=== PATIENT | female | born 1945 | race Caucasian/White ===

== ENCOUNTER 2024-03-17 12:26 | Emergency (ER) | payer MEDICARE, SELFPAY ==
[2024-03-17 12:47] VITALS: BP 129/78; PULSE 107; RESP 24; TEMP 36.7; O2SAT 95
--- OUTSIDE RECORDS SUMMARY | 2024-03-17 13:12 | XMS_ITS | CONTINUITY OF CARE DOCUMENT ---
Author Name ilan talavera Address Unknown Organization [facility] Address [address] [facility] [address] [place] [address] Phone [phone] Care Team Providers Care Cotton Grower Name Role Phone Jessica SOLIMAN, Shay Unavailable [phone] ROCIO SOLIMAN, ORAL Unavailable ORAL CHAN MD Unavailable PROBLEMS Condition Status Date Provider Notes Other symptoms involving cardiovascular system completed - Shay Lopez MD CVA active Shay Lopez MD Hyperlipidemia active ? Shay Lopez MD Hypertension active ? Shay Lopez MD Pulmonary hypertension active Fili Call LVH active Shay Lopez MD Tricuspid regurgitation, moderate active Shay Lopez MD Aortic valve stenosis with insufficiency active Shay Lopez MD Other peripheral vascular disease completed - Shay Lopez MD Abnormal stress test completed - Shay Lopez MD Pleural effusion active Shay Washington D CAD S/P CABGx4 09/30 (HENRIQUEZ-LAD, SVG-RCA, SVG-Ramus Int, LR-OM2) active Shay Lopez MD Aortic stenosis completed - Shay Lopez MD Shortness of breath active Shay echavarria MD Obesity active Shay Lopez MD Palpitations active Fili Call Carotid artery disease S/P FREDY endarterectomy 07/31 active Shay Lopez MD ENCOUNTERS Date Type Provider Location Encounter Diag nosis - In-person encounter Office Visit Shay Lopez MD [facility] - In-person encounter Office Visit Shay Lopez MD [facility] - In-person encounter Office Visit Shay oLpez MD [facility] - In-person encounter Office Visit Shay Lopez MD [facility] - In-person encounter Office Visit Shay Lopez MD [facility] - In-person encounter Office Visit Shay Lopez MD [facility] Pulmonary hypertensionPalpitations - In-person encounter Office Visit Shay Lopez MD [facility] - In-person encounter Office Visit Shay Lopez MD [facility] CVAAortic valve stenosis with insufficiencyCarotid artery disease S/P FREDY endarterectomy 07/31CAD S/P CABGx4 09/30 (HENRIQUEZ-LAD, SVG-RCA, SVG-Ramus Int, LR-OM2)Aortic stenosisShortness of breathObesity - In-person encounter Office Visit Shay Lopez MD [facility] Other peripheral vascular disease - In-person encounter Office Visit Shay Lopez MD [facility] Other symptoms involving cardiovascular systemPulmonary hypertensionTricuspid regurgitation, moderateAortic valve stenosis with insufficiencyAbnormal stress testCAD S/P CABGx4 0815 (HENRIQUEZ-LAD, SVG-RCA, SVG-Ramus Int, LR-OM2) - In-person encounter Office Visit Shay Lopez MD [facility] Pleural effusionCAD S/P CABGx4 09/30 (HENRIQUEZ-LAD, SVG-RCA, SVG-Ramus Int, LR-OM2) - In-person encounter Office Visit Shay Lopez MD [facility] - In-person encounter Office Visit Shay Lopez MD [facility] - In-person encounter Office Visit Shay Lopez MD [facility] - In-person encounter Office Visit Shay Lopez MD [facility] Carotid artery disease S/P FREDY endarterectomy 07/31 - In-person encounter Office Visit Shay Lopez MD [facility] CVAHyperlipidemiaHypertensionPulmonary hypertensionLVHTricuspid regurgitation, moderateAortic valve stenosis with insufficiencyCarotid artery disease S/P FREDY endarterectomy 07/31 VITAL SIGNS Date Observation Value Provider blood pressure, diastolic 84 mm[Hg] nkLog blood pressure, systolic 151 mm[Hg] [facility] Body Mass Index (Ratio) 34.03 kg/m2 [facility] blood pressure, cuff size regular [facility] blood pressure, diastolic 84 mm[Hg] [facility] blood pressure, systolic 151 mm[Hg] [facility] pulse rate 83 /min [facility] oxygen saturation, oximetry 99 % [facility] respiratory rate E&M 14 /min [facility] weight E&M 121 [lb_av] [facility] height E&M 50 [in_i] [facility] y Body Mass Index (Ratio) 34.87 kg/m2 Aravind Joseph blood pressure, diastolic 78 mm[Hg] Bonnie Mckinnon blood pressure, systolic 181 mm[Hg] Rei cathy Mckinnon blood pressure, cuff size large Bonnie Mckinnon oxygen saturation, oximetry 94 % Angela Mckinnon respiratory rate E&M 16 /min Mariola Mckinnon pulse rate 83 /min Angela galeano weight E&M 124 [lb_av] Angela Lugo son height E&M 50 [in_i] Angela galeano Body Mass Index (Ratio) 35.15 kg/m2 [place] [facility] blood pressure, cuff size regular Ke rri Gruenenfelder blood pressure, diastolic 80 mm[Hg] Ke rri Gruenenfelder blood pressure, systolic 142 mm[Hg] Ker ri Gruenenfelder oxygen saturation, oximetry 96 % Lucy Gruenenfelder respiratory rate E&M 14 /min Lucy G ruenenfelder pulse rate 85 /min Lucy Gruenenfe er weight E&M 125 [lb_av] Lucy Gruenenfe [facility] height E&M 50 [in_i] Lucy Gruenenfe [facility] Body Mass Index (Ratio) 35.99 kg/m2 [place] blood pressure, cuff size regular Ke rri Gruenenfelder blood pressure, diastolic 72 mm[Hg] Ke rri Gruenenfelder blood pressure, systolic 112 mm[Hg] Ker ri Gruenenfelder oxygen saturation, oximetry 90 % Lucy Gruenenfelder respiratory rate E&M 16 /min Lucy G ruenenfelder pulse rate 79 /min Lucy Gruenenfe lder weight E&M 128 [lb_av] Lucy Gruenenfe [facility] height E&M 50 [in_i] Lucy Buckley brenden Body Mass Index (Ratio) 35.60 kg/m2 Vinny Govea blood pressure, diastolic 87 mm[Hg] Baldomero Harper blood pressure, systolic 148 mm[Hg] Liz Perezshelby Harper oxygen saturation, oximetry 93 % Jasmyne Leroy respiratory rate E&M 18 /min Nito Harper pulse rate 88 /min Jasmyne edwards weight E&M 126.6 [lb_av] Jasmyne rollinson height E&M 50 [in_i] Jasmyne edwards Body Mass Index (Ratio) 35.09 kg/m2 Tahir Farooqon blood pressure, diastolic 94 mm[Hg] Baldomero saundraBrissathanh Harper blood pressure, systolic 158 mm[Hg] Liz Auguste Harper oxygen saturation, oximetry 95 % Jasmyne Harper respiratory rate E&M 18 /min Nito Harper pulse rate 92 /min Jasmyne edwards weight E&M 124.8 [lb_av] Jasmyne salazar height E&M 50 [in_i] Jasmyne edwards Body Mass Index (Ratio) 33.52 kg/m2 Arik Mckinnon blood pressure, diastolic 86 mm[Hg] Baldomero Harper blood pressure, systolic 173 mm[Hg] Liz Perezshelby Harper oxygen saturation, oximetry 96 % Jasmyne Leroy respiratory rate E&M 18 /min Nito Harper pulse rate 84 /min Jasmyne edwards weight E&M 119.2 [lb_av] Jasmyne rollinson height E&M 50 [in_i] Jasmyne Jacksno angelicanelson blood pressure, resting Yes Wojciech ius Kalvaitis MD Body Mass Index (Ratio) 33.91 kg/m2 Wojciech Lopez MD blood pressure, diastolic 87 mm[Hg] Baldomero Bullock Leroy blood pressure, systolic 151 mm[Hg] Liz Auugste Leroy oxygen saturation, oximetry 97 % Jasmyne Patelenson respiratory rate E&M 18 /min Nito ryan Harper pulse rate 70 /min Jasmyne Jackson angelicanelson weight E&M 120.6 [lb_av] Jasmyne salazar height E&M 50 [in_i] Jasmyne Jackson nelson blood pressure, diastolic 84 mm[Hg] Me hernandez Mosher blood pressure, systolic 151 mm[Hg] Mira barreraa Mosher pulse rate 94 /min Dasia Mosher oxygen saturation, oximetry 97 % Dasia Mosher respiratory rate E&M 14 /min Dasia Mosher Body Mass Index (Ratio) 30.09 kg/m2 [facility] weight E&M 107 [lb_av] Dasia Mosher oxygen saturation, oximetry 98 % Dasia Mosher blood pressure, diastolic 72 mm[Hg] Me hernandez Mosher blood pressure, systolic 116 mm[Hg] [facility] pulse [facility] 76 /min Dasia Mosher respiratory rate E&M 14 /min Dasia Mosher Body Mass Index (Ratio) 29.53 kg/m2 [facility] weight E&M 105 [lb_av] Dasia Mosher blood pressure, diastolic 66 mm[Hg] Me hernandez Mosher blood pressure, systolic 119 mm[Hg] Mira carlos Mosher Body Mass Index (Ratio) 30.65 kg/m2 [facility] pulse rate 88 /min Dasia Mosher oxygen saturation, oximetry 96 % Dasia Mosher respiratory rate E&M 15 /min Dasia Mosher weight E&M 109 [lb_av] Dasia Mosher blood pressure, diastolic 70 mm[Hg] Baldomero Harper blood pressure, systolic 157 mm[Hg] Liz Harper Body Mass Index (Ratio) 31.55 kg/m2 Abigail Harper pulse rate 74 /min Jasmyne edwards oxygen saturation, oximetry 97 % Jasmyne Harper respiratory rate E&M 16 /min Nito Harper weight E&M 112.2 [lb_av] Jasmyne salazar blood pressure, diastolic 83 mm[Hg] Baldomero Harper blood pressure, systolic 188 mm[Hg] Liz Harper Body Mass Index (Ratio) 31.33 kg/m2 Abigail Harper pulse rate 86 /min Jasmyne edwards oxygen saturation, oximetry 92 % Jasmyne Harper respiratory rate E&M 18 /min Nito Harper weight E&M 111.4 [lb_av] Jasmyne salazar Body Mass Index (Ratio) 31.49 kg/m2 Anea kamilah Brown blood pressure, diastolic 80 mm[Hg] An eatris Brown blood pressure, systolic 132 mm[Hg] Ane atris Brown pulse rate 76 /min Aneatris Brown oxygen saturation, oximetry 98 % Aneatris Brown respiratory rate E&M 17 /min Aneatri s Brown weight E&M 112 [lb_av] Aneatris Brown Body Mass Index (Ratio) 32.90 kg/m2 Anea kamilah Brown blood pressure, diastolic 88 mm[Hg] An eatris Brown blood pressure, systolic 159 mm[Hg] Ane atris [facility] pulse rate 80 /min Aneatris [facility] oxygen saturation, oximetry 97 % Aneatris Drew respiratory rate E&M 18 /min Aneatri s [facility] weight E&M 117 [lb_av] Aneatris Drew height E&M 50 [in_i] Aneatris Drew ALLERGIES No Known Drug Allergies RESULTS Date Observation Value Provider Reference Range Interpretation Location basophils as percent of blood leukocytes 0.6 % [facility] Normal eosinophils as percent of blood leukocytes 2.8 % [facility] Normal monocyte count, blood 6.8 % [facility] Normal lymphocyte count, blood 20.9 % [facility] Normal neutrophils as percent of blood leukocytes 68.9 % [facility] Normal basophils, absolute, manual 59 cells/mcL [facility] 0-200 Normal eosinophils, absolute, manual 274 cells/mcL [facility] 15-500 Normal monocytes, absolute, manual 666 cells/mcL [facility] 200-950 Normal lymphocytes, absolute 2048 CELLS/UL [facility] 850-3900 Normal Absolute Neutrophil count 6752 cells/mcL [facility] 9731-3871 Normal mean platelet volume 12.7 fL [facility] 7.5-12.5 High platelet count 160 THOUSAND/UL [facility] 140-400 Normal red blood cell distribution width 13.5 % [facility] 11.0-15.0 Normal mean corpuscular hemoglobin concentration, RBC 33.7 G/DL [facility] 32.0-36.0 Normal mean corpuscular hemoglobin, RBC 30.3 pg [facility] 27.0-33.0 Normal mean corpuscular volume, RBC 89.8 fL [facility] 80.0-100.0 Normal hematocrit, blood 45.7 % [facility] 35.0-45.0 High hemoglobin electrophoresis, blood 15.4 [facility] 11.7-15.5 Normal erythrocyte (RBC) count 5.09 MILLION/UL [facility] 3.80-5.10 Normal leukocyte (white blood cells) count, blood 9.8 THOUSAND/UL [facility] 3.8-10.8 Normal alanine aminotransferase (SGPT), serum 18 1/L [facility] 6-29 Normal aspartate aminotransferase (SGOT), serum 18 1/L [facility] 10-35 Normal alkaline phosphatase, serum 72 1/L [facility] 37-153 Normal bilirubin, serum, total 0.5 mg/dL [facility] 0.2-1.2 Normal albumin, serum 4.0 g/dL [facility] 3.6-5.1 Normal calcium, serum 9.5 mg/dL [facility] 8.6-10.4 Normal carbon dioxide, venous blood 25 mmol/L [facility] 20-32 Normal chloride, serum 105 mmol/L [facility] 98-110 Normal sodium, serum 142 mmol/L [facility] 135-146 Normal urea nitrogen/creatinine ratio, serum NOT APPLICABLE (calc) [facility] 6-22 Estimated Glomerular Filtration Rate (calc) 75 mL/min/{1.73_ m2} [facility] > OR = 60 Normal creatinine, serum 0.89 mg/dL [facility] 0.60-0.93 Normal urea nitrogen, blood 23 mg/dL [facility] 7-25 Normal blood glucose, random 98 mg/dL [facility] 65-99 Normal thyroxine, serum, free 1.1 ng/dL [facility] 0.8-1.8 Normal thyroid stimulating hormone, serum 1.09 u[IU]/mL [facility] 0.40-4.50 Normal cholesterol, non-HDL, total 127 MG/DL (CALC) [facility] <130 Normal cholesterol/HDL ratio, serum, percent 4.0 (calc) [facility] <5.0 Normal LDL cholesterol, serum 100 MG/DL (CALC) [facility] High triglyceride, serum, fasting 172 mg/dL [facility] <150 High HDL cholesterol, serum 43 mg/dL [facility] > OR = 50 Low cholesterol, serum 170 mg/dL [facility] <200 Normal lipoprotein, beta, serum, point, quantitative, calculated 87 mg/dL [facility] 0-99 very low density lipoproteins 41 mg/dL [facility] 5-40 High HDL cholesterol, serum 40 mg/dL [facility] >39 triglyceride, serum, random 205 mg/dL [facility] 0-149 High cholesterol, serum 168 mg/dL [facility] 781-300 5117/06 /04 alanine aminotransferase (SGPT), serum 17 1/L [facility] 0-32 aspartate aminotransferase (SGOT), serum 18 1/L [facility] 0-40 alkaline phosphatase, serum 76 1/L [facility] 39-117 bilirubin, serum, total 0.4 mg/dL [facility] 0.0-1.2 albumin/globulin ratio, serum 1.6 [facility] 1.2-2.2 globulin, serum 2.8 [facility] 1.5-4.5 albumin, serum 4.4 g/dL [facility] 3.5-4.8 protein, total, serum 7.2 g/dL [facility] 6.0-8.5 calcium, serum 9.5 mg/dL [facility] 8.7-10.3 carbon dioxide, venous blood 22 mmol/L [facility] 20-29 chloride, serum 103 mmol/L [facility] 96-106 potassium, serum 5.2 mmol/L [facility] 3.5-5.2 sodium, serum 143 mmol/L [facility] 133-924 1490/06 /04 urea nitrogen/creatinine ratio, serum 20 [facility] 12-28 eGFR if 62 mL/min/{1.73_ m2} [facility] >59 eGFR if not 54 mL/min/{1.73_ m2} [facility] >59 Low creatinine, serum 1.04 mg/dL [facility] 0.57-1.00 High urea nitrogen, blood 21 mg/dL [facility] 8-27 blood glucose, random 99 mg/dL [facility] 65-99 red blood cell distribution width, size density 48.1 fL [facility] - mean platelet volume 13.1 (?) [facility] - platelet count 200.0 THOUSAND/UL [facility] 100.0 - 400.0 mean corpuscular hemoglobin concentration, RBC 30.1 G/DL [facility] 31.0 - 38.0 Low mean corpuscular hemoglobin, RBC 27.9 pg [facility] 25.0 - 35.0 mean corpuscular volume, RBC 92.9 fL [facility] 75.0 - 100.0 hematocrit, blood 48.2 % [facility] 35.0 - 55.0 hemoglobin, blood 14.5 g/dL [facility] 11.5 - 16.5 erythrocyte count, whole blood 5.2 MILLION/UL [facility] 3.5 - 5.5 very low density lipoproteins 30.2 mg/dL [facility] 5.0 - 40.0 LDL/HDL (low-density lipoprotein/high-de nsity lipoprotein) ratio 2.6 RATIO [facility] - HDL cholesterol, serum 48.0 mg/dL [facility] 45.0 - 65.0 cholesterol, serum 202.0 mg/dL [facility] 0.0 - 200.0 High Triglycerides-direc t 151.0 mg/dL [facility] 0.0 - 150.0 High anion gap, serum 18.3 [facility] - albumin/globulin ratio, serum 2.9 g/dL [facility] 1.1 - 2.5 High globulin, serum 3.4 [facility] 2.3 - 3.8 urea nitrogen/creatinine ratio, serum 27.0 [facility] - Estimated Glomerular Filtration Rate (calc) 58.6 (?) [facility] 59.0 - Low chloride, serum 98.7 mmol/L [facility] 98.0 - 107.0 potassium, serum 4.2 mmol/L [facility] 3.5 - 5.1 sodium, serum 143.0 mmol/L [facility] 136.0 - 145.0 creatinine, serum 1.0 mg/dL [facility] 0.5 - 0.9 High carbon dioxide, venous blood 26.0 mmol/L [facility] 23.0 - 31.0 albumin, serum 4.9 g/dL [facility] 3.5 - 5.2 calcium, serum 10.3 mg/dL [facility] 8.6 - 10.2 High aspartate aminotransferase (SGOT), serum 18.0 1/L [facility] 0.0 - 32.0 alkaline phosphatase, serum 87.0 1/L [facility] 40.0 - 130.0 alanine aminotransferase (SGPT), serum 12.0 1/L [facility] 0.0 - 33.0 protein, total, serum 8.3 g/dL [facility] 6.6 - 8.7 urea nitrogen, [facility].0 [facility] High Glucose Urine 103.0 mg/dL [facility] 74.0 - 99.0 High bilirubin, serum, total 0.3 mg/dL [facility] 0.0 - 1.2 red blood cell distribution width, size density 44.0 fL [facility] - immature granulocytes, percentage of total cells, blood 0.3 % [facility] - nucleated red blood cells as percent of blood leukocytes 0.0 % [facility] - red blood cell (erythrocyte) count, per high power field 0.0 10*3/UL [facility] - eosinophils as percent of blood leukocytes 3.4 % [facility] - neutrophils as percent of blood leukocytes 73.9 % [facility] - Absolute Neutrophils 8.9 CELLS/UL [facility] 1.5 - 7.8 High basophils as percent of blood leukocytes 0.8 % [facility] - Absolute Basophils 0.1 CELLS/UL [facility] 0.0 - 0.2 monocytes as percent of blood leukocytes 6.3 % [facility] - Absolute Monocytes 0.8 CELLS/UL [facility] 0.2 - 1.0 lymphocytes as percent of blood leukocytes 15.3 % [facility] - Absolute Lymphocytes 1.8 CELLS/UL [facility] 0.9 - 3.9 mean platelet volume 13.6 (?) [facility] - platelet count 176.0 THOUSAND/UL [facility] 100.0 - 400.0 mean corpuscular hemoglobin concentration, RBC 31.3 G/DL [facility] 31.0 - 38.0 mean corpuscular hemoglobin, RBC 29.8 pg [facility] 25.0 - 35.0 mean corpuscular volume, RBC 95.2 fL [facility] 75.0 - 100.0 hematocrit, blood 47.3 % [facility] 35.0 - 55.0 hemoglobin, blood 14.8 g/dL [facility] 11.5 - 16.5 erythrocyte count, whole blood 5.0 MILLION/UL [facility] 3.5 - 5.5 prothrombin time (patient) 10.6 s [facility] 9.0 - 11.5 international normalized ratio (INR) 1.0 [facility] 0.9 - 1.1 very low density lipoproteins 24.6 mg/dL [facility] 5.0 - 40.0 LDL/HDL (low-density lipoprotein/high-de nsity lipoprotein) ratio 2.0 RATIO [facility] - HDL cholesterol, serum 50.0 mg/dL [facility] 45.0 - 65.0 sum total cholesterol 176.0 mg/dL [facility] 0.0 - 200.0 Triglycerides-direc t 123.0 mg/dL [facility] 0.0 - 150.0 urea nitrogen/creatinine ratio, serum 25.0 [facility] - Estimated Glomerular Filtration Rate (calc) 75.8 (?) [facility] 59.0 - chloride, serum 102.2 mmol/L [facility] 98.0 - 107.0 potassium, serum 4.3 mmol/L [facility] 3.5 - 5.1 sodium, serum 142.0 mmol/L [facility] 136.0 - 145.0 creatine, serum 0.8 mg/dL [facility] 0.5 - 0.9 carbon dioxide, venous blood 26.0 mmol/L [facility] 23.0 - 31.0 calcium, serum 9.6 mg/dL [facility] 8.6 - 10.2 urea nitrogen, blood 20.0 mg/dL [facility] 8.0 - 23.0 Glucose Urine 107.0 mg/dL [facility] 74.0 - 99.0 High alanine aminotransferase (SGPT), serum 13 1/L [facility] 6-29 Normal aspartate aminotransferase (SGOT), serum 14 1/L [facility] 10-35 Normal alkaline phosphatase, serum 59 1/L [facility] 33-130 Normal bilirubin, serum, total 0.5 mg/dL [facility] 0.2-1.2 Normal albumin/globulin ratio, serum 1.5 (calc) [facility] 1.0-2.5 Normal globulins, serum, total 2.8 G/DL (CALC) [facility] 1.9-3.7 Normal albumin, serum 4.3 g/dL [facility] 3.6-5.1 Normal protein, total, serum 7.1 g/dL [facility] 6.1-8.1 Normal calcium, serum 9.6 mg/dL [facility] 8.6-10.4 Normal carbon dioxide, venous blood 25 mmol/L [facility] 19-30 Normal chloride, serum 106 mmol/L [facility] 98-110 Normal potassium, serum 4.4 mmol/L [facility] 3.5-5.3 Normal sodium, serum 142 mmol/L [facility] 135-146 Normal urea nitrogen/creatinine ratio, serum NOT APPLICABLE (calc) [facility] 6- Estimated Glomerular Filtration Rate (calc) 86 mL/min/{1.73_ m2} [facility] > OR = 60 Normal creatinine, serum 0.82 mg/dL [facility] 0.50-0.99 Normal urea nitrogen, blood 22 mg/dL [facility] 7-25 Normal blood glucose, random 101 mg/dL [facility] 65-99 High cholesterol, non-HDL, total 111 MG/DL (CALC) [facility] Normal cholesterol/HDL ratio, serum, percent 3.6 (calc) [facility] < OR = 5.0 Normal LDL cholesterol, serum 86 MG/DL (CALC) [facility] <130 Normal triglyceride, serum, fasting 125 mg/dL [facility] <150 Normal HDL cholesterol, serum 43 mg/dL [facility] > OR = 46 Low cholesterol, serum 154 mg/dL [facility] 125-200 Normal HISTORY OF MEDICATION USE Medication Status Instructions Dates Provider Indications Com ments ezetimibe 10 mg tablet active Take 1 tablet by mouth once a day TAKE ONE TABLET BY MOUTH EVERY DAY Ellen Choi NP was originally sent to [facility] atorvastatin 40 mg tablet active Take 1 tablet once a day Ellen Choi NP ezetimibe 10 mg tablet completed TAKE ONE TABLET BY MOUTH EVERY DAY - Marla Lizama metoprolol tartrate 25 mg tablet active TAKE 1/2 TABLET BY MOUTH TWICE DAILY Ellen Choi NP aspirin 81 mg tablet,delayed release (/EC) active TAKE ONE TABLET BY MOUTH EVERY DAY Gumaro Howard RN lisinopril 5 mg tablet active TAKE ONE TABLET BY MOUTH EVERY DAY Ellen Choi NP atorvastatin 40 mg tablet completed Take 1 tablet once a day - Benita Fan metoprolol tartrate 25 mg tablet completed Take 1/2 tablet by mouth twice a day - Apryl Carrington ezetimibe 10 mg tablet completed Take 1 tablet by mouth once a day - Apryl Carrington lisinopril 5 mg tablet completed Take 1 tablet by mouth once a day - Apryl Carrington ezetimibe 10 mg tablet completed 1 tablet - Shay Lopez MD aspirin 81 mg tablet,delayed release (/EC) completed Take 1 tablet by mouth once a day - Apryl IBRAHIM ASA/ RIVAROXABAN completed LTOLE ASA 100mg once daily Rivaroxaban 2.5mg BID - Dasai Mosher ASPIRIN ADULT LOW DOSE 81 MG ORAL TABLET DELAYED RELEASE completed One Tab By Mouth Daily - Dasia Mosher MULTIVITAMINS CAPS active 1 tablet once a day Dasia Mosher FERROUS SULFATE 325 (65 Fe) MG ORAL TABLET completed twice daily - Dasia Mosher BISACODYL EC 5 MG ORAL TABLET DELAYED RELEASE completed twice daily as needed - Dasia Mosher Klor-Con M20 20 mEq tablet,ER particles/cryst als completed Take 1 tablet by mouth once a day - Apryl Carrington Lasix 40 mg tablet completed Take 1 tablet by mouth once a day - Apryl IBRAHIM PROTONIX VS PLACEBO completed - Dasia Mosher PATRICE ASA/ RIVAROXABAN completed - Liz Jarrell RN ASPIRIN 81 MG ORAL TABLET completed ONE TAB. DAILY - Liz Jarrell RN lisinopril 5 mg tablet completed TAKE ONE TABLET DAILY - Lucy Morgan AGGRENOX 25-200 MG ORAL CAPSULE EXTENDED RELEASE 12 HOUR completed One tab twice daily - Jasmyne Harper ASPIRIN 81 MG ORAL TABLET completed ONE TAB. DAILY - Gerber Russell metoprolol tartrate 25 mg tablet completed Take 0.5 tablet by mouth twice a day - Elena Lim AMLODIPINE BESYLATE 2.5 MG ORAL TABLET completed 1 TAB DAILY - Gerber Russell SOCIAL HISTORY Date Observation Value Provider personal history of marijuana use no Ellen Steph CERAMIST drug use no Ellen Choi CERAMIST alcohol use no Ellen Choi CERAMIST smoking status Never smoker Ellen Isi ornelas CERAMIST social history E&M S moking History: Zayra salcido has never smoked. Aravind Joseph social history reviewed E&M revi ewed - no changes required Aravind Joseph smoking status Never smoker Angela Leigh Ann banks social history E&M S moking History: Zayra salcido has never smoked. Apryl Carrington social history reviewed E&M revi ewed - no changes required Apryl Carrington smoking status Never smoker Lucy caceres social history E&M S moking History: Zayra salcido has never smoked. Apryl Carrington social history reviewed E&M revi ewed - no changes required Apryl Carrington smoking status Never smoker Lucy caceres social history reviewed E&M revi ewed - no changes required Omega Govea smoking status Never smoker Jasmyne Recio social history reviewed E&M revi ewed - no changes required Filius Call social history E&M S moking History: Zayra salcido has never smoked. Fili Call smoking status Never smoker Jasmyne Recio number of grandchildren Shay Lopez MD [facility] social history reviewed E&M revi ewed - no changes required [facility] social history E&M S moking History: Zayra salcido has never smoked. Ana M Lansing smoking status Never smoker Jasmyne Recio social history E&M Smoking Histo ry: Zayra salcido has never smoked. Shay Lopez MD social history reviewed E&M revi ewed - no changes required Shay Lopez MD smoking status Never smoker Jasmyne Recio social history reviewed E&M revi ewed - no changes required Shay Lopez MD smoking status Never smoker Dasia law social history reviewed E&M revi ewed - no changes required Shay Lopez MD smoking status Never smoker Dasia Yaakov law social history E&M Smoking Histo ry: Zayra salcido has never smoked. Shay Lopez MD social history reviewed E&M revi ewed - no changes required Shay Lopez MD smoking status Never smoker Dasia law social history reviewed E&M revi ewed - no changes required Shay Lopez MD social history E&M Patient has n ever smoked. Smoking History: Zayra salcido has never smoked. Shay Lopez MD social history reviewed E&M revi ewed - no changes required Shay Lopez MD smoking status Never smoker Shay redding MD social history reviewed E&M revi ewed - no changes required Shay Lopez MD smoking status Never smoker Jasmyne Recio social history E&M Patient has n ever smoked. Smoking History: Zayra salcido has never smoked. Shay Lopez MD social history reviewed E&M revi ewed - no changes required Shay Lopez MD smoking status Never smoker Shay redding MD social history reviewed E&M revi ewed - no changes required Shay Lopez MD smoking status Never smoker Aneatris Brow n FUNCTIONAL STATUS Date Observation Value Provider HRA, CV Assess/Plan, Angina (inactive) Management Plan continue current therapy Ellen Choi NP HRA, CV Assess/Plan, Angina (inactive) Management Plan continue current therapy Aravind Joseph HRA, CV Assess/Plan, Angina (inactive) Management Plan continue current therapy Taewon Zeb HRA, CV Assess/Plan, Angina (inactive) Management Plan continue current therapy Taewon Zeb HRA, CV Assess/Plan, Angina (inactive) Management Plan continue current therapy Omega Govea HRA, CV Assess/Plan, Angina (inactive) Management Plan continue current therapy Fili Call HRA, CV Assess/Plan, Angina (inactive) Management Plan continue current therapy Ana M Mckinnon HRA, CV Assess/Plan, Angina (inactive) Management Plan continue current therapy Shay Lopez MD FAMILY HISTORY Family Member Condition Mother Family History of CV A or Stroke: Father Family History of Co ngestive Heart Failure: Father Family History of Hy pertension: Father Family History of CV A or Stroke: INSURANCE PROVIDERS Payer name Policy type / Coverage type Eidson red democrat ID [employer] MEDICARE ADVANTAGE HMO-POS HMO [id number] ADVANCE DIRECTIVES Name Date DISCUSSED - NO DECISION MADE TREATMENT PLAN Date Name Performer [id number],C,will repeat h er carotid doppler Aravind Joseph [id number],B, Aravind Reid i [id number],C,no sxs Aravind Dietz edzai [id number],C,Stable Aravind Dietz edzai [id number],C, n o angina Aravind Reidi [id number],C,A dvised her to monitor her BP at home and stay complaint on her medications. BP today: 181/78 P rior BP: 142/80 (01/04/2021) Labs Reviewed: C reat: 0.89 (12/16/2019) C hol: 170 (12/16/2019) HDL: 43 (12/16/2019) LDL: 100 MG/DL (CALC) (12/16/2019) T (12/16/2019) Aravind Reidi [id number],C, E cho 01/2019 CONCLUSIONS: 4 . Moderate aortic stenosis. Mild aortic valve regurgitation. Peak AV velocity: 3.05 m/s. The Aortic Valve Peak Gradient is 3 7.00 mmHg. The Aortic Valve Mean Gradient is 19.00 mmHg. Orders: C omplete Echo (CPT-70692) Apryl Carrington [id number],C, B P today: 142/80 P rior BP: 112/72 (12/09/2019) Her updated medication list for this problem includes: Lasix 40 Mg Tablet (Furosemide) ..... Once a day Aspirin 81 Mg Tablet,delayed Release (dr/ec) (Aspirin) ..... 1 tablet by mouth once a day Metoprolol Tartrate 25 Mg Tablet (Metoprolol tartrate) ..... Take one-half tablet by mouth twice daily Lisinopril 5 Mg Tablet (Lisinopril) ..... Take one tablet by mouth every day Orders: C omplete Echo (CPT-95901) C arotid Duplex Bilateral (CPT-45831) A janis Duplex Ultrasound (CPT-85784) Apryl Carrington [id number],B, l ast LDL 65 05/2020 t olerating statin/zetia well. occasional leg cramps but not associated w/ taking meds Her updated medication list for this problem includes: Lipitor 40 Mg Tablet (Atorvastatin) ..... 1 tablet once a day Ezetimibe 10 Mg Tablet (Ezetimibe) ..... Take one tablet by mouth every day Apryl Zeb [id number],C, O rders: C omplete Echo (CPT-62882) [facility] [id number],C, O rders: C omplete Echo (CPT-22411) [facility] [id number],C, O rders: C arotid Duplex Bilateral (CPT-11618) [facility] [id number],B, n o angina Her updated medication list for this problem includes: Aspirin 81 Mg Tablet,delayed Release (dr/ec) (Aspirin) ..... 1 tablet by mouth once a day Metoprolol Tartrate 25 Mg Tablet (Metoprolol tartrate) ..... Take one-half tablet by mouth twice daily Lisinopril 5 Mg Tablet (Lisinopril) ..... Take one tablet by mouth every day Apryl Carrington Electrophysiology: Vanita heaton 10/2021 CONCLUSIONS: M oderate to severe aortic stenosis. Moderate aortic valve regurgitation. Peak AV velocity: 3.93 m/s The Aortic Valve Peak G radient is 61.79 mmHg The Aortic Valve Mean Gradient is 38.17 mmHg The ZORAIDA is 0.7 cm2. Will repeat echo. Ellen Choi NP Electrophysiology: H er updated medication list for this problem includes: Ezetimibe 10 Mg Tablet (Ezetimibe) ..... Take 1 tablet by mouth once a day take one tablet by mouth every day Atorvastatin 40 Mg Tablet (Atorvastatin) ..... Take 1 tablet once a day Ellen Choi NP Electrophysiology: B P at home ranges in the 130s/80s. D iscussed need to continue monitoring BP at home. D iscussed need to monitor sodium intake B P today: 151/84 P rior BP: 181/78 (01/03/2022) Her updated medication list for this problem includes: Metoprolol Tartrate 25 Mg Tablet (Metoprolol tartrate) ..... Take 1/2 tablet by mouth twice daily Lisinopril 5 Mg Tablet (Lisinopril) ..... Take one tablet by mouth every day Aspirin 81 Mg Tablet,delayed Release (dr/ec) (Aspirin) ..... Take one tablet by mouth every day Ellen Loyolasuyapa JALLOH Electrophysiology: C arotid doppler 01/2019 CONCLUSIONS: 1 . 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 2 . 50 - 69% stenosis of the left ICA. 3 . <50% stenosis of the right ICA. 4 . Vertebral flow is antegrade bilaterally. Will repeat carotid doppler. Ellen Loyolasuyapa JALLOH Electrophysiology: N o angina. Continue current medications. Fatmatanehal Steph JALLOH Electrophysiology: N o recent symptoms. W ill get 48 hour holter in 1 year. Ellen Loyolasuyapa JALLOH Electrophysiology:will repeat he r carotid doppler Aravind millie [facility]:no sxs Aravind medzai Electrophysiology:Stable [facility] medzai Electrophysiology: n o angina [facility]:Ad vised her to monitor her BP at home and stay complaint on her medications. BP today: 181/78 P rior BP: 142/80 (01/04/2021) Labs Reviewed: C reat: 0.89 (12/16/2019) C hol: 170 (12/16/2019) HDL: 43 (12/16/2019) LDL: 100 MG/DL (CALC) (12/16/2019) T (12/16/2019) [facility] E cho 01/2019 CONCLUSIONS: 4 . Moderate aortic stenosis. Mild aortic valve regurgitation. Peak AV velocity: 3.05 m/s. The Aortic Valve Peak Gradient is 3 7.00 mmHg. The Aortic Valve Mean Gradient is 19.00 mmHg. Orders: C omplete Echo (CPT-44191) Apryl Zeb Electrophysiology: B P today: 142/80 P rior BP: 112/72 (12/09/2019) Her updated medication list for this problem includes: Lasix 40 Mg Tablet (Furosemide) ..... Once a day Aspirin 81 Mg Tablet,delayed Release (dr/ec) (Aspirin) ..... 1 tablet by mouth once a day Metoprolol Tartrate 25 Mg Tablet (Metoprolol tartrate) ..... Take one-half tablet by mouth twice daily Lisinopril 5 Mg Tablet (Lisinopril) ..... Take one tablet by mouth every day Orders: C omplete Echo (CPT-12477) C arotid Duplex Bilateral (CPT-77797) A janis Duplex Ultrasound (CPT-04129) [facility]: l ast LDL 65 05/2020 t olerating statin/zetia well. occasional leg cramps but not associated w/ taking meds Her updated medication list for this problem includes: Lipitor 40 Mg Tablet (Atorvastatin) ..... 1 tablet once a day Ezetimibe 10 Mg Tablet (Ezetimibe) ..... Take one tablet by mouth every day [facility]: O rders: C omplete Echo (CPT-39219) [facility] Electrophysiology: O rders: C omplete Echo (CPT-72186) [facility] Electrophysiology: O rders: C arotid Duplex Bilateral (CPT-63071) [facility] Electrophysiology: n o angina Her updated medication list for this problem includes: Aspirin 81 Mg Tablet,delayed Release (dr/ec) (Aspirin) ..... 1 tablet by mouth once a day Metoprolol Tartrate 25 Mg Tablet (Metoprolol tartrate) ..... Take one-half tablet by mouth twice daily Lisinopril 5 Mg Tablet (Lisinopril) ..... Take one tablet by mouth every day Apryl Zeb Electrophysiology Fo llow up completed : B P today: 112/72 P rior BP: 148/87 (01/07/2019) Labs Reviewed: C reat: 1.04 (07/20/2018) C hol: 168 (07/20/2018) HDL: 40 (07/20/2018) H er updated medication list for this problem includes: Aspirin Adult Low Dose 81 Mg Oral Tablet Delayed Release (Aspirin) ..... One tab by mouth daily Lasix 40 Mg Oral Tablet (Furosemide) ..... Once daily Lisinopril 5mg (Lisinopril) ..... Take one tablet daily Metoprolol Tartrate 25 Mg Oral Tablet (Metoprolol tartrate) ..... 1/2 tab. twice daily Eleazarhussein Carrington Electrophysiology Fo llow up completed :Echo 2018 CONCLUSIONS: 1 . Hyperdynamic left ventricular function. Normal left ventricular size. Normal left ventricular wall thickness. There is E to A wave reversal consistent with impaired LV relaxation. Left ventricular ejection fraction is measured at 65 %. 2 . There is moderate enlargement of the left atrium. 3 . Severe mitral annular calcification. The mitral valve leaflets appear myxomatous. Mild mitral stenosis. The mitral valve is S /P Ring Repair. There is trace physiologic mitral valve regurgitation. 4 . Moderate aortic stenosis. Mild aortic valve regurgitation. Peak AV velocity: 3.05 m/s. The Aortic Valve Peak Gradient is 3 7.00 mmHg. The Aortic Valve Mean Gradient is 19.00 mmHg. E lectronically Signed By: Shay Lopez 15:54:35 THERAPEUTIC MASSAGE TECHNICIAN Orders: C omplete Echo (CPT-77955) 9 9215 HIGH Complex (CPT-55574) EleazarDexetranelson Zeb Electrophysiology Fo llow up completed :01/2019: C ONCLUSIONS: 1 . 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 2 . 50 - 69% stenosis of the left ICA. 3 . <50% stenosis of the right ICA. 4. Vertebral flow is antegrade bilaterally. E lectronically Signed By: Shay Ching 15:36:30 THERAPEUTIC MASSAGE TECHNICIAN O rders: C arotid Duplex Bilateral (CPT-07112) 9 9215 HIGH Complex (CPT-51480) EleazarDexetranelson Zeb Electrophysiology: H er updated medication list for this problem includes: Aspirin Adult Low Dose 81 Mg Oral Tablet Delayed Release (Aspirin) ..... One tab by mouth daily Lasix 40 Mg Oral Tablet (Furosemide) ..... Once daily Lisinopril 5mg (Lisinopril) ..... Take one tablet daily Metoprolol Tartrate 25 Mg Oral Tablet (Metoprolol tartrate) ..... 1/2 tab. twice daily Omega Jeferson Electrophysiology: O rders: C omplete Echo (CPT-31786) M obile Cardiac Tele (CPT-87622) 9 9215 HIGH Complex (CPT-21530) [facility] Electrophysiology:Wi ll get 1 week telesentry, n o recent episodes O rders: C omplete Echo (CPT-10773) [facility] Electrophysiology:ge t echo redone Orders: C omplete Echo (CPT-41162) Omega Jeferson Electrophysiology:Or ders: M obile Cardiac Tele (CPT-40867) Her updated medication list for this problem includes: Aspirin Adult Low Dose 81 Mg Oral Tablet Delayed Release (Aspirin) ..... One tab by mouth daily Lisinopril 5 Mg Oral Tablet (Lisinopril) ..... One tab. daily Metoprolol Tartrate 25 Mg Oral Tablet (Metoprolol tartrate) ..... 1/2 tab. twice daily Fili Oneyda Electrophysiology:In creased Lipitor to 40mg qD. W ill check lipid panel and CMP in 6 months. L ast LDL 97 on 09/17/17. Goal 70. Orders: L IPID PANEL (5880) C OMPREHENSIVE METABOLIC PANEL, W/EGFR (91489) Her updated medication list for this problem includes: Lipitor 20 Mg Oral Tablet (Atorvastatin calcium) ..... One tab. daily Fili Call Electrophysiology:Or ders: C arotid Duplex Bilateral (CPT-88472) S chedule Followup (*) 9 9214 MOD Complex (CPT-09601) Fili Call Electrophysiology:Or ders: C omplete Echo (CPT-14490) S chedule Followup (*) 9 9214 MOD Complex (CPT-21666) Her updated medication list for this problem includes: Aspirin Adult Low Dose 81 Mg Oral Tablet Delayed Release (Aspirin) ..... One tab by mouth daily Lasix 40 Mg Oral Tablet (Furosemide) ..... Once daily Lisinopril 5 Mg Oral Tablet (Lisinopril) ..... One tab. daily Metoprolol Tartrate 25 Mg Oral Tablet (Metoprolol tartrate) ..... 1/2 tab. twice daily Fili Call Electrophysiology:Or ders: S chedule Followup (*) 9 2773 MOD Complex (CPT-58100) Her updated medication list for this problem includes: Aspirin Adult Low Dose 81 Mg Oral Tablet Delayed Release (Aspirin) ..... One tab by mouth daily Lisinopril 5 Mg Oral Tablet (Lisinopril) ..... One tab. daily Metoprolol Tartrate 25 Mg Oral Tablet (Metoprolol tartrate) ..... 1/2 tab. twice daily Fili Call Electrophysiology: C arotid duplex 03/28/16: 1 . Mild plaque with less than 50% stenosis of the internal carotid arteries bilaterally. 2 . Vertebral flow is antegrade bilaterally. 3 . 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 PSV = 3.55 m/s. 4 . S/P right endarterectomy. Ana M Mckinnon Electrophysiology [facility] Electrophys[facility] Electrophysiology: B P today: 173/86 P rior BP: 151/87 (03/28/2016) Labs Reviewed: C reat: 1.0 (12/09/2014) C hol: 202.0 (12/09/2014) HDL: 48.0 (12/09/2014) LDL: 86 MG/DL (CALC) (07/08/2014) T (07/08/2014) Ana M Mckinnon Cardiology faxed 04/16 :Echo today shows mild/moderate stenosis. Shay Lopez MD Cardiology faxed 04/16 :Carotid duplex today shows: 1 . Mild plaque with less than 50% stenosis of the internal carotid arteries bilaterally. 2 . Vertebral flow is antegrade bilaterally. 3 . 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 PSV = 3.55 m/s. 4 . S/P right endarterectomy. Shay Lopez MD Cardiology faxed 04/16 :Her updated medication list for this problem includes: Lasix 40 Mg Tabs (Furosemide) ..... Once daily Lisinopril 2.5 Mg Tabs (Lisinopril) ..... One tab. daily Metoprolol Tartrate 25 Mg Tabs (Metoprolol tartrate) ..... 1/2 tab. twice daily Shay Lopez MD Cardiology faxed 04/25/16 Shay Lopez MD Cardiology Faxed 12/11/14 1359 S arleth Lopez MD Cardiology Faxed 12/11/14 1359 S arleth Lopez MD Cardiology Faxed 12/11/14 1359 S arleth Lopez MD Cardiology Faxed [phone]: O rders: E KG (CPT-83268) 9 9213 LTD. Complex (CPT-07959) S chedule Followup (*) C omplete Echo (CPT-30522) Her updated medication list for this problem includes: Lisinopril 2.5 Mg Tabs (Lisinopril) ..... One tab. daily Metoprolol Tartrate 25 Mg Tabs (Metoprolol tartrate) ..... 1/2 tab. twice daily Shay Lopez MD EP faxed 11/07/14 0815 Shay cox MD EP faxed 11/07/14 0815 Shay cox MD EP faxed 11/07/14 0815 Shay cox MD EP faxed 11/07/14 0815:S/p thorce ntesis on 10/27/2014 Shay Lopez MD pre-op Refer for Com pass after cardiac cath is done. :Cardiac cath by Dr. Lam Lopez MD pre-op Refer for Compass after c ardiac cath is done. Shay Lopez MD pre-op Refer for Com pass after cardiac cath is done. :BP 157/70 Shay Lopez MD pre-op Refer for Com pass after cardiac cath is done. :s/p R CEA (08/15/2014) Shay Lopez MD hfu: O rders: E KG (CPT-18090) 9 9213 LTD. Complex (CPT-59171) S chedule Followup (*) S TR - Adenosine (26075) Shay Lopez MD hfu: O rders: E KG (CPT-10343) S chedule Followup (*) S TR - Adenosine (34496) Shay Lopez MD hfu:s/p Carotid Enda rterectomy: right 08/15/2014 The following medications were removed from the medication list: Aggrenox 25-200 Mg Oral [id number] (Aspirin-dipyridamole) ..... One tab twice daily Her updated medication list for this problem includes: Aspirin 81 Mg Tabs (Aspirin) ..... One tab. daily Shay Lopez MD EP follow up: T he following medications were removed from the medication list: Aspirin 81 Mg Tabs (Aspirin) ..... One tab. daily Amlodipine Besylate 2.5 Mg Oral Tabs (Amlodipine besylate) ..... 1 tab daily Her updated medication list for this problem includes: Lisinopril 2.5 Mg Tabs (Lisinopril) ..... One tab. daily Metoprolol Tartrate 100 Mg Tabs (Metoprolol tartrate) ..... One tab. twice daily Shay Lopez MD EP follow up:Referre d to Dr. Amaya The following medications were removed from the medication list: Aspirin 81 Mg Tabs (Aspirin) ..... One tab. daily Her updated medication list for this problem includes: Aggrenox 25-200 Mg Oral [id number] (Aspirin-dipyridamole) ..... One tab twice daily Orders: C T angio, neck (CPT-54626) Shay Lopez MD HOS FOLLOW UP: O rders: S TR - Nuclear (91912) Shay Lopez MD HOS FOLLOW UP: H er updated medication list for this problem includes: Aggrenox 25-200 Mg Oral [id number] (Aspirin-dipyridamole) ..... One tab twice daily Aspirin 81 Mg Tabs (Aspirin) ..... One tab. daily Shay Lopez MD HOS FOLLOW UP: O rders: C OMPREHENSIVE METABOLIC PANEL W/EGFR (55155) L IPID PANEL (5100) C omplete Echo (CPT-02155) C arotid Duplex Bilateral (CPT-76669) S TR - Nuclear (29901) A ortic Abdominal Ultrasound (CPT-72708) Shay Lopez MD Date Name Holter Monitor 48 hr Carotid Duplex Bilat eral Complete Echo Aorta Duplex Ultraso und Complete Echo Complete Echo Aorta Duplex Ultraso und Carotid Duplex Bilat eral Complete Echo Aorta Duplex Ultraso und Carotid Duplex Bilat eral Complete Echo CBC (H/H, RBC, INDIC ES, WBC, PLT) LIPID PANEL COMPREHENSIVE METABO LIC PANEL, W/EGFR Carotid Duplex Bilat eral Mobile Cardiac Tele Complete Echo LIPID PANEL COMPREHENSIVE METABO LIC PANEL, W/EGFR COMPREHENSIVE METABO LIC PANEL, W/EGFR LIPID PANEL Carotid Duplex Bilat eral Mobile Cardiac Tele Complete Echo Carotid Duplex Bilat eral Complete Echo Mobile Cardiac Tele DLCO - 80308 FRC - 50280 FVC - 30061 Complete Echo Complete Echo Carotid Duplex Bilat eral CBC (H/H, RBC, INDIC ES, WBC, PLT) LIPID PANEL COMPREHENSIVE METABO LIC PANEL W/EGFR Complete Echo PROTHROMBIN TIME WIT H INR CBC (INCLUDES DIFF/P LT) LIPID PANEL BASIC METABOLIC PANE L W/EGFR Cardiac Cath - Left - CNE STR - Adenosine CT angio, neck Aortic Abdominal Ult rasound STR - Nuclear Carotid Duplex Bilat eral Complete Echo LIPID PANEL COMPREHENSIVE METABO LIC PANEL W/EGFR HISTORY OF PROCEDURES Procedure Date Procedure Name Provider Procedure Notes S tatus Schedule Followup Shay lewis MD 1 year completed EKG Shay echavarria MD completed EKG Shay echavarria MD completed EKG Shay echavarria MD completed EKG Shay echavarria MD completed EKG Shay echavarria MD completed Schedule Followup Shay lewis MD in 1 yr completed EKG Shay echavarria MD completed EKG Shay echavarria MD completed Event Monitor Shay echavarria MD completed Schedule Followup Shay lewis MD in 6 months completed EKG Shay echavarria MD completed SNOMED-CT: 547692629381734 Current Medications Documented Shay Lopez MD completed Schedule Followup Shay lewis MD in 1 year completed EKG Shay echavarria MD completed SNOMED-CT: 188792601022802 Current Medications Documented Shay Lopez MD completed SNOMED-CT: 44120474 Physical Exam, Performed: Pulse Exam of Foot Shay Lopez MD completed SNOMED-CT: 298882644 Smoking Cessation Counseling Shay Lopez MD completed Schedule Followup Shay lewis MD fu in 3 months completed EKG Shay echavarria MD completed SNOMED-CT: 284216058457332 Current Medications Documented Shay Lopez MD completed Schedule Followup Shay lewis MD in 1 month completed EKG Shay echavarria MD completed EKG Shay echavarria MD completed Schedule Followup Shay lewis MD fu in 1 month with SK completed EKG Shay echavarria MD completed EKG Shay echavarria MD completed EKG Shay echavarria MD completed
--- OUTSIDE RECORDS SUMMARY | 2024-03-17 13:19 | XMS_ITS | CONTINUITY OF CARE DOCUMENT ---
Author Name ilan talavera Address Unknown Organization [facility] Address [address] [address] [facility] [address] [place] [address] Phone [phone] Care Team Providers Care Cabana Attendant Name Role Phone Jessica SOLIMAN, Shay Unavailable ROCIO SOLIMAN, ORAL Unavailable ORAL CHAN MD [...] In-person encounter Office Visit Shay Lopez MD [facility] - In-person encounter Office Visit Shay Lopez MD [facility] - In-person encounter Office Visit Shay Lopez MD [facility] - In-person encounter Office Visit Shay Lopez MD [facility] - In-person encounter Office Visit Shay Lopez MD [facility] - In-person encounter Office Visit Shay Lopez MD [facility] Pulmonary hypertensionPalpitations - In-person encounter Office Visit Shay Lopez MD [facility] - In-person encounter Office Visit Shay Lopez MD [facility] CVAAortic valve stenosis with insufficiencyCarotid artery disease S/P FREDY endarterectomy 07/31CAD S/P CABGx4 09/30 (HENRIQUEZ-LAD, SVG-RCA, SVG-Ramus Int, LR-OM2)Aortic stenosisShortness of breathObesity - In-person encounter Office Visit Shay Lopez MD [facility] Other peripheral vascular disease - In-person encounter Office Visit Shay Lopez MD [facility] Other symptoms involving cardiovascular systemPulmonary hypertensionTricuspid regurgitation, moderateAortic valve stenosis with insufficiencyAbnormal stress testCAD S/P CABGx4 0815 (HENRIQUEZ-LAD, SVG-RCA, SVG-Ramus Int, LR-OM2) - In-person encounter Office Visit Shay Lopez MD [facility] Pleural effusionCAD S/P CABGx4 09/30 (HENRIQUEZ-LAD, SVG-RCA, SVG-Ramus Int, LR-OM2) - In-person encounter Office Visit Shya Lopez MD [facility] - In-person encounter Office Visit Shay Lopez MD [facility] - In-person encounter Office Visit Shay Lopez MD [facility] - In-person encounter Office Visit Shay Lopez MD [facility] Carotid artery disease S/P FREDY endarterectomy 07/31 - In-person encounter Office Visit Shay Lopez MD [facility] CVAHyperlipidemiaHypertensionPulmonary hypertensionLVHTricuspid regurgitation, moderateAortic valve stenosis with insufficiencyCarotid artery disease S/P FREDY endarterectomy 07/31 VITAL SIGNS Date Observation Value Provider blood pressure, diastolic 84 mm[Hg] nkLog blood pressure, systolic 151 mm[Hg] [facility] Body Mass Index (Ratio) 34.03 kg/m2 [facility] blood pressure, cuff size regular [facility] blood pressure, diastolic 84 mm[Hg] [facility] blood pressure, systolic 151 mm[Hg] [facility] pulse rate 83 /min [facility] oxygen saturation, oximetry 99 % [facility] respiratory rate E&M 14 /min [facility] weight E&M 121 [lb_av] [facility] height E&M 50 [in_i] [facility] y Body Mass Index (Ratio) 34.87 kg/m2 [...] er weight E&M 125 [lb_av] Lucy Gruenenfe [facility] height E&M 50 [in_i] Lucy Gruenenfe [facility] Body Mass Index (Ratio) 35.99 kg/m2 [facility] blood pressure, cuff size regular Ke rri Gruenenfelder blood pressure, diastolic 72 mm[Hg] Ke rri Gruenenfelder blood pressure, systolic 112 mm[Hg] Ker ri Gruenenfelder oxygen saturation, oximetry 90 % Lucy Gruenenfelder respiratory rate E&M 16 /min Lucy G ruenenfelder pulse rate 79 /min Lucy Gruenenfe lder weight E&M 128 [lb_av] Lucy Gruenenfe [facility] height E&M 50 [in_i] Lucy Buckley brenden [...] Jasmyne rollinson height E&M 50 [in_i] Jasmyne Jackson angelicanelson blood pressure, resting Yes Wojciech ius Kalvaitis MD Body Mass Index (Ratio) 33.91 kg/m2 Wojciech Lopez MD blood pressure, diastolic 87 mm[Hg] Baldomero Bullock Leroy blood pressure, systolic 151 mm[Hg] Liz Auguste Leroy oxygen saturation, oximetry 97 % Jasmyne [...] Mosher Body Mass Index (Ratio) 30.09 kg/m2 [facility] weight E&M 107 [lb_av] Dasia Mosher oxygen saturation, oximetry 98 % Dasia Mosher blood pressure, diastolic 72 mm[Hg] Me hernandez Mosher blood pressure, systolic 116 mm[Hg] [facility] pulse [facility] 76 /min Dasia Mosher respiratory rate E&M 14 /min Dasia Mosher Body Mass Index (Ratio) 29.53 kg/m2 [facility] weight E&M 105 [lb_av] Dasia Mosher blood pressure, diastolic 66 mm[Hg] Me hernandez Mosher blood pressure, systolic 119 mm[Hg] Mira carlos Mosher Body Mass Index (Ratio) 30.65 kg/m2 [facility] pulse rate 88 /min Dasia Mosher oxygen [...] blood pressure, systolic 159 mm[Hg] Ane atris [facility] pulse rate 80 /min Aneatris [facility] oxygen saturation, oximetry 97 % Aneatris Drew respiratory rate E&M 18 /min Aneatri s [facility] weight E&M 117 [lb_av] Aneatris [...] Normal Absolute Neutrophil count 6752 cells/mcL [facility] [id number] Normal mean platelet volume 12.7 fL [facility] [...] 0-149 High cholesterol, serum 168 mg/dL [facility] [phone]/06 /04 alanine aminotransferase (SGPT), serum 17 1/L [...] [employer] 3.5-5.2 sodium, serum 143 mmol/L [facility] [phone]/06 /04 urea nitrogen/creatinine ratio, serum 20 [employer] [...] - 8.7 urea nitrogen, blood 27.0 mg/dL [facility] - 23.0 High Glucose Urine 103.0 mg/dL [facility] 74.0 - 99.0 High bilirubin, serum, total 0.3 mg/dL [facility] 0.0 - 1.2 red blood cell distribution width, size density 44.0 fL [facility] - immature granulocytes, percentage of total cells, blood 0.3 % [facility] - nucleated red blood cells as percent of blood leukocytes 0.0 % [facility] - red blood cell (erythrocyte) count, [...] 100mg once daily Rivaroxaban 2.5mg BID - Dasia Mosher ASPIRIN ADULT LOW DOSE 81 MG [...] history of marijuana use no Ellen Steph 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 Ana M Manderson smoking status Never smoker Jasmyne Recio social [...] Payer name Policy type / Coverage type [employer]on red constitution party ID AARP MEDICARE ADVANTAGE HMO-POS HMO [id number] ADVANCE DIRECTIVES Name Date DISCUSSED - NO DECISION MADE TREATMENT PLAN Date Name Performer [id number],C,will repeat h er carotid doppler Aravind Joseph [id number],B, Aravind Reid i [id number],C,no sxs Aravind Dietz edzai [id number],C,Stable Aravind Dietz edzai [id number],C, n o angina Aravind Reidi [id number],C,A dvised her to monitor her BP at home and stay complaint on her medications. BP today: 181/78 P rior BP: 142/80 (01/04/2021) Labs Reviewed: C reat: 0.89 (12/16/2019) C hol: 170 (12/16/2019) HDL: 43 (12/16/2019) LDL: 100 MG/DL (CALC) (12/16/2019) T (12/16/2019) Aravind Reidi [id number],C, E cho 01/2019 CONCLUSIONS: 4 . Moderate aortic stenosis. Mild aortic valve regurgitation. Peak AV velocity: 3.05 m/s. The Aortic Valve Peak Gradient is 3 7.00 mmHg. The Aortic Valve Mean Gradient is 19.00 mmHg. Orders: C omplete Echo (CPT-73096) Apryl Carrington [id number],C, B P today: 142/80 P rior BP: [...] mouth every day Orders: C omplete Echo (CPT-33043) C arotid Duplex Bilateral (CPT-51919) A janis Duplex Ultrasound (CPT-12140) Apryl Carrington [id number],B, l ast LDL 65 05/2020 t olerating statin/zetia well. occasional leg cramps but not associated w/ taking meds Her updated medication list for this problem includes: Lipitor 40 Mg Tablet (Atorvastatin) ..... 1 tablet once a day Ezetimibe 10 Mg Tablet (Ezetimibe) ..... Take one tablet by mouth every day Apryl Zeb [id number],C, O rders: C omplete Echo (CPT-55588) [facility] [id number],C, O rders: C omplete Echo (CPT-38547) [facility] [id number],C, O rders: C arotid Duplex Bilateral (CPT-67737) [facility] [id number],B, n o angina Her updated medication list [...] he r carotid doppler [facility]ind millie [facility]:no sxs Aravind medzai Electrophysiology:Stable [facility] medzai Electrophysiology: n o angina [facility]:Ad vised her to monitor her BP at home and stay complaint on her medications. BP today: 181/78 P rior BP: 142/80 (01/04/2021) Labs Reviewed: C reat: 0.89 (12/16/2019) C hol: 170 (12/16/2019) HDL: 43 (12/16/2019) LDL: 100 MG/DL (CALC) (12/16/2019) T (12/16/2019) [facility] E cho 01/2019 CONCLUSIONS: 4 . Moderate aortic stenosis. Mild aortic valve regurgitation. Peak AV velocity: 3.05 m/s. The Aortic Valve Peak Gradient is 3 7.00 mmHg. The Aortic Valve Mean Gradient is 19.00 mmHg. Orders: C omplete Echo (CPT-72003) Apryl Zeb Electrophysiology: B P today: 142/80 [...] mouth every day Orders: C omplete Echo (CPT-64971) C arotid Duplex Bilateral (CPT-10509) A janis Duplex Ultrasound (CPT-54302) [facility]nelson Zeb Electrophysiology: l ast LDL 65 05/2020 t olerating statin/zetia well. occasional leg cramps but not associated w/ taking meds Her updated medication list for this problem includes: Lipitor 40 Mg Tablet (Atorvastatin) ..... 1 tablet once a day Ezetimibe 10 Mg Tablet (Ezetimibe) ..... 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 2 . 50 - 69% stenosis of the left ICA. 3 . <50% stenosis of the right ICA. 4. Vertebral flow is antegrade bilaterally. 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 MOULDER OPERATOR O rders: C arotid Duplex Bilateral (CPT-92031) 9 9215 HIGH Complex (CPT-01370) [facility]elson Zeb Electrophysiology: H er updated medication list [...] Jeferson Electrophysiology: O rders: C omplete Echo (CPT-43312) M obile Cardiac Tele (CPT-27766) 9 9215 HIGH Complex (CPT-99547) [facility] Electrophysiology:Wi ll get 1 week telesentry, n o recent episodes O rders: C omplete Echo (CPT-53847) [facility] Electrophysiology:ge t echo redone Orders: C omplete Echo (CPT-36048) Omega Jeferson Electrophysiology:Or ders: M obile Cardiac Tele (CPT-07537) Her updated medication list for this problem [...] 09/17/17. Goal 70. Orders: L IPID PANEL (0390) C OMPREHENSIVE METABOLIC PANEL, W/EGFR (66156) Her updated medication list for this problem includes: Lipitor 20 Mg Oral Tablet (Atorvastatin calcium) ..... One tab. daily Fili Call Electrophysiology:Or ders: C arotid Duplex Bilateral (CPT-50057) S chedule Followup (*) 9 9214 MOD Complex (CPT-11580) Fili Call Electrophysiology:Or ders: C omplete Echo (CPT-23026) S chedule Followup (*) 9 9214 MOD Complex (CPT-02173) Her updated medication list for this problem [...] Electrophysiology:Or ders: S chedule Followup (*) 9 8156 MOD Complex (CPT-83844) Her updated medication list for this problem [...] 3.55 m/s. 4 . S/P right endarterectomy. Aan M Mckinnon Electrophysiology [facility] [place] Electrophysiology [facility] Electrophysiology [facility] Electrophysiology: B P today: 173/86 P rior [...] Cardiology Faxed 1359: O rders: E KG (CPT-93821) 9 9213 LTD. Complex (CPT-11933) S chedule Followup (*) C omplete Echo (CPT-85811) Her updated medication list for this problem [...] Lopez MD hfu: O rders: E KG (CPT-24815) 9 9213 LTD. Complex (CPT-78211) S chedule Followup (*) S TR - Adenosine (49479) Shay Lopez MD hfu: O rders: E KG (CPT-01134) S chedule Followup (*) S TR - Adenosine (21320) Shay Lopez MD hfu:s/p Carotid Enda rterectomy: right 08/15/2014 The following medications were removed from the medication list: Aggrenox 25-200 Mg Oral [id number] (Aspirin-dipyridamole) ..... One tab twice daily Her [...] this problem includes: Aggrenox 25-200 Mg Oral [id number] (Aspirin-dipyridamole) ..... One tab twice daily Orders: C T angio, neck (CPT-48963) Shay Lopez MD HOS FOLLOW UP: O rders: S TR - Nuclear (60025) Shay Lopez MD HOS FOLLOW UP: H er updated medication list for this problem includes: Aggrenox 25-200 Mg Oral [id number] (Aspirin-dipyridamole) ..... One tab twice daily Aspirin 81 Mg Tabs (Aspirin) ..... One tab. daily Shay Lopez MD HOS FOLLOW UP: O rders: C OMPREHENSIVE METABOLIC PANEL W/EGFR (94984) L IPID PANEL (5820) C omplete Echo (CPT-94180) C arotid Duplex Bilateral (CPT-15887) S TR - Nuclear (88205) A ortic Abdominal Ultrasound (CPT-10378) Shay Lopez MD Date Name Holter Monitor [...] Complete Echo Mobile Cardiac Tele DLCO - 93668 FRC - 93643 FVC - 72754 Complete Echo Complete Echo Carotid Duplex Bilat [...] completed EKG Shay echavarria MD completed SNOMED-CT: 802285991000496 Current Medications Documented Shay Lopez MD completed Schedule Followup Shay lewis MD in 1 year completed EKG Shay echavarria MD completed SNOMED-CT: 012952153410502 Current Medications Documented Shay Lopez MD completed SNOMED-CT: 90534751 Physical Exam, Performed: Pulse Exam of Foot Shay Lopez MD completed SNOMED-CT: 876102406 Smoking Cessation Counseling Shay Lopez MD completed Schedule Followup Shay lewis MD fu in 3 months completed EKG Shay echavarria MD completed SNOMED-CT: 808024207060861 Current Medications Documented Shay Lopez MD completed Schedule Followup Shay lewis MD in 1 month completed EKG Shay echavarria MD completed EKG Shay echavarria MD completed Schedule Followup Shay lewis MD fu in 1 month with SK completed EKG Shay echavarria MD completed EKG Shay echavarria MD completed EKG Shay echavarria MD completed
--- NOTE | 2024-03-17 13:21 | ED_ITS ---
HPI - URI/Sore Throat General Chief Complaint: Upper Respiratory Infection Stated Complaint: Chest congestion / cough History of Present Illness HPI Narrative: patient is a 78-year-old female, past medical history significant for previous CVA, hypertension hyperlipidemia, presents to [facility] with persistent cough for the last 2 weeks, for which she called her primary doctor on Thursday and was prescribed Zithromax and Tessalon Perles. She denies associated chest pain, she does report some exertional dyspnea, denies orthopnea. She is producing some sputum with greenish yellow tint. She has completed 3 doses of a Zithromax and taken a dose of Tessalon Perles without much relief. She denies any additional associated symptoms or modifying factors. Related Data Allergies Allergy/AdvReac Type Severity Reaction Status Date / Time No Known Allergies Allergy Verified 03/17/24 13:22 Review of Systems Constitutional: Constitutional: Reports as per HPI ENT: Reports as per HPI Respiratory: Respiratory: Reports as per HPI Exam Const: General: healthy appearing and no acute distress Nutritional Appearance: well nourished Orientation/consciousness: patient oriented x3 Limitations: no limitations HENMT: Head: normal to inspection Ears: external ears normal and TM's normal bilaterally Face/Nose/Sinus: Normal external nose present and Normal nares present Face and sinus: normal facial exam and sinuses nontender Mouth: Yes Normal oral and palatal mucosa present Teeth and gingiva: dentition normal Throat: posterior oropharynx normal and uvula midline Eyes: Conjunctivae: conjunctivae normal Pupils: Equal, round and reactive pupils present EOM: EOMs intact bilaterally Direct Ophthalmoscopy: no photophobia Neck: Neck: normal visual inspection, no lymphadenopathy and no meningeal signs Resp: Effort & Inspection: normal respiratory effort Other: Patient has a focal auscultated area of rhonchi in the left lower lung field. The right lower lung field is clear to auscultation. No wheezing is noted. Patient is not tachypneic, there is no crepitus or subcutaneous emphysema. No rash noted chest wall Cardio: Rate: regular rate Rhythm: regular rhythm Skin: General skin exam: normal color Rashes: no rashes Wounds: no wounds Neuro: General: patient oriented x3, moves all extremities, no meningeal signs, no focal motor deficits and CN's II-XI intact bilaterally Cranial nerves: Yes Nystagmus not present Speech: normal speech Gait exam (Neuro): Normal gait present Extrem: General: normal to inspection, no clubbing, cyanosis or edema and no pedal edema Course Course Emergency Course: patient is on Zithromax for likely community-acquired pneumonia. Suspect patient does have a left lower lobe pneumonia however she has only completed her 3rd dose this morning of Zithromax, with partial coverage for community-acquired pneumonia, plan to add amoxicillin to her treatment regimen and a short steroid course. She may continue KD Babb if her condition worsens in any way, otherwise she is to follow up with Dr. Roberts on Thursday. Patient is agreeab le with plan Level of Care: Express Care Visit (37218) Vital Signs Vital signs: Vital Signs Temperature 36.7 C 03/17/24 12:47 Pulse Rate 107 H 03/17/24 12:47 Respiratory Rate 24 H 03/17/24 12:47 Blood Pressure 129/78 03/17/24 12:47 Pulse Oximetry 95 03/17/24 12:47 Oxygen Delivery Room Air 03/17/24 12:47 Temperature 36.7 C 03/17/24 12:47 Pulse Rate 107 H 03/17/24 12:47 Respiratory Rate 24 H 03/17/24 12:47 Blood Pressure 129/78 03/17/24 12:47 Pulse Oximetry 95 03/17/24 12:47 Oxygen Delivery Room Air 03/17/24 12:47 MDM - URI/Sore Throat MDM Narrative Medical decision making narrative: amoxicillin added to Zithromax treatment for adequate community-acquired pneumonia coverage, prednisone short steroid course Differential Diagnosis Differential diagnosis: Likely upper respiratory infection, otitis media, sinusitis, viral infection, bronchitis and other ( pneumonia) Discharge Plan Discharge Clinical Impression: Bronchitis Patient Disposition: Home, Self-Care Condition: Stable Instructions: Antibiotic Form, Community Acquired Pneumonia (ED) Additional Instructions: START AND COMPLETE ORAL STEROIDS AND ORAL ANTIBIOTICS PRESCRIBED HERE TODAY IN ADDITION TO THE ZITHROMAX YOU ARE PRESCRIBED BY DR. ROBERTS EARLIER THIS WEEK. SEE DR. ROBERTS THURSDAY IF YOUR SYMPTOMS ARE NOT RESOLVING, PROCEED TO THE ER IF YOUR CONDITION WORSENS IN ANY WAY OR WITH ANY FURTHER EMERGENCIES Patient Language: Indonesian Prescriptions: New amoxicillin 500 mg capsule 500 mg PO Q8H Qty: 10 0RF prednisone 20 mg tablet 40 mg PO DAILY 5 Days Qty: 10 0RF Follow-up/Referrals: Devon,Juan Allen MD [Primary Care Provider] - Time of Disposition: 13:28
== END 2024-03-17 13:47 | disposition home or self-care (01) ==
PROVIDERS: Emergency Provider Nurse Practitioner Family; PCP Internal Medicine
DX: J40 Bronchitis, not specified as acute or chronic (principal); I10 Essential (primary) hypertension; E78.5 Hyperlipidemia, unspecified
CPT/HCPCS: 99203; G0463

== ENCOUNTER 2024-03-19 12:18 | Inpatient (IN) | payer MEDICARE, SELFPAY ==
[2024-03-19] VITALS (62 sets, daily range): BP systolic 91–190; BP diastolic 36–158; PULSE 86–121; RESP 18–96; TEMP 36.2; O2SAT 83–100; BMI 27.1
--- NOTE | ~2024-03-19 | CT_ITS ---
EXAMINATION: CT diagnostic chest w con DATE: 03/19/2024 14:46 INDICATION: SOB TECHNIQUE: Computed tomography (CT) of the chest was performed with 100 mL Omnipaque-350 intravenous contrast. Automated exposure control and iterative reconstruction technique were employed. The dose-l ength product was 198.56 mGy-cm. COMPARISON: X-ray chest, same date. FINDINGS: CHEST: Thoracic aorta: No significant dilation or calcification. Lung parenchyma and airways: Multisegment left upper lobe, segmental right upper lobe, and subsegment al right lower lobe consolidations. Less prominent scattered areas of groundglass opacity, may repres ent mild edema or additional sites of infection. Minimal dependent bilateral atelectasis. Patent airw ays. Thoracic inlet, axillae and chest wall: No thyroid or soft tissue mass. No axillary lymphadenopathy. Intact sternotomy wires. Mediastinum: Enlarged paratracheal lymph node. Heart and pericardium: Cardiomegaly. Heavy mitral annulus calcification. No pericardial effusion. Coronary artery calcifications: Moderate. Pleura: Moderate right and small left pleural fluid collections. Upper abdomen: Cholelithiasis. Distal esophageal and gastric wall edema. Thoracic bones: No acute osseous finding in the chest. IMPRESSION: Multifocal pneumonia. Moderate right and small left pleural effusions. Mediastinal lymphadenopathy. Esophagitis/gastritis. Reviewed, dictated and finalized at location K. OTTER
--- NOTE | ~2024-03-19 | XR_ITS ---
Portable chest x-ray Comparison: 03/21/2024 Clinical History: Respiratory distress Findings: Extensive bilateral airspace consolidation is present, especially left upper lobe/perihila r region and right upper lobe. Cardiomediastinal silhouette is stable, extensive mitral annular calc ification. Bones and soft tissues are unremarkable. Impression: Extensive areas of bilateral consolidation, consistent with bilateral pneumonia. Correlate for any po ssibility of neoplastic disease. Reviewed, dictated and finalized at location M. UCTION FINISHER Impression: Extensive areas of bilateral consolidation, consistent with bilateral pneumonia . Correlate for any possibility of neoplastic disease.
--- NOTE | ~2024-03-19 | XR_ITS ---
EXAMINATION: XR chest 1V portable DATE: 03/26/2024 06:41 INDICATION: Shortness of breath. TECHNIQUE: A single frontal view of the chest was obtained. COMPARISON: Chest view 03/23/2024, chest CT 03/22/2024 FINDINGS: There are airspace opacities in all lung zones bilaterally, worst in the upper lobes, left worse than right. There are small pleural effusions. No pneumothorax. Cardiomegaly is distended. Medi an sternotomy wires and mediastinal surgical clips are seen, likely from prior coronary artery bypass grafting. There are surgical clips in right neck. IMPRESSION: 1. Stable diffuse lung disease with an upper lobe predominance, consistent with pneumonia. 2. Stable small pleural effusions. 3. Cardiomegaly. Reviewed, dictated and finalized at location A. ER HELPER
--- NOTE | ~2024-03-19 | XR_ITS ---
CHEST RADIOGRAPH CLINICAL HISTORY: SOB . COMPARISON: 03/20/2024 at 8:30 AM and 03/19/2024 TECHNIQUE: Single portable view of the chest. FINDINGS Sternal wires and mediastinal clips are identified, the wires are midline and intact. The remainder of the cardiomediastinal silhouette is enlarged and partially obscured. Redemonstration of bilateral upper lobe infiltrates (left larger than right). Redemonstration of bilateral pleural effusions, right greater than left IMPRESSION: Radiographic evaluation is unchanged from previous study demonstrating bilateral upper lobe infiltrat es and bilateral lower lobe pleural effusions. Reviewed, dictated and finalized at location A. UTER CUSTOMER SUPPORT SPECIALIST IMPRESSION: Radiographic evaluation is unchanged from previous study demonstrating bilatera l upper lobe infiltrates and bilateral lower lobe pleural effusions.
--- NOTE | ~2024-03-19 | XR_ITS ---
EXAMINATION: XR chest 1V portable DATE: 03/19/2024 12:37 INDICATION: Shortness of breath. TECHNIQUE: A single frontal view of the chest was obtained. COMPARISON: None. FINDINGS: There are airspace opacities in all lung zones bilaterally, worst in the upper lobes. Kerle y B-lines are noted. No pleural effusion or pneumothorax. Cardiomegaly is noted. Median sternotomy wi res are noted. IMPRESSION: 1. Diffuse lung disease, likely a combination of pneumonia and pulmonary edema. 2. Cardiomegaly. Reviewed, dictated and finalized at location A. X NETWORK SYSTEMS ADMINISTRATOR
--- NOTE | ~2024-03-19 | XR_ITS ---
CHEST RADIOGRAPH CLINICAL HISTORY: pneumonia . Comparison: 03/20/2024. Reference is also made to CT examination of the chest dated 03/19/2024. TECHNIQUE: Single portable view of the chest. FINDINGS Sternal wires and mediastinal clips are identified, the wires are midline and intact. The remainder of the cardiomediastinal silhouette is enlarged and partially obscured. Redemonstration of bilateral upper lobe infiltrates (left larger than right). Redemonstration of bilateral pleural effusions, right greater than left IMPRESSION: Radiographic evaluation is unchanged from prior studies demonstrating bilateral upper lobe infiltrate s and bilateral lower lobe pleural effusions. Reviewed, dictated and finalized at location A. RGROUND MINING SECTION FOREMAN IMPRESSION: Radiographic evaluation is unchanged from prior studies demonstrating bilateral upper lobe infiltrates and bilateral lower lobe pleural effusions.
--- NOTE | ~2024-03-19 | CT_ITS ---
EXAMINATION: CTA chest PE protocol DATE: 03/22/2024 21:46 HEALTH AND SAFETY REPRESENTATIVE INDICATION: Shortness of breath. Multifocal pneumonia with bilateral pleural effusions. Pulmonary embolus suspected clinically TECHNIQUE: Computed tomographic angiography (CTA) of the chest was performed with 100 mL Omnipaque-35 0 intravenous contrast. The dose-length product was 184.99 mGy-cm. Maximum intensity projection 3D-re constructions of the aorta and other arteries were constructed by the technologist on a separate work station. COMPARISON: Reference is made to plain film evaluations of the chest dated 03/21/2024 and dating back t o 03/19/2024. Reference is also made to a CT examination of the chest without intravenous contrast dated 03/19/2024. FINDINGS: No filling defect within the main or proximal pulmonary arteries. The thoracic aorta is unremarkable without aneurysmal dilatation or dissection. Densely calcified atherosclerotic disease is redemonstrated. The heart is enlarged, without significant pericardial effusion. Specifically, left atrial enlargement is noted, along with concentric thickening of the left ventricl e. Densely calcified mitral annulus is present. Calcification of the aortic valve is also noted. Redemonstration of bilateral upper lobe infiltrates with moderate right and small left-sided pleural effusions, consistent with previous CT examination in multiple radiographs of the chest. Within the upper abdomen: Calcified stone within the gallbladder, which is otherwise unremarkable. Densely calcified atherosclerotic disease. IMPRESSION: No pulmonary embolus. No aortic dissection. Redemonstration of bilateral upper lobe infiltrates with a moderate right and small left sided pleura l effusion. Additional findings which are sequelae of patient's known aortic stenosis, as detailed above. Cholelithiasis Reviewed, dictated and finalized at location A. TH AND SAFETY REPRESENTATIVE IMPRESSION: No pulmonary embolus. No aortic dissection. Redemonstration of bilateral upper lobe infiltrates with a moderate right and s mall left sided pleural effusion. Additional findings which are sequelae of patient's known aortic stenosis, as d etailed above. Cholelithiasis
--- NOTE | ~2024-03-19 | XR_ITS ---
EXAMINATION: XR chest 1V portable DATE: 03/20/2024 09:04 INDICATION: Tachypnea TECHNIQUE: frontal view of the chest was obtained. COMPARISON: Chest radiograph and CT dated 03/19/2024 FINDINGS: No significant change scattered patchy bilateral airspace opacities most prominent in the bilateral m idlung zones. No pleural effusion or pneumothorax. Heart size is normal. Dense mitral annular calcifi cations. 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 Mild thorac olumbar levocurvature curvature. IMPRESSION: 1. No significant change in bilateral regions of pulmonary consolidation most prominent in the latera l mid lung zones consistent with multifocal pneumonia. Reviewed, dictated and finalized at location A. TAL PRE PRESS OPERATOR IMPRESSION: 1. No significant change in bilateral regions of pulmonary consolidation most p rominent in the lateral mid lung zones consistent with multifocal pneumonia.
--- OUTSIDE RECORDS SUMMARY | 2024-03-19 12:20 | XMS_ITS | Data Portability ---
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 Plan of Treatment Reminders Order Date Submit Date Provider Last Modified By Organization Details Last Modified Time Details Appointments None recorded. Lab vitamin D, 25-hydrox y, total, serum 023 023 [email or web address] [employer] [facility] DEBRA, [address], [place], [address], 4 10:08:08 CBC w/ auto diff 023 023 [email or web address] [employer] Aishwarya RICHARDSON, [address], [place], [address], 4 10:08:07 CMP, serum or plasma 023 023 [email or web address] [employer] Aishwarya RICHARDSON, [address], [place], [address], 4 10:08:07 lipid panel, serum 023 023 [id number] [employer] Missy Dominguez, [place], [address], 4 10:08:07 TSH, serum or plasma 023 023 [id number] [facility] Missy RICHARDSON, [place], [address], 4 10:08:07 T4, free, serum 023 023 [email or web address] [employer] [facility], [address], [place], [address], 4 10:08:07 Referral None recorded. Procedures None recorded. Surgeries None recorded. Imaging None recorded. Medication Orders None recorded. Patient TargetsNo targets recorded. Patient Instructions Encounter Date Encounter Id Patient Instructions Last Modified By Organization Details Last Modified Time 10/01/2022 [id number] Follow-up sullivan ry artery disease -hypertension-hyper lipidemia -aortic stenosis all clinically stable. Overall is doing well. Will continue on current Rx follow-up in four months. Will likely need a repeat echocardiogram is close to having a need to have aortic valve replacement. [email or web address] Not available 10/01/2022 15:32:28 02/04/2023 [id number] dementia rating scale-2* [email or web address] Not available 02/04/2023 11:25:41 alcohol misuse* [email or web address] Not available 02/04/2023 11:25:41 depression screening* [email or web address] Not available 02/04/2023 11:25:41 multi-dimensiona l health assessment questionnaire* [email or web address] Not available 02/04/2023 11:25:41 Personalized [facility] lt Plan and Screening Recommendations Advance Directives - Do you have one? Yes Advance Directives - Do we have your advance directive on file in your health record? Primary Prevention/Interven tion (prevents or decreases the chance of common diseases from occurring) Smoking Risk: Non Smoker Alcohol Misuse Screening: Negative Weight: Appropriate Physical activity: Nutrition: Good Average Fall Risk (screened today): Low Vaccines Pneumococcal: Ordered Recommended today Recommended today, but you have declined No further needed Influenza: Chronic Disease Risks Stroke: Low Risk Intermediate Risk I have no recommendations Act osorio diagnosis, Continue current treatment plan Heart Attack: Low risk Intermediate Risk I have no recommendations Act osorio diagnosis, Continue current treatment plan Clogging of the Arteries: Low risk Intermediate Risk I have no recommendations Act osorio diagnosis, Continue current treatment plan Diabetes: Low Risk I have no recommendations Secondary Prevention/Interven tion (detects treatable diseases before they may cause symptoms, disability, or ) Breast Cancer Screening with mammogram: Your next mammogram: Ordered Recommended today Cervical/Uterine/Ov sofia Cancer Screening: Osteoporosis Screening: Your next DEXA in: Ordered Recomme nded today Date Screening Last Performed: Colon Cancer Screening: Colonoscopy Fecal Occult Blood Cologuard (DNA stool test) In: Ordered Recomme nded Date Screening Last Performed: __2018___ Eye Disease Screening: Dementia Risk: Low I have no recommendations Depression Screening: Negative [email or web address] Not available 02/04/2023 11:17:01 Adult health examination risk assessment stable. Follow-up for coronary artery disease, hypertension, aortic valve stenosis and hyperlipidemia all clinically stable. Is in need of blood work in the form of CBC, CMP, lipid, thyroid. Does need a a mammogram, colon guard as well as bone density scan. Will be in need of a echocardiogram. No interval complaints of any new problems regarding his her aortic stenosis. Is felt scheduled follow-up with cardiology in February. Will continue on current Rx follow-up in four months.FDA recommendations of a influenza, RSV, COVID, pneumococcal immunizations strongly advised. Portions of the record may have been created with voice recognition software. Occasional wrong-word or ? s ound-a-like? substitutions may have occurred due to the inherent limitations of voice recognition software. Read the chart carefully and recognize, using context, where substitutions have occurred. Mammogram Cologuard Bone density scan [email or web address] Not available 02/04/2023 11:25:14 06/10/2023 [id number] Coronary artery disease, hypertension, aortic stenosis and hyperlipidemia all clinically stable. Last echo demonstrated evidence of severe aortic stenosis. Is scheduled to follow-up with cardiology. I assume that they will need to make some type of decision with regard to possible potential valve replacement or possible TAVR procedure. Clinically is doing well otherwise. Will continue with current Rx follow-up in four months. FDA recommendations of a influenza, RSV, COVID, pneumococcal immunizations strongly advised. Next Appointment: 4 Months Approximate Date: 10/08/2023 Portions of the record may have been created with voice recognition software. Occasional wrong-word or ? s ound-a-like? substitutions may have occurred due to the inherent limitations of voice recognition software. Read the chart carefully and recognize, using context, where substitutions have occurred. [email or web address] Not available 06/10/2023 11:20:57 Reason for Referral None Reported. Results Created Date Observation Date Name Description Value Unit Range Abnormal Flag Note LastModifiedBy Organization Detail LastModifiedTime 10/29/19 22 10/29/2021 VITAM IN D,25- OH,TO JAMES,I A vitamin D,25-oh,tota l,ia 43 NG/mL 30-100 normal Vitam in D Statu s 25-OH Vitam in D: Defic iency : <20 ng/mL Insuf ficie ncy: 20 - 29 ng/mL Optim al: > or = 30 ng/mL For 25-OH Vitam in D testi ng on patie nts on D2-lieberman pplem entat ion and patie nts for whom quant itati on of D2 and D3 fract ions is requi red, the [facility] eD(TM ) 25-OH VIT D, (D2,D 3), LC/MS /MS is recom talita d: order code 69865 (angélica ents >2yrs ). See Note 1 Note 1 For addit ional infor pamela chaudhari e refer to http: //kameron Grady stDia gnost ics.c om/fa q/FAQ 199 (This link is being provi ded for infor samantha warner/ delvin rudolph purpo ses only. ) Not Available [employer] [address] [address] [place], [address], 10/29/2021 07:49:21 10/29/19 22 10/29/2021 CBC (INCL UDES DIFF/ PLT) white blood cell count 10.0 thous and/u L 3.8-10 .8 normal Not Available [facility] [address] [address] [place], [address], 10/29/2021 07:49:20 10/29/19 22 10/29/2021 CBC (INCL UDES DIFF/ PLT) red blood cell count 4.85 josh on/uL 3.80-5 .10 normal Not Available [facility] [address] [address] [place], [address], 10/29/2021 07:49:20 10/29/19 22 10/29/2021 CBC (INCL UDES DIFF/ PLT) hemoglobin 14.6 g/dL 11.7-1 5.5 normal Not Available [address], [address], 10/29/2021 07:49:20 10/29/1910/29/2021 CBC (INCL UDES DIFF/ PLT) hematocrit 43.6 % 35.0-4 5.0 normal Not Available [address], [address], 10/29/2021 07:49:20 10/29/1910/29/2021 CBC (INCL UDES DIFF/ PLT) MCV 89.9 fL 80.0-1 00.0 normal Not Available [address], [address], 10/29/2021 07:49:20 10/29/1910/29/2021 CBC (INCL UDES DIFF/ PLT) MCH 30.1 pg 27.0-3 3.0 normal Not Available [address], [address], 10/29/2021 07:49:20 10/29/1910/29/2021 CBC (INCL UDES DIFF/ PLT) MCHC 33.5 g/dL 32.0-3 6.0 normal Not Available [address], [address], 10/29/2021 07:49:20 10/29/1910/29/2021 CBC (INCL UDES DIFF/ PLT) RDW 12.6 % 11.0-1 5.0 normal Not Available [address], [address], 10/29/2021 07:49:20 10/29/1910/29/2021 CBC (INCL UDES DIFF/ PLT) platelet count 172 thous and/u L 140-40 0 normal Not Available [address], [address], 10/29/2021 07:49:20 10/29/19 22 10/29/2021 CBC (INCL UDES DIFF/ PLT) MPV 12.5 fL 7.5-12 .5 normal Not Available [address], [address], 10/29/2021 07:49:20 10/29/19 22 10/29/2021 CBC (INCL UDES DIFF/ PLT) absolute neutrophils 7150 cells /uL 1500-7 800 normal Not Available [address], [address], 10/29/2021 07:49:20 10/29/1910/29/2021 CBC (INCL UDES DIFF/ PLT) absolute lymphocytes 1780 cells /uL 850-39 00 normal Not Available [address], [address], 10/29/2021 07:49:20 10/29/19 22 10/29/2021 CBC (INCL UDES DIFF/ PLT) absolute monocytes 730 cells /uL 200-95 0 normal Not Available [address], [address], 10/29/2021 07:49:20 10/29/19 22 10/29/2021 CBC (INCL UDES DIFF/ PLT) absolute eosinophils 280 cells /uL 15-500 normal Not Available [address], [address], 10/29/2021 07:49:20 10/29/19 22 10/29/2021 CBC (INCL UDES DIFF/ PLT) absolute basophils 60 cells /uL 0-200 normal Not Available [address], [address], 10/29/2021 07:49:20 10/29/1910/29/2021 CBC (INCL UDES DIFF/ PLT) neutrophils 71.5 % normal Not Available [address], [address], 10/29/2021 07:49:20 10/29/19 22 10/29/2021 CBC (INCL UDES DIFF/ PLT) lymphocytes 17.8 % normal Not Available [address], [address], 10/29/2021 07:49:20 10/29/1910/29/2021 CBC (INCL UDES DIFF/ PLT) monocytes 7.3 % normal Not Available [address], [address], 10/29/2021 07:49:20 10/29/1910/29/2021 CBC (INCL UDES DIFF/ PLT) eosinophils 2.8 % normal Not Available [address], [address], 10/29/2021 07:49:20 10/29/1910/29/2021 CBC (INCL UDES DIFF/ PLT) basophils 0.6 % normal Not Available [address], [address], 10/29/2021 07:49:20 10/29/1910/29/2021 COMPR EHENS OSORIO METAB OLIC PANEL glucose 92 mg/dL 65-99 normal Fasti ng refer ence inter jing Not Available [address], [address], 10/29/2021 07:49:19 10/29/1910/29/2021 COMPR EHENS OSORIO METAB OLIC PANEL urea nitrogen (BUN) 23 mg/dL 7-25 normal Not Available [address], [address], 10/29/2021 07:49:19 10/29/19 22 10/29/2021 COMPR EHENS OSORIO METAB OLIC PANEL creatinine 1.08 mg/dL 0.60-1 .00 high Not Available [address], [address], 10/29/2021 07:49:19 10/29/19 22 10/29/2021 COMPR EHENS OSORIO METAB OLIC PANEL eGFR 54 mL/mi n/1.7 3m2 > or = 60 low The eGFR is based on the CKD-E PI 2020 equat ion. To calcu late the new eGFR from a previ ous Creat inine or Cysta tin C resul t, go to https ://donny watson/rica thomas s/ kdoqi /gfr% 5Fcal culat or Not Available [address], [address], 10/29/2021 07:49:19 10/29/19 22 10/29/2021 COMPR EHENS OSORIO METAB OLIC PANEL BUN/creatini ne ratio 21 (calc ) 6-22 normal Not Available [address], [address], 10/29/2021 07:49:19 10/29/19 22 10/29/2021 COMPR EHENS OSORIO METAB OLIC PANEL sodium 143 mmol/ L 135-14 6 normal Not Available [address], [address], 10/29/2021 07:49:19 10/29/19 22 10/29/2021 COMPR EHENS OSORIO METAB OLIC PANEL potassium 4.8 mmol/ L 3.5-5. 3 normal Not Available [address], [address], 10/29/2021 07:49:19 10/29/19 22 10/29/2021 COMPR EHENS OSORIO METAB OLIC PANEL chloride 108 mmol/ L 98-110 normal Not Available [address], [address], 10/29/2021 07:49:19 10/29/19 22 10/29/2021 COMPR EHENS OSORIO METAB OLIC PANEL carbon dioxide 27 mmol/ L 20-32 normal Not Available [address], [address], 10/29/2021 07:49:19 10/29/19 22 10/29/2021 COMPR EHENS OSORIO METAB OLIC PANEL calcium 9.5 mg/dL 8.6-10 .4 normal Not Available [address], [address], 10/29/2021 07:49:10/29/19 22 10/29/2021 COMPR EHENS OSORIO METAB OLIC PANEL albumin/glob ulin ratio 1.5 (calc ) 1.0-2. 5 normal Not Available [address], [address], 10/29/2021 07:49:10/29/19 22 10/29/2021 COMPR EHENS OSORIO METAB OLIC PANEL protein, total 7.2 g/dL 6.1-8. 1 normal Not Available [address], [address], 10/29/2021 07:49:19 10/29/19 22 10/29/2021 COMPR EHENS OSORIO METAB OLIC PANEL albumin 4.3 g/dL 3.6-5. 1 normal Not Available [address], [address], 10/29/2021 07:49:10/29/19 22 10/29/2021 COMPR EHENS OSORIO METAB OLIC PANEL globulin 2.9 g/dL_ (calc ) 1.9-3. 7 normal Not Available [address], [address], 10/29/2021 07:49:19 10/29/1910/29/2021 COMPR EHENS OSORIO METAB OLIC PANEL bilirubin, total 0.5 mg/dL 0.2-1. 2 normal Not Available [address], [address], 10/29/2021 07:49:19 10/29/1910/29/2021 COMPR EHENS OSORIO METAB OLIC PANEL alkaline phosphatase 71 U/L 37-153 normal Not Available [address], [address], 10/29/2021 07:49:10/29/1910/29/2021 COMPR EHENS OSORIO METAB OLIC PANEL AST 14 U/L 10-35 normal Not Available [address], [address], 10/29/2021 07:49:19 10/29/1910/29/2021 COMPR EHENS OSORIO METAB OLIC PANEL ALT 13 U/L 6-29 normal Not Available [address], [address], 10/29/2021 07:49:19 10/29/1910/29/2021 TSH+F REE T4 TSH 1.02 mIU/L 0.40-4 .50 normal Not Available [address], [address], 10/29/2021 07:49:19 10/29/1910/29/2021 TSH+F REE T4 T4, free 1.2 NG/dL 0.8-1. 8 normal Not Available [address], [address], 10/29/2021 07:49:19 10/29/1910/29/2021 LIPID PANEL , STAND NABEEL LDL-choleste rol 75 mg/dL _(jacquie c) normal Refer ence range : <100 Carolina able range <100 mg/dL for prima ry preve ntion ; <70 mg/dL for patie nts with CHD or diabe tic patie nts with > or = 2 CHD risk facto rs. LDL-C is now calcu lated using the Evon n-Hop kins calcu quintonmargarita n, which is a valid ated novel metho d provi ding sandra r accur acy than the Fried isha equat ion in the estim ation of LDL-C . Evon law SS et al. LIEN. 2013; 310(1 9): 2061- 2068 (http ://ed ucati on.Qu estDi HeartThiss. com/f aq/FA Q164) Not Available [facility] [address] [address] [place], [address], 10/29/2021 07:49:18 10/29/19 22 10/29/2021 LIPID PANEL , STAND NABEEL chol/HDLC ratio 3.3 (calc ) <5.0 normal Not Available [employer] [facility] [address] [address] [place], [address], 10/29/2021 07:49:18 10/29/1910/29/2021 LIPID PANEL , STAND NABEEL non HDL cholesterol 97 mg/dL _(jacquie c) <130 normal For patie nts with diabe neyda plus 1 major ASCVD risk facto r, treat ing to a non-H DL-C goal of <100 mg/dL (LDL- C of <70 mg/dL ) is consjohnson nguyen optio n. Not Available [employer] [facility] [address] [place], [address], 10/29/2021 07:49:18 10/29/1910/29/2021 LIPID PANEL , STAND NABEEL cholesterol, total 140 mg/dL <200 normal Not Available [employer] [address] [address] [place], [address], 10/29/2021 07:49:18 10/29/1910/29/2021 LIPID PANEL , STAND NABEEL HDL cholesterol 43 mg/dL > or = 50 low Not Available [address], [address], 10/29/2021 07:49:18 10/29/19 22 10/29/2021 LIPID PANEL , STAND NABEEL triglyceride s 137 mg/dL <150 normal Not Available [address], [address], 10/29/2021 07:49:18 06/10/19 23 06/09/2022 LIPID PANEL , STAND NABEEL cholesterol, total 118 mg/dL <200 normal Not Available [address], [address], 06/09/2022 23:32:18 06/10/19 23 06/09/2022 LIPID PANEL , STAND NABEEL HDL cholesterol 46 mg/dL > or = 50 low Not Available [address], [address], 06/09/2022 23:32:18 06/10/19 23 06/09/2022 LIPID PANEL , STAND NABEEL triglyceride s 75 mg/dL <150 normal Not Available [address], [address], 06/09/2022 23:32:18 06/10/19 23 06/09/2022 LIPID PANEL , STAND NABEEL LDL-choleste rol 56 mg/dL _(jacquie c) normal Refer ence range : <100 Carolina able range <100 mg/dL for prima ry preve ntion ; <70 mg/dL for patie nts with CHD or diabe tic patie nts with > or = 2 CHD risk facto rs. LDL-C is now calcu lated using the Evon n-Hop kins calcu carla n, which is a valid ated novel metho d yvonne flores r accur acy than the Fried isha equat ion in the estim ation of LDL-C . Evon law SS et al. LIEN. 2013; 310(1 9): 2061- 2068 (http ://ed ucati on.Becki barrett Wellocitiess. com/f aq/FA Q164) Not Available [address], [address], 06/09/2022 23:32:18 06/10/19 23 06/09/2022 LIPID PANEL , STAND NABEEL chol/HDLC ratio 2.6 (calc ) <5.0 normal Not Available [address], [address], 06/09/2022 23:32:18 06/10/19 23 06/09/2022 LIPID PANEL , STAND NABEEL non HDL cholesterol 72 mg/dL _(jacquie c) <130 normal For patie nts with diabe neyda plus 1 major ASCVD risk facto r, treat ing to a non-H DL-C goal of <100 mg/dL (LDL- C of <70 mg/dL ) is consi dered a thera pelakhwinderi c optio n. Not Available [address], [address], 06/09/2022 23:32:18 06/10/19 23 06/09/2022 COMPR EHENS OSORIO METAB OLIC PANEL glucose 99 mg/dL 65-99 normal Fasti ng refer ence inter jing Not Available [address], [address], 06/09/2022 23:32:18 06/10/19 23 06/09/2022 COMPR EHENS OSORIO METAB OLIC PANEL urea nitrogen (BUN) 23 mg/dL 7-25 normal Not Available [address], [address], 06/09/2022 23:32:18 06/10/19 23 06/09/2022 COMPR EHENS OSORIO METAB OLIC PANEL creatinine 0.89 mg/dL 0.60-1 .00 normal Not Available [address], [address], 06/09/2022 23:32:18 06/10/19 23 06/09/2022 COMPR EHENS OSORIO METAB OLIC PANEL eGFR 68 mL/mi n/1.7 3m2 > or = 60 normal The eGFR is based on the CKD-E PI 2020 equat ion. To calcu late the new eGFR from a previ ous Creat inine or Cysta tin C resul t, go to https ://donny monterroso.prince skaggs.narda watson/rica thomas s/ kdoqi /gfr% 5Fcal culat or Not Available [address] [address] [place], [address], 06/09/2022 23:32:18 06/10/19 23 06/09/2022 COMPR EHENS OSORIO METAB OLIC PANEL BUN/creatini ne ratio NOT APPLIC ABLE (calc ) 6-22 Not Available [address] [place], [address], 06/09/2022 23:32:18 06/10/19 23 06/09/2022 COMPR EHENS OSORIO METAB OLIC PANEL sodium 141 mmol/ L 135-14 6 normal Not Available [address], [address], 06/09/2022 23:32:18 06/10/19 23 06/09/2022 COMPR EHENS OSORIO METAB OLIC PANEL potassium 4.5 mmol/ L 3.5-5. 3 normal Not Available [address] [address] [place], [address], 06/09/2022 23:32:18 06/10/19 23 06/09/2022 COMPR EHENS OSORIO METAB OLIC PANEL chloride 107 mmol/ L 98-110 normal Not Available [address], [address], 06/09/2022 23:32:18 06/10/19 23 06/09/2022 COMPR EHENS OSORIO METAB OLIC PANEL carbon dioxide 27 mmol/ L 20-32 normal Not Available [address], [address], 06/09/2022 23:32:18 06/10/19 23 06/09/2022 COMPR EHENS OSORIO METAB OLIC PANEL calcium 8.9 mg/dL 8.6-10 .4 normal Not Available [address], [address], 06/09/2022 23:32:18 06/10/19 23 06/09/2022 COMPR EHENS OSORIO METAB OLIC PANEL protein, total 6.5 g/dL 6.1-8. 1 normal Not Available [address], [address], 06/09/2022 23:32:18 06/10/19 23 06/09/2022 COMPR EHENS OSORIO METAB OLIC PANEL albumin 4.0 g/dL 3.6-5. 1 normal Not Available [address], [address], 06/09/2022 23:32:18 06/10/19 23 06/09/2022 COMPR EHENS OSORIO METAB OLIC PANEL globulin 2.5 g/dL_ (calc ) 1.9-3. 7 normal Not Available [address], [address], 06/09/2022 23:32:18 06/10/19 23 06/09/2022 COMPR EHENS OSORIO METAB OLIC PANEL albumin/glob ulin ratio 1.6 (calc ) 1.0-2. 5 normal Not Available [address], [address], 06/09/2022 23:32:18 06/10/19 23 06/09/2022 COMPR EHENS OSORIO METAB OLIC PANEL bilirubin, total 0.4 mg/dL 0.2-1. 2 normal Not Available [address], [address], 06/09/2022 23:32:18 06/10/19 23 06/09/2022 COMPR EHENS OSORIO METAB OLIC PANEL alkaline phosphatase 62 U/L 37-153 normal Not Available [address], [address], 06/09/2022 23:32:18 06/10/19 23 06/09/2022 COMPR EHENS OSORIO METAB OLIC PANEL AST 17 U/L 10-35 normal Not Available [address], [address], 06/09/2022 23:32:18 06/10/19 23 06/09/2022 COMPR EHENS OSORIO METAB OLIC PANEL ALT 16 U/L 6-29 normal Not Available [address], [address], 06/09/2022 23:32:18 06/10/19 23 06/09/2022 CBC (INCL UDES DIFF/ PLT) white blood cell count 8.6 thous and/u L 3.8-10 .8 normal Not Available [address], [address], 06/09/2022 23:32:20 06/10/19 23 06/09/2022 CBC (INCL UDES DIFF/ PLT) red blood cell count 4.72 josh on/uL 3.80-5 .10 normal Not Available [address], [address], 06/09/2022 23:32:20 06/10/19 23 06/09/2022 CBC (INCL UDES DIFF/ PLT) hemoglobin 14.0 g/dL 11.7-1 5.5 normal Not Available [address], [address], 06/09/2022 23:32:20 06/10/19 23 06/09/2022 CBC (INCL UDES DIFF/ PLT) hematocrit 42.4 % 35.0-4 5.0 normal Not Available [address], [address], 06/09/2022 23:32:20 06/10/19 23 06/09/2022 CBC (INCL UDES DIFF/ PLT) MCV 89.8 fL 80.0-1 00.0 normal Not Available [address], [address], 06/09/2022 23:32:20 06/10/19 23 06/09/2022 CBC (INCL UDES DIFF/ PLT) MCH 29.7 pg 27.0-3 3.0 normal Not Available [address], [address], 06/09/2022 23:32:20 06/10/19 23 06/09/2022 CBC (INCL UDES DIFF/ PLT) MCHC 33.0 g/dL 32.0-3 6.0 normal Not Available [address], [address], 06/09/2022 23:32:20 06/10/19 23 06/09/2022 CBC (INCL UDES DIFF/ PLT) RDW 12.6 % 11.0-1 5.0 normal Not Available [address], [address], 06/09/2022 23:32:20 06/10/19 23 06/09/2022 CBC (INCL UDES DIFF/ PLT) platelet count 158 thous and/u L 140-40 0 normal Not Available [address], [address], 06/09/2022 23:32:20 06/10/19 23 06/09/2022 CBC (INCL UDES DIFF/ PLT) MPV 12.6 fL 7.5-12 .5 high Not Available [address] [place], [address], 06/09/2022 23:32:20 06/10/19 23 06/09/2022 CBC (INCL UDES DIFF/ PLT) absolute neutrophils 6003 cells /uL 1500-7 800 normal Not Available [address], [address], 06/09/2022 23:32:20 06/10/19 23 06/09/2022 CBC (INCL UDES DIFF/ PLT) absolute lymphocytes 1591 cells /uL 850-39 00 normal Not Available [address], [address], 06/09/2022 23:32:20 06/10/19 23 06/09/2022 CBC (INCL UDES DIFF/ PLT) absolute monocytes 628 cells /uL 200-95 0 normal Not Available [address], [address], 06/09/2022 23:32:20 06/10/19 23 06/09/2022 CBC (INCL UDES DIFF/ PLT) absolute eosinophils 318 cells /uL 15-500 normal Not Available [address], [address], 06/09/2022 23:32:20 06/10/19 23 06/09/2022 CBC (INCL UDES DIFF/ PLT) absolute basophils 60 cells /uL 0-200 normal Not Available [facility] [address], [address], 06/09/2022 23:32:20 06/10/19 23 06/09/2022 CBC (INCL UDES DIFF/ PLT) neutrophils 69.8 % normal Not Available [address], [address], 06/09/2022 23:32:20 06/10/19 23 06/09/2022 CBC (INCL UDES DIFF/ PLT) lymphocytes 18.5 % normal Not Available [facility] [address] [address] [place], [address], 06/09/2022 23:32:20 06/10/19 23 06/09/2022 CBC (INCL UDES DIFF/ PLT) monocytes 7.3 % normal Not Available [facility] [address] [address] [place], [address], 06/09/2022 23:32:20 06/10/19 23 06/09/2022 CBC (INCL UDES DIFF/ PLT) eosinophils 3.7 % normal Not Available [facility] [address] [address] [place], [address], 06/09/2022 23:32:20 06/10/19 23 06/09/2022 CBC (INCL UDES DIFF/ PLT) basophils 0.7 % normal Not Available [facility] [address] [address] [place], [address], 06/09/2022 23:32:20 03/10/19 24 03/10/2023 COLOG UARD cologuard result reportable NEGATI VE negati ve normal NEGAT OSORIO TEST RESUL T. A negat osorio Colog uard resul t indic ates a low likel ihood that a color ectal cance r (CRC) or advan marc adeno ma (yadira omato us polyp s with more advan marc pre-m align ant featu res) is prese nt. The chanc e that a perso n with a negat osorio Colog uard test has a color ectal cance r is less than 1 in 1500 (nega tive predi ctive value >99.9 %) or has an advan marc adeno ma is less than 5.3% (nega tive predi ctive value 94.7% ). These data are based on a prosp ectiv e cross -sect ional study of 10,00 0 indiv idual s at [place] [facility] risk for color ectal cance r who were scree [place] with both Colog uard and colon oscop y. (Deepthi Allen et al, N Engl J Med 2014; 370(1 4):12 [id number] [id number]) The servando l value (refe rence range ) for this assay is negat osorio. COLOG UARD RE-SC FLORY WYLIE RECOM MENDA TION: Perio dic color ectal cance r scree madhu is an impor tant part of preve ntive healt hcare for asymp tomat ic indiv idual s at [facility] risk for color ectal cance r. Follo wing a negat osorio Colog uard resul t, the Ameri can Cance r Socie ty and [employer] scree madhu guide lines recom mend a Colog uard re-sc reekervin ng inter jing of 3 years . Refer ences : Ameri can Cance r Socie ty Guide line for Color ectal Cance r Scree madhu: [email or web address] :[email or web address] [email or web address] colon -rect al-ca ncer/ detec tion- diagn osis- stagi ng/ac s-rec ommen datio ns.ht ml.; Amador DK, Gina ulloa CR, Kelvin MachadoK, Color ectal Cance r Scree madhu: Recom menda tions for Physi cians and Patie nts from the U.S. Multi -Soci ety Task Force on Color ectal Cance r Scree madhu , Am Carter gentile y 2017; 112:1 016-1 030. TEST DESCR IPTIO N: [place] site algor ithmi c chang sis of stool DNA-b iodm kerjericho with hemog lobin immun oassa y. Quant itati ve value s of indiv idual bioma rkers are not repor table and are not assoc iated with indiv idual bioma rker resul t refer ence range s. Colog uard is inten ded for color ectal cance r scree madhu of adult s of eithe r sex, 45 years or older , who are at [facility] for color ectal cance r (CRC) . Colog uard has been appro noe for use by the U.S. FDA. The perfo rmanc e of Colog uard was estab lishe d in a cross secti onal study of [place] adult s aged 50-84 . Colog uard perfo rmanc e in patie nts ages 45 to 49 years was estim ated by sub-g marc chang sis of near- age group s. Colon oscop ies perfo rmed for a posit osorio resul t may find as the most clini mohamud signi fican t lesio n: color ectal cance r [4.0% ], advan marc adeno ma (incl uding sessi le josh torres polyp s great er than or equal to 1cm diame ter) [20%] or non- advan marc adeno ma [31%] ; or no color ectal neopl carmelo [45%] . These estim ates are deriv ed from a prosp ectiv e cross -sect ional scree madhu study of 0 indiv idual s at [facility] risk for color ectal cance r who were scree luciana with both Colog uard and colon oscop y. (Deepthi Allen et al, N Engl J Med 2014; 370(1 4):12 86-12 97.) Colog uard may produ ce a false negat osorio or false posit osorio resul t (no color ectal cance r or preca ncero us polyp prese nt at colon oscop y follo w up). A negat osorio Colog uard test resul t does not guara ntee the absen ce of CRC or advan marc adeno ma (pre- cance r). The curre nt Colog uard scree madhu inter jing is every 3 years . (Amer ican Cance r Socie ty and U.S. Multi -Soci ety Task Force ). Colog uard perfo rmanc e data in a 0 patie nt pivot al study using colon oscop y as the refer ence metho d can [facility] locat ion: www.e xactl abs.c om/re sults . Addit ional descr iptio n of the Colog uard test proce ss, warni ngs and preca ution s can be found at www.c jennifer benitezd.c om. Not Available [facility] (Cologuard Orders Only) [address], [place], [address], 03/20/2023 21:01:05 07/30/19 24 07/31/2023 LIPID PANEL , STAND NABEEL cholesterol, total 142 mg/dL <200 normal Not Available [facility] [address] [address] [place], [address], 07/31/2023 08:20:14 07/30/19 24 07/31/2023 LIPID PANEL , STAND NABEEL HDL cholesterol 54 mg/dL > or = 50 normal Not Available [facility] [address] [address] [place], [address], 07/31/2023 08:20:14 07/30/19 24 07/31/2023 LIPID PANEL , STAND NABEEL triglyceride s 112 mg/dL <150 normal Not Available [facility] [address] [address] [address], [place], [address], 07/31/2023 08:20:14 07/30/19 24 07/31/2023 LIPID PANEL , STAND NABEEL LDL-choleste rol 68 mg/dL _(jacquie c) normal Refer ence range : <100 [place] able range <100 mg/dL for prima ry preve ntion ; <70 mg/dL for patie nts with CHD or diabe tic patie nts with > or = 2 CHD risk facto rs. LDL-C is now calcu lated using the Evon n-Hop kins sedau carla n, which is a valid ated novel erico laila greco accur acy than the Fried isha equat ion in the estim ation of LDL-C . Evon law SS et al. LIEN. 2013; 310(1 9): 2061- 2068 (http ://ed ucati on.Qu Scooter barrett tics. com/f aq/FA Q164) Not Available [facility] [address] [address] [address], [place], [address], 07/31/2023 08:20:14 07/30/19 24 07/31/2023 LIPID PANEL , STAND NABEEL chol/HDLC ratio 2.6 (calc ) <5.0 normal Not Available [address], [address], 07/31/2023 08:20:14 07/30/19 24 07/31/2023 LIPID PANEL , STAND NABEEL non HDL cholesterol 88 mg/dL _(jacquie c) <130 normal For patie nts with diabe neyda plus 1 major ASCVD risk facto r, treat ing to a non-H DL-C goal of <100 mg/dL (LDL- C of <70 mg/dL ) is consi dered a thera peuti c optio n. Not Available [address], [address], 07/31/2023 08:20:14 07/30/19 24 07/31/2023 COMPR EHENS OSORIO METAB OLIC PANEL glucose 95 mg/dL 65-99 normal Fasti ng refer ence inter jing Not Available [address], [address], 07/31/2023 08:20:15 07/30/19 24 07/31/2023 COMPR EHENS OSORIO METAB OLIC PANEL urea nitrogen (BUN) 26 mg/dL 7-25 high Not Available [address], [address], 07/31/2023 08:20:15 07/30/19 24 07/31/2023 COMPR EHENS OSORIO METAB OLIC PANEL creatinine 1.04 mg/dL 0.60-1 .00 high Not Available [address], [address], 07/31/2023 08:20:15 07/30/19 24 07/31/2023 COMPR EHENS OSORIO METAB OLIC PANEL eGFR 56 mL/mi n/1.7 3m2 > or = 60 low Not Available [address], [address], 07/31/2023 08:20:15 07/30/19 24 07/31/2023 COMPR EHENS OSORIO METAB OLIC PANEL BUN/creatini ne ratio 25 (calc ) 6-22 high Not Available [address], [address], 07/31/2023 08:20:15 07/30/19 24 07/31/2023 COMPR EHENS OSORIO METAB OLIC PANEL sodium 140 mmol/ L 135-14 6 normal Not Available [address], [address], 07/31/2023 08:20:15 07/30/19 24 07/31/2023 COMPR EHENS OSORIO METAB OLIC PANEL potassium 5.1 mmol/ L 3.5-5. 3 normal Not Available [address], [address], 07/31/2023 08:20:15 07/30/19 24 07/31/2023 COMPR EHENS OSORIO METAB OLIC PANEL chloride 105 mmol/ L 98-110 normal Not Available [address], [address], 07/31/2023 08:20:15 07/30/19 24 07/31/2023 COMPR EHENS OSORIO METAB OLIC PANEL carbon dioxide 24 mmol/ L 20-32 normal Not Available [address], [address], 07/31/2023 08:20:15 07/30/19 24 07/31/2023 COMPR EHENS OSORIO METAB OLIC PANEL calcium 9.4 mg/dL 8.6-10 .4 normal Not Available [address], [address], 07/31/2023 08:20:15 07/30/19 24 07/31/2023 COMPR EHENS OSORIO METAB OLIC PANEL protein, total 7.6 g/dL 6.1-8. 1 normal Not Available [address] [address] [place], [address], 07/31/2023 08:20:15 07/30/19 24 07/31/2023 COMPR EHENS OSORIO METAB OLIC PANEL albumin 4.7 g/dL 3.6-5. 1 normal Not Available [address], [address], 07/31/2023 08:20:15 07/30/19 24 07/31/2023 COMPR EHENS OSORIO METAB OLIC PANEL globulin 2.9 g/dL_ (calc ) 1.9-3. 7 normal Not Available [address], [address], 07/31/2023 08:20:15 07/30/19 24 07/31/2023 COMPR EHENS OSORIO METAB OLIC PANEL albumin/glob ulin ratio 1.6 (calc ) 1.0-2. 5 normal Not Available [address] [address] [place], [address], 07/31/2023 08:20:15 07/30/19 24 07/31/2023 COMPR EHENS OSORIO METAB OLIC PANEL bilirubin, total 0.5 mg/dL 0.2-1. 2 normal Not Available [address], [address], 07/31/2023 08:20:15 07/30/19 24 07/31/2023 COMPR EHENS OSORIO METAB OLIC PANEL alkaline phosphatase 67 U/L 37-153 normal Not Available [facility] [address] [address] [place], [address], 07/31/2023 08:20:15 07/30/19 24 07/31/2023 COMPR EHENS OSORIO METAB OLIC PANEL AST 18 U/L 10-35 normal Not Available [address], [address], 07/31/2023 08:20:15 07/30/19 24 07/31/2023 COMPR EHENS OSORIO METAB OLIC PANEL ALT 14 U/L 6-29 normal Not Available [address], [address], 07/31/2023 08:20:15 07/30/19 24 07/31/2023 CBC (INCL UDES DIFF/ PLT) white blood cell count 11.1 thous and/u L 3.8-10 .8 high Not Available [address], [address], 07/31/2023 08:20:15 07/30/19 24 07/31/2023 CBC (INCL UDES DIFF/ PLT) red blood cell count 5.25 josh on/uL 3.80-5 .10 high Not Available [address], [address], 07/31/2023 08:20:15 07/30/19 24 07/31/2023 CBC (INCL UDES DIFF/ PLT) hemoglobin 15.7 g/dL 11.7-1 5.5 high Not Available [address], [address], 07/31/2023 08:20:15 07/30/19 24 07/31/2023 CBC (INCL UDES DIFF/ PLT) hematocrit 49.1 % 35.0-4 5.0 high Not Available [address], [address], 07/31/2023 08:20:15 07/30/19 24 07/31/2023 CBC (INCL UDES DIFF/ PLT) MCV 93.5 fL 80.0-1 00.0 normal Not Available [address], [address], 07/31/2023 08:20:15 07/30/19 24 07/31/2023 CBC (INCL UDES DIFF/ PLT) MCH 29.9 pg 27.0-3 3.0 normal Not Available [address], [address], 07/31/2023 08:20:15 07/30/19 24 07/31/2023 CBC (INCL UDES DIFF/ PLT) MCHC 32.0 g/dL 32.0-3 6.0 normal Not Available [address], [address], 07/31/2023 08:20:15 07/30/19 24 07/31/2023 CBC (INCL UDES DIFF/ PLT) RDW 12.8 % 11.0-1 5.0 normal Not Available [address], [address], 07/31/2023 08:20:15 07/30/19 24 07/31/2023 CBC (INCL UDES DIFF/ PLT) platelet count 161 thous and/u L 140-40 0 normal Not Available [address], [address], 07/31/2023 08:20:15 07/30/19 24 07/31/2023 CBC (INCL UDES DIFF/ PLT) MPV 12.7 fL 7.5-12 .5 high Not Available [address], [address], 07/31/2023 08:20:15 07/30/19 24 07/31/2023 CBC (INCL UDES DIFF/ PLT) absolute neutrophils 8114 cells /uL 1500-7 800 high Not Available [employer] [address], [address], 07/31/2023 08:20:15 07/30/19 24 07/31/2023 CBC (INCL UDES DIFF/ PLT) absolute lymphocytes 1787 cells /uL 850-39 00 normal Not Available [address], [address], 07/31/2023 08:20:15 07/30/19 24 07/31/2023 CBC (INCL UDES DIFF/ PLT) absolute monocytes 788 cells /uL 200-95 0 normal Not Available [address], [address], 07/31/2023 08:20:15 07/30/19 24 07/31/2023 CBC (INCL UDES DIFF/ PLT) absolute eosinophils 344 cells /uL 15-500 normal Not Available [address], [address], 07/31/2023 08:20:15 07/30/19 24 07/31/2023 CBC (INCL UDES DIFF/ PLT) absolute basophils 67 cells /uL 0-200 normal Not Available [address], [address], 07/31/2023 08:20:15 07/30/19 24 07/31/2023 CBC (INCL UDES DIFF/ PLT) neutrophils 73.1 % normal Not Available [address], [address], 07/31/2023 08:20:15 07/30/19 24 07/31/2023 CBC (INCL UDES DIFF/ PLT) lymphocytes 16.1 % normal Not Available [address], [address], 07/31/2023 08:20:15 07/30/19 24 07/31/2023 CBC (INCL UDES DIFF/ PLT) monocytes 7.1 % normal Not Available [address], [address], 07/31/2023 08:20:15 07/30/19 24 07/31/2023 CBC (INCL UDES DIFF/ PLT) eosinophils 3.1 % normal Not Available [address], [address], 07/31/2023 08:20:15 07/30/19 24 07/31/2023 CBC (INCL UDES DIFF/ PLT) basophils 0.6 % normal Not Available [address] [address] [place], [address], 07/31/2023 08:20:15 07/30/19 24 07/31/2023 T4, FREE T4, free 1.0 NG/dL 0.8-1. 8 normal Not Available [address] [address] [place], [address], 07/31/2023 08:20:16 07/30/19 24 07/31/2023 TSH TSH 1.29 mIU/L 0.40-4 .50 normal Not Available [address] [address] [place], [address], 07/31/2023 08:20:16 11/02/19 22 11/01/2021 scree madhu breas t arnav, bilat [facility] [address] Patien t Name: DEVORA OROURKE [facility] ion #: [id number] Sex: F : 1945 6 Locati on: RAD Attend ing Physic sharri: AMY OSORIO CE Orderi ng Physic sharri: AMY OSORIO CE Exam Date: 022 8:36 AM Exam Name: MG HINKLERosalba BREAST ARNAV BILAT Admitt ing Diagno sis(es ): MAMMOG CATARINA REPORT - FINAL EXAM: SCRN BREAST ARNAV BILAT HISTOR Y: SCREEN ING MAMMOG WENDIE 76-yea r-old female with no curren t breast compla ints. COMPAR STEPHANIE: 2020, 2017 TECHNI QUE: Bilate ral CC and MLO views of the breast s were perfor med. Digita l Mammog catarina images were obtain ed. CAD (compu ter assist ed detect ion) was utiliz ed. 3D Digita l breast tomosy nthesi s was perfor med and used in the interp retati on of images . FINDIN GS: There are scatte red areas of fibrog landul ar densit y. No new masses , develo ping asymme tries, suspic ious calcif icatio ns, or Page 1 of 2 [facility] [place]ide Name: DEVORA OROURKE Access ion #: [id number] Sex: F : 1945 7 Exam Date: 8:36 AM Exam Name: MG SCRN BREAST ARNAV BILAT Admitt ing Diagno sis(es ): som ectura l distor tion are seen. IMPRES ERUM: BIRADS 1: Assess ment comple te. Negati ve. Recomm end annual screen ing mammog catarina. Accord ing to the [employer] an [employer] e [employer] Radiol o[employer], yearly mammog kaylin are recomm ended starti ng at age 40 and contin uing as long as the woman is in good health . Clinic al Breast Exam should be part of the period ic health exam-a bout every 3 years for women in their 20s and 30s and every year for women 40 and over. Breast self-e xam is an option for women in their 20s. Any breast change noted on the breast self-e xam she would be report ed prompt ly to the [facility]. A negati ve mammog catarina report should not discou rage follow -up or biopsy of a clinic ally signif icant findin g and/or abnorm ality. Dense breast tissue may obscur e small neopla sms. This [place] [facility] has been entere d into a mammog catarina remind er system with a target date for her next mammog wendie. Create d and electr onical ly signed by: Deandre trevizo MD Signed Date: 9:25 AM (CT) Dictat ed by: Deandre trevizo MD DD: 9:25 AM (CT) DT: 9:25 AM (CT) Page 2 of 2 [id number] [facility] (Imaging) [address], [place], [address], 04/16/2022 06:11:40 11/07/19 22 11/06/2021 US, echoc ardio gram, trans thora cic, compl ete, w/ color flow No observ ation record ed. [id number] [facility] [address], [place], [address], 04/16/2022 06:11:40 03/04/19 24 03/04/2023 scree madhu breas t arnav, bilat [facility] [address] [facility] [place] [address] [phone] Patien t Name: DEVORA OROURKE Access ion #: [id number] Sex: F : 1945 2 Locati on: RAD Attend ing Physic sharri: AMY OSORIO CE Orderi ng Physic sharri: AMY OSORIO CE Exam Date: 024 8:59 AM Exam Name: MG SCRN BREAST ARNAV BILAT Admitt ing Diagno sis(es ): MAMMOG CATARINA REPORT - FINAL EXAM: MG SCRN BREAST ARNAV BILAT HISTOR Y: SCREEN ING MAMMOG WENDIE 77-yea r-old female with no curren t breast compla ints. COMPAR STEPHANIE: Mammog catarina dated 2021 and 2020. TECHNI QUE: Bilate ral CC and MLO views of the breast s were perfor med. Digita l Mammog catarina images were obtain ed. CAD (compu ter assist ed detect ion) was utiliz ed. 3D Digita l breast tomosy nthesi s was perfor med and used in the interp retati on of images . FINDIN GS: There are scatte red areas of fibrog landul ar densit y. No masses , asymme tries, suspic ious calcif icatio ns, or som ectura l Page 1 of 2 [facility] Patien t Name: DEVORA OROURKE Access ion #: [id number] Sex: F : 1945 2 Exam Date: 8:59 AM Exam Name: MG PEDROZA BREAST ARNAV BILAT Admitt ing Diagno sis(es ): distor tion are seen. IMPRES ERUM: BIRADS 1: Assess ment comple te. Negati ve. Recomm end annual screen ing mammog catarina. Accord ing to the Americ an [employer] e of Radiol ogy, yearly mammog kaylin are recomm ended starti ng at age 40 and contin uing as long as the woman is in good health . Clinic al Breast Exam should be part of the period ic health exam-a bout every 3 years for women in their 20s and 30s and every year for women 40 and over. Breast self-e xam is an option for women in their 20s. Any breast change noted on the breast self-e xam she would be report ed prompt ly to the [place] er. A negati ve mammog catarina report should not discou rage follow -up or biopsy of a clinic ally signif icant findin g and/or abnorm ality. Dense breast tissue may obscur e small neopla sms. This [place] has been entere d into a mammog catarina remind er system with a target date for her next mammog wendie. Create d and electr onical ly signed by: Deandre trevizo MD Signed Date: 9:27 AM (CT) Dictat ed by: Deandre trevizo MD DD: 9:27 AM (CT) DT: 9:27 AM (CT) Page 2 of 2 [email or web address] [facility] (Imaging) [address] [place], [address], 03/04/2023 10:30:14 03/04/19 24 03/04/2023 DEXA, axial skele ton [facility] [address] [place] [address] [phone] [place] Name: DEVORA OROURKE Access ion #: [id number] Sex: F : 1945 2 Dictat ed By: Fariha Navarro Attend ing Physic sharri: AMY OSORIO Orderi Physic sharri: AMY OSORIO CE Exam Date: 2023 08:59 AM Exam Name: XR DEXA-H IPS PELVIS SPINE Admitt ing Diagno sis(es ): INDICA TION: Osteop orosis , postme nopaus al DEXA SCAN: BONE DENSIT Y REPORT : Bone minera l densit y (BMD) AP SPINE (L1-L4 ) BMD: 1.13 (Grams /cm2). T Score: -0.6 LEFT HIP TOTAL BMD: 0.87 (Grams /cm2). T Score: -1.1 RT HIP TOTAL BMD: 0.89 (Grams /cm2). T Score: -0.9 TOTAL BILAT HIP AV.88 (Grams /cm2). T Score: -1.0 10 YEAR FRACTU RE RISK* Not provid ed IMPRES ERUM: 1. Osteop enia of the left hip. ------ ------ ------ ------ ------ ------ ------ ------ ----- *FRAX versio n 3.08. Fractu re probab ility calcul ated for an untrea torres patien t. Fractu re probab ility may be lower if the patien t has receiv ed treatm ent. T-scor e: compar stephanie by floyd clayton ion (SD) to a young adult popula samiaonyosef for sex and ethnic ity (used for postme nopaus al women and men >50 years) and classi fied by WHO criter ia. ?-1.0: normal <-1.0 to >-2.5: osteop enia ?-2.5: osteop orosis Page 1 [facility] [address] [address] Patien t Name: DEVORA OROURKE Deepthi ion #: [id number] Sex: F : 1945 [id number] Dictat ed By: Fariha Navarro Attend ing Physic sharri: ROCIO SCHROEDER Orderi Physic sharri: AMY OSORIO Exam Date: 2023 08:59 AM Exam Name: XR DEXA-H IPS PELVIS SPINE Admitt ing Diagno sis(es ): ?-2.5 plus fragil ity fractu re: severe osteop orosis Z-scor e: compar ed by SD to an age, sex, and ethnic ity popula tion (used for premen opausa l women, men <50 years, and childr en instea d of T-scor e WHO criter ia 4) <-2.0: below expect ed range/ low bone densit y for age, and a cause should be sought Electr onical ly Signed by: Fariha Navarro at 2023 10:08: 41 AM Page [address] ([facility]) [address] [place], [address], 03/04/2023 12:35:30 05/19/19 24 05/19/2023 US, carot id arter y No observ ation record ed. [address] [facility] [address], [place], [address], 05/19/2023 16:48:44 05/19/19 24 05/19/2023 US, echoc ardio gram No observ ation record ed. [address] [facility] [address], [place], [address], 05/19/2023 17:18:59 Result Notes None recorded. Problems Name Problem SNOMED Code Status Onset Date Resolution Date Notes Provider Name and Address Organization Details Recorded Time Benign essential hypertension 8502779 Active Not Available [facility] 3 06:00:31 Cerebrovascul ar accident 798376093 Active Not Available [employer] 3 06:00:31 Pure hypercholeste rolemia 586217798 Active Not Available [facility] 3 06:00:31 Vitamin D deficiency 06805937 Active 2021 Not Available [facility] 3 06:00:31 Pain radiating to left shoulder 816492210 Active Not Available [facility] 3 06:00:31 Coronary arteriosclero sis 72591230 Active Not Available [facility] 3 06:00:31 Aortic valve stenosis 19187998 Active Not Available [facility] 3 06:00:32 Osteoporosis 94894647 Active 2020 Not Available [facility] 3 06:00:32 Urinary tract infectious disease 20607870 Active Not Available [facility] 3 06:00:32 Heart murmur 26300251 Active Not Available [facility] 3 06:00:32 Bilateral hearing loss 49859977 Active 2022 Irma mendieta, [facility] 3 15:38:34 Senile osteoporosis 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 Procedures Surgical History Date Name Laterality Status Provider Name and Address Organization Details Recorded Time 3 Medicare Wellness CPT Code, subsequent completed Phuong Farris RN [facility] 02/04/2023 11:10:47 Imaging Results Imaging Date Name Status LastModified by Organization Details LastModified Time 11/01/2021 screening breast arnav bilat completed [id number] [facility] (Imaging) [address] [place], [address], 04/16/2022 06:11:40 11/06/2021 US, echocardiogram, transthoracic, complete, w/ color flow completed [id number] [facility] [address], [place], [address], 04/16/2022 06:11:40 03/04/2023 screening breast arnav, bilat completed [address] (Imaging) [address] [place], [address], 03/04/2023 10:30:14 03/04/2023 DEXA, axial skeleton completed [address] (Imaging) [address] [place], [address], 03/04/2023 12:35:30 05/19/2023 US, carotid artery completed [address] [facility] [address], [place], [address], 05/19/2023 16:48:44 05/19/2023 US, echocardiogram completed [address] is [facility] [address], [place], [address], 05/19/2023 17:18:59 Procedure Notes None recorded. Medical Equipment None Reported. Medications Name Sig Start Date Stop Date Status Note LastModified by Organization Details LastModified Time Pravachol 40 mg tablet Take 1 tablet every day by oral route at bedtime. 2012 active Not Available Not Available Not Avai lable amoxicilli n 500 mg capsule Take 1 capsule 3 times a day by oral route for 10 days. active Not Available Not Available No t Available furosemide 40 mg tablet TAKE ONE TABLET BY MOUTH EVERY DAY active Not Available Not Available No t Available atorvastat in 40 mg tablet TAKE 1 TABLET BY MOUTH EVERY DAY active Not Available Not Available No t Available Aggrenox 25 mg-200 mg capsule, extended release Take 1 capsule every day by oral route. 2014 active Not Available Not Available Not Avai lable amiloride 5 mg-hydroch lorothiazi de 50 mg tablet Take 1 tablet every day by oral route. 2012 active Not Available Not Available Not Avai lable atorvastat in 10 mg tablet TAKE 1 TABLET AT BEDTIME active Not Available Not Available No t Available Pneumovax- 23 25 mcg/0.5 mL injection solution Take by injectio n route. 11/29 completed Not Available Not Available Not Available metoprolol tartrate 100 mg tablet Take 1 tablet every day by oral route. 2014 active Not Available Not Available Not Avai lable benzonatat e 200 mg capsule Take 1 capsule 3 times a day by oral route. 2024 active Not Available Not Available Not Avai lable alendronat e 70 mg tablet TAKE ONE TABLET BY MOUTH ONCE WEEKLY active Not Available Not Available No t Available metoprolol succinate ER 100 mg tablet,ext ended release 24 hr Take 1 tablet twice a day by oral route. active Not Available Not Available No t Available Zithromax Z-Brent 250 mg tablet Take 2 TABLET EVERY DAY by oral route for 1 day then one daily 2024 active Not Available Not Available Not Avai lable Zocor 10 mg tablet Take 1 tablet every day by oral route. active Not Available Not Available No t Available amlodipine 2.5 mg tablet Take 1 tablet every day by oral route. 2014 active Not Available Not Available Not Avai lable Lipitor 20 mg tablet Take 1 tablet every day by oral route. 12/20 completed Not Available Not Available Not Available potassium chloride ER 20 mEq tablet,ext ended release(pa rt/cryst) TAKE ONE TABLET BY MOUTH EVERY DAY 04/04 completed Not Available Not Available Not Available Vitamin C 1,000 mg tablet Take 1 tablet every day by oral route. 2021 active Not Available Not Available Not Avai lable clotrimazo le-betamet hasone 1 %-0.05 % topical cream APPLY TO THE AFFECTED AND SURROUND ING AREAS OF SKIN BY TOPICAL ROUTE 2 TIMES PER DAY IN THE MORNING AND EVENING FOR 2 WEEKS 2020 active Not Available Not Available Not Avai lable Lotrisone 1 %-0.05 % lotion APPLY TO THE AFFECTED AREA(S) BY TOPICAL ROUTE 2 TIMES PER DAY IN THEMORNI NG AND EVENING 09/21 completed Not Available Not Available Not Available Valtrex 1 gram tablet Take 1 tablet 3 times a day by oral route. 03/16 /2021 completed Not Available Not Available Not Available docusate sodium 100 mg capsule Take 1 capsule every day by oral route. 2014 active Not Available Not Available Not Avai lable lisinopril 5 mg tablet TAKE 1 TABLET BY MOUTH EVERY DAY active Not Available Not Available No t Available Cipro 250 mg tablet Take 1 tablet every 12 hours by oral route for 5 days. 01/03 completed Not Available Not Available Not Available lisinopril 2.5 mg tablet Take 1 tablet every day by oral route. 04/09 completed Not Available Not Available Not Available Adult Low Dose Aspirin 81 mg tablet,del ayed release Take 1 tablet every day by oral route. 2016 active Not Available Not Available Not Avai lable Asprin Ec Low Dose 81 mg tablet,del ayed release Take 1 tablet every day by oral route. 2014 active Not Available Not Available Not Avai lable ezetimibe 10 mg tablet TAKE 1 TABLET BY MOUTH EVERY DAY active Not Available Not Available No t Available Multivitam in 50 Plus tablet Take 1 tablet every day by oral route. 2021 active Not Available Not Available Not Avai lable metoprolol tartrate 25 mg tablet TAKE 1/2 TABLET TWICE A DAY BY MOUTH active Not Available Not Available No t Available docusate sodium 100 mg 2014 active Not Available Not Available Not Avai lable acetaminop hen 325 mg 2014 active take two every four hours as needed for pain Not Available Not Available Not Available ergocalcif mushtaq (vitamin D2) 50,000 once a week 2014 active Not Available Not Available Not Avai lable metoprolol tartrate 25 mg nightly at bedtime 2014 active Not Available Not Available Not Avai lable Calcium 600 daily 10/01 completed Not Available Not Available Not Available Norvasc 2.5 mg one daily 2014 active Not Available Not Available Not Avai lable lisinopril 2014 active Not Available Not Available Not Avai lable metoprolol succinate 100 mg twice a day 2014 active Not Available Not Available Not Avai lable Os-Jacquie 500 + D3 one twice a day 2012 active Not Available Not Available Not Avai lable Aggrenox one capsule twice a day 2014 active Not Available Not Available Not Avai lable multivitam in daily 04/04 completed Not Available Not Available Not Available Os-Jacquie 500 + D3 500 mg-15 mcg (600 unit) tablet Take 1 tablet twice a day by oral route. active Not Available Not Available No t Available potassium chloride ER 20 mEq tablet,ext ended release Take 1 tablet every day by oral route. 2015 active Not Available Not Available Not Avai lable Vitals Date Recorded Body mass index (BMI) Body mass index (BMI) Provider Name and Address Organization Details Last Updated DateTime 04/16/2022 28.2 kg/m2 26.2 kg/m2 Not Available [facility] 04/16/2022 05:56:07 Date Recorded Body height Body height Oxygen saturation Oxygen saturation in Arterial blood by Pulse oximetry Oxygen saturation Oxygen saturation in Arterial blood by Pulse oximetry Provider Name and Address Organization Details Last Updated DateTime 3 142.24 cm 143.51 cm 98 % 98 % 94 % 94 % Not Available [facility] 3 05:56:11 Date Recorded Pain severity - 0-10 verbal numeric rating [Score] - Reported Provider Name and Address Organization Details Last Updated DateTime 04/16/2022 0 Not Available [facility] 3 05:56:12 Date Recorded Heart rate Heart rate Provider Name and Address Organization Details Last Updated DateTime 04/16/2022 72 /min 79 /min Not Available [facility] 05:56:14 Date Recorded Body temperature Body temperature Provider Name and Address Organization Details Last Updated DateTime 04/16/2022 95.7 [degF] 97 [degF] Not Available [facility] 04/16/2022 05:56:15 Date Recorded Body weight Body weight Provider Name and Address Organization Details Last Updated DateTime 04/16/2022 13454.64 g 79316.49 g Not Available [facility] 04/16/2022 05:56:16 Date Recorded Body height Provider Name an d Address Organization Details Last Updated DateTime 10/01/2022 144.78 cm Shu Duran [place] [facility] 10/01/2022 15:14:45 Date Recorded Body mass index (BMI) Body weight Provider Name and Address Organization Details Last Updated DateTime 10/01/2022 26.8 kg/m2 49026.45 g Shu [place]le[place] [facility] [employer] [facility] 10/01/2022 15:14:48 Date Recorded Heart rate Provider Name an d Address Organization Details Last Updated DateTime 10/01/2022 98 /min Shu [place] [facility] [place] [address] [employer] [place] [facility] 10/01/2022 15:14:54 Date Recorded Body temperature Provider Name a nd Address Organization Details Last Updated DateTime 10/01/2022 97 [degF] Shu [place] [facility] [place] [employer] 10/01/2022 15:14:58 Date Recorded Heart rate Provider Name an d Address Organization Details Last Updated DateTime 10/01/2022 98 /min Shu [place] [facility] [place] [address] [employer] [place] [facility] 10/01/2022 15:15:00 Date Recorded Oxygen saturation Oxygen saturation in Arterial blood by Pulse oximetry Provider Name and Address Organization Details Last Updated DateTime 10/01/2022 97 % 97 % Shu [place]leck[place] [facility] [place] [employer] [facility] 10/01/2022 15:15:05 Date Recorded Body height Provider Name an d Address Organization Details Last Updated DateTime 02/04/2023 144.78 cm Shu [place] [facility] [place] [address] [employer] [place] [facility] 02/04/2023 11:06:38 Date Recorded Body mass index (BMI) Provider Name and Address Organization Details Last Updated DateTime 02/04/2023 26.4 kg/m2 Shu [place] [facility] [place] [address] [employer] [place] [facility] 02/04/2023 11:06:41 Date Recorded Body weight Provider Name an d Address Organization Details Last Updated DateTime 02/04/2023 87521.27 g Shu [place] [facility] [place] [address] [employer] [place] [facility] [employer] 02/04/2023 11:06:42 Date Recorded Heart rate Provider Name an d Address Organization Details Last Updated DateTime 02/04/2023 78 /min Shu [place] [facility] [place] [address] [employer] [place] [facility] 02/04/2023 11:07:32 Date Recorded Body temperature Provider Name a nd Address Organization Details Last Updated DateTime 02/04/2023 97 [degF] Shu [place] [facility] [place] [employer] [facility] 02/04/2023 11:07:35 Date Recorded Oxygen saturation Oxygen saturation in Arterial blood by Pulse oximetry Provider Name and Address Organization Details Last Updated DateTime 02/04/2023 97 % 97 % Shu Santiago [facility] [employer] [facility] 02/04/2023 11:07:37 Date Recorded Pain severity - 0-10 verbal numeric rating [Score] - Reported Provider Name and Address Organization Details Last Updated DateTime 02/04/2023 0 Phuong Farris RN [facility] [employer] [facility] 02/04/2023 11:11:03 Date Recorded Body height Provider Name an d Address Organization Details Last Updated DateTime 06/10/2023 143.51 cm Shu Santiago [place] [employer] [facility] [employer] [facility] 06/10/2023 11:09:33 Date Recorded Body mass index (BMI) Body weight Provider Name and Address Organization Details Last Updated DateTime 06/10/2023 26.8 kg/m2 92667.47 g Shu Jack [place] [employer] [facility] [employer] [facility] 06/10/2023 11:09:38 Date Recorded Heart rate Provider Name an d Address Organization Details Last Updated DateTime 06/10/2023 85 /min Shu Jack [employer] [facility] [employer] [facility] 06/10/2023 11:09:48 Date Recorded Body temperature Provider Name a nd Address Organization Details Last Updated DateTime 06/10/2023 97 [degF] Shu Santiago [employer] [facility] [address] [employer] [facility] 06/10/2023 11:09:50 Date Recorded Oxygen saturation Oxygen saturation in Arterial blood by Pulse oximetry Provider Name and Address Organization Details Last Updated DateTime 06/10/2023 92 % 92 % Shu Santiago [employer] [facility] [employer] [facility] 06/10/2023 11:09:53 Date Recorded Systolic blood pressure Diastolic blood pressure Systolic blood pressure Diastolic blood pressure Provider Name and Address Organization Details Last Updated DateTime 04/16/2022 128 mm[Hg] 70 mm[Hg] 122 mm[Hg] 78 mm[Hg] Not Available [employer] 05:56:10 Date Recorded Systolic blood pressure Diastolic blood pressure Provider Name and Address Organization Details Last Updated DateTime 10/01/2022 132 mm[Hg] 74 mm[Hg] Shu DIAZ [employer] 10/01/2022 15:14:52 Date Recorded Systolic blood pressure Diastolic blood pressure Provider Name and Address Organization Details Last Updated DateTime 02/04/2023 124 mm[Hg] 68 mm[Hg] Shu DIAZ [employer] 02/04/2023 11:07:30 Date Recorded Systolic blood pressure Diastolic blood pressure Provider Name and Address Organization Details Last Updated DateTime 06/10/2023 132 mm[Hg] 80 mm[Hg] Shu DIAZ [employer] 06/10/2023 11:09:42 Social History Question Answer Notes LastModified by Organization Details LastModified Time Tobacco Smoking Status Never Smoker Not Available [facility] 04/16/2022 05:53:09 Do You Have An Advance Directive? Yes MIGRATION.[id number] [id number] Information not available 04/16/2022 What Is Your Level Of Alcohol Consumption? Occasional MIGRATION.0301 [id number] Information not available 04/16/2022 Are You Blind Or Do You Have Difficulty Seeing? No MIGRATION.0301 [id number] Information not available 04/16/2022 What Is Your Code Status? Other MIGRATION.0301 [id number] Information not available 04/16/2022 In The 14 Days Before Symptom Onset, Have You Had Close Contact With A Laboratory-confi rmed COVID-19 While That Case Was Ill? No MIGRATION.0301 [id number] Information not available 04/16/2022 In The 14 Days Before Symptom Onset, Have You Had Close Contact With A Person Who Is Under Investigation For COVID-19 While That Person Was Ill? No MIGRATION.0301 [id number] Information not available 04/16/2022 Are You Deaf Or Do You Have Serious Difficulty Hearing? Yes Has Hearing Aids [email or web address] Information not available 02/04/2023 What Type Of Diet Are You Following? REGULAR MIGRATION.0301 [id number] Information not available 04/16/2022 Do You Or Have You Ever Used E-cigarettes Or Vape? Former User Of Electronic Cigarettes MIGRATION.0301 [id number] Information not available 04/16/2022 Have There Been Any Changes To Your Family Or Social Situation? No MIGRATION.0301 376889 Information not available 04/16/2022 What Is The Fluoride Status Of Your Home? Fluoridated MIGRATION.0301 213018 Information not available 04/16/2022 Are There Any Guns Present In Your Home? No MIGRATION.0301 946051 Information not available 04/16/2022 Do You Use Insect Repellent Routinely? Yes MIGRATION.0301 719181 Information not available 04/16/2022 Where Do You Live? [place]House MIGRATION.0301 860995 Information not available 04/16/2022 Guns Present In The Home? No [email or web address] Information not available 02/04/2023 Are You Able To Care For Yourself? Yes [email or web address] Information not available 02/04/2023 Are You Blind Or Do Yo Have Difficulty Seeing? No [email or web address] Information not available 02/04/2023 Are You Deaf Or Do You Have Serious Difficulty Hearing? Yes Information not available 02/04/2023 Live Alone Of With Others? Alone [email or web address] Information not available 02/04/2023 Do You Have A Medical Power Of Sec Accountant? Yes MIGRATION.0301 [id number] Information not available 04/16/2022 What Was The Date Of Your Most Recent Tobacco Screening? 02/04/2023 [email or web address] Information not available 02/04/2023 Do You Have Any Pets? No MIGRATION.0301 448447 Information not available 04/16/2022 Do You Use Your Seat Belt Or Car Seat Routinely? Yes MIGRATION.0301 [id number] Information not available 04/16/2022 Do You Have Smoke And Carbon Monoxide Detectors In Your Home? Yes MIGRATION.0301 375978 Information not available 04/16/2022 Are You Passively Exposed To Smoke? No MIGRATION.0301 [id number] Information not available 04/16/2022 Are There Any Smokers In Your House? No MIGRATION.0301 169989 Information not available 04/16/2022 Do You Feel Stressed (tense, Restless, Nervous, Or Anxious, Or Unable To Sleep At Night)? [id number] MIGRATION.0301 143107 Information not available 04/16/2022 Do You Use Sunscreen Routinely? Yes MIGRATION.0301 852322 Information not available 04/16/2022 Have You Recently Traveled Abroad? No MIGRATION.0301 153966 Information not available 04/16/2022 Do You Have Any Dietary Restrictions? No MIGRATION.030 616218 Information not available 04/16/2022 Sex: Female Functional Status Question Answer Note LastModified by Organizat ion Details LastModified Time Do you have difficulty walking or climbing stairs? No MIGRATION.[id number] 026 Information not available 04/16/2022 Do you have transportation difficulties? No MIGRATION.[id number] 026 Information not available 04/16/2022 Are you able to walk? YESWOREST MIGRATION.[id number] 026 Information not available 04/16/2022 Do you have difficulty doing errands alone? No MIGRATION.9540045 026 Information not available 04/16/2022 Are you able to care for yourself? Yes MIGRATION.[id number] 026 Information not available 04/16/2022 Do you have difficulty dressing or bathing? No MIGRATION.9088026 026 Information not available 04/16/2022 What is your exercise level? Moderate MIGRATION.[id number] 026 Information not available 04/16/2022 Mental Status Question Answer Note LastModified by Organizat [employer] Details LastModified Time Do you have difficulty concentrating, remembering or making decisions? No MIGRATION.[id number] 6 Information not available 04/16/2022 Family History Nothing Reported Notes:Mother 81 . Di ed from complications of angioplasty. hx of hypertension. Father is 82 history of coronary artery disease and hypertension. Has two brothers living with hypertension(2) and one with peptic ulcers No sisters. Medical History Condition Response NERVE DISEASE N BLINDNESS N RHEUMATIC FEVER N KIDNEY STONES N BLADDER PROBLEMS N MRSA N OTHER # 1 N POLIO N LUNG DISEASE/DISORDER N RADIATION / CHEMOTHERAPY N COPD N Other # 2 N BLOOD DISEASES N SURGERY N EAR OR HEARING PROBLEMS Y MUMPS N DEPRESSION (INCLUDING POST ) N BOWEL PROBLEMS N STROKE/TIA Y ULCERS N BENIGN PROSTATIC HYPERPLASIA N MEASLES N MYOCARDIAL INFARCTION N OBESITY N GERD/NAUSEA N ANEURYSM N URINARY/BLADDER/KIDNEY PROBLEMS N INPATIENT PSYCH CARE N CORONARY ARTERY DISEASE (CAD) Y ADDICTION CONCERNS N Impotence N ENDOMETRIOSIS N USE OF BLOOD THINNERS N SKIN PROBLEMS N GASTROINTESTINAL DISORDER N PARATHYROID DISEASE N PERIPHERAL VASCULAR DISEASE N MUSCLE,JOINT OR BONE PROBLEMS N GASTROINTESTINAL BLEEDING N BLOOD CLOTS N ASTHMA N CATARACTS N ERECTILE DYSFUNCTION N VARICOSITIES N GI PROBLEMS N CHF N Low Testosterone N INFERTILITY N AIDS/HIV N FRACTURES N LIVER DISEASE N MALE HYPOGONADISM N HYPERTENSION N Deficiency N ANXIETY DISORDER N BLOOD TRANSFUSION N ANEMIA/BLOOD DISORDER N CHRONIC EAR INFECTIONS N BRONCHITIS N TUBERCULOSIS N GLAUCOMA N FOOT PROBLEM N DIVERTICULITIS N SLEEP APNEA N CHICKENPOX N ALLERGIES/HAYFEVER N INFECTIOUS DISEASE N PROSTATE N HEART ARRHYTHMIA N INSOMNIA N HIGH CHOLESTEROL / HYPERLIPIDEMIA N EYE PROBLEMS N HYPERTHYROIDISM N NEUROLOGICAL PROBLEMS N EDEMA N CHRONIC PAIN SYNDROME N HYPOTHYROIDISM N CAROTID BLOCKAGE N CONSTIPATION N BACK / NECK PROBLEMS N HAVE YOU BEEN HOSPITALIZED OR SEEN IN [facility] ER IN THE PAST YEAR ? N ATHEROSCLEROSIS N BREAST PROBLEMS N DIALYSIS N ECZEMA N HISTORY WITH COMPLICATIONS WITH ANESTHES IA ? N OSTEOPOROSIS N ARTHRITIS N NO SIGNIFICANT PAST MEDICAL HISTORY N APPENDICITIS N DIABETES, TYPE N BAD TEETH N ENT N SEASONAL ALLERGIES N HEARTBURN / REFLUX N AUTISM SPECTRUM DISORDER (ASD) N HEPATITIS / LIVER DISEASE N PULMONARY DISEASE N GOUT N SLEEP DISORDER N ALZHEIMER'S DISEASE N Brain Problems N DEMENTIA N HERPES N SEIZURES/EPILEPSY N HEADACHES/MIGRAINES N VASCULAR DISEASE Y PACEMAKER N Blood Disorder N DIZZINESS N HEART DISEASE/HEART PROBLEMS N KIDNEY DISEASE N MULTIPLE SCLEROSIS N CANCER: SPECIFY N CARDIAC ARRHYTHMIA N ANESTHESIA COMPLICATIONS N ATRIAL FIBRILLATION N Gall Stones N PULMONARY EMBOLISM N AUTOIMMUNE DISEASE N Gynecological History Statement/Question Response Date of Last Mammogram 08/09/2015 Date of Last Colonoscopy Most Recent Bone Density Obstetrics History GPAL:G 0 P 0 0 0 0 Immunizations Vaccine Type Date Status Note Provider Nam e and Address Organization Details Recorded Time influenza, unspecified formulation 3 completed TREVON Dickson [place] [employer] [facility] 02/04/2023 11:07:51 Influenza, split virus, quadrivalent, preservative 1 completed Not Available [facility] 04/16/2022 06:11:03 SARS-COV-2 (COVID-19) vaccine, UNSPECIFIED 1 completed Not Available [facility] 04/16/2022 06:11:03 influenza, unspecified formulation 2 completed Not Available [facility] 04/16/2022 06:11:03 SARS-COV-2 (COVID-19) vaccine, UNSPECIFIED 1 completed Not Available [facility] 04/16/2022 06:11:03 SARS-COV-2 (COVID-19) vaccine, UNSPECIFIED 1 completed Not Available [facility] 04/16/2022 06:11:03 pneumococcal polysaccharide PPV23 8 completed Not Available [facility] 04/16/2022 06:11:04 Pneumococcal conjugate PCV 13 5 completed Not Available [facility] 04/16/2022 06:11:04 Past Encounters Encounter ID Performer Location Encounter Start Date Encounter Closed Date Diagnosis/Indication Diagnosis SNOMED-CT Code Diagnosis ICD10 Code Diagnosis Note [id number] [facility] [place] [address] [facility] y , [place] [address] 05/01/2020 00:00:00 05/01/2020 11:56:41 [id number] [facility] [place] [address] [place] [address] 05/09/2020 00:00:00 05/09/2020 10:02:26 [id number] [facility] [place] [address] [place] [address] y , [place] [address] 09/21/2020 00:00:00 09/21/2020 13:00:35 [id number] [facility] [[email or web address] [address] [address] 04/04/2021 00:00:00 04/04/2021 11:48:51 [id number] [facility] [place] [address] [place] [address] [place] [address] 10/04/2021 00:00:00 10/04/2021 11:24:48 [id number] [email or web address] [address] [facility] [address] [address] [address] 04/09/2022 00:00:00 04/09/2022 16:38:52 [id number] Oral Osorio MD [facility] [[email or web address]] [address] [address] 10/01/2022 14:54:19 10/01/2022 15:41:41 Benign essential hypertension 8512864 I10 Aortic valve stenosis 60 244215 I35.0 Coronary arteriosclerosis 52541746 I25.10 Pure hypercholesterolemia 043062331 E78.00 [id number] Oral Osorio MD [facility] Internal Med [facility] [[email or web address]] [address] [address] 02/04/2023 10:46:18 02/04/2023 11:45:03 Adult health examination 724869821 Z00.00 Screening for disorder 850655156 Z13.9 Benign ess ential hypertension 0270332 I10 Aortic valve stenosis 60 311340 I35.0 Coronary arteriosclerosis 42677982 I25.10 Pure hypercholesterolemia 669977599 E78.00 Vitamin D deficiency 347 15113 E55.9 [id number] Oral Osorio MD [facility] Internal [facility] [address] [address] 06/10/2023 10:55:16 06/10/2023 11:33:55 Coronary arteriosclerosis 45934501 I25.10 Benign ess ential hypertension 6478793 I10 Aortic valve stenosis 60 292051 I35.0 Pure hypercholesterolemia 073335706 E78.00 Health Concerns Section Related Observation LastModified by Organization Detai ls LastModified Time None Recorded Concern Status LastModified by Organization Details LastModified Time None Recorded Advance Directives Directive Y: Payers Encounter Date Sequence Insurance Name Policy Number Policy Blair Covered Member ID Blair Member ID Guarantor Name 10/01/2022 1 [facility] (MEDICARE REPLACEMENT/A DVANTAGE - HMO) [id number] Devora Orourke [id number] Devora Orourke 02/04/2023 1 [facility] (MEDICARE REPLACEMENT/A DVANTAGE - HMO) [id number] Devora Orourke [id number] Devora Orourke 06/10/2023 1 [facility] (MEDICARE REPLACEMENT/A DVANTAGE - HMO) [id number] Devora Orourke [id number] Devora Orourke Notes Date Note Type Note Provider Name and Address Organization Details Recorded Time 10/02/19 23 text/htm l Patient Name: Devora OrourkeDate Of Service: Thursday ( 10.01.2022 ): 1945 Age: 77 There has been approximately a 5 lb weight gain since 04/09/2022. This represents approximately a 4.2% change in weight. Weight change attributable to lifestyle changes. Vital Signs:Blood Pressure: Sitting Rt. Arm 132/74Pulse: Sitting 98 /min and RegularRespirations: 12Height 57 in or 1.4 mWeight 124 lb or 56.2 kgBMI 26.8Temperature: 97 F or 36.1 CPulse Oximetry: 97 % at rest on no oxygen Chief Complaint: Addressed in HPI Problems or conditions discussed in the HPI were the only ones reviewed during the encounter.Only social and family history addressed in the HPI were reviewed during this encounter. Attendant(s): None Constitutional and Systemic Symptoms: none Medication Reconciliation: from medication list. History of Present Illness #1. Coronary Artery Disease: There has been no change in frequency - duration - intensity in frequency, duration or intensity of chest pain. Other Complaints: none The frequency of anginal attacks is none at all. Additional Symptoms: none Therapy reviewed regarding cardiovascular management includes Aspirin, Lipitor, Lisinopril, Metoprolol Tartrate and Zetia #2. Essential Hypertension: Stage: Stage I Interval Neurological Complaints no headaches, dizziness, weakness and visual changes. No shortness of breath, orthopnea or cardiovascular symptoms. No other symptoms related to end organ damage. Pressure has been under fair control. Currently normal. No other end organ symptoms or findings. Therapy reviewed regarding management of hypertension and includes salt restriction and Lisinopril and Metoprolol Tartrate. #3. Type II Hypercholesterolaemia: Currently taking medication and tolerating well. No interval complaints of any muscle pain or arthralgia. No significant liver changes with medications. Last lipid panel: fair control. Therapy reviewed regarding treatment of cholesterol management and include diet and Lipitor and Zetia. #4. Aortic Stenosis: Symptoms: no cardiac symptoms Hx of calcified aortic stenosis. No interval complaints of any chest pain, shortness of breath, palpitations or syncope. No palpitations. No change in exercise tolerance. Last echocardiogram was one year ago. Currently does not need a repeat echocardiogram.Medication List Reviewed and Reconciled 10/01/2022Lipitor 40 MG (TABLET - ORAL) One Hs For CholesterolMetoprolol Tartrate 25 MG (TABLET - ORAL) Half Tablet Twice A DayVitamin C 1000 MG Once DailyOs-jacquie D DailyLisinopril 5 MG TABLET One DailyMultivitamin DailyAspirin 81 MG One DailyZetia 10 MG (TABLET - ORAL) One DailyVaccination and Fbpwfbiklure1540-33 Veprdtpqp2618-62 Covid Booster Bjcomut1507-15 Covid Mkhpzrz4802-12 Pneumovax 314984-58 Prevnar 13Surgical HistoryCAGB, Right Carotid Endarterectomy, SCOTT BSO, TonsillectomyPreventative Testing Confirmed by Our Yefokmc9306/09/2022 ALBUMIN 4.0 G/DL11/01/2021 MAMMOGRAM / DEXA SCAN11/09/2017 COLOGUARD (NEGATIVE) 11/09/2020ocial HistoryDoes not smoke. Drinks socially. No occupational exposures.Family HistoryMother 81 . from complications of angioplasty. hx of hypertension.Father is 82 history of coronary artery disease and hypertension.Has two brothers living with hypertension(2) and one with peptic ulcersNo sisters. Oral Osorio MD [address] [place] [address], [place] [address], [place], [address], [facility] [employer] 10/01/2022 15:32:45 02/05/20 23 text/htm l Patient Name: Devora OrourkeDate Of Service: Thursday ( 02.04.2023 ): 1945 Age: 77 Vital Signs:Blood Pressure: Sitting Rt. Arm 124/68Pulse: Sitting 78 /min and RegularRespiratory Rate: 12Height 57 in or 1.4 mWeight 122 lb or 55.3 kgBMI 26.4Temperature: 97 F or 36.1 CPulse Oximetry: 97 % at rest on no oxygen Chief Complaint: Addressed in HPI Problems or conditions discussed in the HPI were the only ones reviewed during the encounter.Only social and family history addressed in the HPI were reviewed during this encounter. A significant, separate E/M service was performed to evaluate the current and new problems. Attendant(s): NoneConstitutional and Systemic Symptoms:none Medication Reconciliation: from medication list. History of Present Illness Reviewed the findings of the preventative health visit. Addressed all areas with the patient, patient's family or caregivers. Preventative examinations and testing immunizations - vaccinations, colonic neoplasm screening, mammograms, LDCT thorax and DEXA Scan all reviewed and ordered where patient was amenable to the recommendations. Cognitive function was normal. Depression addressed and where necessary medications were adjusted or instituted. End of life and living will briefly discussed with patient and where these can be filled out and legally executed. Other blood and imaging studies were ordered if considered necessary. Other recommendations may be found in the encounter note. #1. Coronary Artery Disease: There has been no change in frequency - duration - intensity in frequency, duration or intensity of chest pain. Other Complaints: none The frequency of anginal attacks is none at all. Additional Symptoms: none Therapy reviewed regarding cardiovascular management includes Aspirin, Lipitor, Lisinopril, Metoprolol Tartrate and Zetia #2. Essential Hypertension: Stage: Stage I Interval Neurological Complaints no headaches, dizziness, weakness, visual changes, ataxia, aphasia and apraxia. No shortness of breath, orthopnea or cardiovascular symptoms. No other symptoms related to end organ damage. Pressure has been under excellent control. Currently normal. No other end organ symptoms or findings. Therapy reviewed regarding management of hypertension and includes salt restriction and Lisinopril and Metoprolol Tartrate. #3. Aortic Stenosis: Symptoms: calcified Hx of within last year aortic stenosis. No interval complaints of any chest pain, shortness of breath, palpitations or syncope. No palpitations. No change in exercise tolerance. Last echocardiogram was needs. Currently Type II Hypercholesterolaemia a repeat echocardiogram. #4. taking medication and tolerating well: Currently No. excellent control interval complaints of any muscle pain or arthralgia. No significant liver changes with medications. Last lipid panel: diet and Lipitor and Zetia. Therapy reviewed regarding treatment of cholesterol management and include Atorvastatin and Zetia.Medication List Reviewed and Reconciled 02/04/2023Lipitor 40 MG (TABLET - ORAL) One Hs For CholesterolMetoprolol Tartrate 25 MG (TABLET - ORAL) Half Tablet Twice A DayVitamin C 1000 MG Once DailyOs-jacquie D DailyLisinopril 5 MG TABLET One DailyMultivitamin DailyAspirin 81 MG One DailyZetia 10 MG (TABLET - ORAL) One DailyVaccination and [id number] Ffnreikvl3578-40 Covid Booster Fgjkduf4720-49 Covid Zajxnfe7263-07 Cbngtynen8073-45 Prevnar 13 GcSurgical HistoryCAGB, Right Carotid Endarterectomy, SCOTT BSO, TonsillectomyPreventative Testing Confirmed by Our Gmupdgf0106/09/2022 ALBUMIN 4.0 G/DL N011/01/2021 MAMMOGRAM 303/ DEXA SCAN11/09/2017 COLOGUARD (NEGATIVE) 11/09/2020ocial HistoryDoes not smoke. Drinks socially. No occupational exposures.Family HistoryMother 81 . from complications of angioplasty. hx of hypertension.Father is 82 history of coronary artery disease and hypertension.Has two brothers living with hypertension(2) and one with peptic ulcersNo sisters. Oral Osorio MD [address] [place] [address], [facility] [[email or web address]] [address], [place], [address], [place] [facility] [employer] 02/04/2023 11:25:47 06/10/19 24 text/htm l Patient Name: Devora OrourkeDate Of Service: Thursday ( 06.10.2023 ): 1945 Age: 77 Vital Signs:Blood Pressure: Sitting Rt. Arm 132/80Pulse: Sitting 85 /min and RegularRespiratory Rate: 12Height 56.5 in or 1.4 mWeight 121.5 lb or 55.1 kgBMI 26.8Temperature: 97 F or 36.1 CPulse Oximetry: 92 % at rest on no oxygen Chief Complaint: Addressed in HPI Problems or conditions discussed in the HPI were the only ones reviewed during the encounter.Only social and family history addressed in the HPI were reviewed during this encounter. Attendant(s): NoneConstitutional and Systemic Symptoms:none Medication Reconciliation: from medication list. [id number]: Mammogram negative for malignancy repeat in approximately one year.03/04/2023: DEXA scan osteopenia. FRAX score is adequate. No need for any additional therapy outside of vitamin-D and calcium supplementation. 05-19-2023: carotid ultrasound 50-69% stenosis of the left internal carotid artery. Less than 50% stenosis of the right internal carotid artery. Vertebral blood flow antegrade zmwesauwdyk89/02/2024: Echocardiogram demonstrated estimated ejection fraction of 60%. Mild enlargement of left atrium. Elevated filling pressures in te left atrium. Severe mitral annular calcification. Severe aortic stenosis estimated aortic valve area 0.4 sq cm. Peak gradient 58.77 mmHg. History of Present Illness #1. Coronary Artery Disease: There has been no change in frequency - duration - intensity in frequency, duration or intensity of chest pain. Other Complaints: none The frequency of anginal attacks is none at all. Additional Symptoms: none Therapy reviewed regarding cardiovascular management includes Aspirin, Lipitor, Lisinopril, Metoprolol Tartrate and Zetia #2. Essential Hypertension: Stage: Stage I Interval Neurological Complaints no headaches, dizziness, weakness, visual changes, ataxia, aphasia and apraxia. No shortness of breath, orthopnea or cardiovascular symptoms. No other symptoms related to end organ damage. Pressure has been under excellent control. Currently normal. No other end organ symptoms or findings. Therapy reviewed regarding management of hypertension and includes salt restriction and Lisinopril and Metoprolol Tartrate. #3. Aortic Stenosis: Symptoms: no cardiac symptoms Hx of calcified aortic stenosis. No interval complaints of any chest pain, shortness of breath, palpitations or syncope. No palpitations. No change in exercise tolerance. Severity severe. Last echocardiogram was less than six months ago. Followed by Cardiology: regularly Currently does not need a repeat echocardiogram. #4. Type II Hypercholesterolaemia: Currently taking medication and tolerating well. No interval complaints of any muscle pain or arthralgia. No significant liver changes with medications. Last lipid panel: excellent control. Therapy reviewed regarding treatment of cholesterol management and include diet and Lipitor. Active Medication ListLipitor 40 MG (TABLET - ORAL) One Hs For CholesterolMetoprolol Tartrate 25 MG (TABLET - ORAL) Half Tablet Twice A DayVitamin C 1000 MG Once DailyOs-jacquie D DailyLisinopril 5 MG TABLET One DailyMultivitamin DailyAspirin 81 MG One DailyZetia 10 MG (TABLET - ORAL) One Daily Vaccination and Xvqnmouvegdl9473-44 Sjmvoiugo9100-79 Covid Booster Mlwzxpe7936-46 Covid Ntvnzul7986-31 Durfypjge4042-91 Prevnar 13 Surgical Quuuokk2318-37 ARDW3036-73 Right Carotid Mgjktmnbusdmmk2522-25 [facility] YIM0492-54 Tonsillectomy Preventative Fbodqjk5003/11/2023 COLOGUARD 7003/04/2023 MAMMOGRAM 5003/04/2023 DEXA SCAN (OSTEOPENIA)06/09/2022 ALBUMIN 4.0 G/DL N Social HistoryDoes not smoke. Drinks socially. No occupational exposures. Family HistoryMother 81 . from complications of angioplasty. hx of hypertension.Father is 82 history of coronary artery disease and hypertension.Has two brothers living with hypertension(2) and one with peptic ulcersNo sisters. TEST RESULT RANGE UNITSLIPID PANEL, STANDARD Date: 3CHOLESTEROL, TOTAL 118 <200 MG/DLHDL CHOLESTEROL 46 > OR = 50 MG/DLTRIGLYCERIDES 75 <150 MG/DLLDL-CHOLESTEROL 56 MG/DL (CALC)CBC (INCLUDES DIFF/PLT) Date: 06/09/2022WHITE BLOOD CELL COUNT 8.6 3.8-10.8 THOUSAND/ULHEMOGLOBIN 14.0 11.7-15.5 G/DLHEMATOCRIT 42.4 35.0-45.0 %PLATELET COUNT 158 140-400 THOUSAND/ULCOMPREHENSIVE METABOLIC PANEL Date: 06/09/2022SODIUM 141 135-146 MMOL/LPOTASSIUM 4.5 3.5-5.3 MMOL/LGLUCOSE 99 65-99 MG/DLUREA NITROGEN (BUN) 23 7-25 MG/DLCREATININE 0.89 0.60-1.00 MG/DLEGFR 68 > OR = 60 ML/MIN/1.06P4KBKTULKPI, TOTAL 0.4 0.2-1.2 MG/DLALKALINE PHOSPHATASE 62 37-153 U/LAST 17 10-35 U/LALT 16 6-29 U/L Oral Osorio MD [facility] [facility], [facility] [[email or web address] [address], [place], [address], [place] [facility] [employer] [facility] 06/10/2023 11:21:14 OBGyn Episode No OBEpisode recorded.
--- OUTSIDE RECORDS SUMMARY | 2024-03-19 12:20 | XMS_ITS | CONTINUITY OF CARE DOCUMENT ---
Author Name ilan talavera Address Unknown Organization [facility] Address [address] [address] [place] [address] Phone [phone] Care Team Providers Care Project Financial Analyst Name Role Phone Jessica SOLIMAN, Shay Unavailable [phone] ORAL CHAN MD Unavailable [phone] ORAL CHAN MD Unavailable [phone] PROBLEMS Condition Status Date Provider Notes Other symptoms involving cardiovascular system completed - Shay Lopez MD CVA active Shay Lopez MD Hyperlipidemia active ? Shay Lopez MD Hypertension active ? 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 (HENRIQUEZ-LAD, SVG-RCA, SVG-Ramus Int, LR-OM2) active Shay Lopez MD Aortic stenosis completed - Shay Lopez MD Shortness of breath active Shay echavarria MD Obesity active Shay Lopez MD Palpitations active Fili Call ENCOUNTERS Date Type Provider Location Encounter Diag nosis - In-person encounter Office Visit Shay Lopez MD [facility] - In-person encounter Office Visit Shay Lopez MD [facility] - In-person encounter Office Visit Shay Lopez MD [facility] - In-person encounter Office Visit Shay Lopez MD [facility] - In-person encounter Office Visit Shay Lopez MD [facility] - In-person encounter Office Visit Shay Lopez MD [facility] Pulmonary hypertensionPalpitations - In-person encounter Office Visit Shay Lopez MD [facility] - In-person encounter Office Visit Shay Lopez MD [facility] CVAAortic valve stenosis with insufficiencyCarotid artery disease S/P FREDY endarterectomy 07/31CAD S/P CABGx4 09/30 (HENRIQUEZ-LAD, SVG-RCA, SVG-Ramus Int, LR-OM2)Aortic stenosisShortness of breathObesity - In-person encounter Office Visit Shay Lopez MD [facility] Other peripheral vascular disease - In-person encounter Office Visit Shay Lopez MD [facility] Other symptoms involving cardiovascular systemPulmonary hypertensionTricuspid regurgitation, moderateAortic valve stenosis with insufficiencyAbnormal stress testCAD S/P CABGx4 0815 (HENRIQUEZ-LAD, SVG-RCA, SVG-Ramus Int, LR-OM2) - In-person encounter Office Visit Shay Lopez MD [facility] Pleural effusionCAD S/P CABGx4 08 (HENRIQUEZ-LAD, SVG-RCA, SVG-Ramus Int, LR-OM2) - In-person encounter Office Visit Shay Lopez MD [facility] - In-person encounter Office Visit Shay Lopez MD [facility] - In-person encounter Office Visit Shay Lopez MD [facility] - In-person encounter Office Visit Shay Lopez MD [facility] Carotid artery disease S/P FREDY endarterectomy 07/31 - In-person encounter Office Visit Shay Lopez MD [facility] CVAHyperlipidemiaHypertensionPulmonary hypertensionLVHTricuspid regurgitation, moderateAortic valve stenosis with insufficiencyCarotid artery disease S/P FREDY endarterectomy 07/31 VITAL SIGNS Date Observation Value Provider blood pressure, diastolic 84 mm[Hg] nkLog blood pressure, systolic 151 mm[Hg] [facility] Body Mass Index (Ratio) 34.03 kg/m2 [facility] blood pressure, cuff size regular [facility] blood pressure, diastolic 84 mm[Hg] [facility] blood pressure, systolic 151 mm[Hg] [facility] pulse rate 83 /min [facility] oxygen saturation, oximetry 99 % [facility] respiratory rate E&M 14 /min [facility] weight E&M 121 [lb_av] [facility] height E&M 50 [in_i] [facility] y Body Mass Index (Ratio) [...] er weight E&M 125 [lb_av] Lucy Gruenenfe [facility] height E&M 50 [in_i] Lucy Gruenenfe [facility] Body Mass Index (Ratio) 35.99 kg/m2 [facility] blood pressure, cuff size regular Ke rri Gruenenfelder blood pressure, diastolic 72 mm[Hg] Ke rri Gruenenfelder blood pressure, systolic 112 mm[Hg] Ker ri Gruenenfelder oxygen saturation, oximetry 90 % Lucy Gruenenfelder respiratory rate E&M 16 /min Lucy G ruenenfelder pulse rate 79 /min Lucy Gruenenfe lder weight E&M 128 [lb_av] Lucy Gruenenfe [facility] height E&M 50 [in_i] Lucy Buckley brenden [...] Mosher Body Mass Index (Ratio) 30.09 kg/m2 [facility] weight E&M 107 [lb_av] Dasia Mosher oxygen saturation, oximetry 98 % Dasia Mosher blood pressure, diastolic 72 mm[Hg] Me hernandez [facility] blood pressure, systolic 116 mm[Hg] [facility] pulse rate 76 /min Dasia Mosher respiratory rate E&M 14 /min Dasia Mosher Body Mass Index (Ratio) 29.53 kg/m2 [facility] weight E&M 105 [lb_av] Dasia Mosher blood pressure, diastolic 66 mm[Hg] Me hernandez Mosher blood pressure, systolic 119 mm[Hg] Mira carlos Mosher Body Mass Index (Ratio) 30.65 kg/m2 [facility] pulse rate 88 /min Dasia oMsher oxygen saturation, oximetry 96 % Dasia Mosher [...] blood pressure, systolic 159 mm[Hg] Ane atris [facility] pulse rate 80 /min [facility] oxygen saturation, oximetry 97 % Aneatris Drew respiratory rate E&M 18 /min [facility]neatri [facility] weight E&M 117 [lb_av] Aneatris Drew [...] Normal Absolute Neutrophil count 6752 cells/mcL [employer] [id number] Normal mean platelet volume 12.7 fL [facility] [...] 0-149 High cholesterol, serum 168 mg/dL [facility] [phone]/06 /04 alanine aminotransferase (SGPT), serum 17 1/L [...] [employer] 3.5-5.2 sodium, serum 143 mmol/L [facility] [phone]/06 /04 urea nitrogen/creatinine ratio, serum 20 [employer] [...] urea nitrogen, blood 27.0 mg/dL [facility] 8[facility] - 23.0 High Glucose Urine 103.0 mg/dL [facility] 74.0 - 99.0 High bilirubin, serum, total 0.3 mg/dL [facility] 0.0 - 1.2 red blood cell distribution width, size density 44.0 fL [facility] - immature granulocytes, percentage of total cells, blood 0.3 % [facility] - nucleated red blood cells as [...] history of marijuana use no Ellen 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 Ana M Kiron smoking status Never smoker Jasmyne Recio social [...] Payer name Policy type / Coverage type [place] [employer] party ID AARP MEDICARE ADVANTAGE HMO-POS HMO [id number] ADVANCE DIRECTIVES Name Date DISCUSSED - NO DECISION MADE TREATMENT PLAN Date Name Performer [id number],C,will repeat h er carotid doppler Aravind Joseph [id number],B, Aravind Reid i [id number],C,no sxs Aravind Dietz edzai [id number],C,Stable Aravind Dietz edzai [id number],C, n o angina Aravind Reidi [id number],C,A dvised her to monitor her BP at home and stay complaint on her medications. BP today: 181/78 P rior BP: 142/80 (01/04/2021) Labs Reviewed: C reat: 0.89 (12/16/2019) C hol: 170 (12/16/2019) HDL: 43 (12/16/2019) LDL: 100 MG/DL (CALC) (12/16/2019) T (12/16/2019) Aravind Reidi [id number],C, E cho 01/2019 CONCLUSIONS: 4 . Moderate aortic stenosis. Mild aortic valve regurgitation. Peak AV velocity: 3.05 m/s. The Aortic Valve Peak Gradient is 3 7.00 mmHg. The Aortic Valve Mean Gradient is 19.00 mmHg. Orders: C omplete Echo (CPT-21994) Apryl Carrington [id number],C, B P today: 142/80 P rior BP: [...] mouth every day Orders: C omplete Echo (CPT-36524) C arotid Duplex Bilateral (CPT-31059) A janis Duplex Ultrasound (CPT-00662) Apryl Carrington [id number],B, l ast LDL 65 05/2020 t olerating statin/zetia well. occasional leg cramps but not associated w/ taking meds Her updated medication list for this problem includes: Lipitor 40 Mg Tablet (Atorvastatin) ..... 1 tablet once a day Ezetimibe 10 Mg Tablet (Ezetimibe) ..... Take one tablet by mouth every day Apryl Zeb [id number],C, O rders: C omplete Echo (CPT-13707) [facility] [id number],C, O rders: C omplete Echo (CPT-68640) [facility] [id number],C, O rders: C arotid Duplex Bilateral (CPT-53378) [facility] [id number],B, n o angina Her updated medication list [...] he r carotid doppler [facility]ravind millie [facility]:no sxs Aravind medzai Electrophysiology:Stable [facility] medzai Electrophysiology: n o angina [facility]:Ad vised her to monitor her BP at home and stay complaint on her medications. BP today: 181/78 P rior BP: 142/80 (01/04/2021) Labs Reviewed: C reat: 0.89 (12/16/2019) C hol: 170 (12/16/2019) HDL: 43 (12/16/2019) LDL: 100 MG/DL (CALC) (12/16/2019) T (12/16/2019) [facility] E cho 01/2019 CONCLUSIONS: 4 . Moderate aortic stenosis. Mild aortic valve regurgitation. Peak AV velocity: 3.05 m/s. The Aortic Valve Peak Gradient is 3 7.00 mmHg. The Aortic Valve Mean Gradient is 19.00 mmHg. Orders: C omplete Echo (CPT-30940) Apryl Zeb Electrophysiology: B P today: 142/80 [...] mouth every day Orders: C omplete Echo (CPT-05287) C arotid Duplex Bilateral (CPT-27830) A janis Duplex Ultrasound (CPT-17545) [facility]: l ast LDL 65 05/2020 t olerating statin/zetia well. occasional leg cramps but not associated w/ taking meds Her updated medication list for this problem includes: Lipitor 40 Mg Tablet (Atorvastatin) ..... 1 tablet once a day Ezetimibe 10 Mg Tablet (Ezetimibe) ..... Take one tablet by mouth every day [facility]: O rders: C omplete Echo (CPT-14685) [facility] Electrophysiology: O rders: C omplete Echo (CPT-77826) [facility] Electrophysiology: O rders: C arotid Duplex Bilateral (CPT-86571) [facility] Electrophysiology: n o angina Her updated [...] E lectronically Signed By: Shay Lopez 15:54:35 HELP DESK SUPPORT SPECIALIST Orders: C omplete Echo (CPT-46860) 9 9215 HIGH Complex (CPT-78015) [facility] Electrophysiology Fo llow up completed :01/2019: C ONCLUSIONS: 1 . 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 2 . 50 - 69% stenosis of the left ICA. 3 . <50% stenosis of the right ICA. 4. Vertebral flow is antegrade bilaterally. E lectronically Signed By: Shay Ching 15:36:30 HELP DESK SUPPORT SPECIALIST O rders: C arotid Duplex Bilateral (CPT-24686) 9 9215 HIGH Complex (CPT-68174) [facility] Electrophysiology: H er updated medication list [...] Jeferson Electrophysiology: O rders: C omplete Echo (CPT-13240) M obile Cardiac Tele (CPT-10003) 9 9215 HIGH Complex (CPT-35233) [facility] Electrophysiology:Wi ll get 1 week telesentry, n o recent episodes O rders: C omplete Echo (CPT-48597) [facility] Electrophysiology:ge t echo redone Orders: C omplete Echo (CPT-09516) [facility] Electrophysiology:Or ders: M obile Cardiac Tele (CPT-85501) Her updated medication list for this problem [...] 09/17/17. Goal 70. Orders: L IPID PANEL (5640) C OMPREHENSIVE METABOLIC PANEL, W/EGFR (18348) Her updated medication list for this problem includes: Lipitor 20 Mg Oral Tablet (Atorvastatin calcium) ..... One tab. daily Fili Call Electrophysiology:Or ders: C arotid Duplex Bilateral (CPT-51941) S chedule Followup (*) 9 9214 MOD Complex (CPT-08508) Fili Call Electrophysiology:Or ders: C omplete Echo (CPT-89746) S chedule Followup (*) 9 9214 MOD Complex (CPT-84450) Her updated medication list for this problem [...] Electrophysiology:Or ders: S chedule Followup (*) 9 3894 MOD Complex (CPT-00987) Her updated medication list for this problem [...] S/P right endarterectomy. Ana M Mckinnon Electrophysiology [facility]rophysiology [facility] Electrophysiology [facility] Electrophysiology: B P today: 173/86 P rior [...] Cardiology Faxed 1359: O rders: E KG (CPT-82124) 9 9213 LTD. Complex (CPT-69272) S chedule Followup (*) C omplete Echo (CPT-73380) Her updated medication list for this problem [...] Lopez MD hfu: O rders: E KG (CPT-06524) 9 9213 LTD. Complex (CPT-64965) S chedule Followup (*) S TR - Adenosine (74845) Shay Lopez MD hfu: O rders: E KG (CPT-74090) S chedule Followup (*) S TR - Adenosine (13092) Shay Lopez MD hfu:s/p Carotid Enda rterectomy: right 08/15/2014 The following medications were removed from the medication list: Aggrenox 25-200 Mg Oral [id number] (Aspirin-dipyridamole) ..... One tab twice daily Her updated medication list for this problem includes: Aspirin 81 Mg Tabs (Aspirin) ..... One tab. daily hSay Lopez MD EP follow up: T he [...] this problem includes: Aggrenox 25-200 Mg Oral [id number]-tdi (Aspirin-dipyridamole) ..... One tab twice daily Orders: C T angio, neck (CPT-68408) Shay Lopez MD HOS FOLLOW UP: O rders: S TR - Nuclear (46337) Shay Lopez MD HOS FOLLOW UP: H er updated medication list for this problem includes: Aggrenox 25-200 Mg Oral [id number] (Aspirin-dipyridamole) ..... One tab twice daily Aspirin 81 Mg Tabs (Aspirin) ..... One tab. daily Shay Lopez MD HOS FOLLOW UP: O rders: C OMPREHENSIVE METABOLIC PANEL W/EGFR (45200) L IPID PANEL (9430) C omplete Echo (CPT-78653) C arotid Duplex Bilateral (CPT-83134) S TR - Nuclear (14583) A ortic Abdominal Ultrasound (CPT-14164) Shay Lopez MD Date Name Holter Monitor [...] Complete Echo Mobile Cardiac Tele DLCO - 53715 FRC - 35575 FVC - 61956 Complete Echo Complete Echo Carotid Duplex Bilat [...] completed EKG Shay echavarria MD completed SNOMED-CT: 738156999700739 Current Medications Documented Shay Lopez MD completed Schedule Followup Shay lewis MD in 1 year completed EKG Shay echavarria MD completed SNOMED-CT: 204140227103320 Current Medications Documented Shay Lopez MD completed SNOMED-CT: 63254208 Physical Exam, Performed: Pulse Exam of Foot Shay Lopez MD completed SNOMED-CT: 836381656 Smoking Cessation Counseling Shay Lopez MD completed Schedule Followup Shay lewis MD fu in 3 months completed EKG Shay echavarria MD completed SNOMED-CT: 318787490491416 Current Medications Documented Shay Lopez MD completed Schedule Followup Shay lewis MD in 1 month completed EKG Shay echavarria MD completed EKG Shay echavarria MD completed Schedule Followup Shay lewis MD fu in 1 month with SK completed EKG Shay echavarria MD completed EKG Shay echavarria MD completed EKG Shay echavarria MD completed
[2024-03-19 12:47] LABS: Alveolar/Arterial O2 Gradient 117.4 mmHg; Base Excess ABG -7.8 mEq/l (+/-2.0); Carboxyhemoglobin 0.5 % THb (0-2.0); Fractional Inspired Oxygen 36 %; HCO3 ABG 20.2 mEq/l (22.0-26.0); Methemoglobin ABG 0.1 %THb (0-1.5); Oxygen Content ABG 16.6 %vol (16.0-22.0); Oxyhemoglobin 91.2 % THb (90.0-100.0); PCO2 ABG 51.9 mmHg (35.0-45.0); PO2 ABG 79.1 mmHg (80.0-100.0); Reduced Hemoglobin 8.2 %THb (0-5.0); Total Hemoglobin 12.9 g/dL (12.0-18.0)
[2024-03-19 12:48] LABS: Device NASAL CANNULA; Modified Allen's Test Pass; Site Drawn RIGHT RADIAL; pH ABG 7.209 (7.350-7.450)
--- NOTE | 2024-03-19 12:50 | ED.GENADULT ---
HPI - General Adult General Chief complaint: Shortness of Breath/Dyspnea Stated complaint: sob Time Seen by Provider: 03/19/24 12:43 History of Present Illness HPI narrative: 78-year-old female presented to the emergency department for evaluation for worsening shortness of breath and cough and congestion. Patient states symptoms started a few weeks ago but have been slowly progressing. Patient states symptoms worsened to the point yesterday where she felt she needed to be evaluated by urgent care. Patient states she was started on antibiotics for suspected pneumonia. Patient presented the emergency department today complaining of worsening shortness of breath and increased work of breathing. Patient denies any prior history of congestive heart failure. Patient denies any cardiac history but does report a prior CVA. Related Data Home Medications ?Medication ?Instructions ?Recorded ?Confirmed ?Last Taken ?Type aspirin 81 mg tablet,delayed 81 mg PO DAILY 03/19/24 03/19/24 03/19/24 History release (Adult Low Dose Aspirin) atorvastatin 40 mg tablet mg 03/19/24 03/19/24 History ezetimibe 10 mg tablet mg 03/19/24 03/19/24 History lisinopril 5 mg tablet mg 03/19/24 03/19/24 History metoprolol tartrate 25 mg tablet mg 03/19/24 03/19/24 History multivitamin (Daily Multi-Vitamin 1 tablet PO DAILY 03/19/24 03/19/24 Unknown History tablet) Allergies Allergy/AdvReac Type Severity Reaction Status Date / Time No Known Allergies Allergy Verified 03/19/24 14:41 Review of Systems Review of Systems: All systems reviewed & are unremarkable except as noted in HPI and below Exam Narrative: APPEARANCE: Ill-appearing HEAD: normocephalic, atraumatic. EYES: PERRLA/EOMI, conjunctivae clear. NOSE: Normal no drainage EARS:TMS clear with good light reflex. THROAT: Pharynx clear, no exudate. NECK: Supple. No adenopathy, no masses. RESPIRATORY: Rhonchi bilaterally CARDIOVASCULAR: Regular rate and rhythm without murmurs rubs or gallops. ABDOMINAL: Soft, nontender, nondistended, normal bowel sounds MUSCULOSKELETAL: Moves all extremities. Strength/ROM intact, No edema, No calf tenderness. NEURO: Alert. Cranial nerves II through XII intact. Grossly intact SKIN: Warm, dry. Normal Color Course Vital Signs Vital signs: Vital Signs Pulse Rate 121 H 03/19/24 12:31 Respiratory Rate 36 H 03/19/24 12:31 Blood Pressure 190/158 H 03/19/24 12:31 Pulse Oximetry 88 L 03/19/24 12:31 Oxygen Delivery High Flow Nasal Cannula 03/19/24 12:31 Oxygen Flow Rate 2 03/19/24 12:31 Pulse Rate 99 03/19/24 20:02 Respiratory Rate 26 H 03/19/24 20:02 Blood Pressure 127/46 L 03/19/24 20:02 Pulse Oximetry 100 03/19/24 20:02 Oxygen Delivery BiPAP 03/19/24 19:37 Oxygen Flow Rate 4 03/19/24 12:39 Medical Decision Making MDM Narrative Medical decision making narrative: 78-year-old female present to the emergency department worsening shortness of breath. Patient is tachycardic hypertensive and hypoxic upon arrival emergency department. Patient initially placed on supplemental oxygen but due to her increased work of breathing patient was placed on BiPAP. Patient's ABG was collected prior to being placed on BiPAP and did show a pH is 7.2, pCO2 51.9 and a PO2 of 79.1. Patient was treated with IV Lasix due to check x-ray showing pneumonia versus pulmonary edema. Patient was also started on antibiotics, Rocephin and azithromycin with blood cultures pending. Procalcitonin was also ordered. CT scan was ordered to better evaluate the her lungs and does show a multifocal pneumonia. Patient was then treated with a ideal body weight bolus of IV fluids. On re-evaluation patient's lactic acid was improved. Patient felt significantly improved. Patient does have a leukocytosis of 30,000. Patient's initial lactic acid was 4.5 and repeat lactic acid was 1.4. Patient's BNP was elevated at 23,000. Patient family were updated of results of workup and patient was admitted to the IMU. Prior to going to the floor patient did feel significantly improved. Differential Diagnosis Differential Diagnosis: COVID, RSV, influenza, pulmonary edema,, pneumonia Vital Signs Vital Signs: Vital Signs Pulse Rate 121 H 03/19/24 12:31 Respiratory Rate 36 H 03/19/24 12:31 Blood Pressure 190/158 H 03/19/24 12:31 Pulse Oximetry 88 L 03/19/24 12:31 Oxygen Delivery High Flow Nasal Cannula 03/19/24 12:31 Oxygen Flow Rate 2 03/19/24 12:31 Pulse Rate 99 03/19/24 20:02 Respiratory Rate 26 H 03/19/24 20:02 Blood Pressure 127/46 L 03/19/24 20:02 Pulse Oximetry 100 03/19/24 20:02 Oxygen Delivery BiPAP 03/19/24 19:37 Oxygen Flow Rate 4 03/19/24 12:39 Lab Data Lab results reviewed: Yes I reviewed the patient's lab results. 03/19/24 13:01 03/19/24 13:01 Labs: Lab Results 03/19/24 03/19/24 03/19/24 Range/Units 12:42 13:01 13:02 WBC 30.6 H (4.5-10.0) K/mm3 RBC 4.36 (4.2-5.4) M/mm3 Hgb 12.4 (12.0-15.0) g/dL Hct 40.6 (37.0-47.0) % MCV 93.1 (80-100) fl MCH 28.4 (26-34) pg MCHC 30.5 L (32-36) g/dl RDW 13.3 (11.5-14.5) % Plt Count 538 H (150-375) k/mm3 MPV 10.8 H (7.4-10.4) fl Immature Gran % (Auto) Not Reportable Neut % (Auto) Not Reportable Lymph % (Auto) Not Reportable [place] % (Auto) Not Reportable Eos % (Auto) Not Reportable Baso % (Auto) Not Reportable Lymph # (Auto) Not Reportable [place] # (Auto) Not Reportable Eos # (Auto) Not Reportable Baso # (Auto) Not Reportable Abs Immat Gran (auto) Not Reportable Absolute Neuts (auto) Not Reportable Absolute Nucleated RBC Not Reportable Total Counted 100 Neutrophils % (Manual) 86 H (46-73) % Band Neutrophils % 3 (0-6) % Lymphocytes % (Manual) 7 L (18-44) % Monocytes % (Manual) 4 (3-9) % Nucleated RBC % Not Reportable Abs Neuts (Manual) 27.23 H (1.7-7.2) K/mm3 Abs Lymphs (Manual) 2.14 (1.1-4.5) K/mm3 Abs Monocytes (Manual) 1.22 H (0.1-0.90) K/mm3 Platelet Estimate Adequate (Adequate) Large Platelets Present Anisocytosis 1+ Jocelyn Cells 1+ Schistocytes None seen PT 15.4 H (11.1-14.7) Seconds INR 1.2 APTT 27.3 (22.3-36.8) Seconds Methemoglobin 0.1 (0-1.5) %THb Sodium 140 (137-145) mmol/L Potassium 4.7 (3.4-5.0) mmol/L Chloride 102 (98-107) mmol/L Carbon Dioxide 21 L (22-30) mmol/L Anion Gap 17 H (4-12) mmol/L BUN 24 H (7-17) mg/dL Creatinine 0.91 (0.7-1.0) mg/dL Estim Creat Clear Calc Not Reportable Estimated GFR 60 (59 - ) Glucose 309 H (65-110) mg/dL Lactic Acid 4.5 H* (0.7-2.0) mmol/L Calcium 10.1 (8.4-10.2) mg/dL Total Bilirubin 0.7 (0.2-1.3) mg/dL AST 24 (14-36) U/L ALT 24 (6-35) U/L Alkaline Phosphatase 103 (38-126) U/L NT-Pro-B Natriuret Pep 67091 H (19.9-100) pg/mL Total Protein 7.0 (6.3-8.2) g/dL Albumin 3.4 L (3.5-5.1) g/dL Beta-Hydroxybutyrate/Acetoacetate 0.14 (0.02-0.27) mmol/L Influenza A (RT-PCR) Negative (Negative) Influenza B (RT-PCR) Negative (Negative) RSV (RT-PCR) Negative (Negative) SARS-CoV-2 RNA (RT-PCR) Negative (Negative) ABG Data ABG results: 03/19/24 12:42 Puncture Site Right radial ABG pH 7.209 L* ABG pCO2 51.9 H ABG pO2 79.1 L ABG PO2/FiO2 Ratio 2.20 ABG HCO3 20.2 L ABG O2 Saturation 93.0 L ABG O2 Content 16.6 ABG Base Excess -7.8 A-a Gradient 117.4 Oxyhemoglobin 91.2 Carboxyhemoglobin 0.5 Reduced Hemoglobin 8.2 H Total Hemoglobin 12.9 O2 Delivery Device Nasal cannula O2 Liters/Min 4.0 FiO2 36 Imaging Data Radiologist's impression: Impressions Chest X-Ray 03/19/24 12:38 IMPRESSION: 1. Diffuse lung disease, likely a combination of pneumonia and pulmonary edema. 2. Cardiomegaly. Chest CT 03/19/24 14:53 IMPRESSION: Multifocal pneumonia. Moderate right and small left pleural effusions. Mediastinal lymphadenopathy. Esophagitis/gastritis. Critical Care Time Critical Care Time Critical Care Time: Yes Total Critical Care Time: 35 Discharge Plan Discharge Clinical Impression: Multifocal pneumonia Patient Disposition: Still a Patient Condition: Serious
[2024-03-19] MEDS: ALBUTEROL SULFATE NEB 2.5 MG/3 ML INH INHALATION (13:00)
--- OUTSIDE RECORDS SUMMARY | 2024-03-19 13:02 | XMS_ITS | CONTINUITY OF CARE DOCUMENT ---
Author Name ilan talavera Address Unknown Organization [facility] Address [address] [place] [address] Phone [phone] Care Team Providers Care Analysis Manager Name Role Phone Jessica SOLIMAN, Shay Unavailable [phone] ORAL CHAN MD Unavailable ORAL CHAN MD Unavailable PROBLEMS Condition [...] In-person encounter Office Visit Shay Lopez MD [facility] - In-person encounter Office Visit Shay Lopez MD [facility] - In-person encounter Office Visit Shay Lopez MD [facility] - In-person encounter Office Visit Shay Lopez MD [facility] - In-person encounter Office Visit Shay Lopez MD [facility] - In-person encounter Office Visit Shay Lopez MD [facility] Pulmonary hypertensionPalpitations - In-person encounter Office Visit Shay Lopez MD [facility] - In-person encounter Office Visit Shay Lopez MD [facility] CVAAortic valve stenosis with insufficiencyCarotid artery disease S/P FREDY endarterectomy 07/31CAD S/P CABGx4 09/30 (HENRIQUEZ-LAD, SVG-RCA, SVG-Ramus Int, LR-OM2)Aortic stenosisShortness of breathObesity - In-person encounter Office Visit Shay Lopez MD [facility] Other peripheral vascular disease - In-person encounter Office Visit Shay Lopez MD [facility] Other symptoms involving cardiovascular systemPulmonary hypertensionTricuspid regurgitation, moderateAortic valve stenosis with insufficiencyAbnormal stress testCAD S/P CABGx4 0815 (HENRIQUEZ-LAD, SVG-RCA, SVG-Ramus Int, LR-OM2) - In-person encounter Office Visit Shay Lopez MD [facility] Pleural effusionCAD S/P CABGx4 08 (HENRIQUEZ-LAD, SVG-RCA, SVG-Ramus Int, LR-OM2) - In-person encounter Office Visit Shay Lopez MD [facility] - In-person encounter Office Visit Shay Lopez MD [facility] - In-person encounter Office Visit Shay Lopez MD [facility] - In-person encounter Office Visit Shay Lopez MD [facility] Carotid artery disease S/P FREDY endarterectomy 07/31 - In-person encounter Office Visit Shay Lopez MD [facility] CVAHyperlipidemiaHypertensionPulmonary hypertensionLVHTricuspid regurgitation, moderateAortic valve stenosis with insufficiencyCarotid artery disease S/P FREDY endarterectomy 07/31 VITAL SIGNS Date Observation Value Provider blood pressure, diastolic 84 mm[Hg] nkLog blood pressure, systolic 151 mm[Hg] [facility] Body Mass Index (Ratio) 34.03 kg/m2 [facility] blood pressure, cuff size regular [facility] blood pressure, diastolic 84 mm[Hg] [facility] blood pressure, systolic 151 mm[Hg] [facility] pulse rate 83 /min [facility] oxygen saturation, oximetry 99 % [facility] respiratory rate E&M 14 /min [facility] weight E&M 121 [lb_av] [facility] height E&M 50 [in_i] [facility] y Body Mass Index (Ratio) 34.87 [...] er weight E&M 125 [lb_av] [facility] height E&M 50 [in_i] Lucy [facility]fe [facility] Body Mass Index (Ratio) 35.99 kg/m2 [facility] on [facility] blood pressure, cuff size regular Ke rri Gruenenfelder blood pressure, diastolic 72 mm[Hg] Ke rri Gruenenfelder blood pressure, systolic 112 mm[Hg] Ker ri Gruenenfelder oxygen saturation, oximetry 90 % Lucy Gruenenfelder respiratory rate E&M 16 /min Lucy G ruenenfelder pulse rate 79 /min Lucy Gruenenfe lder weight E&M 128 [lb_av] Lucy [facility]fe [facility] height E&M 50 [in_i] Lucy Buckley brenden Body Mass Index (Ratio) 35.60 kg/m2 Vinny Govea blood pressure, diastolic 87 mm[Hg] Baldomero Harper blood pressure, systolic 148 mm[Hg] Liz Perezshelby Harper oxygen saturation, oximetry 93 % Jasmyne Leroy respiratory rate E&M 18 /min Nito Harper pulse rate 88 /min Jasmyne edwards weight E&M 126.6 [lb_av] Jasmyne rollinson height E&M 50 [in_i] Jasmyen edwards Body Mass Index (Ratio) 35.09 kg/m2 [...] Body Mass Index (Ratio) 30.09 kg/m2 [facility] weight E&M 107 [lb_av] Dasia Mosher oxygen saturation, oximetry 98 % Dasia Mosher blood pressure, diastolic 72 mm[Hg] Me hernandez Mosher blood pressure, systolic 116 mm[Hg] [facility] 76 /min Dasia Mosher respiratory rate E&M 14 /min Dasia Mosher Body Mass Index (Ratio) 29.53 kg/m2 [facility] weight E&M 105 [lb_av] Dasia Mosher blood pressure, diastolic 66 mm[Hg] Me hernandez Mosher blood pressure, systolic 119 mm[Hg] Mira carlos Mosher Body Mass Index (Ratio) 30.65 kg/m2 [facility] pulse rate 88 /min Dasia Mosher [...] blood pressure, systolic 159 mm[Hg] Ane atris [facility] pulse rate 80 /min Aneatris [facility] oxygen saturation, oximetry 97 % Aneatris Drew respiratory rate E&M 18 /min Aneatri s [facility] weight E&M 117 [lb_av] Aneatris Drew height [...] Normal Absolute Neutrophil count 6752 cells/mcL [facility] [id number] Normal mean platelet volume 12.7 fL [employer] [...] 0-149 High cholesterol, serum 168 mg/dL [facility] [id number]/06 /04 alanine aminotransferase (SGPT), serum 17 1/L [...] [employer] 3.5-5.2 sodium, serum 143 mmol/L [facility] [phone]/06 /04 urea nitrogen/creatinine ratio, serum 20 [employer] [...] cell distribution width, size density 44.0 fL [facility] - immature granulocytes, percentage of total cells, blood 0.3 % [facility] - nucleated red blood cells as percent of blood leukocytes 0.0 % [facility] - red blood cell (erythrocyte) count, per [...] history of marijuana use no Ellen Steph COUN[employer]TELLIGENCE AGENT drug use no Ellen Choi COUN[employer]IGENCE AGENT alcohol use no Ellen Choi COUN[employer]TELLIGENCE AGENT smoking status Never smoker Ellen Isi ornelas COUNTER INTELLIGENCE AGENT social history E&M S moking History: Zayra [...] Apryl Carrington smoking status Never smoker Lucy ccaeres social history reviewed E&M revi ewed - no changes required Omega Govea smoking status Never smoker Jasmyne Recio social history reviewed E&M revi ewed - no changes required Filius Call social history E&M S moking History: Zayra salcido has never smoked. Fili Call smoking status Never smoker Jasmyne Recio number of grandchildren Shay Lopez MD [facility] social history reviewed E&M revi ewed - no changes required [facility] social history E&M S moking History: Zayra salcido has never smoked. Ana M [place] smoking status Never smoker Jasmyne Recio social [...] E&M revi ewed - no changes required hSay Lopez MD smoking status Never smoker Shay [...] Payer name Policy type / Coverage type [employer] party ID AARP MEDICARE ADVANTAGE HMO-POS HMO [id number] ADVANCE DIRECTIVES Name Date DISCUSSED - NO DECISION MADE TREATMENT PLAN Date Name Performer [id number],C,will repeat h er carotid doppler Aravind Joseph [id number],B, Aravind Reid i [id number],C,no sxs Aravind Dietz edzai [id number],C,Stable Aravind Dietz edzai [id number],C, n o angina Aravind Reidi [id number],C,A dvised her to monitor her BP at home and stay complaint on her medications. BP today: 181/78 P rior BP: 142/80 (01/04/2021) Labs Reviewed: C reat: 0.89 (12/16/2019) C hol: 170 (12/16/2019) HDL: 43 (12/16/2019) LDL: 100 MG/DL (CALC) (12/16/2019) T (12/16/2019) Aravind Reidi [id number],C, E cho 01/2019 CONCLUSIONS: 4 . Moderate aortic stenosis. Mild aortic valve regurgitation. Peak AV velocity: 3.05 m/s. The Aortic Valve Peak Gradient is 3 7.00 mmHg. The Aortic Valve Mean Gradient is 19.00 mmHg. Orders: C omplete Echo (CPT-89933) Apryl Carrington [id number],C, B P today: 142/80 P rior BP: [...] mouth every day Orders: C omplete Echo (CPT-74150) C arotid Duplex Bilateral (CPT-97307) A janis Duplex Ultrasound (CPT-68632) Apryl Carrington [id number],B, l ast LDL 65 05/2020 t olerating statin/zetia well. occasional leg cramps but not associated w/ taking meds Her updated medication list for this problem includes: Lipitor 40 Mg Tablet (Atorvastatin) ..... 1 tablet once a day Ezetimibe 10 Mg Tablet (Ezetimibe) ..... Take one tablet by mouth every day Apryl Zeb [id number],C, O rders: C omplete Echo (CPT-92405) [facility] [id number],C, O rders: C omplete Echo (CPT-97432) [facility] [id number],C, O rders: C arotid Duplex Bilateral (CPT-11185) [facility] [id number],B, n o angina Her updated medication list [...] he r carotid doppler [facility]ravind millie [facility]:no sxs Aravind medzai Electrophysiology:Stable [facility] medzai Electrophysiology: n o angina [facility]:Ad vised her to monitor her BP at home and stay complaint on her medications. BP today: 181/78 P rior BP: 142/80 (01/04/2021) Labs Reviewed: C reat: 0.89 (12/16/2019) C hol: 170 (12/16/2019) HDL: 43 (12/16/2019) LDL: 100 MG/DL (CALC) (12/16/2019) T (12/16/2019) [facility]ravind [facility]: E cho 01/2019 CONCLUSIONS: 4 . Moderate aortic stenosis. Mild aortic valve regurgitation. Peak AV velocity: 3.05 m/s. The Aortic Valve Peak Gradient is 3 7.00 mmHg. The Aortic Valve Mean Gradient is 19.00 mmHg. Orders: C omplete Echo (CPT-19739) Apryl Zeb Electrophysiology: B P today: 142/80 [...] mouth every day Orders: C omplete Echo (CPT-08198) C arotid Duplex Bilateral (CPT-82476) A janis Duplex Ultrasound (CPT-02639) [facility]: l ast LDL 65 05/2020 t olerating statin/zetia well. occasional leg cramps but not associated w/ taking meds Her updated medication list for this problem includes: Lipitor 40 Mg Tablet (Atorvastatin) ..... 1 tablet once a day Ezetimibe 10 Mg Tablet (Ezetimibe) ..... Take one tablet by mouth every day [facility]: O rders: C omplete Echo (CPT-90573) [facility] Electrophysiology: O rders: C omplete Echo (CPT-66050) [facility] Electrophysiology: O rders: C arotid Duplex Bilateral (CPT-17650) [facility] Electrophysiology: n o angina Her updated medication [...] E lectronically Signed By: Shay Lopez 15:54:35 DEPARTMENT CLINICIAN Orders: C omplete Echo (CPT-00490) 9 9215 HIGH Complex (CPT-43755) EleazarCurazynelson Zeb Electrophysiology Fo llow up completed :01/2019: C ONCLUSIONS: 1 . 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 2 . 50 - 69% stenosis of the left ICA. 3 . <50% stenosis of the right ICA. 4. Vertebral flow is antegrade bilaterally. E lectronically Signed By: Shay Ching 15:36:30 DEPARTMENT CLINICIAN O rders: C arotid Duplex Bilateral (CPT-91520) 9 9215 HIGH Complex (CPT-44519) EleazarCurazynelson Zeb Electrophysiology: H er updated medication list [...] Jeferson Electrophysiology: O rders: C omplete Echo (CPT-21349) M obile Cardiac Tele (CPT-09999) 9 9215 HIGH Complex (CPT-42793) [facility] Electrophysiology:Wi ll get 1 week telesentry, n o recent episodes O rders: C omplete Echo (CPT-55480) [facility] Electrophysiology:ge t echo redone Orders: C omplete Echo (CPT-92888) Omega Jeferson Electrophysiology:Or ders: M obile Cardiac Tele (CPT-99617) Her updated medication list for this problem [...] 09/17/17. Goal 70. Orders: L IPID PANEL (5400) C OMPREHENSIVE METABOLIC PANEL, W/EGFR (06156) Her updated medication list for this problem includes: Lipitor 20 Mg Oral Tablet (Atorvastatin calcium) ..... One tab. daily Fili Call Electrophysiology:Or ders: C arotid Duplex Bilateral (CPT-13531) S chedule Followup (*) 9 9214 MOD Complex (CPT-71254) Fili Call Electrophysiology:Or ders: C omplete Echo (CPT-99751) S chedule Followup (*) 9 9214 MOD Complex (CPT-51575) Her updated medication list for this problem [...] Electrophysiology:Or ders: S chedule Followup (*) 9 9634 MOD Complex (CPT-90995) Her updated medication list for this problem [...] S/P right endarterectomy. Ana M Mckinnon Electrophysiology [facility] Electrophysiology [facility] Electrophysiology: B P today: 173/86 P rior [...] Cardiology Faxed 1359: O rders: E KG (CPT-62419) 9 9213 LTD. Complex (CPT-32162) S chedule Followup (*) C omplete Echo (CPT-47408) Her updated medication list for this problem [...] Lopez MD hfu: O rders: E KG (CPT-90450) 9 9213 LTD. Complex (CPT-82595) S chedule Followup (*) S TR - Adenosine (56598) Shay Lopez MD hfu: O rders: E KG (CPT-73724) S chedule Followup (*) S TR - Adenosine (79985) Shay Lopez MD hfu:s/p Carotid Enda rterectomy: right 08/15/2014 The following medications were removed from the medication list: Aggrenox 25-200 Mg Oral [id number] (Aspirin-dipyridamole) ..... One tab twice daily Her [...] this problem includes: Aggrenox 25-200 Mg Oral [id number] (Aspirin-dipyridamole) ..... One tab twice daily Orders: C T angio, neck (CPT-94479) Shay Lopez MD HOS FOLLOW UP: O rders: S TR - Nuclear (00605) Shay Lopez MD HOS FOLLOW UP: H er updated medication list for this problem includes: Aggrenox 25-200 Mg Oral [id number] (Aspirin-dipyridamole) ..... One tab twice daily Aspirin 81 Mg Tabs (Aspirin) ..... One tab. daily Shay Lopez MD HOS FOLLOW UP: O rders: C OMPREHENSIVE METABOLIC PANEL W/EGFR (86370) L IPID PANEL (8500) C omplete Echo (CPT-94598) C arotid Duplex Bilateral (CPT-93757) S TR - Nuclear (78282) A ortic Abdominal Ultrasound (CPT-59123) Shay Lopez MD Date Name Holter Monitor [...] Complete Echo Mobile Cardiac Tele DLCO - 61196 FRC - 65539 FVC - 12375 Complete Echo Complete Echo Carotid Duplex Bilat [...] completed EKG Shay echavarria MD completed SNOMED-CT: 141770882300973 Current Medications Documented Shay Lopez MD completed Schedule Followup Shay lewis MD in 1 year completed EKG Shay echavarira MD completed SNOMED-CT: 539453483816948 Current Medications Documented Shay Lopez MD completed SNOMED-CT: 54600690 Physical Exam, Performed: Pulse Exam of Foot Shay Lopez MD completed SNOMED-CT: 072382689 Smoking Cessation Counseling Shay Lopez MD completed Schedule Followup Shay lewis MD fu in 3 months completed EKG Shay echavarria MD completed SNOMED-CT: 127330358556770 Current Medications Documented Shay Lopez MD completed Schedule Followup Shay lewis MD in 1 month completed EKG Shay echavarria MD completed EKG Shay echavarria MD completed Schedule Followup Shay lewis MD fu in 1 month with SK completed EKG Shay echavarria MD completed EKG Shay echavarria MD completed EKG Shay echavarria MD completed
[2024-03-19] MEDS: FUROSEMIDE INJ 40 MG/4 ML VIAL IV PUSH (13:07)
[2024-03-19 13:11] LABS: Hematocrit 40.6 % (37.0-47.0); Hemoglobin 12.4 g/dL (12.0-15.0); Mean Corpuscular HGB Conc 30.5 g/dl (32-36); Mean Corpuscular Hemoglobin 28.4 pg (26-34); Mean Corpuscular Volume 93.1 fl (80-100); Mean Platelet Volume 10.8 fl (7.4-10.4); Platelet Count Result 538 k/mm3 (150-375); Red Blood Count 4.36 M/mm3 (4.2-5.4); Red Cell Distribution Width 13.3 % (11.5-14.5); White Blood Count 30.6 K/mm3 (4.5-10.0)
[2024-03-19 13:20] LABS: Alanine Aminotransferase 24 U/L (6-35); Albumin Level 3.4 g/dL (3.5-5.1); Alkaline Phosphatase 103 U/L (38-126); Anion Gap 17 mmol/L (4-12); Aspartate Amino Transferase 24 U/L (14-36); Bilirubin,Total 0.7 mg/dL (0.2-1.3); Blood Urea Nitrogen 24 mg/dL (7-17); Calcium 10.1 mg/dL (8.4-10.2); Carbon Dioxide 21 mmol/L (22-30); Chloride 102 mmol/L (98-107); Estimated Glomerular Filt Rate 60; Glucose 309 mg/dL (65-110); Potassium 4.7 mmol/L (3.4-5.0); Sodium 140 mmol/L (137-145)
[2024-03-19 13:24] LABS: Lactic Acid Reflex 4.5 mmol/L (0.7-2.0)
[2024-03-19 13:27] LABS: INR 1.2; Prothrombin Time 15.4 Seconds (11.1-14.7)
[2024-03-19 13:28] LABS: Partial Thromboplastin Time 27.3 Seconds (22.3-36.8)
[2024-03-19 13:30] LABS: Band Neutrophils Percent 3 % (0-6); Lymphocytes Absolute Manual 2.14 K/mm3 (1.1-4.5); Lymphocytes Percent Manual 7 % (18-44); Monocytes Absolute Manual 1.22 K/mm3 (0.1-0.90); Monocytes Percent Manual 4 % (3-9); Neutrophils Absolute Manual 27.23 K/mm3 (1.7-7.2); Neutrophils Percent Manual 86 % (46-73); Platelet Estimate Adequate (Adequate); Total Cells Counted 100
[2024-03-19 13:31] LABS: Anisocytosis 1+; Burr Cells 1+; Large Platelets Present; Schistocytes None Seen
[2024-03-19 13:46] LABS: Influenza A QL RT-PCR Negative (Negative); Influenza B QL RT-PCR Negative (Negative); RSV RNA, RT-PCR Negative (Negative); SARS-CoV-2 RNA PCR Negative (Negative)
[2024-03-19] MEDS: AZITHROMYCIN 500 MG/NS 250 ML 500 MG/250 ML BAG 250 MG IVPB (13:48)
[2024-03-19 14:02] LABS: Beta-Hydroxybutyrate/Acetoacetate 0.14 mmol/L (0.02-0.27)
[2024-03-19 14:06] LABS: NT Pro B Type Natriuretic Pept 23100 pg/mL (19.9-100)
[2024-03-19] MEDS: INSULIN HUMAN REGULAR (*BKC) 100 UNITS/ML IV PUSH (14:21)
--- NOTE | 2024-03-19 14:36 | PC.NURSE ---
Pt to CT scan via stretcher, on tele, 6 L NC O2.
[2024-03-19] MEDS: SODIUM CHLORIDE 0.9% IV 1,000 ML 250 ML IV CONT (15:01)
[2024-03-19] MEDS: SODIUM CHLORIDE 0.9% IV 1,000 ML 999 ML IV CONT (15:48)
[2024-03-19] MEDS: SODIUM CHLORIDE 0.9% IV 500 ML 999 ML IV CONT (15:48)
[2024-03-19 16:08] LABS: Reflex Lactic Acid Yes or No Add Lactic
[2024-03-19 17:03] LABS: Lactic Acid 1.4 mmol/L (0.7-2.0)
[2024-03-19 17:25] LABS: Procalcitonin 0.2 ng/mL
--- NOTE | 2024-03-19 20:16 | ADMGEN ---
This patient, Devora Oquendo, was admitted to IMU Room 203-01 at 2016. Patient/family oriented to hospital policies and general routines including ID bracelet, bed and alarms, visiting hours, pain management, procedures, bathroom and other care routines, personal items, smoking policy, room service/diet, and visiting hours. Information on how to activate the Rapid Response Team has been discussed. Patient/Family are encouraged to report perceived risks to care and to ask questions if they do not understand what they are told or what they should do.
--- NOTE | 2024-03-19 20:41 | ECG_ITS ---
Test Date: 2024-03-19 20:53:12 Measurements Intervals [place] Rate: 101 P: 65 MD: 124 QRS: -2 QRSD: 114 T: 126 QT: 371 QTc: 481 Interpretive Statements SINUS TACHYCARDIA INCOMPLETE LEFT BUNDLE BRANCH BLOCK CANNOT R/O SEPTAL INFARCT, AGE INDETERMINATE ST-T WAVE ABNORMALITY IN HIGH LATERAL LEADS- CONSIDER ISCHEMIA BASELINE ARTIFACT- I, II, AVR, AVL, AVF, V4 ABNORMAL ECG No previous ECG available for comparison Electronically Signed On 03-20-2024 08:30:35 SEISMIC ENGINEER by Alfred Vargas D.O.
--- NOTE | 2024-03-19 20:42 | P.HP_ITS ---
H&P: HPI History of Present Illness Date/Time: 03/19/24 23:15 Chief Complaint: Pneumonia not getting any better Narrative: 78-year-old female with a past medical history essential hypertension and hyperlipidemia who presented to the ER via private vehicle due to worsening shortness of breath despite recent treatment for pneumonia. On arrival to the ER patient was in respiratory distress with respiratory rate up to 40 and tachycardia and was hypoxic with oxygen saturations as low as 83% in the ER. She reports that she has been sick for 2-3 weeks. He has had a cough productive of a small amount of green sputum. She denies any fevers or chills. She has noticed some wheezing over the last week or so. She has been having some lightheadedness when she stands up. She has also noticed some orthopnea over the last couple of days. She has also noticed over the last couple of days increasing shortness of breath. On 03/14/2024 she was diagnosed with pneumonia is started on azithromycin. She followed up with urgent care on the due to continue his symptoms and was given prescriptions for amoxicillin and prednisone. She took the prednisone as prescribed but due to miscommunication about antibiotics had only taken 1 dose of the amoxicillin a day for last 2 days. She was afebrile on presentation to the ER. Patient's respiratory symptoms were not improving despite albuterol treatment an ABG was performed which demonstrated acute hypercapnic hypoxic respiratory failure She was initially hypertensive but after being placed on BiPAP became hypotensive. Her lactic acid was also elevated above 4. She received total of 2.5 L IV fluid bolus. Her blood pressures normalized. But then her BNP came back elevated and x-ray was suggestive of pneumonia versus pulmonary edema she subsequently received 1 dose of IV Lasix. However CT scan of the chest demonstrated findings consistent with multifocal pneumonia without evidence of pulmonary edema although there was moderate left pleural effusion and mild right pleural effusion. Patient was started on empiric antibiotic therapy with Rocephin and azithromycin. By the time she arrived to the IMU she was not requiring BiPAP anymore. Her oxygen saturations were stable and I 7% on 4 L nasal cannula. She denies history of lung disease, COPD or smoking. On exam she does have some trace pedal edema. She denies history of heart failure. She reports that she was taken off of Lasix for 5 months ago. Her management department chair is Dr. Martinez (spelling?) With [facility] vascular at [place]. She denies having any chest pain or palpitations. Review of Systems 2 Review of Systems: 12 systems were reviewed with pertinent positives and negatives per HPI. Except as documented in the HPI, all other systems were reviewed and are negative. COUNTS INCLUDE 234 BEDS AT THE [facility] Past Medical History Medical History (Updated 03/20/24 @ 03:04 by Tabatha Aggarwal DO) CVA (cerebral vascular accident) (~2013) Coronary artery disease Hyperlipidemia Essential hypertension Surgical History Surgical History (Updated 03/20/24 @ 03:04 by Tabatha Aggarwal DO) History of total abdominal hysterectomy and bilateral salpingo-oophorectomy Uterine fibroids History of right-sided carotid endarterectomy History of four vessel coronary artery bypass graft (~2014) Family History Family History Father Acute myocardial infarction Mother Passed during cardiac procedure Social History Social History (Updated 03/20/24 @ 03:06 by Tabatha Aggarwal DO) Social History: She is and lives in her own home. 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 She has 5 children. She does not have history of smoking or alcohol use. Code status: DNR/DNI (per patient request) however she would be willing to have noninvasive ventilator support or pressor therapy if needed. Surrogate decision maker: Reynaldo Oquendo (son) Smoking status: Never smoker Alcohol intake: current Drinks per week: 0 Substance use: never Substance use type: does not use Last use: Patient reports only one drink per month Do You Feel Safe in your Home?: Yes Lack of Transportation: No Lack of Food: Never True Current Housing: I Have Housing Concerned About Future Housing: No Difficulty Paying Gas/Electric Bills: No Difficulty Paying for Meds: No Currently Unemployed: No Education: High School Diploma/GED Difficulty w/ Childcare or Family Care: No Spiritual care concerns: No Meds Home Medications and Allergies Home Medications ?Medication ?Instructions ?Recorded ?Confirmed ?Type prednisone 20 mg tablet 40 mg (2 x 20 mg) PO DAILY 5 days 03/17/24 03/19/24 Rx #10 tabs ascorbic acid (vitamin C) 500 mg 500 mg PO DAILY 03/19/24 03/19/24 History tablet (Vitamin C) aspirin 81 mg tablet,delayed 81 mg PO DAILY 03/19/24 03/19/24 History release (Adult Low Dose Aspirin) atorvastatin 40 mg tablet 40 mg PO QPM 03/19/24 03/19/24 History calcium carbonate 600 mg PO DAILY 03/19/24 03/19/24 History ezetimibe 10 mg tablet 10 mg PO DAILY 03/19/24 03/19/24 History lisinopril 5 mg tablet 5 mg PO DAILY 03/19/24 03/19/24 History metoprolol tartrate 25 mg tablet 12.5 mg PO Q12H 03/19/24 03/19/24 History multivitamin (Daily Multi-Vitamin 1 tablet PO DAILY 03/19/24 03/19/24 History tablet) Allergies Allergy/AdvReac Type Severity Reaction Status Date / Time No Known Allergies Allergy Verified 03/19/24 14:41 Vital Signs Vital Signs - 24 hr 03/19/24 12:31 03/19/24 12:31 03/19/24 12:33 Pulse Rate 121 H 121 H Respiratory Rate 36 H 36 H Blood Pressure 190/158 H 186/113 H Pulse Oximetry 88 L 88 L 86 L Oxygen Delivery High Flow Nasal Cannula Oxygen Flow Rate 2 03/19/24 12:34 03/19/24 12:35 03/19/24 12:39 Pulse Rate 120 H 120 H Respiratory Rate 34 H 39 H Blood Pressure 190/158 H Pulse Oximetry 88 L 86 L 94 Oxygen Delivery Nasal Cannula Oxygen Flow Rate 4 03/19/24 12:45 03/19/24 12:55 03/19/24 12:55 Pulse Rate 120 H 119 H 119 H Respiratory Rate 33 H 40 H 40 H Blood Pressure Pulse Oximetry 98 97 Oxygen Delivery BiPAP Oxygen Flow Rate 03/19/24 13:00 03/19/24 13:08 03/19/24 13:10 Pulse Rate 113 H 108 H 104 H Respiratory Rate 19 25 H Blood Pressure 101/75 Pulse Oximetry 92 95 Oxygen Delivery Oxygen Flow Rate 03/19/24 13:10 03/19/24 13:15 03/19/24 13:15 Pulse Rate 105 H 104 H 105 H Respiratory Rate 30 H 32 H 31 H Blood Pressure 101/75 Pulse Oximetry 92 92 Oxygen Delivery Oxygen Flow Rate 03/19/24 13:16 03/19/24 13:30 03/19/24 13:33 Pulse Rate 106 H 106 H 105 H Respiratory Rate 33 H 23 H 29 H Blood Pressure 131/72 95/85 L Pulse Oximetry 92 94 93 Oxygen Delivery Oxygen Flow Rate 03/19/24 13:45 03/19/24 13:46 03/19/24 13:49 Pulse Rate 106 H 111 H 107 H Respiratory Rate 31 H 29 H 28 H Blood Pressure 125/59 L 125/59 L Pulse Oximetry 93 94 94 Oxygen Delivery Oxygen Flow Rate 03/19/24 14:00 03/19/24 14:01 03/19/24 14:15 Pulse Rate 109 H 105 H 106 H Respiratory Rate 32 H 31 H 23 H Blood Pressure 114/74 Pulse Oximetry 95 95 92 Oxygen Delivery Oxygen Flow Rate 03/19/24 14:16 03/19/24 14:23 03/19/24 14:30 Pulse Rate 104 H 104 H 107 H Respiratory Rate 30 H 96 H 22 H Blood Pressure 98/66 L 98/66 L Pulse Oximetry 96 96 96 Oxygen Delivery Oxygen Flow Rate 03/19/24 14:46 03/19/24 15:00 03/19/24 15:13 Pulse Rate 105 H 102 H 102 H Respiratory Rate 30 H 32 H 28 H Blood Pressure 150/74 H Pulse Oximetry 97 96 Oxygen Delivery Oxygen Flow Rate 03/19/24 15:15 03/19/24 15:20 03/19/24 15:30 Pulse Rate 103 H 100 102 H Respiratory Rate 28 H 29 H 28 H Blood Pressure 150/74 H Pulse Oximetry 97 96 97 Oxygen Delivery Oxygen Flow Rate 03/19/24 15:31 03/19/24 15:45 03/19/24 16:00 Pulse Rate 100 98 97 Respiratory Rate 29 H 27 H 26 H Blood Pressure 125/70 Pulse Oximetry 96 96 97 Oxygen Delivery Oxygen Flow Rate 03/19/24 16:01 03/19/24 16:15 03/19/24 16:31 Pulse Rate 96 93 98 Respiratory Rate 29 H 23 H 24 H Blood Pressure 124/68 Pulse Oximetry 96 97 99 Oxygen Delivery Oxygen Flow Rate 03/19/24 16:32 03/19/24 16:34 03/19/24 16:47 Pulse Rate 97 96 98 Respiratory Rate 26 H 24 H 29 H Blood Pressure 91/57 L 91/57 L Pulse Oximetry 99 100 100 Oxygen Delivery Oxygen Flow Rate 03/19/24 17:00 03/19/24 17:01 03/19/24 17:09 Pulse Rate 99 99 98 Respiratory Rate 22 H 27 H 20 Blood Pressure 124/57 L 124/57 L Pulse Oximetry 100 99 98 Oxygen Delivery Oxygen Flow Rate 03/19/24 17:15 03/19/24 17:30 03/19/24 17:32 Pulse Rate 101 H 99 100 Respiratory Rate 24 H 25 H 31 H Blood Pressure 127/36 L Pulse Oximetry 98 97 96 Oxygen Delivery Oxygen Flow Rate 03/19/24 17:45 03/19/24 18:00 03/19/24 18:01 Pulse Rate 110 H 105 H 104 H Respiratory Rate 36 H 26 H 29 H Blood Pressure 131/109 H Pulse Oximetry 100 100 Oxygen Delivery Oxygen Flow Rate 03/19/24 18:15 03/19/24 18:30 03/19/24 18:32 Pulse Rate 106 H 108 H 108 H Respiratory Rate 23 H 32 H 21 H Blood Pressure 111/49 L Pulse Oximetry 83 L 100 100 Oxygen Delivery Oxygen Flow Rate 03/19/24 18:45 03/19/24 18:48 03/19/24 19:00 Pulse Rate 104 H 104 H 105 H Respiratory Rate 37 H 28 H 21 H Blood Pressure 111/49 L Pulse Oximetry 100 95 100 Oxygen Delivery Oxygen Flow Rate 03/19/24 19:01 03/19/24 19:37 03/19/24 20:02 Pulse Rate 104 H 97 99 Respiratory Rate 26 H 33 H 26 H Blood Pressure 119/79 127/46 L Pulse Oximetry 99 98 100 Oxygen Delivery BiPAP Oxygen Flow Rate Exam 2 Narrative: Weight 55 kg BMI 26.2 Const: Other: No acute distress, well-developed well-nourished HENMT: Other: Mucous membranes are moist, no oral pharyngeal erythema, upper and lower dentures in place, nasal cannula in place Eyes: Other: Pupils are equal and reactive, no scleral icterus, no conjunctival pallor Neck: Other: No JVD, no lymphadenopathy, trachea midline Resp: Other: Crackles at bilateral bases, no increased work of breathing, anterior end- expiratory wheezing Cardio: Other: Mildly tachycardic, 2+ bilateral radial pedal pulses, no JVD, no murmur GI: Other: Soft, nontender, nondistended, positive bowel sounds Skin: Other: No jaundice, no pallor, normal temperature to touch Neuro: Other: Alert oriented x4, speech is clear, no facial asymmetry, no localizing neurologic deficits noted during the course of conversation Extrem: Other: Trace pedal edema, no clubbing, no cyanosis Psych: Other: Appropriate mood and affect if anything some mild anxiety regarding hospitalization, pleasant and cooperative, judgment and insight intact H&P: Results Labs Labs: Laboratory Tests 03/19/24 13:01 03/19/24 13:01 03/19/24 03/19/24 03/19/24 12:42 13:01 13:02 WBC 30.6 H RBC 4.36 Hgb 12.4 Hct 40.6 MCV 93.1 MCH 28.4 MCHC 30.5 L RDW 13.3 Plt Count 538 H MPV 10.8 H Immature Gran % (Auto) Not Reportable Neut % (Auto) Not Reportable Lymph % (Auto) Not Reportable [place] % (Auto) Not Reportable Eos % (Auto) Not Reportable Baso % (Auto) Not Reportable Lymph # (Auto) Not Reportable [place] # (Auto) Not Reportable Eos # (Auto) Not Reportable Baso # (Auto) Not Reportable Abs Immat Gran (auto) Not Reportable Absolute Neuts (auto) Not Reportable Absolute Nucleated RBC Not Reportable Total Counted 100 Neutrophils % (Manual) 86 H Band Neutrophils % 3 Lymphocytes % (Manual) 7 L Monocytes % (Manual) 4 Nucleated RBC % Not Reportable Abs Neuts (Manual) 27.23 H Abs Lymphs (Manual) 2.14 Abs Monocytes (Manual) 1.22 H Platelet Estimate Adequate Large Platelets Present Anisocytosis 1+ Revere Cells 1+ Schistocytes None seen PT 15.4 H INR 1.2 APTT 27.3 Puncture Site Right radial ABG pH 7.209 L* ABG pCO2 51.9 H ABG pO2 79.1 L ABG PO2/FiO2 Ratio 2.20 ABG HCO3 20.2 L ABG O2 Saturation 93.0 L ABG O2 Content 16.6 ABG Base Excess -7.8 A-a Gradient 117.4 Oxyhemoglobin 91.2 Carboxyhemoglobin 0.5 Methemoglobin 0.1 Reduced Hemoglobin 8.2 H Total Hemoglobin 12.9 O2 Delivery Device Nasal cannula O2 Liters/Min 4.0 FiO2 36 Sodium 140 Potassium 4.7 Chloride 102 Carbon Dioxide 21 L Anion Gap 17 H BUN 24 H Creatinine 0.91 Estim Creat Clear Calc Not Reportable Estimated GFR 60 Glucose 309 H Lactic Acid 4.5 H* Calcium 10.1 Total Bilirubin 0.7 AST 24 ALT 24 Alkaline Phosphatase 103 NT-Pro-B Natriuret Pep 93582 H Total Protein 7.0 Albumin 3.4 L Beta-Hydroxybutyrate/Acetoacetate 0.14 Procalcitonin Influenza A (RT-PCR) Negative Influenza B (RT-PCR) Negative RSV (RT-PCR) Negative SARS-CoV-2 RNA (RT-PCR) Negative 03/19/24 16:46 WBC RBC Hgb Hct MCV MCH MCHC RDW Plt Count MPV Immature Gran % (Auto) Neut % (Auto) Lymph % (Auto) [place] % (Auto) Eos % (Auto) Baso % (Auto) Lymph # (Auto) [place] # (Auto) Eos # (Auto) Baso # (Auto) Abs Immat Gran (auto) Absolute Neuts (auto) Absolute Nucleated RBC Total Counted Neutrophils % (Manual) Band Neutrophils % Lymphocytes % (Manual) Monocytes % (Manual) Nucleated RBC % Abs Neuts (Manual) Abs Lymphs (Manual) Abs Monocytes (Manual) Platelet Estimate Large Platelets Anisocytosis Revere Cells Schistocytes PT INR APTT Puncture Site ABG pH ABG pCO2 ABG pO2 ABG PO2/FiO2 Ratio ABG HCO3 ABG O2 Saturation ABG O2 Content ABG Base Excess A-a Gradient Oxyhemoglobin Carboxyhemoglobin Methemoglobin Reduced Hemoglobin Total Hemoglobin O2 Delivery Device O2 Liters/Min FiO2 Sodium Potassium Chloride Carbon Dioxide Anion Gap BUN Creatinine Estim Creat Clear Calc Estimated GFR Glucose Lactic Acid 1.4 Calcium Total Bilirubin AST ALT Alkaline Phosphatase NT-Pro-B Natriuret Pep Total Protein Albumin Beta-Hydroxybutyrate/Acetoacetate Procalcitonin 0.2 Influenza A (RT-PCR) Influenza B (RT-PCR) RSV (RT-PCR) SARS-CoV-2 RNA (RT-PCR) Impressions Chest X-Ray 03/19/24 12:38 IMPRESSION: 1. Diffuse lung disease, likely a combination of pneumonia and pulmonary edema. 2. Cardiomegaly. Chest CT 03/19/24 14:53 IMPRESSION: Multifocal pneumonia. Moderate right and small left pleural effusions. Mediastinal lymphadenopathy. Esophagitis/gastritis. EKG: Ordered EKG reviewed demonstrated sinus tachycardia and nonspecific ST changes in lead 1 aVL V1, V2 and V4 All imaging and EKGs personally reviewed and interpreted. And unless stated otherwise agree with radiologic and cardiology interpretation. Assessment and Plan Assessment and plan (1) Severe sepsis: Code(s): A41.9 - Sepsis, unspecified organism; R65.20 - Severe sepsis without septic shock Status: Acute (2) Acute respiratory failure with hypoxia and hypercapnia: Code(s): J96.01 - Acute respiratory failure with hypoxia; J96.02 - Acute respiratory failure with hypercapnia Status: Acute (3) Multifocal pneumonia: Code(s): J18.9 - Pneumonia, unspecified organism Status: Acute (4) Hyperglycemia: Code(s): R73.9 - Hyperglycemia, unspecified Status: Acute (5) Elevated brain natriuretic peptide (BNP) level: Code(s): R79.89 - Other specified abnormal findings of blood chemistry Status: Acute Plan Patient presented with acute respiratory distress was found to have severe sepsis with acute hypoxic hypercapnic respiratory failure requiring BiPAP. She fit sepsis criteria with tachycardia, tachypnea, severe lactic acidosis and leukocytosis She has been placed on empiric antibiotic therapy with Rocephin and azithromycin. Blood cultures are pending. Will obtain urine Legionella in urine pneumococcal antigen to try to identify underlying infectious organism. Patient is resting comfortably off of BiPAP and repeat VBG demonstrated respiratory alkalosis. Will discontinue BiPAP. Will repeat CBC and electrolyte panel in a.m.. Patient was also noted to be hyperglycemic. She does not have a history of diabetes but did receive 2 days of oral prednisone therapy. The patient did receive 5 units of IV insulin in the ER for glucoses of 306. Will place patient on low-dose sliding scale insulin with Accu-Cheks a.c. HS and hypoglycemia protocol. Hyperglycemia is likely due to acute stress reaction in steroid therapy but will need to rule out underlying diabetes will check A1c in a.m.. Patient does have an elevated BNP but no history of CHF. She does have pleural effusions which are likely due to acute pneumonia and less likely due to heart failure. However given patient's underlying cardiac history Will check echocardiogram to further evaluate underlying cardiac structure and function. Patient did receive adequate IV fluid resuscitation in the ER will hold off on additional IV fluids at this time and will monitor. Patient denies any chest pain but does have significant cardiac history and has EKG changes that are nonspecific. Will repeat troponins and monitor. Goals of care discussion occurred. Patient reports that she would not want cardiopulmonary resuscitation if her heart were to stop in she would not want to be placed on a ventilator. She states that she would want a natural if cardiac arrest were to occur. She would be amendable to noninvasive ventilator support and pressor support if needed. Code status has been changed to DNR/DNI per patient request. Quality VTE Prophylaxis VTE prophylaxis: pharmacologic ordered (Lovenox 40 mg subQ daily.) Hospitalist [facility] Advance Care Plan I have confirmed that the patient's Advanced Care Plan is present, code status is documented, or surrogate decision maker is listed in patient medical record.: Yes Medication Reconciliation I have utilized all available resources to obtain, update and review the patients current medications (includes all prescriptions, OTC, herbals, cannabis, and nutritional supplements).: Yes
[2024-03-19 21:26] LABS: Glucose Point of Care 118 mg/dl (65-105)
[2024-03-19] MEDS: PANTOPRAZOLE 40 MG TABLET PO (21:28)
[2024-03-19 22:02] LABS: Device NASAL CANNULA; Fractional Inspired Oxygen 28 %; HCO3 VBG 23.7 mEq/l (24.0-30.0); PO2 VBG 34.6 mmHg (35.0-45.0); pH VBG 7.448 (7.300-7.400)
[2024-03-19] MEDS: METOPROLOL TARTRATE 12.5 MG TABLET PO (22:13)
[2024-03-19 23:24] LABS: MRSA (PCR) NOT DETECTED (NOT DETECTE)
[2024-03-20] VITALS (30 sets, daily range): BP systolic 90–125; BP diastolic 56–69; PULSE 77–123; RESP 18–40; TEMP 36.2–37.2; O2SAT 90–99
--- NOTE | 2024-03-20 01:40 | PCRCNOTE ---
Window of time for administration has passed. See next scheduled administration.
[2024-03-20 02:16] LABS: Troponin I 0.094 ng/mL (0.000-0.034)
[2024-03-20] MEDS: IPRATROPIUM BR 0.02% INH SOLN 0.5 MG/2.5 ML VIAL INHALATION ×4 (02:30→20:51)
[2024-03-20] MEDS: LEVALBUTEROL NEB 1.25 MG/3 ML INHALATION ×4 (02:30→20:51)
[2024-03-20 05:17] LABS: Basophils Percent Auto 0.2 % (0.2-1.2); Eosinophils Percent Auto 0.2 % (0-4.4); Hematocrit 35.2 % (37.0-47.0); Hemoglobin 10.8 g/dL (12.0-15.0); Immature Granulocyte Absolute 0.14 K/mm3 (0.00-0.031); Immature Granulocyte Percent A 0.9 % (0-0.5); Lymphocytes Absolute Auto 1.46 K/mm3 (0.9-3.2); Lymphocytes Percent Auto 9.9 % (18.3-44.2); Mean Corpuscular HGB Conc 30.7 g/dl (32-36); Mean Corpuscular Hemoglobin 28.3 pg (26-34); Mean Corpuscular Volume 92.4 fl (80-100); Mean Platelet Volume 10.8 fl (7.4-10.4); Monocytes Absolute Auto 0.9 K/mm3 (0.1-0.6); Monocytes Percent Auto 6.2 % (2.6-8.5); Neutrophils Absolute Auto 12.2 K/mm3 (1.3-6.7); Neutrophils Percent Auto 82.6 % (45.5-73.1); Platelet Count Result 326 k/mm3 (150-375); Red Blood Count 3.81 M/mm3 (4.2-5.4); Red Cell Distribution Width 13.4 % (11.5-14.5); White Blood Count 14.8 K/mm3 (4.5-10.0)
[2024-03-20 05:23] LABS: Hemoglobin A1C 6.5 % (<5.7)
[2024-03-20 05:30] LABS: Alanine Aminotransferase 19 U/L (6-35); Alkaline Phosphatase 84 U/L (38-126); Anion Gap 9 mmol/L (4-12); Aspartate Amino Transferase 25 U/L (14-36); Bilirubin,Total 0.7 mg/dL (0.2-1.3); Blood Urea Nitrogen 28 mg/dL (7-17); Carbon Dioxide 26 mmol/L (22-30); Chloride 105 mmol/L (98-107); Estimated Glomerular Filt Rate 60; Glucose 96 mg/dL (65-110); Potassium 4.4 mmol/L (3.4-5.0); Sodium 140 mmol/L (137-145)
[2024-03-20 05:41] LABS: Troponin I 0.094 ng/mL (0.000-0.034)
[2024-03-20 08:22] LABS: Glucose Point of Care 121 mg/dl (65-105)
--- NOTE | 2024-03-20 08:24 | ECG_ITS ---
Test Date: 2024-03-20 08:46:26 Measurements Intervals [place] Rate: 114 P: 79 CT: 144 QRS: -10 QRSD: 110 T: 113 QT: 339 QTc: 469 Interpretive Statements SINUS TACHYCARDIA INCOMPLETE LEFT BUNDLE BRANCH BLOCK BORDERLINE R WAVE PROGRESSION, ANTERIOR LEADS CANNOT R/O SEPTAL INFARCT, AGE INDETERMINATE ST-T WAVE ABNORMALITY IN HIGH LATERAL LEADS- CONSIDER ISCHEMIA BASELINE ARTIFACT- I, AVR, V6 ABNORMAL ECG Compared to ECG 03/19/2024 20:53:12 HEART RATE HAS INCREASED Electronically Signed On 03-20-2024 15:18:44 [facility] by Alfred Vargas D.O.
[2024-03-20 08:54] LABS: Alveolar/Arterial O2 Gradient 50.8 mmHg; Base Excess ABG -0.5 mEq/l (+/-2.0); Fractional Inspired Oxygen 24 %; HCO3 ABG 23.3 mEq/l (22.0-26.0); Oxygen Content ABG 16.2 %vol (16.0-22.0); Oxyhemoglobin 94.7 % THb (90.0-100.0); PCO2 ABG 35.3 mmHg (35.0-45.0); PO2 ABG 78.3 mmHg (80.0-100.0); PO2 FiO2 Ratio Arterial Blood 3.26 %; Total Hemoglobin 12.1 g/dL (12.0-18.0); pH ABG 7.437 (7.350-7.450)
[2024-03-20 08:55] LABS: Device NASAL CANNULA; Modified Allen's Test Pass; Site Drawn RIGHT RADIAL
[2024-03-20] MEDS: ASPIRIN 81 MG ENTERIC TABLET PO (10:30)
[2024-03-20] MEDS: EZETIMIBE 10 MG TABLET PO (10:31)
[2024-03-20] MEDS: PANTOPRAZOLE 40 MG TABLET PO ×2 (10:31→20:25)
[2024-03-20] MEDS: METOPROLOL TARTRATE 12.5 MG TABLET PO ×2 (10:31→20:24)
[2024-03-20] MEDS: MULTIVITAMINS THERAPEUTIC TAB (*BKC) 1 TABLET PO (10:31)
[2024-03-20] MEDS: lisinopriL 5 MG TABLET PO (10:31)
[2024-03-20] MEDS: ENOXAPARIN 40 MG/0.4 ML SYRINGE SUB-Q (10:32)
--- NOTE | 2024-03-20 10:56 | P.PNIM_ITS ---
Progress Note: A&P Assessment and Plan (1) Severe sepsis: Code(s): A41.9 - Sepsis, unspecified organism; R65.20 - Severe sepsis without septic shock Status: Acute (2) Acute respiratory failure with hypoxia and hypercapnia: Code(s): J96.01 - Acute respiratory failure with hypoxia; J96.02 - Acute respiratory failure with hypercapnia Status: Acute (3) Multifocal pneumonia: Code(s): J18.9 - Pneumonia, unspecified organism Status: Acute (4) Hyperglycemia: Code(s): R73.9 - Hyperglycemia, unspecified Status: Acute (5) Elevated brain natriuretic peptide (BNP) level: Code(s): R79.89 - Other specified abnormal findings of blood chemistry Status: Acute Plan Sepsis from Pneumonia CXR reviewed Blood culture Rocephin and Azithromycin Continue IVF Pneumonia CXR showed multifocal pneumonia continue above care Acute hypoxemic respiratory failure improving on 2 liters oxygen Elevated troponin Likely demand Trend, ECHO pending Cardiology consulted DM2 A1c 6.5 SSI with accucheks, adjust with clinical course CVA continue home meds CAD continue home meds HLD Statin HTN titrate home meds with clinical course DVT prophylaxis on Sq Lovenox Subjective Date/time seen: 03/20/24 10:56 Interval history: Comfortable at bedside Review of Systems Review of Systems: 12 systems were reviewed with pertinent positives and negatives per HPI. Except as documented in the HPI, all other systems were reviewed and are negative. Exam Narrative: Weight 55 kg BMI 26.2 Const: Other: No acute distress, well-developed well-nourished HENMT: Other: Mucous membranes are moist, no oral pharyngeal erythema, upper and lower dentures in place, nasal cannula in place Eyes: Other: Pupils are equal and reactive, no scleral icterus, no conjunctival pallor Neck: Other: No JVD, no lymphadenopathy, trachea midline Resp: Other: Crackles at bilateral bases, no increased work of breathing, anterior end- expiratory wheezing Cardio: Other: Mildly tachycardic, 2+ bilateral radial pedal pulses, no JVD, no murmur GI: Other: Soft, nontender, nondistended, positive bowel sounds Skin: Other: No jaundice, no pallor, normal temperature to touch Neuro: Other: Alert oriented x4, speech is clear, no facial asymmetry, no localizing neurologic deficits noted during the course of conversation Extrem: Other: Trace pedal edema, no clubbing, no cyanosis Psych: Other: Appropriate mood and affect if anything some mild anxiety regarding hospitalization, pleasant and cooperative, judgment and insight intact Objective Data Vital Signs Vital Signs: Vital Signs - 24 hr 03/19/24 12:31 03/19/24 12:31 03/19/24 12:33 Temperature Pulse Rate 121 H 121 H Respiratory Rate 36 H 36 H Blood Pressure 190/158 H 186/113 H Pulse Oximetry 88 L 88 L 86 L Oxygen Delivery High Flow Nasal Cannula Oxygen Flow Rate 2 Fraction of Inspired Oxygen 03/19/24 12:34 03/19/24 12:35 03/19/24 12:39 Temperature Pulse Rate 120 H 120 H Respiratory Rate 34 H 39 H Blood Pressure 190/158 H Pulse Oximetry 88 L 86 L 94 Oxygen Delivery Nasal Cannula Oxygen Flow Rate 4 Fraction of Inspired Oxygen 03/19/24 12:45 03/19/24 12:55 03/19/24 12:55 Temperature Pulse Rate 120 H 119 H 119 H Respiratory Rate 33 H 40 H 40 H Blood Pressure Pulse Oximetry 98 97 Oxygen Delivery BiPAP Oxygen Flow Rate Fraction of Inspired Oxygen 03/19/24 13:00 03/19/24 13:08 03/19/24 13:10 Temperature Pulse Rate 113 H 108 H 104 H Respiratory Rate 19 25 H Blood Pressure 101/75 Pulse Oximetry 92 95 Oxygen Delivery Oxygen Flow Rate Fraction of Inspired Oxygen 03/19/24 13:10 03/19/24 13:15 03/19/24 13:15 Temperature Pulse Rate 105 H 104 H 105 H Respiratory Rate 30 H 32 H 31 H Blood Pressure 101/75 Pulse Oximetry 92 92 Oxygen Delivery Oxygen Flow Rate Fraction of Inspired Oxygen 03/19/24 13:16 03/19/24 13:30 03/19/24 13:33 Temperature Pulse Rate 106 H 106 H 105 H Respiratory Rate 33 H 23 H 29 H Blood Pressure 131/72 95/85 L Pulse Oximetry 92 94 93 Oxygen Delivery Oxygen Flow Rate Fraction of Inspired Oxygen 03/19/24 13:45 03/19/24 13:46 03/19/24 13:49 Temperature Pulse Rate 106 H 111 H 107 H Respiratory Rate 31 H 29 H 28 H Blood Pressure 125/59 L 125/59 L Pulse Oximetry 93 94 94 Oxygen Delivery Oxygen Flow Rate Fraction of Inspired Oxygen 03/19/24 14:00 03/19/24 14:01 03/19/24 14:15 Temperature Pulse Rate 109 H 105 H 106 H Respiratory Rate 32 H 31 H 23 H Blood Pressure 114/74 Pulse Oximetry 95 95 92 Oxygen Delivery Oxygen Flow Rate Fraction of Inspired Oxygen 03/19/24 14:16 03/19/24 14:23 03/19/24 14:30 Temperature Pulse Rate 104 H 104 H 107 H Respiratory Rate 30 H 96 H 22 H Blood Pressure 98/66 L 98/66 L Pulse Oximetry 96 96 96 Oxygen Delivery Oxygen Flow Rate Fraction of Inspired Oxygen 03/19/24 14:46 03/19/24 15:00 03/19/24 15:13 Temperature Pulse Rate 105 H 102 H 102 H Respiratory Rate 30 H 32 H 28 H Blood Pressure 150/74 H Pulse Oximetry 97 96 Oxygen Delivery Oxygen Flow Rate Fraction of Inspired Oxygen 03/19/24 15:15 03/19/24 15:20 03/19/24 15:30 Temperature Pulse Rate 103 H 100 102 H Respiratory Rate 28 H 29 H 28 H Blood Pressure 150/74 H Pulse Oximetry 97 96 97 Oxygen Delivery Oxygen Flow Rate Fraction of Inspired Oxygen 03/19/24 15:31 03/19/24 15:45 03/19/24 16:00 Temperature Pulse Rate 100 98 97 Respiratory Rate 29 H 27 H 26 H Blood Pressure 125/70 Pulse Oximetry 96 96 97 Oxygen Delivery Oxygen Flow Rate Fraction of Inspired Oxygen 03/19/24 16:01 03/19/24 16:15 03/19/24 16:31 Temperature Pulse Rate 96 93 98 Respiratory Rate 29 H 23 H 24 H Blood Pressure 124/68 Pulse Oximetry 96 97 99 Oxygen Delivery Oxygen Flow Rate Fraction of Inspired Oxygen 03/19/24 16:32 03/19/24 16:34 03/19/24 16:47 Temperature Pulse Rate 97 96 98 Respiratory Rate 26 H 24 H 29 H Blood Pressure 91/57 L 91/57 L Pulse Oximetry 99 100 100 Oxygen Delivery Oxygen Flow Rate Fraction of Inspired Oxygen 03/19/24 17:00 03/19/24 17:01 03/19/24 17:09 Temperature Pulse Rate 99 99 98 Respiratory Rate 22 H 27 H 20 Blood Pressure 124/57 L 124/57 L Pulse Oximetry 100 99 98 Oxygen Delivery Oxygen Flow Rate Fraction of Inspired Oxygen 03/19/24 17:15 03/19/24 17:30 03/19/24 17:32 Temperature Pulse Rate 101 H 99 100 Respiratory Rate 24 H 25 H 31 H Blood Pressure 127/36 L Pulse Oximetry 98 97 96 Oxygen Delivery Oxygen Flow Rate Fraction of Inspired Oxygen 03/19/24 17:45 03/19/24 18:00 03/19/24 18:01 Temperature Pulse Rate 110 H 105 H 104 H Respiratory Rate 36 H 26 H 29 H Blood Pressure 131/109 H Pulse Oximetry 100 100 Oxygen Delivery Oxygen Flow Rate Fraction of Inspired Oxygen 03/19/24 18:15 03/19/24 18:30 03/19/24 18:32 Temperature Pulse Rate 106 H 108 H 108 H Respiratory Rate 23 H 32 H 21 H Blood Pressure 111/49 L Pulse Oximetry 83 L 100 100 Oxygen Delivery Oxygen Flow Rate Fraction of Inspired Oxygen 03/19/24 18:45 03/19/24 18:48 03/19/24 19:00 Temperature Pulse Rate 104 H 104 H 105 H Respiratory Rate 37 H 28 H 21 H Blood Pressure 111/49 L Pulse Oximetry 100 95 100 Oxygen Delivery Oxygen Flow Rate Fraction of Inspired Oxygen 03/19/24 19:01 03/19/24 19:37 03/19/24 20:02 Temperature Pulse Rate 104 H 97 99 Respiratory Rate 26 H 33 H 26 H Blood Pressure 119/79 127/46 L Pulse Oximetry 99 98 100 Oxygen Delivery BiPAP Oxygen Flow Rate Fraction of Inspired Oxygen 03/19/24 20:16 03/19/24 21:03 03/19/24 21:57 Temperature 97.2 F L Pulse Rate 107 H 111 H Respiratory Rate 18 Blood Pressure 125/61 126/62 Pulse Oximetry 90 90 Oxygen Delivery BiPAP Oxygen Flow Rate Fraction of Inspired Oxygen 03/19/24 22:00 03/19/24 22:13 03/19/24 22:55 Temperature Pulse Rate 105 H 101 H 86 Respiratory Rate 29 H Blood Pressure Pulse Oximetry 98 Oxygen Delivery BiPAP Oxygen Flow Rate Fraction of Inspired Oxygen 03/20/24 00:00 03/20/24 00:00 03/20/24 00:00 Temperature 97.2 F L Pulse Rate 111 H 88 88 Respiratory Rate 18 Blood Pressure 125/61 Pulse Oximetry 90 97 Oxygen Delivery BiPAP Oxygen Flow Rate Fraction of Inspired Oxygen 03/20/24 02:00 03/20/24 02:30 03/20/24 02:30 Temperature Pulse Rate 90 92 92 Respiratory Rate 27 H 30 H Blood Pressure Pulse Oximetry 97 Oxygen Delivery BiPAP Oxygen Flow Rate Fraction of Inspired Oxygen 03/20/24 02:40 03/20/24 04:00 03/20/24 04:00 Temperature 97.6 F Pulse Rate 93 97 Respiratory Rate 28 H 18 Blood Pressure 123/59 L Pulse Oximetry 94 96 Oxygen Delivery Nasal Cannula Oxygen Flow Rate 1 Fraction of Inspired Oxygen 03/20/24 04:00 03/20/24 06:00 03/20/24 08:07 Temperature 97.5 F L Pulse Rate 93 106 H 101 H Respiratory Rate 18 Blood Pressure 119/62 Pulse Oximetry 94 Oxygen Delivery Oxygen Flow Rate Fraction of Inspired Oxygen 03/20/24 08:15 03/20/24 08:15 03/20/24 08:37 Temperature Pulse Rate 115 H 117 H Respiratory Rate 32 H 28 H Blood Pressure Pulse Oximetry 92 Oxygen Delivery Nasal Cannula Oxygen Flow Rate 1 Fraction of Inspired Oxygen 24 03/20/24 10:31 Temperature Pulse Rate 105 H Respiratory Rate Blood Pressure Pulse Oximetry Oxygen Delivery Oxygen Flow Rate Fraction of Inspired Oxygen Intake/Output Intake/Output: Intake & Output 03/17/24 03/18/24 03/19/24 03/20/24 23:59 23:59 23:59 23:59 Intake Total 2800 270 Output Total 150 Balance 2800 120 Meds/Results Medications: Active Medications Generic Name Dose Route Start Last Admin Trade Name Freq PRN Reason Stop Dose Admin Acetaminophen 650 mg 03/19/24 15:30 Acetaminophen 325 Mg Tablet PO Q4H PRN Mild Pain (1-3) or Fever Albuterol/Ipratropium 3 ml 03/20/24 08:26 Ipratropium 0.5 Mg/Albuterol Sulfate 2.5 Mg Ampul.Neb 3 Ml INHALATION Q6HRT PRN Wheezing Aspirin 81 mg 03/20/24 09:00 03/20/24 10:30 Aspirin 81 Mg Enteric Tablet PO 81 mg DAILY QI Administration Atorvastatin Calcium 40 mg 03/20/24 18:00 Atorvastatin 40 Mg Tablet PO QPM QI Dextrose 12.5 gm 03/19/24 20:39 Dextrose 50% 25 Gm/50 Ml Syringe IV PUSH PRN PRN Hypoglycemia Protocol Ezetimibe 10 mg 03/20/24 09:00 03/20/24 10:31 Ezetimibe 10 Mg Tablet PO 10 mg DAILY QI Administration Enoxaparin Sodium 40 mg 03/20/24 09:00 03/20/24 10:32 Enoxaparin 40 Mg/0.4 Ml Syringe SUB-Q 40 mg DAILY QI Administration Glucagon 1 mg 03/19/24 20:39 Glucagon For Inj 1 Mg Vial IM PRN PRN Hypoglycemia Protocol Glucose 15 gm 03/19/24 20:39 Glucose Oral Gel 15 Gm Of Glucse In 37.5 Gm Tube PO PRN PRN Hypoglycemia Protocol Ceftriaxone Sodium 1 gm in 50 mls @ 100 mls/hr 03/20/24 09:00 03/20/24 10:36 Rocephin 1 Gm/Ns 50 Ml IVPB 100 mls/hr Q24H QI Administration Azithromycin 500 mg in 250 mls @ 250 mls/hr 03/20/24 09:00 Zithromax IVPB Q24H QI Dextrose 1,000 mls @ 100 mls/hr 03/19/24 20:39 Dextrose 5% 1,000 Ml IVPB PRN PRN Hypoglycemia Protocol Sodium Chloride 500 mls @ 500 mls/hr 03/20/24 10:46 Normal Saline Iv IV CONT 03/20/24 11:45 .Q1H ONE Insulin Aspart 2 - 5 units 03/20/24 08:00 03/20/24 10:26 Insulin Aspart (*Bkc) 100 Units/Ml SUB-Q Not Given TIDWM QI Protocol Insulin Aspart 1 - 2 units 03/19/24 21:00 03/19/24 21:25 Insulin Aspart (*Bkc) 100 Units/Ml SUB-Q Not Given HS QI Protocol Ipratropium [place] 0.5 mg 03/19/24 21:55 03/20/24 08:15 Ipratropium Br 0.02% Inh Soln 0.5 Mg/2.5 Ml Vial INHALATION 0.5 mg Q6HRT QI Administration Levalbuterol HCl 1.25 mg 03/19/24 21:55 03/20/24 08:15 Levalbuterol Neb 1.25 Mg/3 Ml INHALATION 1.25 mg Q6HRT QI Administration Lisinopril 5 mg 03/20/24 09:00 03/20/24 10:31 Lisinopril 5 Mg Tablet PO 5 mg DAILY QI Administration Metoprolol Tartrate 12.5 mg 03/20/24 09:00 03/20/24 10:31 Metoprolol Tartrate 12.5 Mg Tablet PO 12.5 mg Q12HR QI Administration Multivitamins Therapeutic 1 tablet 03/20/24 09:00 03/20/24 10:31 Multivitamins Therapeutic Tab (*Bkc) PO 1 tablet DAILY QI Administration Pantoprazole Sodium 40 mg 03/19/24 21:00 03/20/24 10:31 Pantoprazole 40 Mg Tablet PO 40 mg Q12HR QI Administration Perflutren Lipid Microsphere 0 ml 03/19/24 20:54 Perflutren Lipid Microspheres 1.5 Ml Vial Diluted To 10 Ml Total Volume IV PUSH 03/22/24 20:54 ONCE PRN adequate visualization Protocol Radiology Results: ITS Impressions Chest CT 03/19/24 14:53 IMPRESSION: Multifocal pneumonia. Moderate right and small left pleural effusions. Mediastinal lymphadenopathy. Esophagitis/gastritis. Chest X-Ray 03/20/24 09:04 IMPRESSION: 1. No significant change in bilateral regions of pulmonary consolidation most prominent in the lateral mid lung zones consistent with multifocal pneumonia. Labs Labs: Laboratory Results - last 24 hr 03/19/24 03/19/24 03/19/24 12:42 13:01 13:02 WBC 30.6 H RBC 4.36 Hgb 12.4 Hct 40.6 MCV 93.1 MCH 28.4 MCHC 30.5 L RDW 13.3 Plt Count 538 H MPV 10.8 H Immature Gran % (Auto) Not Reportable Neut % (Auto) Not Reportable Lymph % (Auto) Not Reportable [place] % (Auto) Not Reportable Eos % (Auto) Not Reportable Baso % (Auto) Not Reportable Lymph # (Auto) Not Reportable [place] # (Auto) Not Reportable Eos # (Auto) Not Reportable Baso # (Auto) Not Reportable Abs Immat Gran (auto) Not Reportable Absolute Neuts (auto) Not Reportable Absolute Nucleated RBC Not Reportable Total Counted 100 Neutrophils % (Manual) 86 H Band Neutrophils % 3 Lymphocytes % (Manual) 7 L Monocytes % (Manual) 4 Nucleated RBC % Not Reportable Abs Neuts (Manual) 27.23 H Abs Lymphs (Manual) 2.14 Abs Monocytes (Manual) 1.22 H Platelet Estimate Adequate Large Platelets Present Anisocytosis 1+ Jocelyn Cells 1+ Schistocytes None seen PT 15.4 H INR 1.2 APTT 27.3 Puncture Site Right radial ABG pH 7.209 L* ABG pCO2 51.9 H ABG pO2 79.1 L ABG PO2/FiO2 Ratio 2.20 ABG HCO3 20.2 L ABG O2 Saturation 93.0 L ABG O2 Content 16.6 ABG Base Excess -7.8 VBG pH VBG pCO2 VBG pO2 VBG HCO3 A-a Gradient 117.4 Oxyhemoglobin 91.2 Carboxyhemoglobin 0.5 Methemoglobin 0.1 Reduced Hemoglobin 8.2 H Total Hemoglobin 12.9 O2 Delivery Device Nasal cannula O2 Liters/Min 4.0 FiO2 36 Sodium 140 Potassium 4.7 Chloride 102 Carbon Dioxide 21 L Anion Gap 17 H BUN 24 H Creatinine 0.91 Estim Creat Clear Calc Not Reportable Estimated GFR 60 Glucose 309 H POC Capillary Glucose Hemoglobin A1c Lactic Acid 4.5 H* Calcium 10.1 Total Bilirubin 0.7 AST 24 ALT 24 Alkaline Phosphatase 103 Troponin I NT-Pro-B Natriuret Pep 45648 H Total Protein 7.0 Albumin 3.4 L Beta-Hydroxybutyrate/Acetoacetate 0.14 Procalcitonin Nasal MRSA (PCR) Influenza A (RT-PCR) Negative Influenza B (RT-PCR) Negative RSV (RT-PCR) Negative SARS-CoV-2 RNA (RT-PCR) Negative 03/19/24 03/19/24 03/19/24 16:46 21:24 21:41 WBC RBC Hgb Hct MCV MCH MCHC RDW Plt Count MPV Immature Gran % (Auto) Neut % (Auto) Lymph % (Auto) [place] % (Auto) Eos % (Auto) Baso % (Auto) Lymph # (Auto) [place] # (Auto) Eos # (Auto) Baso # (Auto) Abs Immat Gran (auto) Absolute Neuts (auto) Absolute Nucleated RBC Total Counted Neutrophils % (Manual) Band Neutrophils % Lymphocytes % (Manual) Monocytes % (Manual) Nucleated RBC % Abs Neuts (Manual) Abs Lymphs (Manual) Abs Monocytes (Manual) Platelet Estimate Large Platelets Anisocytosis Jocelyn Cells Schistocytes PT INR APTT Puncture Site ABG pH ABG pCO2 ABG pO2 ABG PO2/FiO2 Ratio ABG HCO3 ABG O2 Saturation ABG O2 Content ABG Base Excess VBG pH VBG pCO2 VBG pO2 VBG HCO3 A-a Gradient Oxyhemoglobin Carboxyhemoglobin Methemoglobin Reduced Hemoglobin Total Hemoglobin O2 Delivery Device O2 Liters/Min FiO2 Sodium Potassium Chloride Carbon Dioxide Anion Gap BUN Creatinine Estim Creat Clear Calc Estimated GFR Glucose POC Capillary Glucose 118 H Hemoglobin A1c Lactic Acid 1.4 Calcium Total Bilirubin AST ALT Alkaline Phosphatase Troponin I NT-Pro-B Natriuret Pep Total Protein Albumin Beta-Hydroxybutyrate/Acetoacetate Procalcitonin 0.2 Nasal MRSA (PCR) Not detected Influenza A (RT-PCR) Influenza B (RT-PCR) RSV (RT-PCR) SARS-CoV-2 RNA (RT-PCR) 03/19/24 03/19/24 03/20/24 21:55 21:57 01:36 WBC RBC Hgb Hct MCV MCH MCHC RDW Plt Count MPV Immature Gran % (Auto) Neut % (Auto) Lymph % (Auto) [place] % (Auto) Eos % (Auto) Baso % (Auto) Lymph # (Auto) [place] # (Auto) Eos # (Auto) Baso # (Auto) Abs Immat Gran (auto) Absolute Neuts (auto) Absolute Nucleated RBC Total Counted Neutrophils % (Manual) Band Neutrophils % Lymphocytes % (Manual) Monocytes % (Manual) Nucleated RBC % Abs Neuts (Manual) Abs Lymphs (Manual) Abs Monocytes (Manual) Platelet Estimate Large Platelets Anisocytosis [place] Cells Schistocytes PT INR APTT Puncture Site ABG pH ABG pCO2 ABG pO2 ABG PO2/FiO2 Ratio ABG HCO3 ABG O2 Saturation ABG O2 Content ABG Base Excess VBG pH 7.448 H* VBG pCO2 35.0 L VBG pO2 34.6 L VBG HCO3 23.7 L A-a Gradient Oxyhemoglobin Carboxyhemoglobin Methemoglobin Reduced Hemoglobin Total Hemoglobin O2 Delivery Device Nasal cannula O2 Liters/Min 2.0 FiO2 28 Sodium Potassium Chloride Carbon Dioxide Anion Gap BUN Creatinine Estim Creat Clear Calc Estimated GFR Glucose POC Capillary Glucose Hemoglobin A1c Lactic Acid Calcium Total Bilirubin AST ALT Alkaline Phosphatase Troponin I 0.100 H* 0.094 H* NT-Pro-B Natriuret Pep Total Protein Albumin Beta-Hydroxybutyrate/Acetoacetate Procalcitonin Nasal MRSA (PCR) Influenza A (RT-PCR) Influenza B (RT-PCR) RSV (RT-PCR) SARS-CoV-2 RNA (RT-PCR) 03/20/24 03/20/24 03/20/24 04:50 08:16 08:49 WBC 14.8 H RBC 3.81 L Hgb 10.8 L Hct 35.2 L MCV 92.4 MCH 28.3 MCHC 30.7 L RDW 13.4 Plt Count 326 MPV 10.8 H Immature Gran % (Auto) 0.9 H Neut % (Auto) 82.6 H Lymph % (Auto) 9.9 L [place] % (Auto) 6.2 Eos % (Auto) 0.2 Baso % (Auto) 0.2 Lymph # (Auto) 1.46 [place] # (Auto) 0.9 H Eos # (Auto) 0.0 Baso # (Auto) 0.0 Abs Immat Gran (auto) 0.14 H Absolute Neuts (auto) 12.2 H Absolute Nucleated RBC 0.000 Total Counted Neutrophils % (Manual) Band Neutrophils % Lymphocytes % (Manual) Monocytes % (Manual) Nucleated RBC % 0.0 Abs Neuts (Manual) Abs Lymphs (Manual) Abs Monocytes (Manual) Platelet Estimate Large Platelets Anisocytosis Jocelyn Cells Schistocytes PT INR APTT Puncture Site Right radial ABG pH 7.437 ABG pCO2 35.3 ABG pO2 78.3 L ABG PO2/FiO2 Ratio 3.26 ABG HCO3 23.3 ABG O2 Saturation 96.0 ABG O2 Content 16.2 ABG Base Excess -0.5 VBG pH VBG pCO2 VBG pO2 VBG HCO3 A-a Gradient 50.8 Oxyhemoglobin 94.7 Carboxyhemoglobin Methemoglobin Reduced Hemoglobin Total Hemoglobin 12.1 O2 Delivery Device Nasal cannula O2 Liters/Min 1.0 FiO2 24 Sodium 140 Potassium 4.4 Chloride 105 Carbon Dioxide 26 Anion Gap 9 BUN 28 H Creatinine 0.91 Estim Creat Clear Calc Not Reportable Estimated GFR 60 Glucose 96 POC Capillary Glucose 121 H Hemoglobin A1c 6.5 H Lactic Acid Calcium 9.0 Total Bilirubin 0.7 AST 25 ALT 19 Alkaline Phosphatase 84 Troponin I 0.094 H* NT-Pro-B Natriuret Pep Total Protein 6.0 L Albumin 3.0 L Beta-Hydroxybutyrate/Acetoacetate Procalcitonin Nasal MRSA (PCR) Influenza A (RT-PCR) Influenza B (RT-PCR) RSV (RT-PCR) SARS-CoV-2 RNA (RT-PCR) Quality VTE Prophylaxis VTE prophylaxis: pharmacologic ordered (Lovenox 40 mg subQ daily.)
[2024-03-20] MEDS: SODIUM CHLORIDE 0.9% IV 500 ML IV CONT (11:18)
[2024-03-20] MEDS: AZITHROMYCIN 500 MG/NS 250 ML 500 MG/250 ML BAG 250 MG IVPB (11:27)
[2024-03-20 11:38] LABS: Glucose Point of Care 104 mg/dl (65-105)
[2024-03-20] MEDS: guaiFENesin 12 HR 600 MG TABCR PO ×2 (13:00→20:24)
[2024-03-20] MEDS: SODIUM CHLORIDE 0.9% IV 1,000 ML 75 ML IV CONT (13:00)
[2024-03-20] MEDS: FUROSEMIDE INJ 40 MG/4 ML VIAL IV PUSH (13:54)
--- NOTE | 2024-03-20 14:24 | P.CONCA_ITS ---
Assessment and Plan Assessment and plan (1) Elevated troponin level: Code(s): R79.89 - Other specified abnormal findings of blood chemistry Status: Acute Plan 1. Elevated troponin level 2. Possible CHF 3. Severe sepsis 4. Multifocal pneumonia 5. Acute hypoxic hypercapnic respiratory failure requiring BIPAP 6. Hypertension 7. Hyperlipidemia PLAN: -Elevated troponins are flat. Not consistent with ACS. Likely demand ischemia due to underlying acute issues. -Possible CHF given the pleural effusions, however that may also be from her pneumonia. Echocardiogram ordered and pending. Can give intermittent IV Lasix as needed. -Please obtain records from [facility]. -Treatment of sepsis, multifocal pneumonia as per Hospitalist. History of Present Illness History of Present Illness Consult date/time: 03/20/24 14:24 Requesting physician: Surendra Ferro MD Consult reason: Other (Elevated troponins) Reason For Visit: Multifocal pneumonia, Respiratory distress Narrative: We are consulted for elevated troponins. Devora is a 78 year old female with hypertension, hyperlipidemia who presented with worsening shortness of breath despite recent treatment for pneumonia. Noted to be in acute respiratory distress and admitted with severe sepsis with acute hypoxic hypercapnic respiratory failure requiring BIPAP. No prior history of heart failure, although patient states she sees Dr. Lopez with [facility]. Troponins are 0.100, 0.094, and 0.094. Chest CT shows multifocal pneumonia, moderate right and small left pleural effusions, mediastinal lymphadenopathy, esophagitis and gastritis. CXR with multifocal pneumonia. EKG shows sinus tachycardia, ILBBB, STTW in high lateral leads. She denies any chest pain. Review of Systems 2 Review of Systems: All systems reviewed & are unremarkable except as noted in HPI and below (HPI) [facility] Past Medical History Medical History CVA (cerebral vascular accident) (~2013) Coronary artery disease Hyperlipidemia Essential hypertension Surgical History Surgical History History of total abdominal hysterectomy and bilateral salpingo-oophorectomy Uterine fibroids History of right-sided carotid endarterectomy History of four vessel coronary artery bypass graft (~2014) Family History Family History Father Acute myocardial infarction Mother Passed during cardiac procedure Social History Social History Social History: She is and lives in her own home. 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 She has 5 children. She does not have history of smoking or alcohol use. Code status: DNR/DNI (per patient request) however she would be willing to have noninvasive ventilator support or pressor therapy if needed. Surrogate decision maker: Reynaldo Oquendo (son) Smoking status: Never smoker Alcohol intake: current Drinks per week: 0 Substance use: never Substance use type: does not use Last use: Patient reports only one drink per month Do You Feel Safe in your Home?: Yes Lack of Transportation: No Lack of Food: Never True Current Housing: I Have Housing Concerned About Future Housing: No Difficulty Paying Gas/Electric Bills: No Difficulty Paying for Meds: No Currently Unemployed: No Education: High School Diploma/GED Difficulty w/ Childcare or Family Care: No Spiritual care concerns: No Meds Home Medications and Allergies Home Medications ?Medication ?Instructions ?Recorded ?Confirmed ?Type prednisone 20 mg tablet 40 mg (2 x 20 mg) PO DAILY 5 days 03/17/24 03/19/24 Rx #10 tabs ascorbic acid (vitamin C) 500 mg 500 mg PO DAILY 03/19/24 03/19/24 History tablet (Vitamin C) aspirin 81 mg tablet,delayed 81 mg PO DAILY 03/19/24 03/19/24 History release (Adult Low Dose Aspirin) atorvastatin 40 mg tablet 40 mg PO QPM 03/19/24 03/19/24 History calcium carbonate 600 mg PO DAILY 03/19/24 03/19/24 History ezetimibe 10 mg tablet 10 mg PO DAILY 03/19/24 03/19/24 History lisinopril 5 mg tablet 5 mg PO DAILY 03/19/24 03/19/24 History metoprolol tartrate 25 mg tablet 12.5 mg PO Q12H 03/19/24 03/19/24 History multivitamin (Daily Multi-Vitamin 1 tablet PO DAILY 03/19/24 03/19/24 History tablet) Allergies Allergy/AdvReac Type Severity Reaction Status Date / Time No Known Allergies Allergy Verified 03/19/24 14:41 Vital Signs Vital Signs - 24 hr 03/19/24 14:30 03/19/24 14:46 03/19/24 15:00 Temperature Pulse Rate 107 H 105 H 102 H Respiratory Rate 22 H 30 H 32 H Blood Pressure Pulse Oximetry 96 97 Oxygen Delivery Oxygen Flow Rate Fraction of Inspired Oxygen 03/19/24 15:13 03/19/24 15:15 03/19/24 15:20 Temperature Pulse Rate 102 H 103 H 100 Respiratory Rate 28 H 28 H 29 H Blood Pressure 150/74 H 150/74 H Pulse Oximetry 96 97 96 Oxygen Delivery Oxygen Flow Rate Fraction of Inspired Oxygen 03/19/24 15:30 03/19/24 15:31 03/19/24 15:45 Temperature Pulse Rate 102 H 100 98 Respiratory Rate 28 H 29 H 27 H Blood Pressure 125/70 Pulse Oximetry 97 96 96 Oxygen Delivery Oxygen Flow Rate Fraction of Inspired Oxygen 03/19/24 16:00 03/19/24 16:01 03/19/24 16:15 Temperature Pulse Rate 97 96 93 Respiratory Rate 26 H 29 H 23 H Blood Pressure 124/68 Pulse Oximetry 97 96 97 Oxygen Delivery Oxygen Flow Rate Fraction of Inspired Oxygen 03/19/24 16:31 03/19/24 16:32 03/19/24 16:34 Temperature Pulse Rate 98 97 96 Respiratory Rate 24 H 26 H 24 H Blood Pressure 91/57 L 91/57 L Pulse Oximetry 99 99 100 Oxygen Delivery Oxygen Flow Rate Fraction of Inspired Oxygen 03/19/24 16:47 03/19/24 17:00 03/19/24 17:01 Temperature Pulse Rate 98 99 99 Respiratory Rate 29 H 22 H 27 H Blood Pressure 124/57 L Pulse Oximetry 100 100 99 Oxygen Delivery Oxygen Flow Rate Fraction of Inspired Oxygen 03/19/24 17:09 03/19/24 17:15 03/19/24 17:30 Temperature Pulse Rate 98 101 H 99 Respiratory Rate 20 24 H 25 H Blood Pressure 124/57 L Pulse Oximetry 98 98 97 Oxygen Delivery Oxygen Flow Rate Fraction of Inspired Oxygen 03/19/24 17:32 03/19/24 17:45 03/19/24 18:00 Temperature Pulse Rate 100 110 H 105 H Respiratory Rate 31 H 36 H 26 H Blood Pressure 127/36 L Pulse Oximetry 96 100 Oxygen Delivery Oxygen Flow Rate Fraction of Inspired Oxygen 03/19/24 18:01 03/19/24 18:15 02/01/25 18:30 Temperature Pulse Rate 104 H 106 H 108 H Respiratory Rate 29 H 23 H 32 H Blood Pressure 131/109 H Pulse Oximetry 100 83 L 100 Oxygen Delivery Oxygen Flow Rate Fraction of Inspired Oxygen 03/19/24 18:32 03/19/24 18:45 03/19/24 18:48 Temperature Pulse Rate 108 H 104 H 104 H Respiratory Rate 21 H 37 H 28 H Blood Pressure 111/49 L 111/49 L Pulse Oximetry 100 100 95 Oxygen Delivery Oxygen Flow Rate Fraction of Inspired Oxygen 03/19/24 19:00 03/19/24 19:01 03/19/24 19:37 Temperature Pulse Rate 105 H 104 H 97 Respiratory Rate 21 H 26 H 33 H Blood Pressure 119/79 Pulse Oximetry 100 99 98 Oxygen Delivery BiPAP Oxygen Flow Rate Fraction of Inspired Oxygen 03/19/24 20:02 03/19/24 20:16 03/19/24 21:03 Temperature 36.2 C L Pulse Rate 99 107 H 111 H Respiratory Rate 26 H 18 Blood Pressure 127/46 L 125/61 Pulse Oximetry 100 90 90 Oxygen Delivery BiPAP Oxygen Flow Rate Fraction of Inspired Oxygen 03/19/24 21:57 03/19/24 22:00 03/19/24 22:13 Temperature Pulse Rate 105 H 101 H Respiratory Rate Blood Pressure 126/62 Pulse Oximetry Oxygen Delivery Oxygen Flow Rate Fraction of Inspired Oxygen 03/19/24 22:55 03/20/24 00:00 03/20/24 00:00 Temperature 36.2 C L Pulse Rate 86 111 H 88 Respiratory Rate 29 H 18 Blood Pressure 125/61 Pulse Oximetry 98 90 97 Oxygen Delivery BiPAP BiPAP Oxygen Flow Rate Fraction of Inspired Oxygen 03/20/24 00:00 03/20/24 02:00 03/20/24 02:30 Temperature Pulse Rate 88 90 92 Respiratory Rate 27 H Blood Pressure Pulse Oximetry Oxygen Delivery Oxygen Flow Rate Fraction of Inspired Oxygen 03/20/24 02:30 03/20/24 02:40 03/20/24 04:00 Temperature 36.4 C Pulse Rate 92 93 97 Respiratory Rate 30 H 28 H 18 Blood Pressure 123/59 L Pulse Oximetry 97 94 Oxygen Delivery BiPAP Oxygen Flow Rate Fraction of Inspired Oxygen 03/20/24 04:00 03/20/24 04:00 03/20/24 06:00 Temperature Pulse Rate 93 106 H Respiratory Rate Blood Pressure Pulse Oximetry 96 Oxygen Delivery Nasal Cannula Oxygen Flow Rate 1 Fraction of Inspired Oxygen 03/20/24 08:07 03/20/24 08:15 03/20/24 08:15 Temperature 36.4 C L Pulse Rate 101 H 115 H Respiratory Rate 18 32 H Blood Pressure 119/62 Pulse Oximetry 94 92 Oxygen Delivery Nasal Cannula Oxygen Flow Rate 1 Fraction of Inspired Oxygen 24 03/20/24 08:37 03/20/24 10:31 03/20/24 11:55 Temperature 36.5 C Pulse Rate 117 H 105 H 98 Respiratory Rate 28 H 18 Blood Pressure 113/66 Pulse Oximetry 99 Oxygen Delivery Oxygen Flow Rate Fraction of Inspired Oxygen 03/20/24 13:43 03/20/24 13:43 03/20/24 13:57 Temperature Pulse Rate 108 H 108 H 103 H Respiratory Rate 40 H 40 H 32 H Blood Pressure Pulse Oximetry 95 Oxygen Delivery BiPAP Oxygen Flow Rate Fraction of Inspired Oxygen Exam 2 Const: General: no acute distress HENMT: Mouth: Yes dry mucous membranes Eyes: General: appearance normal, both eyes and all related structures S clera: sclerae normal Resp: Auscultation: wheezes and diminished lung sounds Other: On BIPAP Cardio: Rate: regular rate Rhythm: regular rhythm Heart sounds: no murmurs Other: No lower extremity edema Skin: General skin exam: normal color Neuro: Speech: normal speech Psych: Mental Status: mental status grossly normal Affect: normal affect Results Labs and Meds 03/20/24 04:50 03/20/24 04:50 Lab results: Cardiac Enzymes 03/19/24 03/20/24 03/20/24 Range/Units 21:55 01:36 04:50 AST 25 (14-36) U/L Troponin I 0.100 H* 0.094 H* 0.094 H* (0.000-0.034) ng/mL CBC 03/20/24 Range/Units 04:50 WBC 14.8 H (4.5-10.0) K/mm3 RBC 3.81 L (4.2-5.4) M/mm3 Hgb 10.8 L (12.0-15.0) g/dL Hct 35.2 L (37.0-47.0) % Plt Count 326 (150-375) k/mm3 Lymph # (Auto) 1.46 (0.9-3.2) K/mm3 Clinch # (Auto) 0.9 H (0.1-0.6) K/mm3 Eos # (Auto) 0.0 (0-0.3) K/mm3 Baso # (Auto) 0.0 (0.0-0.1) K/mm3 Comprehensive Metabolic Panel 03/20/24 Range/Units 04:50 Sodium 140 (137-145) mmol/L Potassium 4.4 (3.4-5.0) mmol/L Chloride 105 (98-107) mmol/L Carbon Dioxide 26 (22-30) mmol/L BUN 28 H (7-17) mg/dL Creatinine 0.91 (0.7-1.0) mg/dL Glucose 96 (65-110) mg/dL Calcium 9.0 (8.4-10.2) mg/dL AST 25 (14-36) U/L ALT 19 (6-35) U/L Alkaline Phosphatase 84 (38-126) U/L Total Protein 6.0 L (6.3-8.2) g/dL Albumin 3.0 L (3.5-5.1) g/dL Intake and Output 03/19/24 03/20/24 03/20/24 23:59 07:59 15:59 Intake Total 2500 150 360 Output Total 150 Balance 2500 0 360 Intake: IV 2500 Sodium Chloride 0.9% IV 1,000 2000 ml @ 250 mls/hr IV CONT .Q4H STA Rx#:[id number] Sodium Chloride 0.9% IV 500 ml 500 @ 999 mls/hr IV CONT .Q31M STA Rx#:[id number] Oral 150 360 Output: Urine 150 Patient Weight 03/20/24 23:59 Weight 55 kg
[2024-03-20 16:27] LABS: Glucose Point of Care 130 mg/dl (65-105)
[2024-03-20] MEDS: ATORVASTATIN 40 MG TABLET PO (18:07)
[2024-03-21] VITALS (21 sets, daily range): BP systolic 95–123; BP diastolic 55–90; PULSE 60–105; RESP 16–22; TEMP 36.2–36.4; O2SAT 90–100
--- NOTE | 2024-03-21 | ECHO_ITS ---
Patient Info Name: Devora Oquendo Age: 78 years : 1945 Gender: Female Ht: 50 in Wt: 121 lbs BSA: 1.43 m2 HR: 82 bpm BP: 123 / 72 mmHg Heart Rhythm: Sinus Rhythm Technical Quality: Fair Exam Date: 03/21/2024 8:10 AM Exam Location: Echo Lab Patient Status: Inpatient Admit Date: 03/19/2024 Staff Ordering Physician: Tabatha Aggarwal DO Sleeve Maker: Mell Soni RDCS Attending Provider: Rod Jordan MD Referring Physician: Jasen DIMAS; Exam Type: CA echo dop color flow w con Study Info Indications - Elevated BMP, Respiratory failure Complete two-dimensional, color flow and Doppler transthoracic echocardiogram is performed with contrast to opacify the left ventricle and to improve the deliniation of the left ventricle endocardial borders. Contrast/Agitated Saline Contrast/Ag. Saline: Definity Amount: 2.00 ml Administered By: Mell Soni RDCS Existing IV Access: Yes IV Access Condition: patent with no signs of infiltration Summary 1. The left ventricle is normal size with moderately reduced systolic function. The left ventricular gottlieb are mildly thickened. The left ventricular ejection fraction is visually estimated to be 30-35%. There is hypokinesis of the apex, mid-distal anterolateral, anterior gottlieb. 2. The aortic valve is probably trileaflet and heavily calcified. There is low-flow low gradient critical aortic stenosis. There is mild aortic regurgitation. 3. The mitral valve is heavily calcified with moderate mitral regurgitation. 4. There is elevated transmitral gradient of 10.6 mm Hg and a heart rate of 111bpm. 5. 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 Left Ventricle The left ventricle is normal size with moderately reduced systolic function. The left ventricular gottlieb are mildly thickened. The left ventricular ejection fraction is visually estimated to be 30-35%. There is hypokinesis of the apex, mid-distal anterolateral, anterior gottlieb. Right Ventricle The right ventricle is normal in size and systolic function. Left Atria The left atrium is dilated. Right Atria The right atrium is normal size. Atrial Septum The atrial septum is not well visualized. Aortic Valve The aortic valve is probably trileaflet and heavily calcified. There is low-flow low gradient critical aortic stenosis. There is mild aortic regurgitation. Pulmonic Valve The pulmonic valve is not well visualized. There is color Doppler evidence of trace pulmonic valve regurgitation. Mitral Valve The mitral valve is heavily calcified with moderate mitral regurgitation. There is elevated transmitral gradient of 10.6 mm Hg and a heart rate of 111bpm. 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 Tricuspid Valve The tricuspid valve is sclerotic with mild tricuspid regurgitation. Pericardium/Pleural There is trace pericardial effusion. Inferior Vena Cava Normal inferior vena cava with >50% collapse upon inspiration consistent with normal right atrial pressure, 3 mmHg. Aorta The aortic root at the level of the sinus of Valsalva measures 2.1 cm in diameter. Left Ventricular Outflow Tract Name Value Normal LVOT 2D LVOT Diameter 1.90 cm LVOT Doppler LVOT Peak Gradient 2 mmHg LVOT Mean Gradient 1 mmHg LVOT VTI 12.24 cm LVOT VTI/AV VTI Ratio 0.14 LVOT Stroke Volume 34.57 ml LVOT CO 3.71 l/min LVOT CI 2.60 L/min/m2 Pulmonic Valve Name Value Normal RVOT Doppler RVOT Peak Gradient 3 mmHg PV Doppler PV Peak Gradient 6 mmHg Mitral Valve Name Value Normal MV Doppler MV Peak Gradient 21 mmHg MV Mean Gradient 11 mmHg MV Decel [place] 1,059.46 cm/s2 MV PHT 0 s MV Area (PHT) 3.92 cm2 4.00-5.00 MV Area (Cont Eq VTI) 0.96 cm2 MV Regurgitation Doppler MR Peak Gradient 130 mmHg MV Diastolic Function MV E Peak Velocity 205.14 cm/s MV A Peak Velocity 163.23 cm/s MV E/A 1.26 MV Decel Time 0 s MV Annular TDI MV E/e' (Septal) 37.78 <=8.00 MV E/e' (Lateral) 36.35 <=8.00 MV E/e' (Average) 37.07 Tricuspid Valve Name Value Normal TV Regurgitation Doppler TR Peak Velocity 386.25 cm/s TR Peak Gradient 60 mmHg Estimated PAP/RSVP RA Pressure 3 mmHg <=5 PA Systolic Pressure 63 mmHg <36 RV Systolic Pressure 63 mmHg <36 Aorta Name Value Normal Ascending Aorta Ao Root Diameter (MM) 2.33 cm Ao Root Diam Index (MM) 1.63 cm/m2 Aortic Valve Name Value Normal AV Doppler AV Peak Velocity 443.93 cm/s AV Peak Gradient 79 mmHg AV Mean Gradient 51 mmHg AV VTI 87.04 cm AV Area (Cont Eq VTI) 0.40 cm2 >=3.00 AV Area (Cont Eq [place]) 0.41 cm2 AV Regurgitation 2D LVOT Area 2.83 cm2 AV Regurgitation Doppler AR Decel Time 0 s AR Decel [place] 1,028.54 cm/s2 AR PHT 0 s Ventricles Name Value Normal LV Dimensions 2D/MM IVS Diastolic Thickness (2D) 1.27 cm 0.60-1.00 LVID Diastole (2D) 4.27 cm 3.80-5.20 LVIW Diastolic Thickness (2D) 1.25 cm 0.60-0.90 LVID Systole (2D) 3.79 cm 2.20-3.50 LVOT Diameter 1.90 cm LV Mass (2D Cubed) 196.78 g 67.00-162.00 LV Mass Index (2D Cubed) 0.01 g/cm2 0.00-0.01 Relative Wall Thickness (2D) 0.59 LV Fractional Shortening/Ejection Fraction 2D/MM LV Fractional Shortening (2D) 11 % 27-45 LV EF (2D Teicholz) 25 % 54-74 LV Diastolic Volume (4C MOD) 77.01 ml LV EF (4C MOD) 21 % LV Diastolic Volume (2C MOD) 71.68 ml LV EF (2C MOD) 30 % LV Diastolic Volume (BP MOD) 77.15 ml 46.00-106.00 LV Diastolic Volume Index (BP MOD) 0.05 l/m2 0.03-0.06 LV Systolic Volume (BP MOD) 56.13 ml 14.00-42.00 LV Systolic Volume Index (BP MOD) 0.04 l/m2 0.01-0.02 LV EF (BP MOD) 27 % 54-74 LV Diastolic Length (4C) 6.95 cm LV Systolic Length (4C) 6.82 cm LV Stroke Volume (4C MOD) 16.01 ml Atria Name Value Normal LA Dimensions LA Dimension (MM) 4.59 cm 2.70-3.80 LA Volume (4C A-L) 133.16 ml LA Volume (BP A-L) 129.66 ml RA Dimensions RA Area (4C) 13.19 cm2 <=18.00 Report Signatures
[2024-03-21] MEDS: LEVALBUTEROL NEB 1.25 MG/3 ML INHALATION ×3 (03:16→20:03)
[2024-03-21] MEDS: IPRATROPIUM BR 0.02% INH SOLN 0.5 MG/2.5 ML VIAL INHALATION ×3 (03:16→20:03)
[2024-03-21 05:09] LABS: Basophils Absolute Auto 0.1 K/mm3 (0.0-0.1); Basophils Percent Auto 0.5 % (0.2-1.2); Eosinophils Absolute Auto 0.3 K/mm3 (0-0.3); Hematocrit 32.3 % (37.0-47.0); Immature Granulocyte Percent A 0.8 % (0-0.5); Lymphocytes Absolute Auto 1.77 K/mm3 (0.9-3.2); Lymphocytes Percent Auto 13.3 % (18.3-44.2); Mean Corpuscular Hemoglobin 28.7 pg (26-34); Mean Corpuscular Volume 92.6 fl (80-100); Mean Platelet Volume 10.6 fl (7.4-10.4); Monocytes Absolute Auto 0.9 K/mm3 (0.1-0.6); Neutrophils Absolute Auto 10.1 K/mm3 (1.3-6.7); Neutrophils Percent Auto 76.4 % (45.5-73.1); Platelet Count Result 267 k/mm3 (150-375); Red Blood Count 3.49 M/mm3 (4.2-5.4); Red Cell Distribution Width 13.7 % (11.5-14.5); White Blood Count 13.3 K/mm3 (4.5-10.0)
[2024-03-21 05:24] LABS: Alanine Aminotransferase 19 U/L (6-35); Albumin Level 2.7 g/dL (3.5-5.1); Alkaline Phosphatase 76 U/L (38-126); Anion Gap 5 mmol/L (4-12); Aspartate Amino Transferase 24 U/L (14-36); Bilirubin,Total 0.7 mg/dL (0.2-1.3); Blood Urea Nitrogen 28 mg/dL (7-17); Calcium 8.6 mg/dL (8.4-10.2); Carbon Dioxide 29 mmol/L (22-30); Chloride 106 mmol/L (98-107); Estimated Glomerular Filt Rate 51; Glucose 89 mg/dL (65-110); Magnesium 1.9 mg/dL (1.6-2.3); Potassium 3.9 mmol/L (3.4-5.0); Sodium 140 mmol/L (137-145)
[2024-03-21 05:34] LABS: Troponin I 0.089 ng/mL (0.000-0.034)
[2024-03-21 06:45] LABS: Glucose Point of Care 118 mg/dl (65-105)
[2024-03-21 08:21] LABS: Glucose Point of Care 103 mg/dl (65-105)
[2024-03-21] MEDS: PERFLUTREN LIPID MICROSPHERES 1.5 ML VIAL DILUTED TO 10 ML TOTAL VOLUME IV PUSH (08:49)
[2024-03-21] MEDS: AZITHROMYCIN 500 MG/NS 250 ML 500 MG/250 ML BAG 250 MG IVPB (09:21)
[2024-03-21] MEDS: ENOXAPARIN 40 MG/0.4 ML SYRINGE SUB-Q (09:21)
[2024-03-21] MEDS: METOPROLOL TARTRATE 12.5 MG TABLET PO ×2 (09:22→22:47)
[2024-03-21] MEDS: EZETIMIBE 10 MG TABLET PO (09:22)
[2024-03-21] MEDS: guaiFENesin 12 HR 600 MG TABCR PO ×2 (09:22→22:47)
[2024-03-21] MEDS: ASPIRIN 81 MG ENTERIC TABLET PO (09:22)
[2024-03-21] MEDS: MULTIVITAMINS THERAPEUTIC TAB (*BKC) 1 TABLET PO (09:22)
[2024-03-21] MEDS: lisinopriL 5 MG TABLET PO (09:22)
[2024-03-21] MEDS: PANTOPRAZOLE 40 MG TABLET PO ×2 (09:22→22:48)
--- NOTE | 2024-03-21 10:09 | PCRCNOTE ---
0800 tx not given, pt getting echo. Window of time for administration has passed. See next scheduled administration.
[2024-03-21 12:12] LABS: Glucose Point of Care 116 mg/dl (65-105)
--- NOTE | 2024-03-21 12:25 | IVDEFINITY ---
Prior to administration of IV Definity the patient was educated on the risks and benefits of the imaging enhancing agent including potential adverse side effects. The patient verbalized understanding. Allergies were verified. No exclusion criteria were identified and at least one of the following inclusion criteria were met: 1) physician request, 2) patient technically difficult to image (per the [place] [employer] guidelines of two or more segments not discernable within the apical view), or 3) questionable left ventricular function. ?
--- NOTE | 2024-03-21 13:04 | P.PNIM_ITS ---
Progress Note: A&P Assessment and Plan (1) Severe sepsis: Code(s): A41.9 - Sepsis, unspecified organism; R65.20 - Severe sepsis without septic shock Status: Acute (2) Acute respiratory failure with hypoxia and hypercapnia: Code(s): J96.01 - Acute respiratory failure with hypoxia; J96.02 - Acute respiratory failure with hypercapnia Status: Acute (3) Multifocal pneumonia: Code(s): J18.9 - Pneumonia, unspecified organism Status: Acute (4) Hyperglycemia: Code(s): R73.9 - Hyperglycemia, unspecified Status: Acute (5) Elevated brain natriuretic peptide (BNP) level: Code(s): R79.89 - Other specified abnormal findings of blood chemistry Status: Acute Plan Sepsis from Pneumonia CXR reviewed Rocephin [place] [id number] Bp soft today pt on oxygen at 3 liters and prn BIPAP BC negative to date Pneumonia CXR showed multifocal pneumonia continue above care Acute hypoxemic respiratory failure improving on 3 liters oxygen and prn bipap try to wean off oxygen order portable cXR today Elevated troponin Likely demand Trend, ECHO completed Cardiology consulted DM2 A1c 6.5 SSI with accucheks, adjust with clinical course CVA continue home meds CAD continue home meds HLD Statin HTN titrate home meds with clinical course DVT prophylaxis on Sq Lovenox Subjective Date/time seen: 03/21/24 13:04 Interval history: 78 year old female admitted for sepsis and multifocal pneumonia CT scan demonstrated findings consistent with multifocal pneumonia without evidence of pulmonary edema although there was moderate left pleural effusion and mild right pleural effusion. pt on 3 liters of oxygen and bipap at night prn Review of Systems Review of Systems: Ongoing cough sob Exam Narrative: Weight 55 kg BMI 26.2 Const: Other: No acute distress, well-developed well-nourished HENMT: Other: Mucous membranes are moist, no oral pharyngeal erythema, upper and lower dentures in place, nasal cannula in place Eyes: Other: Pupils are equal and reactive, no scleral icterus, no conjunctival pallor Neck: Other: No JVD, no lymphadenopathy, trachea midline Resp: Other: Crackles at bilateral bases, no increased work of breathing, anterior end- expiratory wheezing Cardio: Other: Mildly tachycardic, 2+ bilateral radial pedal pulses, no JVD, no murmur GI: Other: Soft, nontender, nondistended, positive bowel sounds Skin: Other: No jaundice, no pallor, normal temperature to touch Neuro: Other: Alert oriented x4, speech is clear, no facial asymmetry, no localizing neurologic deficits noted during the course of conversation Extrem: Other: Trace pedal edema, no clubbing, no cyanosis Psych: Other: Appropriate mood and affect if anything some mild anxiety regarding hospitalization, pleasant and cooperative, judgment and insight intact Objective Data Vital Signs Vital Signs: Vital Signs - 24 hr 03/20/24 13:43 03/20/24 13:43 03/20/24 13:57 Temperature Pulse Rate 108 H 108 H 103 H Respiratory Rate 40 H 40 H 32 H Blood Pressure Pulse Oximetry 95 Oxygen Delivery BiPAP Oxygen Flow Rate Fraction of Inspired Oxygen 03/20/24 14:00 03/20/24 14:52 03/20/24 16:00 Temperature Pulse Rate 101 H 98 101 H Respiratory Rate 26 H Blood Pressure Pulse Oximetry 94 Oxygen Delivery BiPAP Oxygen Flow Rate Fraction of Inspired Oxygen 03/20/24 16:00 03/20/24 16:48 03/20/24 18:00 Temperature 37.2 C Pulse Rate 91 99 Respiratory Rate 29 H Blood Pressure 109/69 Pulse Oximetry 99 95 Oxygen Delivery BiPAP Oxygen Flow Rate Fraction of Inspired Oxygen 03/20/24 19:46 03/20/24 20:00 03/20/24 20:00 Temperature 36.7 C Pulse Rate 94 90 90 Respiratory Rate 20 Blood Pressure 90/58 L Pulse Oximetry 98 96 Oxygen Delivery BiPAP Oxygen Flow Rate Fraction of Inspired Oxygen 03/20/24 20:20 03/20/24 20:24 03/20/24 20:52 Temperature Pulse Rate 93 93 Respiratory Rate 25 H Blood Pressure 106/58 L Pulse Oximetry Oxygen Delivery Oxygen Flow Rate Fraction of Inspired Oxygen 03/20/24 20:57 03/20/24 22:00 03/20/24 22:51 Temperature Pulse Rate 98 93 84 Respiratory Rate 28 H Blood Pressure Pulse Oximetry 95 94 Oxygen Delivery BiPAP BiPAP Oxygen Flow Rate Fraction of Inspired Oxygen 03/20/24 23:54 03/21/24 00:00 03/21/24 00:30 Temperature 36.4 C Pulse Rate 77 87 80 Respiratory Rate 28 H 21 H Blood Pressure 118/56 L Pulse Oximetry 99 95 Oxygen Delivery BiPAP Oxygen Flow Rate Fraction of Inspired Oxygen 03/21/24 02:00 03/21/24 03:16 03/21/24 03:22 Temperature Pulse Rate 75 81 82 Respiratory Rate 21 H 22 H Blood Pressure Pulse Oximetry Oxygen Delivery BiPAP Oxygen Flow Rate Fraction of Inspired Oxygen 03/21/24 03:24 03/21/24 04:00 03/21/24 04:00 Temperature 36.4 C L Pulse Rate 80 90 82 Respiratory Rate 21 H 20 Blood Pressure 123/72 Pulse Oximetry 98 96 Oxygen Delivery Nasal Cannula Oxygen Flow Rate 2 Fraction of Inspired Oxygen 03/21/24 04:00 03/21/24 06:00 03/21/24 07:41 Temperature 36.3 C L Pulse Rate 91 81 60 Respiratory Rate 18 Blood Pressure 107/90 Pulse Oximetry 100 Oxygen Delivery Oxygen Flow Rate Fraction of Inspired Oxygen 03/21/24 10:19 03/21/24 11:26 03/21/24 12:00 Temperature 36.4 C L Pulse Rate 96 Respiratory Rate 16 Blood Pressure 95/55 L Pulse Oximetry 91 Oxygen Delivery Nasal Cannula Nasal Cannula Oxygen Flow Rate 2 3 Fraction of Inspired Oxygen Intake/Output Intake/Output: Intake & Output 03/18/24 03/19/24 03/20/24 03/21/24 23:59 23:59 23:59 23:59 Intake Total 2800 1550 515 Output Total 1350 400 Balance 2800 200 115 Meds/Results Medications: Active Medications Generic Name Dose Route Start Last Admin Trade Name Freq PRN Reason Stop Dose Admin Acetaminophen 650 mg 03/19/24 15:30 Acetaminophen 325 Mg Tablet PO Q4H PRN Mild Pain (1-3) or Fever Albuterol/Ipratropium 3 ml 03/20/24 08:26 Ipratropium 0.5 Mg/Albuterol Sulfate 2.5 Mg Ampul.Neb 3 Ml INHALATION Q6HRT PRN Wheezing Aspirin 81 mg 03/20/24 09:00 03/21/24 09:22 Aspirin 81 Mg Enteric Tablet PO 81 mg DAILY QI Administration Atorvastatin Calcium 40 mg 03/20/24 18:00 03/20/24 18:07 Atorvastatin 40 Mg Tablet PO 40 mg QPM QI Administration Dextrose 12.5 gm 03/19/24 20:39 Dextrose 50% 25 Gm/50 Ml Syringe IV PUSH PRN PRN Hypoglycemia Protocol Ezetimibe 10 mg 03/20/24 09:00 03/21/24 09:22 Ezetimibe 10 Mg Tablet PO 10 mg DAILY QI Administration Enoxaparin Sodium 40 mg 03/20/24 09:00 03/21/24 09:21 Enoxaparin 40 Mg/0.4 Ml Syringe SUB-Q 40 mg DAILY QI Administration Glucagon 1 mg 03/19/24 20:39 Glucagon For Inj 1 Mg Vial IM PRN PRN Hypoglycemia Protocol Glucose 15 gm 03/19/24 20:39 Glucose Oral Gel 15 Gm Of Glucse In 37.5 Gm Tube PO PRN PRN Hypoglycemia Protocol Guaifenesin 600 mg 03/20/24 11:50 03/21/24 09:22 Guaifenesin 12 Hr 600 Mg Tabcr PO 600 mg Q12HR QI Administration Ceftriaxone Sodium 1 gm in 50 mls @ 100 mls/hr 03/20/24 09:00 03/21/24 09:21 Rocephin 1 Gm/Ns 50 Ml IVPB 100 mls/hr Q24H QI Administration Azithromycin 500 mg in 250 mls @ 250 mls/hr 03/20/24 09:00 03/21/24 09:21 Zithromax IVPB 250 mls/hr Q24H QI Administration Dextrose 1,000 mls @ 100 mls/hr 03/19/24 20:39 Dextrose 5% 1,000 Ml IVPB PRN PRN Hypoglycemia Protocol Insulin Aspart 2 - 5 units 03/20/24 08:00 03/21/24 11:53 Insulin Aspart (*Bkc) 100 Units/Ml SUB-Q Not Given TIDWM QI Protocol Insulin Aspart 1 - 2 units 03/19/24 21:00 03/20/24 20:22 Insulin Aspart (*Bkc) 100 Units/Ml SUB-Q Not Given HS [facility] Protocol Ipratropium [place] 0.5 mg 03/19/24 21:55 03/21/24 10:09 Ipratropium Br 0.02% Inh Soln 0.5 Mg/2.5 Ml Vial INHALATION Not Given Q6HRT QI Levalbuterol HCl 1.25 mg 03/19/24 21:55 03/21/24 10:09 Levalbuterol Neb 1.25 Mg/3 Ml INHALATION Not Given Q6HRT QI Lisinopril 5 mg 03/20/24 09:00 03/21/24 09:22 Lisinopril 5 Mg Tablet PO 5 mg DAILY QI Administration Metoprolol Tartrate 12.5 mg 03/20/24 09:00 03/21/24 09:22 Metoprolol Tartrate 12.5 Mg Tablet PO 12.5 mg Q12HR QI Administration Multivitamins Therapeutic 1 tablet 03/20/24 09:00 03/21/24 09:22 Multivitamins Therapeutic Tab (*Bkc) PO 1 tablet DAILY QI Administration Pantoprazole Sodium 40 mg 03/19/24 21:00 03/21/24 09:22 Pantoprazole 40 Mg Tablet PO 40 mg Q12HR QI Administration Radiology Results: ITS Impressions Chest CT 03/19/24 14:53 IMPRESSION: Multifocal pneumonia. Moderate right and small left pleural effusions. Mediastinal lymphadenopathy. Esophagitis/gastritis. Chest X-Ray 03/20/24 14:09 IMPRESSION: Radiographic evaluation is unchanged from previous study demonstrating bilateral upper lobe infiltrates and bilateral lower lobe pleural effusions. Labs Labs: Laboratory Results - last 24 hr 03/20/24 03/20/24 03/21/24 15:52 20:20 04:55 WBC 13.3 H RBC 3.49 L Hgb 10.0 L Hct 32.3 L MCV 92.6 MCH 28.7 MCHC 31.0 L RDW 13.7 Plt Count 267 MPV 10.6 H Immature Gran % (Auto) 0.8 H Neut % (Auto) 76.4 H Lymph % (Auto) 13.3 L [place] % (Auto) 7.0 Eos % (Auto) 2.0 Baso % (Auto) 0.5 Lymph # (Auto) 1.77 [place] # (Auto) 0.9 H Eos # (Auto) 0.3 Baso # (Auto) 0.1 Abs Immat Gran (auto) 0.10 H Absolute Neuts (auto) 10.1 H Absolute Nucleated RBC 0.000 Nucleated RBC % 0.0 Sodium 140 Potassium 3.9 Chloride 106 Carbon Dioxide 29 Anion Gap 5 BUN 28 H Creatinine 1.04 H Estim Creat Clear Calc Not Reportable Estimated GFR 51 L Glucose 89 POC Capillary Glucose 130 H 118 H Calcium 8.6 Magnesium 1.9 Total Bilirubin 0.7 AST 24 ALT 19 Alkaline Phosphatase 76 Troponin I 0.089 H* Total Protein 6.0 L Albumin 2.7 L 03/21/24 03/21/24 07:45 11:57 WBC RBC Hgb Hct MCV MCH MCHC RDW Plt Count MPV Immature Gran % (Auto) Neut % (Auto) Lymph % (Auto) [place] % (Auto) Eos % (Auto) Baso % (Auto) Lymph # (Auto) [place] # (Auto) Eos # (Auto) Baso # (Auto) Abs Immat Gran (auto) Absolute Neuts (auto) Absolute Nucleated RBC Nucleated RBC % Sodium Potassium Chloride Carbon Dioxide Anion Gap BUN Creatinine Estim Creat Clear Calc Estimated GFR Glucose POC Capillary Glucose 103 116 H Calcium Magnesium Total Bilirubin AST ALT Alkaline Phosphatase Troponin I Total Protein Albumin
[2024-03-21 16:14] LABS: Glucose Point of Care 108 mg/dl (65-105)
--- NOTE | 2024-03-21 16:17 | P.PNCA_ITS ---
Progress Note: A&P Assessment and Plan (1) Severe aortic stenosis: Code(s): I35.0 - Nonrheumatic aortic (valve) stenosis Status: Acute (2) Cardiomyopathy: Code(s): I42.9 - Cardiomyopathy, unspecified Status: Acute Plan 78-year-old woman with hypertension hyperlipidemia presented with shortness of breath found to have mildly elevated troponin and bilateral pleural effusions in setting of recurrent pneumonia CAD status post CABG -continue aspirin 81 mg p.o. daily and atorvastatin 40 mg every evening Cardiomyopathy -on lisinopril 5 mg p.o. daily and metoprolol tartrate 12.5 mg every 12 hours Low-flow low gradient severe aortic stenosis -outpatient evaluation for TAVR Subjective Date/time seen: 03/21/24 16:17 Interval history: She is feeling better today. Has minimal shortness of breath. No chest discomf ort. No significant orthopnea. Review of Systems Cardiovascular: Cardiovascular: Reports as per HPI Respiratory: Respiratory: Reports as per HPI Exam Const: General: comfortable HENMT: Mouth: Yes dry mucous membranes Eyes: EOM: EOMs intact bilaterally Neck: Neck: no JVD Resp: Effort & Inspection: normal respiratory effort Auscultation: rales Cardio: Rate: regular rate Rhythm: regular rhythm Neuro: Speech: normal speech Extrem: General: no pedal edema Objective Data Vital Signs Vital Signs: Vital Signs - 24 hr 03/20/24 16:48 03/20/24 18:00 03/20/24 19:46 Temperature 37.2 C 36.7 C Pulse Rate 91 99 94 Respiratory Rate 29 H 20 Blood Pressure 109/69 90/58 L Pulse Oximetry 95 98 Oxygen Delivery Oxygen Flow Rate Fraction of Inspired Oxygen 03/20/24 20:00 03/20/24 20:00 03/20/24 20:20 Temperature Pulse Rate 90 90 Respiratory Rate Blood Pressure 106/58 L Pulse Oximetry 96 Oxygen Delivery BiPAP Oxygen Flow Rate Fraction of Inspired Oxygen 24 03/20/24 20:24 03/20/24 20:52 03/20/24 20:57 Temperature Pulse Rate 93 93 98 Respiratory Rate 25 H 28 H Blood Pressure Pulse Oximetry 95 Oxygen Delivery BiPAP Oxygen Flow Rate Fraction of Inspired Oxygen 03/20/24 22:00 03/20/24 22:51 03/20/24 23:54 Temperature 36.4 C Pulse Rate 93 84 77 Respiratory Rate 28 H Blood Pressure 118/56 L Pulse Oximetry 94 99 Oxygen Delivery BiPAP Oxygen Flow Rate Fraction of Inspired Oxygen 24 03/21/24 00:00 03/21/24 00:30 03/21/24 02:00 Temperature Pulse Rate 87 80 75 Respiratory Rate 21 H Blood Pressure Pulse Oximetry 95 Oxygen Delivery BiPAP Oxygen Flow Rate Fraction of Inspired Oxygen 03/21/24 03:16 03/21/24 03:22 03/21/24 03:24 Temperature Pulse Rate 81 82 80 Respiratory Rate 21 H 22 H 21 H Blood Pressure Pulse Oximetry Oxygen Delivery BiPAP Oxygen Flow Rate Fraction of Inspired Oxygen 03/21/24 04:00 03/21/24 04:00 03/21/24 04:00 Temperature 36.4 C L Pulse Rate 90 82 91 Respiratory Rate 20 Blood Pressure 123/72 Pulse Oximetry 98 96 Oxygen Delivery Nasal Cannula Oxygen Flow Rate 2 Fraction of Inspired Oxygen 03/21/24 06:00 03/21/24 07:41 03/21/24 08:00 Temperature 36.3 C L Pulse Rate 81 60 101 H Respiratory Rate 18 Blood Pressure 107/90 Pulse Oximetry 100 Oxygen Delivery Oxygen Flow Rate Fraction of Inspired Oxygen 03/21/24 10:00 03/21/24 10:19 03/21/24 11:15 Temperature Pulse Rate 98 92 Respiratory Rate Blood Pressure Pulse Oximetry 90 Oxygen Delivery Nasal Cannula Room Air Oxygen Flow Rate 2 Fraction of Inspired Oxygen 03/21/24 11:26 03/21/24 12:00 03/21/24 12:00 Temperature 36.4 C L Pulse Rate 96 100 Respiratory Rate 16 Blood Pressure 95/55 L Pulse Oximetry 91 Oxygen Delivery Nasal Cannula Oxygen Flow Rate 3 Fraction of Inspired Oxygen 03/21/24 12:40 03/21/24 13:55 03/21/24 13:55 Temperature Pulse Rate 91 88 Respiratory Rate 22 H Blood Pressure Pulse Oximetry 92 93 Oxygen Delivery Nasal Cannula Room Air Oxygen Flow Rate 2 Fraction of Inspired Oxygen 03/21/24 14:00 Temperature Pulse Rate 91 Respiratory Rate Blood Pressure Pulse Oximetry Oxygen Delivery Oxygen Flow Rate Fraction of Inspired Oxygen Intake/Output Intake/Output: Intake & Output 03/18/24 03/19/24 03/20/24 03/21/24 23:59 23:59 23:59 23:59 Intake Total 2800 1550 755 Output Total 1350 400 Balance 2800 200 355 Meds/Results Medications: Active Medications Generic Name Dose Route Start Last Admin Trade Name Freq PRN Reason Stop Dose Admin Acetaminophen 650 mg 03/19/24 15:30 Acetaminophen 325 Mg Tablet PO Q4H PRN Mild Pain (1-3) or Fever Albuterol/Ipratropium 3 ml 03/20/24 08:26 Ipratropium 0.5 Mg/Albuterol Sulfate 2.5 Mg Ampul.Neb 3 Ml INHALATION Q6HRT PRN Wheezing Aspirin 81 mg 03/20/24 09:00 03/21/24 09:22 Aspirin 81 Mg Enteric Tablet PO 81 mg DAILY QI Administration Atorvastatin Calcium 40 mg 03/20/24 18:00 03/20/24 18:07 Atorvastatin 40 Mg Tablet PO 40 mg QPM QI Administration Dextrose 12.5 gm 03/19/24 20:39 Dextrose 50% 25 Gm/50 Ml Syringe IV PUSH PRN PRN Hypoglycemia Protocol Ezetimibe 10 mg 03/20/24 09:00 03/21/24 09:22 Ezetimibe 10 Mg Tablet PO 10 mg DAILY QI Administration Enoxaparin Sodium 40 mg 03/20/24 09:00 03/21/24 09:21 Enoxaparin 40 Mg/0.4 Ml Syringe SUB-Q 40 mg DAILY QI Administration Glucagon 1 mg 03/19/24 20:39 Glucagon For Inj 1 Mg Vial IM PRN PRN Hypoglycemia Protocol Glucose 15 gm 03/19/24 20:39 Glucose Oral Gel 15 Gm Of Glucse In 37.5 Gm Tube PO PRN PRN Hypoglycemia Protocol Guaifenesin 600 mg 03/20/24 11:50 03/21/24 09:22 Guaifenesin 12 Hr 600 Mg Tabcr PO 600 mg Q12HR QI Administration Ceftriaxone Sodium 1 gm in 50 mls @ 100 mls/hr 03/20/24 09:00 03/21/24 09:21 Rocephin 1 Gm/Ns 50 Ml IVPB 100 mls/hr Q24H QI Administration Azithromycin 500 mg in 250 mls @ 250 mls/hr 03/20/24 09:00 03/21/24 09:21 Zithromax IVPB 250 mls/hr Q24H QI Administration Dextrose 1,000 mls @ 100 mls/hr 03/19/24 20:39 Dextrose 5% 1,000 Ml IVPB PRN PRN Hypoglycemia Protocol Insulin Aspart 2 - 5 units 03/20/24 08:00 03/21/24 11:53 Insulin Aspart (*Bkc) 100 Units/Ml SUB-Q Not Given TIDWM QI Protocol Insulin Aspart 1 - 2 units 03/19/24 21:00 03/20/24 20:22 Insulin Aspart (*Bkc) 100 Units/Ml SUB-Q Not Given HS [facility] Protocol Ipratropium [place] 0.5 mg 03/19/24 21:55 03/21/24 13:54 Ipratropium Br 0.02% Inh Soln 0.5 Mg/2.5 Ml Vial INHALATION 0.5 mg Q6HRT QI Administration Levalbuterol HCl 1.25 mg 03/19/24 21:55 03/21/24 13:54 Levalbuterol Neb 1.25 Mg/3 Ml INHALATION 1.25 mg Q6HRT QI Administration Lisinopril 5 mg 03/20/24 09:00 03/21/24 09:22 Lisinopril 5 Mg Tablet PO 5 mg DAILY QI Administration Metoprolol Tartrate 12.5 mg 03/20/24 09:00 03/21/24 09:22 Metoprolol Tartrate 12.5 Mg Tablet PO 12.5 mg Q12HR QI Administration Multivitamins Therapeutic 1 tablet 03/20/24 09:00 03/21/24 09:22 Multivitamins Therapeutic Tab (*Bkc) PO 1 tablet DAILY QI Administration Pantoprazole Sodium 40 mg 03/19/24 21:00 03/21/24 09:22 Pantoprazole 40 Mg Tablet PO 40 mg Q12HR QI Administration Radiology Results: ITS Impressions Chest CT 03/19/24 14:53 IMPRESSION: Multifocal pneumonia. Moderate right and small left pleural effusions. Mediastinal lymphadenopathy. Esophagitis/gastritis. Chest X-Ray 03/21/24 13:40 IMPRESSION: Radiographic evaluation is unchanged from prior studies demonstrating bilateral upper lobe infiltrates and bilateral lower lobe pleural effusions. Labs Labs: Laboratory Results - last 24 hr 03/20/24 03/20/24 03/21/24 15:52 20:20 04:55 WBC 13.3 H RBC 3.49 L Hgb 10.0 L Hct 32.3 L MCV 92.6 MCH 28.7 MCHC 31.0 L RDW 13.7 Plt Count 267 MPV 10.6 H Immature Gran % (Auto) 0.8 H Neut % (Auto) 76.4 H Lymph % (Auto) 13.3 L [place] % (Auto) 7.0 Eos % (Auto) 2.0 Baso % (Auto) 0.5 Lymph # (Auto) 1.77 [place] # (Auto) 0.9 H Eos # (Auto) 0.3 Baso # (Auto) 0.1 Abs Immat Gran (auto) 0.10 H Absolute Neuts (auto) 10.1 H Absolute Nucleated RBC 0.000 Nucleated RBC % 0.0 Sodium 140 Potassium 3.9 Chloride 106 Carbon Dioxide 29 Anion Gap 5 BUN 28 H Creatinine 1.04 H Estim Creat Clear Calc Not Reportable Estimated GFR 51 L Glucose 89 POC Capillary Glucose 130 H 118 H Calcium 8.6 Magnesium 1.9 Total Bilirubin 0.7 AST 24 ALT 19 Alkaline Phosphatase 76 Troponin I 0.089 H* Total Protein 6.0 L Albumin 2.7 L 03/21/24 03/21/24 03/21/24 07:45 11:57 15:55 WBC RBC Hgb Hct MCV MCH MCHC RDW Plt Count MPV Immature Gran % (Auto) Neut % (Auto) Lymph % (Auto) [place] % (Auto) Eos % (Auto) Baso % (Auto) Lymph # (Auto) [place] # (Auto) Eos # (Auto) Baso # (Auto) Abs Immat Gran (auto) Absolute Neuts (auto) Absolute Nucleated RBC Nucleated RBC % Sodium Potassium Chloride Carbon Dioxide Anion Gap BUN Creatinine Estim Creat Clear Calc Estimated GFR Glucose POC Capillary Glucose 103 116 H 108 H Calcium Magnesium Total Bilirubin AST ALT Alkaline Phosphatase Troponin I Total Protein Albumin
[2024-03-21] MEDS: ATORVASTATIN 40 MG TABLET PO (17:20)
--- NOTE | 2024-03-21 19:49 | PC.NURSE ---
This patient was transferred to [facility] by bed at 1930. Iris CHEN called report on days to staff on 3MS.
[2024-03-21 21:35] LABS: Glucose Point of Care 115 mg/dl (65-105)
[2024-03-22] VITALS (12 sets, daily range): BP systolic 96–114; BP diastolic 54–82; PULSE 56–108; RESP 20–22; TEMP 36.2–36.4; O2SAT 95–98
[2024-03-22] MEDS: IPRATROPIUM BR 0.02% INH SOLN 0.5 MG/2.5 ML VIAL INHALATION ×4 (02:16→19:39)
[2024-03-22] MEDS: LEVALBUTEROL NEB 1.25 MG/3 ML INHALATION ×4 (02:16→19:39)
[2024-03-22] MEDS: MULTIVITAMINS THERAPEUTIC TAB (*BKC) 1 TABLET PO (09:30)
[2024-03-22] MEDS: EZETIMIBE 10 MG TABLET PO (09:30)
[2024-03-22] MEDS: ASPIRIN 81 MG ENTERIC TABLET PO (09:30)
[2024-03-22] MEDS: lisinopriL 5 MG TABLET PO (09:30)
[2024-03-22] MEDS: METOPROLOL TARTRATE 12.5 MG TABLET PO (09:31)
[2024-03-22] MEDS: guaiFENesin 12 HR 600 MG TABCR PO ×2 (09:31→21:05)
--- NOTE | 2024-03-22 09:31 | PM.PNCARD ---
Progress Note: A&P Assessment and Plan (1) Severe aortic stenosis: Code(s): I35.0 - Nonrheumatic aortic (valve) stenosis Status: Acute (2) Cardiomyopathy: Code(s): I42.9 - Cardiomyopathy, unspecified Status: Acute Plan 78-year-old woman with hypertension hyperlipidemia presented with shortness of breath found to have mildly elevated troponin and bilateral pleural effusions in setting of recurrent pneumonia CAD status post CABG -continue aspirin 81 mg p.o. daily and atorvastatin 40 mg every evening. Continue ezetimibe Cardiomyopathy -on lisinopril 5 mg p.o. daily and metoprolol. Will shift to ToprolXL as she has a cardiomyopathy. Cannot optimize GDMT at this time because of her blood pressure. 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 Lopez to make him aware Subjective Date/time seen: 03/22/24 09:31 Interval history: She is feeling better today. Has minimal shortness of breath. No chest discomfort. No significant orthopnea. Date of service 03/22/2024: She feels well today. Denies shortness of breath, chest pain, palpitations, syncope. Review of Systems Review of Systems: All systems reviewed & are unremarkable except as noted in HPI and below (HPI) Cardiovascular: Cardiovascular: Reports as per HPI Respiratory: Respiratory: Reports as per HPI Exam Const: General: comfortable and no acute distress HENMT: Mouth: Yes dry mucous membranes Eyes: General: appearance normal, both eyes and all related structures Sclera: sclerae normal EOM: EOMs intact bilaterally Neck: Neck: no JVD Resp: Effort & Inspection: normal respiratory effort Auscultation: clear to auscultation bilaterally and diminished lung sounds Other: on 2L O2 Cardio: Rate: regular rate Rhythm: regular rhythm Heart sounds: Murmur heart sound present systolic at the right sternal border Other: No lower extremity edema Skin: General skin exam: normal color Neuro: Speech: normal speech Extrem: General: no pedal edema Psych: Mental Status: mental status grossly normal Affect: normal affect Objective Data Vital Signs Vital Signs: Vital Signs - 24 hr 03/21/24 10:00 03/21/24 10:19 03/21/24 11:15 Temperature Pulse Rate 98 92 Respiratory Rate Blood Pressure Pulse Oximetry 90 Oxygen Delivery Nasal Cannula Room Air Oxygen Flow Rate 2 03/21/24 11:26 03/21/24 12:00 03/21/24 12:00 Temperature 36.4 C L Pulse Rate 96 100 Respiratory Rate 16 Blood Pressure 95/55 L Pulse Oximetry 91 Oxygen Delivery Nasal Cannula Oxygen Flow Rate 3 03/21/24 12:40 03/21/24 13:55 03/21/24 13:55 Temperature Pulse Rate 91 88 Respiratory Rate 22 H Blood Pressure Pulse Oximetry 92 93 Oxygen Delivery Nasal Cannula Room Air Oxygen Flow Rate 2 03/21/24 14:00 03/21/24 20:00 03/21/24 20:03 Temperature Pulse Rate 91 80 Respiratory Rate 20 Blood Pressure Pulse Oximetry 95 Oxygen Delivery Nasal Cannula Oxygen Flow Rate 2 03/21/24 20:11 03/21/24 21:18 03/21/24 22:47 Temperature 36.2 C L Pulse Rate 88 105 H 97 Respiratory Rate 20 22 H Blood Pressure 112/66 Pulse Oximetry 100 Oxygen Delivery Oxygen Flow Rate 03/22/24 02:17 03/22/24 02:28 03/22/24 06:00 Temperature 36.2 C L Pulse Rate 88 84 108 H Respiratory Rate 20 20 20 Blood Pressure 110/54 L Pulse Oximetry 98 Oxygen Delivery Oxygen Flow Rate 03/22/24 07:20 03/22/24 07:20 03/22/24 07:35 Temperature Pulse Rate 104 H 104 H 107 H Respiratory Rate 20 20 20 Blood Pressure Pulse Oximetry 97 Oxygen Delivery Nasal Cannula Oxygen Flow Rate 2 Intake/Output Intake/Output: Intake & Output 03/19/24 03/20/24 03/21/24 03/22/24 23:59 23:59 23:59 23:59 Intake Total 2800 1550 1505 100 Output Total 1350 700 Balance 2800 200 805 100 Meds/Results Medications: Active Medications Generic Name Dose Route Start Last Admin Trade Name Freq PRN Reason Stop Dose Admin Acetaminophen 650 mg 03/19/24 15:30 Acetaminophen 325 Mg Tablet PO Q4H PRN Mild Pain (1-3) or Fever Albuterol/Ipratropium 3 ml 03/20/24 08:26 Ipratropium 0.5 Mg/Albuterol Sulfate 2.5 Mg Ampul.Neb 3 Ml INHALATION Q6HRT PRN Wheezing Aspirin 81 mg 03/20/24 09:00 03/21/24 09:22 Aspirin 81 Mg Enteric Tablet PO 81 mg DAILY QI Administration Atorvastatin Calcium 40 mg 03/20/24 18:00 03/21/24 17:20 Atorvastatin 40 Mg Tablet PO 40 mg QPM QI Administration Dextrose 12.5 gm 03/19/24 20:39 Dextrose 50% 25 Gm/50 Ml Syringe IV PUSH PRN PRN Hypoglycemia Protocol Ezetimibe 10 mg 03/20/24 09:00 03/21/24 09:22 Ezetimibe 10 Mg Tablet PO 10 mg DAILY QI Administration Enoxaparin Sodium 40 mg 03/20/24 09:00 03/21/24 09:21 Enoxaparin 40 Mg/0.4 Ml Syringe SUB-Q 40 mg DAILY QI Administration Glucagon 1 mg 03/19/24 20:39 Glucagon For Inj 1 Mg Vial IM PRN PRN Hypoglycemia Protocol Glucose 15 gm 03/19/24 20:39 Glucose Oral Gel 15 Gm Of Glucse In 37.5 Gm Tube PO PRN PRN Hypoglycemia Protocol Guaifenesin 600 mg 03/20/24 11:50 03/21/24 22:47 Guaifenesin 12 Hr 600 Mg Tabcr PO 600 mg Q12HR QI Administration Ceftriaxone Sodium 1 gm in 50 mls @ 100 mls/hr 03/20/24 09:00 03/21/24 09:21 Rocephin 1 Gm/Ns 50 Ml IVPB 100 mls/hr Q24H QI Administration Azithromycin 500 mg in 250 mls @ 250 mls/hr 03/20/24 09:00 03/21/24 09:21 Zithromax IVPB 250 mls/hr Q24H QI Administration Dextrose 1,000 mls @ 100 mls/hr 03/19/24 20:39 Dextrose 5% 1,000 Ml IVPB PRN PRN Hypoglycemia Protocol Insulin Aspart 2 - 5 units 03/20/24 08:00 03/21/24 16:21 Insulin Aspart (*Bkc) 100 Units/Ml SUB-Q Not Given TIDWM QI Protocol Insulin Aspart 1 - 2 units 03/19/24 21:00 03/21/24 22:46 Insulin Aspart (*Bkc) 100 Units/Ml SUB-Q Not Given HS QI Protocol Ipratropium [place] 0.5 mg 03/19/24 21:55 03/22/24 07:18 Ipratropium Br 0.02% Inh Soln 0.5 Mg/2.5 Ml Vial INHALATION 0.5 mg Q6HRT QI Administration Levalbuterol HCl 1.25 mg 03/19/24 21:55 03/22/24 07:18 Levalbuterol Neb 1.25 Mg/3 Ml INHALATION 1.25 mg Q6HRT QI Administration Lisinopril 5 mg 03/20/24 09:00 03/21/24 09:22 Lisinopril 5 Mg Tablet PO 5 mg DAILY QI Administration Metoprolol Tartrate 12.5 mg 03/20/24 09:00 03/21/24 22:47 Metoprolol Tartrate 12.5 Mg Tablet PO 12.5 mg Q12HR QI Administration Multivitamins Therapeutic 1 tablet 03/20/24 09:00 03/21/24 09:22 Multivitamins Therapeutic Tab (*Bkc) PO 1 tablet DAILY QI Administration Pantoprazole Sodium 40 mg 03/19/24 21:00 03/21/24 22:48 Pantoprazole 40 Mg Tablet PO 40 mg Q12HR QI Administration Radiology Results: ITS Impressions Chest CT 03/19/24 14:53 IMPRESSION: Multifocal pneumonia. Moderate right and small left pleural effusions. Mediastinal lymphadenopathy. Esophagitis/gastritis. Chest X-Ray 03/21/24 13:40 IMPRESSION: Radiographic evaluation is unchanged from prior studies demonstrating bilateral upper lobe infiltrates and bilateral lower lobe pleural effusions. Labs Labs: Laboratory Results - last 24 hr 03/21/24 03/21/24 03/21/24 11:57 15:55 21:32 POC Capillary Glucose 116 H 108 H 115 H
[2024-03-22] MEDS: PANTOPRAZOLE 40 MG TABLET PO ×2 (09:32→21:05)
[2024-03-22] MEDS: ENOXAPARIN 40 MG/0.4 ML SYRINGE SUB-Q (09:36)
--- NOTE | 2024-03-22 09:36 | PM.IMPN ---
Progress Note: A&P Assessment and Plan (1) Severe sepsis: Code(s): A41.9 - Sepsis, unspecified organism; R65.20 - Severe sepsis without septic shock Status: Acute (2) Acute respiratory failure with hypoxia and hypercapnia: Code(s): J96.01 - Acute respiratory failure with hypoxia; J96.02 - Acute respiratory failure with hypercapnia Status: Acute (3) Multifocal pneumonia: Code(s): J18.9 - Pneumonia, unspecified organism Status: Acute (4) Hyperglycemia: Code(s): R73.9 - Hyperglycemia, unspecified Status: Acute (5) Elevated brain natriuretic peptide (BNP) level: Code(s): R79.89 - Other specified abnormal findings of blood chemistry Status: Acute Plan Sepsis from Pneumonia CXR reviewed Rocephin and Azithromycin Continue IVF Bp soft today BC negative to date Blood pressure stable on the lower side Leukocytosis persists 3 Pneumonia CXR showed multifocal pneumonia, no change on CXR continue above care f/u CTA chest Acute hypoxemic respiratory failure improving on 3 liters oxygen and prn bipap try to wean off oxygen 2/3 portable cXR: No change . Acute respiratory failure likely secondary to edema due to aortic stenosis and pneumonia Elevated troponin Likely demand Trend, ECHO completed Cardiology consulted Possible demand ischemia resulting from severe aortic stenosis Severe aortic stenosis Propagation Worker recommends of patient evaluation for TAVR DM2 A1c 6.5 SSI with accucheks, adjust with clinical course CVA continue home meds CAD continue home meds HLD Statin HTN titrate home meds with clinical course DVT prophylaxis on Sq Lovenox Subjective Date/time seen: 03/22/24 09:36 Interval history: I saw examined patient today in presents of patient's son. Patient is feeling weak, cough, scant phlegm. Patient still has shortness breath with mild exertion. Patient afebrile, blood pressure stable Exam Narrative: GENERAL: Pleasant, in no acute distress. Well-nourished. - EYES: EOMI. Anicteric. - HENT: Moist mucous membranes. - LUNGS: Coarse breath sound bilateral base, no wheezing, rhonchi - CARDIOVASCULAR: Regular rate and rhythm. No murmur. No JVD. - ABDOMEN: Soft, non-tender and non-distended. No palpable masses. - EXTREMITIES: No edema. Peripheral pulses 2+. Non-tender. - NEUROLOGIC: No focal neurological deficits. CN II-XII grossly intact. - PSYCHIATRIC: Awake, Alert and oriented x 3. Appropriate mood and affect. - SKIN: No rashes or lesions. Warm. - LYMPH: No cervical lymphadenopathy. Objective Data Vital Signs Vital Signs: Vital Signs - 24 hr 03/21/24 10:00 03/21/24 10:19 03/21/24 11:15 Temperature Pulse Rate 98 92 Respiratory Rate Blood Pressure Pulse Oximetry 90 Oxygen Delivery Nasal Cannula Room Air Oxygen Flow Rate 2 03/21/24 11:26 03/21/24 12:00 03/21/24 12:00 Temperature 97.5 F L Pulse Rate 96 100 Respiratory Rate 16 Blood Pressure 95/55 L Pulse Oximetry 91 Oxygen Delivery Nasal Cannula Oxygen Flow Rate 3 03/21/24 12:40 03/21/24 13:55 03/21/24 13:55 Temperature Pulse Rate 91 88 Respiratory Rate 22 H Blood Pressure Pulse Oximetry 92 93 Oxygen Delivery Nasal Cannula Room Air Oxygen Flow Rate 2 03/21/24 14:00 03/21/24 20:00 03/21/24 20:03 Temperature Pulse Rate 91 80 Respiratory Rate 20 Blood Pressure Pulse Oximetry 95 Oxygen Delivery Nasal Cannula Oxygen Flow Rate 2 03/21/24 20:11 03/21/24 21:18 03/21/24 22:47 Temperature 97.1 F L Pulse Rate 88 105 H 97 Respiratory Rate 20 22 H Blood Pressure 112/66 Pulse Oximetry 100 Oxygen Delivery Oxygen Flow Rate 03/22/24 02:17 03/22/24 02:28 03/22/24 06:00 Temperature 97.2 F L Pulse Rate 88 84 108 H Respiratory Rate 20 20 20 Blood Pressure 110/54 L Pulse Oximetry 98 Oxygen Delivery Oxygen Flow Rate 03/22/24 07:20 03/22/24 07:20 03/22/24 07:35 Temperature Pulse Rate 104 H 104 H 107 H Respiratory Rate 20 20 20 Blood Pressure Pulse Oximetry 97 Oxygen Delivery Nasal Cannula Oxygen Flow Rate 2 Intake/Output Intake/Output: Intake & Output 03/19/24 03/20/24 03/21/24 03/22/24 23:59 23:59 23:59 23:59 Intake Total 2800 1550 1505 100 Output Total 1350 700 Balance 2800 200 805 100 Meds/Results Medications: Active Medications Generic Name Dose Route Start Last Admin Trade Name Freq PRN Reason Stop Dose Admin Acetaminophen 650 mg 03/19/24 15:30 Acetaminophen 325 Mg Tablet PO Q4H PRN Mild Pain (1-3) or Fever Albuterol/Ipratropium 3 ml 03/20/24 08:26 Ipratropium 0.5 Mg/Albuterol Sulfate 2.5 Mg Ampul.Neb 3 Ml INHALATION Q6HRT PRN Wheezing Aspirin 81 mg 03/20/24 09:00 03/21/24 09:22 Aspirin 81 Mg Enteric Tablet PO 81 mg DAILY QI Administration Atorvastatin Calcium 40 mg 03/20/24 18:00 03/21/24 17:20 Atorvastatin 40 Mg Tablet PO 40 mg QPM QI Administration Dextrose 12.5 gm 03/19/24 20:39 Dextrose 50% 25 Gm/50 Ml Syringe IV PUSH PRN PRN Hypoglycemia Protocol Ezetimibe 10 mg 03/20/24 09:00 03/21/24 09:22 Ezetimibe 10 Mg Tablet PO 10 mg DAILY QI Administration Enoxaparin Sodium 40 mg 03/20/24 09:00 03/21/24 09:21 Enoxaparin 40 Mg/0.4 Ml Syringe SUB-Q 40 mg DAILY QI Administration Glucagon 1 mg 03/19/24 20:39 Glucagon For Inj 1 Mg Vial IM PRN PRN Hypoglycemia Protocol Glucose 15 gm 03/19/24 20:39 Glucose Oral Gel 15 Gm Of Glucse In 37.5 Gm Tube PO PRN PRN Hypoglycemia Protocol Guaifenesin 600 mg 03/20/24 11:50 03/21/24 22:47 Guaifenesin 12 Hr 600 Mg Tabcr PO 600 mg Q12HR QI Administration Ceftriaxone Sodium 1 gm in 50 mls @ 100 mls/hr 03/20/24 09:00 03/21/24 09:21 Rocephin 1 Gm/Ns 50 Ml IVPB 100 mls/hr Q24H QI Administration Azithromycin 500 mg in 250 mls @ 250 mls/hr 03/20/24 09:00 03/21/24 09:21 Zithromax IVPB 250 mls/hr Q24H QI Administration Dextrose 1,000 mls @ 100 mls/hr 03/19/24 20:39 Dextrose 5% 1,000 Ml IVPB PRN PRN Hypoglycemia Protocol Insulin Aspart 2 - 5 units 03/20/24 08:00 03/21/24 16:21 Insulin Aspart (*Bkc) 100 Units/Ml SUB-Q Not Given TIDWM [facility] Protocol Insulin Aspart 1 - 2 units 03/19/24 21:00 03/21/24 22:46 Insulin Aspart (*Bkc) 100 Units/Ml SUB-Q Not Given HS [facility] Protocol Ipratropium [place] 0.5 mg 03/19/24 21:55 03/22/24 07:18 Ipratropium Br 0.02% Inh Soln 0.5 Mg/2.5 Ml Vial INHALATION 0.5 mg Q6HRT QI Administration Levalbuterol HCl 1.25 mg 03/19/24 21:55 03/22/24 07:18 Levalbuterol Neb 1.25 Mg/3 Ml INHALATION 1.25 mg Q6HRT QI Administration Lisinopril 5 mg 03/20/24 09:00 03/21/24 09:22 Lisinopril 5 Mg Tablet PO 5 mg DAILY QI Administration Metoprolol Tartrate 12.5 mg 03/20/24 09:00 03/21/24 22:47 Metoprolol Tartrate 12.5 Mg Tablet PO 12.5 mg Q12HR QI Administration Multivitamins Therapeutic 1 tablet 03/20/24 09:00 03/21/24 09:22 Multivitamins Therapeutic Tab (*Bkc) PO 1 tablet DAILY QI Administration Pantoprazole Sodium 40 mg 03/19/24 21:00 03/21/24 22:48 Pantoprazole 40 Mg Tablet PO 40 mg Q12HR QI Administration Radiology Results: ITS Impressions Chest CT 03/19/24 14:53 IMPRESSION: Multifocal pneumonia. Moderate right and small left pleural effusions. Mediastinal lymphadenopathy. Esophagitis/gastritis. Chest X-Ray 03/21/24 13:40 IMPRESSION: Radiographic evaluation is unchanged from prior studies demonstrating bilateral upper lobe infiltrates and bilateral lower lobe pleural effusions. Labs Labs: Laboratory Results - last 24 hr 03/21/24 03/21/24 03/21/24 11:57 15:55 21:32 POC Capillary Glucose 116 H 108 H 115 H
[2024-03-22] MEDS: AZITHROMYCIN 500 MG/NS 250 ML 500 MG/250 ML BAG 250 MG IVPB (10:44)
[2024-03-22 14:44] LABS: Basophils Percent Auto 0.3 % (0.2-1.2); Eosinophils Absolute Auto 0.1 K/mm3 (0-0.3); Hematocrit 34.6 % (37.0-47.0); Hemoglobin 10.6 g/dL (12.0-15.0); Immature Granulocyte Absolute 0.07 K/mm3 (0.00-0.031); Immature Granulocyte Percent A 0.5 % (0-0.5); Lymphocytes Absolute Auto 1.28 K/mm3 (0.9-3.2); Lymphocytes Percent Auto 9.6 % (18.3-44.2); Mean Corpuscular HGB Conc 30.6 g/dl (32-36); Mean Corpuscular Hemoglobin 28.8 pg (26-34); Mean Platelet Volume 11.1 fl (7.4-10.4); Monocytes Absolute Auto 0.7 K/mm3 (0.1-0.6); Monocytes Percent Auto 5.6 % (2.6-8.5); Neutrophils Absolute Auto 11.1 K/mm3 (1.3-6.7); Platelet Count Result 254 k/mm3 (150-375); Red Blood Count 3.68 M/mm3 (4.2-5.4); Red Cell Distribution Width 13.8 % (11.5-14.5); White Blood Count 13.3 K/mm3 (4.5-10.0)
[2024-03-22 14:57] LABS: Anion Gap 7 mmol/L (4-12); Blood Urea Nitrogen 25 mg/dL (7-17); Calcium 8.5 mg/dL (8.4-10.2); Carbon Dioxide 27 mmol/L (22-30); Chloride 108 mmol/L (98-107); Estimated Glomerular Filt Rate 58; Glucose 119 mg/dL (65-110); Potassium 3.7 mmol/L (3.4-5.0); Sodium 142 mmol/L (137-145)
[2024-03-22 16:29] LABS: Glucose Point of Care 101 mg/dl (65-105)
[2024-03-22] MEDS: ATORVASTATIN 40 MG TABLET PO (17:17)
[2024-03-22 21:16] LABS: Glucose Point of Care 148 mg/dl (65-105)
[2024-03-23] VITALS (15 sets, daily range): BP systolic 91–133; BP diastolic 50–83; PULSE 80–102; RESP 12–30; TEMP 36.3–36.8; O2SAT 92–100
[2024-03-23] MEDS: IPRATROPIUM 0.5 MG/ALBUTEROL SULFATE 2.5 MG AMPUL.NEB 3 ML INHALATION (04:37)
--- NOTE | 2024-03-23 04:39 | ECG_ITS ---
Test Date: 2024-03-23 09:37:03 Measurements Intervals [place] Rate: 100 P: 0 [place]: 0 QRS: 14 QRSD: 116 T: 123 QT: 372 QTc: 481 Interpretive Statements SINUS TACHYCARDIA INCOMPLETE LEFT BUNDLE BRANCH BLOCK VOLTAGE CRITERIA FOR LVH CANNOT R/O SEPTAL INFARCT, AGE INDETERMINATE ST-T WAVE ABNORMALITY IN HIGH LATERAL LEADS- CONSIDER ISCHEMIA BASELINE ARTIFACT- I, AVR ABNORMAL ECG Compared to ECG 03/20/2024 08:46:26 HEART RATE HAS DECREASED Electronically Signed On 03-23-2024 13:58:25 [employer] by Alfred Vargas D.O.
--- NOTE | 2024-03-23 04:42 | PM.CCN ---
Critical Care Event Note Summary Code activated: No Narrative: 03/23/2024 at 04:35 I was up on the floor seeing other patients when nursing staff notify me the patient had sudden acute onset of respiratory distress. The patient reports that she had just ambulated back to the bed. Once she is back to the bed she could not catch her breath. Her oxygen saturations were down in the 70s. The patient developed significant tachypnea with respiratory rates in the upper 30s. And her oxygen requirement suddenly increased from 2 L to 9 L high-flow. The patient is oxygen saturations did improve on the 9 L but she was still in distress. She did have p.r.n. BiPAP available with settings of 10/5. The patient had been placed on this setting but she was not pulling adequate tidal volumes. I went to bedside and made adjustments. BiPAP was changed to 18/6 with a rate of 24. Patient is on 30% FiO2 satting 95% on the settings. Within a 15 minutes the patient was significantly more comfortable. S stat ABG demonstrated pure hypoxic respiratory failure no hypercapnia. At this time will decrease patient's rate on her BiPAP to 14. Stat chest x-ray on my review seems slightly worse compared to x-ray from 2 days prior. Differential includes pneumonia but cannot rule out underlying pulmonary edema. On review of patient's I in the knots patient is 5 L positive for the hospital stay. She has had 5 incontinent episodes of urine although I doubt these episodes equal 5 L. subsequently a Fortune catheter was placed the patient was given 40 mg of IV Lasix. After Lasix and a short stent on BiPAP the patient's respiratory rate is decreased down to 18-20 and she was satting 95% on 30% FiO2 on BiPAP settings. Stat labs were obtained which demonstrated stable leukocytosis, stable hemoglobin elevated ESR of 101 with no prior comparison, ABG that was normal beyond PO2 of 76 stable electrolyte panel with normal creatinine and minimal stable elevation of BUN down trending troponin compared to prior EKG was obtained which demonstrated no evidence of acute ischemia F And repeat calcitonin was normal. The patient looks much more comfortable. I anticipate that with diuresis the patient will be able to tooth be taken off the BiPAP in the next couple of hours. Fortune catheter was placed for monitoring strict I&O's. Will continue remainder of patient's current medications including antibiotics. Patient has code status had been changed from DNR DNI to full code earlier in the hospital stay. Code status was clarified with the patient. She is uncertain if she would want cardiac resuscitation with compressions but at this time she is willing that be intubated. She going to opt to stay a full code and let her family decide if the worst were to happen. 55 minute spent in critical care activities. Due to a high probability of clinically significant, life threatening deterioration, the patient required my highest level of preparedness to intervene emergently and I personally spent this critical care time directly and personally managing the patient. This critical care time included obtaining a history; examining the patient; pulse oximetry; ordering and review of studies; arranging urgent treatment with development of a management plan; evaluation of patient's response to treatment; frequent reassessment; and discussions with other providers. It was exclusive of separately billable procedures and treating other patients and teaching time. Please see Assessment and Plan section and the rest of the note for further information on patient assessment and treatment. Critical care time: 30 - 74 mins
[2024-03-23 04:59] LABS: Alveolar/Arterial O2 Gradient 93.5 mmHg; Carboxyhemoglobin 0.2 % THb (0-2.0); Fractional Inspired Oxygen 30 %; HCO3 ABG 23.3 mEq/l (22.0-26.0); Methemoglobin ABG 0.3 %THb (0-1.5); Oxygen Content ABG 15.5 %vol (16.0-22.0); Oxygen Saturation ABG 95.5 % (95.0-100.0); Oxyhemoglobin 94.6 % THb (90.0-100.0); PCO2 ABG 37.3 mmHg (35.0-45.0); PO2 ABG 76.6 mmHg (80.0-100.0); PO2 FiO2 Ratio Arterial Blood 2.55 %; Reduced Hemoglobin 4.9 %THb (0-5.0); Total Hemoglobin 11.6 g/dL (12.0-18.0); pH ABG 7.413 (7.350-7.450)
[2024-03-23 05:00] LABS: Device BIPAP; Expiratory Pressure 8 cmH2O; Inspiratory Pressure 15 cmH2O; Modified Allen's Test Pass; Site Drawn RIGHT RADIAL
[2024-03-23 05:01] LABS: Basophils Absolute Auto 0.1 K/mm3 (0.0-0.1); Basophils Percent Auto 0.5 % (0.2-1.2); Eosinophils Absolute Auto 0.6 K/mm3 (0-0.3); Eosinophils Percent Auto 4.3 % (0-4.4); Hematocrit 34.5 % (37.0-47.0); Hemoglobin 10.6 g/dL (12.0-15.0); Immature Granulocyte Absolute 0.09 K/mm3 (0.00-0.031); Immature Granulocyte Percent A 0.7 % (0-0.5); Lymphocytes Absolute Auto 1.45 K/mm3 (0.9-3.2); Mean Corpuscular HGB Conc 30.7 g/dl (32-36); Mean Corpuscular Hemoglobin 28.5 pg (26-34); Mean Corpuscular Volume 92.7 fl (80-100); Mean Platelet Volume 10.7 fl (7.4-10.4); Monocytes Absolute Auto 0.8 K/mm3 (0.1-0.6); Monocytes Percent Auto 5.7 % (2.6-8.5); Neutrophils Absolute Auto 10.3 K/mm3 (1.3-6.7); Neutrophils Percent Auto 77.8 % (45.5-73.1); Platelet Count Result 275 k/mm3 (150-375); Red Blood Count 3.72 M/mm3 (4.2-5.4); Red Cell Distribution Width 14.1 % (11.5-14.5); White Blood Count 13.2 K/mm3 (4.5-10.0)
[2024-03-23] MEDS: FUROSEMIDE INJ 40 MG/4 ML VIAL IV PUSH (05:03)
[2024-03-23 05:12] LABS: Glucose Point of Care 159 mg/dl (65-105)
[2024-03-23 05:14] LABS: Lactic Acid Reflex 1.2 mmol/L (0.7-2.0)
[2024-03-23 05:15] LABS: Alanine Aminotransferase 19 U/L (6-35); Alkaline Phosphatase 82 U/L (38-126); Anion Gap 9 mmol/L (4-12); Aspartate Amino Transferase 24 U/L (14-36); Bilirubin,Total 0.6 mg/dL (0.2-1.3); Blood Urea Nitrogen 22 mg/dL (7-17); CRP 1.1 mg/dL (<1.0); Calcium 8.9 mg/dL (8.4-10.2); Carbon Dioxide 25 mmol/L (22-30); Chloride 108 mmol/L (98-107); Estimated Glomerular Filt Rate > 60; Glucose 150 mg/dL (65-110); Sodium 142 mmol/L (137-145)
[2024-03-23 05:29] LABS: Troponin I 0.064 ng/mL (0.000-0.034)
[2024-03-23 05:32] LABS: Erythrocyte Sedimentation Rate 101 mm/hr (0-20)
[2024-03-23 05:49] LABS: Procalcitonin 0.2 ng/mL
[2024-03-23] MEDS: IPRATROPIUM BR 0.02% INH SOLN 0.5 MG/2.5 ML VIAL INHALATION ×2 (07:32→14:14)
[2024-03-23] MEDS: LEVALBUTEROL NEB 1.25 MG/3 ML INHALATION ×2 (07:32→14:14)
[2024-03-23 08:02] LABS: Glucose Point of Care 114 mg/dl (65-105)
--- NOTE | 2024-03-23 08:54 | PM.IMPN ---
Progress Note: A&P Assessment and Plan (1) Severe sepsis: Code(s): A41.9 - Sepsis, unspecified organism; R65.20 - Severe sepsis without septic shock Status: Acute (2) Acute respiratory failure with hypoxia and hypercapnia: Code(s): J96.01 - Acute respiratory failure with hypoxia; J96.02 - Acute respiratory failure with hypercapnia Status: Acute (3) Multifocal pneumonia: Code(s): J18.9 - Pneumonia, unspecified organism Status: Acute (4) Hyperglycemia: Code(s): R73.9 - Hyperglycemia, unspecified Status: Acute (5) Elevated brain natriuretic peptide (BNP) level: Code(s): R79.89 - Other specified abnormal findings of blood chemistry Status: Acute Plan Sepsis Suspecting from Pneumonia CXR reviewed Rocephin and Azithromycin Received IVF BC negative to date Blood pressure stable on the lower side Leukocytosis persists 3 Pneumonia CXR showed multifocal pneumonia, no change on CXR continue above care CTA chest showed no pulmonary embolism, redemonstration of upper lobe infiltrate with moderate right and small left lobe pleural effusion Repeated chest x-ray yesterday showed extensive Emma are bilateral consultation consistent multifocal pneumonia, neoplastic changes? 2/5 Changed Levaquin and cefepime IV per warehouse associate driver recommendation. Appreciate warehouse associate driver consultation Acute hypoxemic respiratory failure Patient is on BiPAP since yesterday Acute respiratory failure likely secondary to edema due to aortic stenosis and pneumonia Received Lasix yesterday Consult mail teller and warehouse associate driver for evaluation treatment Suspecting fluid overloaded due to severe acute stenosis Will start Lasix 20 mg b.i.d. IV push Follow-up input output and kidney function Titrate based on patient's response Consult mail teller and warehouse associate driver for evaluation treatment Elevated troponin Likely demand Trend, ECHO completed Cardiology consulted Possible demand ischemia resulting from severe aortic stenosis Severe aortic stenosis Manager Of Development recommends of patient evaluation for TAVR DM2 A1c 6.5 SSI with accucheks, adjust with clinical course CVA continue home meds CAD continue home meds HLD Statin HTN titrate home meds with clinical course DVT prophylaxis on Sq Lovenox Subjective Date/time seen: 03/23/24 08:54 Interval history: Rapid response was called because of tachypnea, patient was placed on BiPAP ABG showed hypoxemic respiratory failure. Patient feels better after received IV Lasix. Now patient is off BiPAP, patient is on 5 flow oxygen. Blood pressure on the lower side Exam Narrative: GENERAL: Pleasant, in no acute distress. Well-nourished. - EYES: EOMI. Anicteric. - HENT: Moist mucous membranes. - LUNGS: Coarse breath sound bilateral base, no wheezing, rhonchi - CARDIOVASCULAR: Regular rate and rhythm. No murmur. No JVD. - ABDOMEN: Soft, non-tender and non-distended. No palpable masses. - EXTREMITIES: No edema. Peripheral pulses 2+. Non-tender. - NEUROLOGIC: No focal neurological deficits. CN II-XII grossly intact. - PSYCHIATRIC: Awake, Alert and oriented x 3. Appropriate mood and affect. - SKIN: No rashes or lesions. Warm. - LYMPH: No cervical lymphadenopathy. Objective Data Vital Signs Vital Signs: Vital Signs - 24 hr 03/22/24 09:31 03/22/24 13:32 03/22/24 13:32 Temperature Pulse Rate 107 H 98 98 Respiratory Rate 20 20 Blood Pressure Pulse Oximetry 95 Oxygen Delivery Nasal Cannula Oxygen Flow Rate 2 03/22/24 13:46 03/22/24 14:35 03/22/24 19:39 Temperature 97.1 F L Pulse Rate 94 96 Respiratory Rate 20 20 Blood Pressure 96/54 L Pulse Oximetry 95 96 Oxygen Delivery Nasal Cannula Oxygen Flow Rate 2 03/22/24 19:39 03/22/24 20:00 03/22/24 22:00 Temperature 97.6 F Pulse Rate 56 L 103 H Respiratory Rate 22 H 20 Blood Pressure 114/82 Pulse Oximetry 96 95 Oxygen Delivery Nasal Cannula Oxygen Flow Rate 2 03/23/24 04:37 03/23/24 04:40 03/23/24 05:20 Temperature Pulse Rate 102 H 102 H Respiratory Rate 26 H 30 H Blood Pressure 132/82 Pulse Oximetry 99 Oxygen Delivery BiPAP BiPAP Oxygen Flow Rate 03/23/24 06:00 03/23/24 07:34 03/23/24 07:35 Temperature 98.2 F Pulse Rate 99 99 99 Respiratory Rate 23 H 26 H 26 H Blood Pressure 133/73 Pulse Oximetry 98 99 Oxygen Delivery BiPAP Oxygen Flow Rate 03/23/24 07:46 Temperature Pulse Rate 98 Respiratory Rate 20 Blood Pressure Pulse Oximetry Oxygen Delivery Oxygen Flow Rate Intake/Output Intake/Output: Intake & Output 03/20/24 03/21/24 03/22/24 03/23/24 23:59 23:59 23:59 23:59 Intake Total 1550 1805 1080 100 Output Total 1350 700 300 Balance 200 1105 1080 -200 Meds/Results Medications: Active Medications Generic Name Dose Route Start Last Admin Trade Name Freq PRN Reason Stop Dose Admin Acetaminophen 650 mg 03/19/24 15:30 Acetaminophen 325 Mg Tablet PO Q4H PRN Mild Pain (1-3) or Fever Albuterol/Ipratropium 3 ml 03/20/24 08:26 03/23/24 04:37 Ipratropium 0.5 Mg/Albuterol Sulfate 2.5 Mg Ampul.Neb 3 Ml INHALATION 3 ml Q6HRT PRN Administration Wheezing Aspirin 81 mg 03/20/24 09:00 03/22/24 09:30 Aspirin 81 Mg Enteric Tablet PO 81 mg DAILY QI Administration Atorvastatin Calcium 40 mg 03/20/24 18:00 03/22/24 17:17 Atorvastatin 40 Mg Tablet PO 40 mg QPM QI Administration Dextrose 12.5 gm 03/19/24 20:39 Dextrose 50% 25 Gm/50 Ml Syringe IV PUSH PRN PRN Hypoglycemia Protocol Ezetimibe 10 mg 03/20/24 09:00 03/22/24 09:30 Ezetimibe 10 Mg Tablet PO 10 mg DAILY QI Administration Enoxaparin Sodium 40 mg 03/20/24 09:00 03/22/24 09:36 Enoxaparin 40 Mg/0.4 Ml Syringe SUB-Q 40 mg DAILY QI Administration Glucagon 1 mg 03/19/24 20:39 Glucagon For Inj 1 Mg Vial IM PRN PRN Hypoglycemia Protocol Glucose 15 gm 03/19/24 20:39 Glucose Oral Gel 15 Gm Of Glucse In 37.5 Gm Tube PO PRN PRN Hypoglycemia Protocol Guaifenesin 600 mg 03/20/24 11:50 03/22/24 21:05 Guaifenesin 12 Hr 600 Mg Tabcr PO 600 mg Q12HR QI Administration Ceftriaxone Sodium 1 gm in 50 mls @ 100 mls/hr 03/20/24 09:00 03/22/24 09:29 Rocephin 1 Gm/Ns 50 Ml IVPB 100 mls/hr Q24H QI Administration Azithromycin 500 mg in 250 mls @ 250 mls/hr 03/20/24 09:00 03/22/24 10:44 Zithromax IVPB 250 mls/hr Q24H QI Administration Dextrose 1,000 mls @ 100 mls/hr 03/19/24 20:39 Dextrose 5% 1,000 Ml IVPB PRN PRN Hypoglycemia Protocol Insulin Aspart 2 - 5 units 03/20/24 08:00 03/22/24 19:27 Insulin Aspart (*Bkc) 100 Units/Ml SUB-Q Not Given TIDWM QI Protocol Insulin Aspart 1 - 2 units 03/19/24 21:00 03/22/24 21:05 Insulin Aspart (*Bkc) 100 Units/Ml SUB-Q Not Given HS QI Protocol Ipratropium [place] 0.5 mg 03/19/24 21:55 03/23/24 07:32 Ipratropium Br 0.02% Inh Soln 0.5 Mg/2.5 Ml Vial INHALATION 0.5 mg Q6HRT QI Administration Levalbuterol HCl 1.25 mg 03/19/24 21:55 03/23/24 07:32 Levalbuterol Neb 1.25 Mg/3 Ml INHALATION 1.25 mg Q6HRT QI Administration Lisinopril 5 mg 03/20/24 09:00 03/22/24 09:30 Lisinopril 5 Mg Tablet PO 5 mg DAILY QI Administration Metoprolol Succinate 25 mg 03/23/24 09:00 Metoprolol Succinate Ext Rel 25 Mg Tabcr PO QAM [facility] Multivitamins Therapeutic 1 tablet 03/20/24 09:00 03/22/24 09:30 Multivitamins Therapeutic Tab (*Bkc) PO 1 tablet DAILY QI Administration Pantoprazole Sodium 40 mg 03/19/24 21:00 03/22/24 21:05 Pantoprazole 40 Mg Tablet PO 40 mg Q12HR QI Administration Radiology Results: ITS Impressions Chest CT 03/19/24 14:53 IMPRESSION: Multifocal pneumonia. Moderate right and small left pleural effusions. Mediastinal lymphadenopathy. Esophagitis/gastritis. Chest CTA 03/22/24 21:46 IMPRESSION: No pulmonary embolus. No aortic dissection. Redemonstration of bilateral upper lobe infiltrates with a moderate right and small left sided pleural effusion. Additional findings which are sequelae of patient's known aortic stenosis, as detailed above. Cholelithiasis Chest X-Ray 03/23/24 06:23 Impression: Extensive areas of bilateral consolidation, consistent with bilateral pneumonia. Correlate for any possibility of neoplastic disease. Labs Labs: Laboratory Results - last 24 hr 03/22/24 03/22/24 03/22/24 14:01 16:19 20:04 WBC 13.3 H RBC 3.68 L Hgb 10.6 L Hct 34.6 L MCV 94.0 MCH 28.8 MCHC 30.6 L RDW 13.8 Plt Count 254 MPV 11.1 H Immature Gran % (Auto) 0.5 Neut % (Auto) 83.0 H Lymph % (Auto) 9.6 L [place] % (Auto) 5.6 Eos % (Auto) 1.0 Baso % (Auto) 0.3 Lymph # (Auto) 1.28 [place] # (Auto) 0.7 H Eos # (Auto) 0.1 Baso # (Auto) 0.0 Abs Immat Gran (auto) 0.07 H Absolute Neuts (auto) 11.1 H Absolute Nucleated RBC 0.000 Nucleated RBC % 0.0 ESR Puncture Site ABG pH ABG pCO2 ABG pO2 ABG PO2/FiO2 Ratio ABG HCO3 ABG O2 Saturation ABG O2 Content ABG Base Excess A-a Gradient Oxyhemoglobin Carboxyhemoglobin Methemoglobin Reduced Hemoglobin Total Hemoglobin O2 Delivery Device O2 Liters/Min FiO2 Expiratory Pressure Inspiratory Pressure Sodium 142 Potassium 3.7 Chloride 108 H Carbon Dioxide 27 Anion Gap 7 BUN 25 H Creatinine 0.93 Estim Creat Clear Calc Not Reportable Estimated GFR 58 L Glucose 119 H POC Capillary Glucose 101 148 H Lactic Acid Calcium 8.5 Total Bilirubin AST ALT Alkaline Phosphatase Troponin I C-Reactive Protein Total Protein Albumin Procalcitonin 03/23/24 03/23/24 03/23/24 04:38 04:49 04:56 WBC 13.2 H RBC 3.72 L Hgb 10.6 L Hct 34.5 L MCV 92.7 MCH 28.5 MCHC 30.7 L RDW 14.1 Plt Count 275 MPV 10.7 H Immature Gran % (Auto) 0.7 H Neut % (Auto) 77.8 H Lymph % (Auto) 11.0 L [place] % (Auto) 5.7 Eos % (Auto) 4.3 Baso % (Auto) 0.5 Lymph # (Auto) 1.45 [place] # (Auto) 0.8 H Eos # (Auto) 0.6 H Baso # (Auto) 0.1 Abs Immat Gran (auto) 0.09 H Absolute Neuts (auto) 10.3 H Absolute Nucleated RBC 0.000 Nucleated RBC % 0.0 ESR 101 H Puncture Site Right radial ABG pH 7.413 ABG pCO2 37.3 ABG pO2 76.6 L ABG PO2/FiO2 Ratio 2.55 ABG HCO3 23.3 ABG O2 Saturation 95.5 ABG O2 Content 15.5 L ABG Base Excess -1.0 A-a Gradient 93.5 Oxyhemoglobin 94.6 Carboxyhemoglobin 0.2 Methemoglobin 0.3 Reduced Hemoglobin 4.9 Total Hemoglobin 11.6 L O2 Delivery Device Bipap O2 Liters/Min Not Reportable FiO2 30 Expiratory Pressure 8 Inspiratory Pressure 15 Sodium 142 Potassium 4.0 Chloride 108 H Carbon Dioxide 25 Anion Gap 9 BUN 22 H Creatinine 0.88 Estim Creat Clear Calc Not Reportable Estimated GFR > 60 Glucose 150 H POC Capillary Glucose 159 H Lactic Acid 1.2 Calcium 8.9 Total Bilirubin 0.6 AST 24 ALT 19 Alkaline Phosphatase 82 Troponin I 0.064 H* C-Reactive Protein 1.1 Total Protein 6.0 L Albumin 3.0 L Procalcitonin 0.2 03/23/24 07:59 WBC RBC Hgb Hct MCV MCH MCHC RDW Plt Count MPV Immature Gran % (Auto) Neut % (Auto) Lymph % (Auto) [place] % (Auto) Eos % (Auto) Baso % (Auto) Lymph # (Auto) [place] # (Auto) Eos # (Auto) Baso # (Auto) Abs Immat Gran (auto) Absolute Neuts (auto) Absolute Nucleated RBC Nucleated RBC % ESR Puncture Site ABG pH ABG pCO2 ABG pO2 ABG PO2/FiO2 Ratio ABG HCO3 ABG O2 Saturation ABG O2 Content ABG Base Excess A-a Gradient Oxyhemoglobin Carboxyhemoglobin Methemoglobin Reduced Hemoglobin Total Hemoglobin O2 Delivery Device O2 Liters/Min FiO2 Expiratory Pressure Inspiratory Pressure Sodium Potassium Chloride Carbon Dioxide Anion Gap BUN Creatinine Estim Creat Clear Calc Estimated GFR Glucose POC Capillary Glucose 114 H Lactic Acid Calcium Total Bilirubin AST ALT Alkaline Phosphatase Troponin I C-Reactive Protein Total Protein Albumin Procalcitonin
[2024-03-23] MEDS: guaiFENesin 12 HR 600 MG TABCR PO (10:21)
[2024-03-23] MEDS: METOPROLOL SUCCINATE EXT REL 25 MG TABCR PO (10:21)
[2024-03-23] MEDS: ASPIRIN 81 MG ENTERIC TABLET PO (10:22)
[2024-03-23] MEDS: EZETIMIBE 10 MG TABLET PO (10:22)
[2024-03-23] MEDS: PANTOPRAZOLE 40 MG TABLET PO ×2 (10:22→20:41)
[2024-03-23] MEDS: lisinopriL 5 MG TABLET PO (10:22)
[2024-03-23] MEDS: MULTIVITAMINS THERAPEUTIC TAB (*BKC) 1 TABLET PO (10:22)
[2024-03-23] MEDS: ENOXAPARIN 40 MG/0.4 ML SYRINGE SUB-Q (10:28)
[2024-03-23] MEDS: VANCOMYCIN 1,250 MG/NS 250 ML 1,250 MG/250 ML BAG 166.67 MG IVPB (10:30)
[2024-03-23] MEDS: CEFEPIME 1 GM/NS 50 ML 1 GM/50 ML BAG IVPB ×2 (10:33→20:42)
[2024-03-23 11:34] LABS: Glucose Point of Care 129 mg/dl (65-105)
--- NOTE | 2024-03-23 12:04 | P.CONPL_ITS ---
Assessment and Plan Assessment and plan (1) Multifocal pneumonia: Code(s): J18.9 - Pneumonia, unspecified organism Status: Acute Assessment and Plan: patient presents with 2-3 week history of respiratory symptoms treated with azithromycin as an outpatient, 1 dose of amoxicillin and admitted on 03/19/2024 with tachycardia, hypoxemia, increased work of breathing requiring BiPAP, lactic acidosis, leukocytosis and CT scan with multifocal pneumonia new moderate right and small left pleural effusion. Patient was treated with ceftriaxone and azithromycin with a good clinical improvement. on 03/[address] angiogram of the chest with no PE, no change in her dense multifocal consolidations or moderate right and small left pleural effusion. After she completed this she walked to the bathroom and developed dyspnea on exertion and hypoxemia with increased work of breathing requiring BiPAP. She responded IV Lasix. Her antibiotics were changed to vancomycin and cefepime. 03/23/24: Currently the patient tells me she feels 80% back to normal and feels the same as she did yesterday prior to her event after her CT scan. Since admission she says that her cough is much better. She is producing less phlegm and currently she has not clear to use phlegm today. She has no chest pain. When I enter the room she was on 2 L nasal cannula saturation 97%. I decreased her to room air and over the next 4 minute she desaturated to 89%. I increased her to 1 L and her saturations were 92%. Plan: Patient clinically improved ceftriaxone and azithromycin started on 03/19/2024 (4 days) and had acute SOB/MASON that has responded to IV Lasix suggesting this was related to fluid overload and not worsening pneumonia. Currently she is back to where she felt prior to her acute shortness of breath- dyspnea on exertion episode. I have been able to decrease her oxygen from 2 L to 1 L nasal cannula. She was empirically switched to vancomycin and cefepime on 03/23/2024 due to this decompensation. despite her clinical improvement, improved oxygenation, improved leukocytosis her dense infiltrates have not changed between 03/19/2024 and 03/22/2024. Agree with cefepime and would add levofloxacin for atypical coverage as well as additional Gram-negative coverage. Her MRSA swab is negative and from my perspective vancomycin can be discontinued. Two 8 in sputum expectoration I will increase her guaifenesin to 1200 mg p.o. b.i.d., continue ipratropium and levalbuterol nebulizers q.6 hours and I will initiate Cornet flutter valve. I will send and respiratory pathogen panel, serum mycoplasma IgM looking for alternate etiologies of her infection. Will follow with you. (2) Severe aortic stenosis: Code(s): I35.0 - Nonrheumatic aortic (valve) stenosis Status: Acute Assessment and Plan: Patient with low-flow low gradient severe aortic stenosis. She has an EF of 30-35%, pulmonary hypertension, moderate mitral regurgitation and seems to have developed an acute episode of pulmonary edema on 03/22/2024. Patient is currently getting IV Lasix per hospitalist and Cardiology. Plan is for outpatient workup of her severe aortic stenosis. History of Present Illness History of Present Illness Consult date: 03/23/24 Chief complaint: Multifocal pneumonia, Respiratory distress Narrative: 03/23/2024: This is a new pulmonary consult for pneumonia and acute respiratory failure. 78-year-old with a history of CHF, hypertension, hyperlipidemia prior CVA. At baseline the patient has no breathing limitations, she could walk 1 and half blocks and would stop because her legs got tired not because of respiratory issues. She is a never smoker. She denies asthma, COPD, recurrent pneumonias. On 03/17/2024 she presented to the urgent care with 2-3 weeks history of cough, congestion and wheezing. apparently she was prescribed azithromycin on 03/14 and this was changed to prednisone and amoxicillin on 03/17/2024. 03/19/2024 she presented to the emergency with worsening cough, shortness of breath, congestion. She was hypertensive, heart rate 121, respiratory rate 36 on 2 L nasal cannula saturations were 88%. White blood cell count was 30.6, creatinine was 0.9 her lactic acid was 4.5 [place] [address]. Her ABG on 4 L was 7.21/52/79. Because of work of breathing she was placed on BiPAP. She was given 2.5 L IV fluid and started on ceftriaxone and azithromycin. Her on 03/20/2024 she was comfortable per the progress notes. She remained on 2 L nasal cannula. 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 She had normal RV systolic eyes and function, normal right atrial size, RVSP 63. She was intermittently on BiPAP. On 03/23 she told me she was improving she said she was 80% back to her normal. She was in no respiratory distress. she was on 2 L nasal cannula saturations 95-96%. She was doing well and went for CT angiogram of the chest. When she got the dye she felt warm. She had no breathing issues on the way back to her room in the stretcher. She got into bed. She then walked to the bathroom and developed dyspnea on exertion and was short of breath when she got back into her bed. She denied any tongue or lip swelling or any wheezing. Rapid response was called and the patient was hypoxic and required 9 L and then BiPAP. Blood gas on BiPAP was 7.41/37/77. She was given 40 of IV Lasix, her procalcitonin was 0.2. Her white blood cell count is 13.3. she told me she urinated a lot. CT angiogram of the chest showed no PE, dense bilateral upper lobe infiltrates moderate right and small left pleural effusion with no significant change from CT scan on 03/19/2024 The patient came off BiPAP. Patient's antibiotics were changed from ceftriaxone and azithromycin to cefepime and vancomycin. 03/23/24: Currently the patient tells me she feels 80% back to normal and feels the same as she did yesterday prior to her event after her CT scan. Since admission she says that her cough is much better. She is producing less phlegm and currently she has not clear to use phlegm today. She has no chest pain. When I enter the room she was on 2 L nasal cannula saturation 97%. I decreased her to room air and over the next 4 minute she desaturated to 89%. I increased her to 1 L and her saturations were 92%. 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 Multifocal pneumonia with bilateral pleural effusions. Pulmonary embolus suspected clinically TECHNIQUE: Computed tomographic angiography (CTA) of the chest was performed with 100 mL Omnipaque-350 intravenous contrast. The dose-length product was 184.99 mGy-cm. Maximum intensity projection 3D-reconstructions of the aorta and other arteries were constructed by the technologist on a separate workstation. COMPARISON: Reference is made to plain film evaluations of the chest dated 03/21/2024 and dating back to 03/19/2024. Reference is also made to a CT examination of the chest without intravenous contrast dated 03/19/2024. FINDINGS: No filling defect within the main or proximal pulmonary arteries. The thoracic aorta is unremarkable without aneurysmal dilatation or dissection. Densely calcified atherosclerotic disease is redemonstrated. The heart is enlarged, without significant pericardial effusion. Specifically, left atrial enlargement is noted, along with concentric thickening of the left ventricle. Densely calcified mitral annulus is present. Calcification of the aortic valve is also noted. Redemonstration of bilateral upper lobe infiltrates with moderate right and small left-sided pleural effusions, consistent with previous CT examination in multiple radiographs of the chest. Within the upper abdomen: Calcified stone within the gallbladder, which is otherwise unremarkable. Densely calcified atherosclerotic disease. IMPRESSION: No pulmonary embolus. No aortic dissection. Redemonstration of bilateral upper lobe infiltrates with a moderate right and small left sided pleural effusion. Additional findings which are sequelae of patient's known aortic stenosis, as detailed above. Cholelithiasis 03/19/24: EXAMINATION: CT diagnostic chest w con DATE: 03/19/2024 14:46 INDICATION: SOB TECHNIQUE: Computed tomography (CT) of the chest was performed with 100 mL Omnipaque-350 intravenous contrast. Automated exposure control and iterative reconstruction technique were employed. The dose-length product was 198.56 mGy- cm. COMPARISON: X-ray chest, same date. FINDINGS: CHEST: Thoracic aorta: No significant dilation or calcification. Lung parenchyma and airways: Multisegment left upper lobe, segmental right upper lobe, and subsegmental right lower lobe consolidations. Less prominent scattered areas of groundglass opacity, may represent mild edema or additional sites of infection. Minimal dependent bilateral atelectasis. Patent airways. Thoracic inlet, axillae and chest wall: No thyroid or soft tissue mass. No axillary lymphadenopathy. Intact sternotomy wires. Mediastinum: Enlarged paratracheal lymph node. Heart and pericardium: Cardiomegaly. Heavy mitral annulus calcification. No pericardial effusion. Coronary artery calcifications: Moderate. Pleura: Moderate right and small left pleural fluid collections. Upper abdomen: Cholelithiasis. Distal esophageal and gastric wall edema. Thoracic bones: No acute osseous finding in the chest. IMPRESSION: Multifocal pneumonia. Moderate right and small left pleural effusions. Mediastinal lymphadenopathy. Esophagitis/gastritis. Review of Systems 2 Constitutional: Constitutional: Reports no additional constitutional complaints Eyes: Eyes: Reports no additional eye complaints ENT: Reports system reviewed and no additional complaints, except as documented Cardiovascular: Cardiovascular: Reports no additional cardiovascular complaints Respiratory: Respiratory: Reports no additional respiratory complaints Gastrointestinal: Gastrointestinal: Reports no additional gastrointestinal complaints Musculoskeletal: Musculoskeletal: Reports no additional musculoskeletal complaints Neurologic: Reports system reviewed and no additional complaints, except as documented Psychiatric: Psychiatric: Reports no additional psychiatric complaints Endocrine: Endocrine: Reports no additional endocrine complaints Hematologic/Lymphatic: Hematologic/Lymphatic: Reports no additional hematologic/lymphatic complaints Allergic/Immunologic: Allergic/Immunologic: Reports no additional allergic/immunologic complaints [facility] Past Medical History Medical History (Updated 03/21/24 @ 16:19 by Morgan Felipe MD) CVA (cerebral vascular accident) (~2013) Coronary artery disease Hyperlipidemia Essential hypertension Surgical History Surgical History History of total abdominal hysterectomy and bilateral salpingo-oophorectomy Uterine fibroids History of right-sided carotid endarterectomy History of four vessel coronary artery bypass graft (~2014) Family History Family History Father Acute myocardial infarction Mother Passed during cardiac procedure Social History Social History Social History: She is and lives in her own home. 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 She has 5 children. She does not have history of smoking or alcohol use. Code status: DNR/DNI (per patient request) however she would be willing to have noninvasive ventilator support or pressor therapy if needed. Surrogate decision maker: Reynaldo Oquendo (son) Smoking status: Never smoker Alcohol intake: current Drinks per week: 0 Substance use: never Substance use type: does not use Last use: Patient reports only one drink per month Do You Feel Safe in your Home?: Yes Lack of Transportation: No Lack of Food: Never True Current Housing: I Have Housing Concerned About Future Housing: No Difficulty Paying Gas/Electric Bills: No Difficulty Paying for Meds: No Currently Unemployed: No Education: High School Diploma/GED Difficulty w/ Childcare or Family Care: No Spiritual care concerns: No Meds Home Medications and Allergies Home Medications ?Medication ?Instructions ?Recorded ?Confirmed ?Type prednisone 20 mg tablet 40 mg (2 x 20 mg) PO DAILY 5 days 03/17/24 03/19/24 Rx #10 tabs ascorbic acid (vitamin C) 500 mg 500 mg PO DAILY 03/19/24 03/19/24 History tablet (Vitamin C) aspirin 81 mg tablet,delayed 81 mg PO DAILY 03/19/24 03/19/24 History release (Adult Low Dose Aspirin) atorvastatin 40 mg tablet 40 mg PO QPM 03/19/24 03/19/24 History calcium carbonate 600 mg PO DAILY 03/19/24 03/19/24 History ezetimibe 10 mg tablet 10 mg PO DAILY 03/19/24 03/19/24 History lisinopril 5 mg tablet 5 mg PO DAILY 03/19/24 03/19/24 History metoprolol tartrate 25 mg tablet 12.5 mg PO Q12H 03/19/24 03/19/24 History multivitamin (Daily Multi-Vitamin 1 tablet PO DAILY 03/19/24 03/19/24 History tablet) Allergies Allergy/AdvReac Type Severity Reaction Status Date / Time No Known Allergies Allergy Verified 03/19/24 14:41 Vital Signs Vital Signs - 24 hr 03/22/24 13:32 03/22/24 13:32 03/22/24 13:46 Temperature Pulse Rate 98 98 94 Respiratory Rate 20 20 20 Blood Pressure Pulse Oximetry 95 Oxygen Delivery Nasal Cannula Oxygen Flow Rate 2 03/22/24 14:35 03/22/24 19:39 03/22/24 19:39 Temperature 36.2 C L Pulse Rate 96 56 L Respiratory Rate 20 22 H Blood Pressure 96/54 L Pulse Oximetry 95 96 Oxygen Delivery Nasal Cannula Oxygen Flow Rate 2 03/22/24 20:00 03/22/24 22:00 03/23/24 04:37 Temperature 36.4 C Pulse Rate 103 H 102 H Respiratory Rate 20 26 H Blood Pressure 114/82 Pulse Oximetry 96 95 Oxygen Delivery Nasal Cannula Oxygen Flow Rate 2 03/23/24 04:40 03/23/24 05:20 03/23/24 06:00 Temperature 36.8 C Pulse Rate 102 H 99 Respiratory Rate 30 H 23 H Blood Pressure 132/82 133/73 Pulse Oximetry 99 98 Oxygen Delivery BiPAP BiPAP Oxygen Flow Rate 03/23/24 07:34 03/23/24 07:35 03/23/24 07:46 Temperature Pulse Rate 99 99 98 Respiratory Rate 26 H 26 H 20 Blood Pressure Pulse Oximetry 99 Oxygen Delivery BiPAP Oxygen Flow Rate 03/23/24 10:21 Temperature Pulse Rate 98 Respiratory Rate Blood Pressure Pulse Oximetry Oxygen Delivery Oxygen Flow Rate Exam 2 Const: General: cooperative, healthy appearing and comfortable O rientation/consciousness: oriented to person, oriented to place and oriented to time HENMT: Head: normal to inspection Ears: hearing grossly normal bilaterally Eyes: General: appearance normal, both eyes and all related structures Neck: Neck: normal visual inspection Chest: Chest palpation & inspection: normal inspection of the chest Resp: Effort & Inspection: normal respiratory effort and able to speak in complete sentences Auscultation: no crackles, no rales, no rhonchi, no wheezes and lung sounds not diminished Cardio: Jugular venous distension: no JVD GI: Inspection: normal to inspection GI Palp: No abdominal tenderness Skin: General skin exam: normal color Neuro: General: oriented to person, oriented to place and oriented to time Extrem: General: normal to inspection Psych: Appearance: grossly normal Results Laboratory Findings 03/23/24 04:56 03/23/24 04:56 ABG, PT/INR, D-dimer: ABG ABG pH 7.413 (7.350-7.450) 03/23/24 04:49 ABG pCO2 37.3 mmHg (35.0-45.0) 03/23/24 04:49 ABG pO2 76.6 mmHg (80.0-100.0) L 03/23/24 04:49 ABG O2 Saturation 95.5 % (95.0-100.0) 03/23/24 04:49 PT/INR, D-dimer PT 15.4 Seconds (11.1-14.7) H 03/19/24 13:01 INR 1.2 03/19/24 13:01 Abnormal lab findings: Abnormal Labs 0203/19/24 03/19/24 12:42 13:01 21:24 WBC 30.6 H RBC Hgb Hct MCHC 30.5 L Plt Count 538 H MPV 10.8 H Immature Gran % (Auto) Neut % (Auto) Lymph % (Auto) Frederick # (Auto) Eos # (Auto) Abs Immat Gran (auto) Absolute Neuts (auto) Neutrophils % (Manual) 86 H Lymphocytes % (Manual) 7 L Abs Neuts (Manual) 27.23 H Abs Monocytes (Manual) 1.22 H ESR PT 15.4 H ABG pH 7.209 L* ABG pCO2 51.9 H ABG pO2 79.1 L ABG HCO3 20.2 L ABG O2 Saturation 93.0 L ABG O2 Content VBG pH VBG pCO2 VBG pO2 VBG HCO3 Reduced Hemoglobin 8.2 H Total Hemoglobin Chloride Carbon Dioxide 21 L Anion Gap 17 H BUN 24 H Creatinine Estimated GFR Glucose 309 H POC Capillary Glucose 118 H Hemoglobin A1c Lactic Acid 4.5 H* Troponin I NT-Pro-B Natriuret Pep 40457 H Total Protein Albumin 3.4 L 03/19/24 03/19/24 03/20/24 21:55 21:57 01:36 WBC RBC Hgb Hct MCHC Plt Count MPV Immature Gran % (Auto) Neut % (Auto) Lymph % (Auto) Frederick # (Auto) Eos # (Auto) Abs Immat Gran (auto) Absolute Neuts (auto) Neutrophils % (Manual) Lymphocytes % (Manual) Abs Neuts (Manual) Abs Monocytes (Manual) ESR PT ABG pH ABG pCO2 ABG pO2 ABG HCO3 ABG O2 Saturation ABG O2 Content VBG pH 7.448 H* VBG pCO2 35.0 L VBG pO2 34.6 L VBG HCO3 23.7 L Reduced Hemoglobin Total Hemoglobin Chloride Carbon Dioxide Anion Gap BUN Creatinine Estimated GFR Glucose POC Capillary Glucose Hemoglobin A1c Lactic Acid Troponin I 0.100 H* 0.094 H* NT-Pro-B Natriuret Pep Total Protein Albumin 03/20/24 03/20/24 03/20/24 04:50 08:16 08:49 WBC 14.8 H RBC 3.81 L Hgb 10.8 L Hct 35.2 L MCHC 30.7 L Plt Count MPV 10.8 H Immature Gran % (Auto) 0.9 H Neut % (Auto) 82.6 H Lymph % (Auto) 9.9 L Frederick # (Auto) 0.9 H Eos # (Auto) Abs Immat Gran (auto) 0.14 H Absolute Neuts (auto) 12.2 H Neutrophils % (Manual) Lymphocytes % (Manual) Abs Neuts (Manual) Abs Monocytes (Manual) ESR PT ABG pH ABG pCO2 ABG pO2 78.3 L ABG HCO3 ABG O2 Saturation ABG O2 Content VBG pH VBG pCO2 VBG pO2 VBG HCO3 Reduced Hemoglobin Total Hemoglobin Chloride Carbon Dioxide Anion Gap BUN 28 H Creatinine Estimated GFR Glucose POC Capillary Glucose 121 H Hemoglobin A1c 6.5 H Lactic Acid Troponin I 0.094 H* NT-Pro-B Natriuret Pep Total Protein 6.0 L Albumin 3.0 L 03/20/24 03/20/24 03/21/24 15:52 20:20 04:55 WBC 13.3 H RBC 3.49 L Hgb 10.0 L Hct 32.3 L MCHC 31.0 L Plt Count MPV 10.6 H Immature Gran % (Auto) 0.8 H Neut % (Auto) 76.4 H Lymph % (Auto) 13.3 L Frederick # (Auto) 0.9 H Eos # (Auto) Abs Immat Gran (auto) 0.10 H Absolute Neuts (auto) 10.1 H Neutrophils % (Manual) Lymphocytes % (Manual) Abs Neuts (Manual) Abs Monocytes (Manual) ESR PT ABG pH ABG pCO2 ABG pO2 ABG HCO3 ABG O2 Saturation ABG O2 Content VBG pH VBG pCO2 VBG pO2 VBG HCO3 Reduced Hemoglobin Total Hemoglobin Chloride Carbon Dioxide Anion Gap BUN 28 H Creatinine 1.04 H Estimated GFR 51 L Glucose POC Capillary Glucose 130 H 118 H Hemoglobin A1c Lactic Acid Troponin I 0.089 H* NT-Pro-B Natriuret Pep Total Protein 6.0 L Albumin 2.7 L 03/21/24 03/21/24 03/21/24 11:57 15:55 21:32 WBC RBC Hgb Hct MCHC Plt Count MPV Immature Gran % (Auto) Neut % (Auto) Lymph % (Auto) Frederick # (Auto) Eos # (Auto) Abs Immat Gran (auto) Absolute Neuts (auto) Neutrophils % (Manual) Lymphocytes % (Manual) Abs Neuts (Manual) Abs Monocytes (Manual) ESR PT ABG pH ABG pCO2 ABG pO2 ABG HCO3 ABG O2 Saturation ABG O2 Content VBG pH VBG pCO2 VBG pO2 VBG HCO3 Reduced Hemoglobin Total Hemoglobin Chloride Carbon Dioxide Anion Gap BUN Creatinine Estimated GFR Glucose POC Capillary Glucose 116 H 108 H 115 H Hemoglobin A1c Lactic Acid Troponin I NT-Pro-B Natriuret Pep Total Protein Albumin 03/22/24 03/22/24 03/23/24 14:01 20:04 04:38 WBC 13.3 H RBC 3.68 L Hgb 10.6 L Hct 34.6 L MCHC 30.6 L Plt Count MPV 11.1 H Immature Gran % (Auto) Neut % (Auto) 83.0 H Lymph % (Auto) 9.6 L Frederick # (Auto) 0.7 H Eos # (Auto) Abs Immat Gran (auto) 0.07 H Absolute Neuts (auto) 11.1 H Neutrophils % (Manual) Lymphocytes % (Manual) Abs Neuts (Manual) Abs Monocytes (Manual) ESR PT ABG pH ABG pCO2 ABG pO2 ABG HCO3 ABG O2 Saturation ABG O2 Content VBG pH VBG pCO2 VBG pO2 VBG HCO3 Reduced Hemoglobin Total Hemoglobin Chloride 108 H Carbon Dioxide Anion Gap BUN 25 H Creatinine Estimated GFR 58 L Glucose 119 H POC Capillary Glucose 148 H 159 H Hemoglobin A1c Lactic Acid Troponin I NT-Pro-B Natriuret Pep Total Protein Albumin 03/23/24 03/23/24 03/23/24 04:49 04:56 07:59 WBC 13.2 H RBC 3.72 L Hgb 10.6 L Hct 34.5 L MCHC 30.7 L Plt Count MPV 10.7 H Immature Gran % (Auto) 0.7 H Neut % (Auto) 77.8 H Lymph % (Auto) 11.0 L Frederick # (Auto) 0.8 H Eos # (Auto) 0.6 H Abs Immat Gran (auto) 0.09 H Absolute Neuts (auto) 10.3 H Neutrophils % (Manual) Lymphocytes % (Manual) Abs Neuts (Manual) Abs Monocytes (Manual) ESR 101 H PT ABG pH ABG pCO2 ABG pO2 76.6 L ABG HCO3 ABG O2 Saturation ABG O2 Content 15.5 L VBG pH VBG pCO2 VBG pO2 VBG HCO3 Reduced Hemoglobin Total Hemoglobin 11.6 L Chloride 108 H Carbon Dioxide Anion Gap BUN 22 H Creatinine Estimated GFR Glucose 150 H POC Capillary Glucose 114 H Hemoglobin A1c Lactic Acid Troponin I 0.064 H* NT-Pro-B Natriuret Pep Total Protein 6.0 L Albumin 3.0 L 03/23/24 11:28 WBC RBC Hgb Hct MCHC Plt Count MPV Immature Gran % (Auto) Neut % (Auto) Lymph % (Auto) Frederick # (Auto) Eos # (Auto) Abs Immat Gran (auto) Absolute Neuts (auto) Neutrophils % (Manual) Lymphocytes % (Manual) Abs Neuts (Manual) Abs Monocytes (Manual) ESR PT ABG pH ABG pCO2 ABG pO2 ABG HCO3 ABG O2 Saturation ABG O2 Content VBG pH VBG pCO2 VBG pO2 VBG HCO3 Reduced Hemoglobin Total Hemoglobin Chloride Carbon Dioxide Anion Gap BUN Creatinine Estimated GFR Glucose POC Capillary Glucose 129 H Hemoglobin A1c Lactic Acid Troponin I NT-Pro-B Natriuret Pep Total Protein Albumin Diagnostic Findings Additional studies: ITS Impressions Chest X-Ray 03/19/24 12:38 IMPRESSION: 1. Diffuse lung disease, likely a combination of pneumonia and pulmonary edema. 2. Cardiomegaly. Chest CT 03/19/24 14:53 IMPRESSION: Multifocal pneumonia. Moderate right and small left pleural effusions. Mediastinal lymphadenopathy. Esophagitis/gastritis. Chest X-Ray 03/20/24 09:04 IMPRESSION: 1. No significant change in bilateral regions of pulmonary consolidation most prominent in the lateral mid lung zones consistent with multifocal pneumonia. Chest X-Ray 03/20/24 14:09 IMPRESSION: Radiographic evaluation is unchanged from previous study demonstrating bilateral upper lobe infiltrates and bilateral lower lobe pleural effusions. Chest X-Ray 03/21/24 13:40 IMPRESSION: Radiographic evaluation is unchanged from prior studies demonstrating bilateral upper lobe infiltrates and bilateral lower lobe pleural effusions. Chest CTA 03/22/24 21:46 IMPRESSION: No pulmonary embolus. No aortic dissection. Redemonstration of bilateral upper lobe infiltrates with a moderate right and small left sided pleural effusion. Additional findings which are sequelae of patient's known aortic stenosis, as detailed above. Cholelithiasis Chest X-Ray 03/23/24 06:23 Impression: Extensive areas of bilateral consolidation, consistent with bilateral pneumonia. Correlate for any possibility of neoplastic disease.
[2024-03-23 13:18] LABS: NT Pro B Type Natriuretic Pept 11600 pg/mL (19.9-100)
[2024-03-23] MEDS: levoFLOXacin 750 MG/D5W 150 ML 750 MG/150 ML BAG 100 MG IVPB (13:19)
[2024-03-23 16:37] LABS: Glucose Point of Care 99 mg/dl (65-105)
[2024-03-23 17:51] LABS: MRSA (PCR) NOT DETECTED (NOT DETECTE)
[2024-03-23] MEDS: ATORVASTATIN 40 MG TABLET PO (17:57)
[2024-03-23] MEDS: guaiFENesin 12 HR 600 MG TABCR 1200 MG PO (20:41)
[2024-03-23] MEDS: ACETAMINOPHEN 325 MG TABLET 650 MG PO (20:42)
[2024-03-23 21:35] LABS: Glucose Point of Care 127 mg/dl (65-105)
[2024-03-23 22:53] LABS: Pneumococcal Antigen Urine NOT DETECTED
[2024-03-24] VITALS (24 sets, daily range): BP systolic 96–110; BP diastolic 54–78; PULSE 79–97; RESP 16–27; TEMP 36.1–36.8; O2SAT 92–99
[2024-03-24] MEDS: LEVALBUTEROL NEB 1.25 MG/3 ML INHALATION ×3 (02:58→13:47)
[2024-03-24] MEDS: IPRATROPIUM BR 0.02% INH SOLN 0.5 MG/2.5 ML VIAL INHALATION ×3 (02:58→13:46)
--- NOTE | 2024-03-24 03:31 | PCRCNOTE ---
Pt did not receive her 1999 breathing tx due to it being out of the administrated timeframe when RT was able to provide it. See next scheduled tx at 0200.
[2024-03-24 06:25] LABS: Glucose Point of Care 98 mg/dl (65-105)
[2024-03-24 08:08] LABS: Glucose Point of Care 109 mg/dl (65-105)
[2024-03-24] MEDS: FUROSEMIDE INJ 40 MG/4 ML VIAL 20 MG IV PUSH (09:14)
[2024-03-24] MEDS: guaiFENesin 12 HR 600 MG TABCR 1200 MG PO ×2 (09:15→20:27)
[2024-03-24] MEDS: ASPIRIN 81 MG ENTERIC TABLET PO (09:15)
[2024-03-24] MEDS: METOPROLOL SUCCINATE EXT REL 25 MG TABCR PO (09:16)
[2024-03-24] MEDS: PANTOPRAZOLE 40 MG TABLET PO ×2 (09:16→20:26)
[2024-03-24] MEDS: lisinopriL 5 MG TABLET PO (09:16)
[2024-03-24] MEDS: EZETIMIBE 10 MG TABLET PO (09:16)
[2024-03-24] MEDS: MULTIVITAMINS THERAPEUTIC TAB (*BKC) 1 TABLET PO (09:16)
[2024-03-24] MEDS: ENOXAPARIN 40 MG/0.4 ML SYRINGE SUB-Q (09:16)
[2024-03-24] MEDS: CEFEPIME 1 GM/NS 50 ML 1 GM/50 ML BAG IVPB ×2 (09:16→20:27)
--- NOTE | 2024-03-24 09:19 | P.PNPL_ITS ---
Progress Note: A&P Assessment and Plan (1) Multifocal pneumonia: Code(s): J18.9 - Pneumonia, unspecified organism Status: Acute Assessment and Plan: patient presents with 2-3 week history of respiratory symptoms treated with azithromycin as an outpatient, 1 dose of amoxicillin and admitted on 03/19/2024 with tachycardia, hypoxemia, increased work of breathing requiring BiPAP, lactic acidosis, leukocytosis and CT scan with multifocal pneumonia new moderate right and small left pleural effusion. Patient was treated with ceftriaxone and azithromycin with a good clinical improvement. on 03/[address] angiogram of the chest with no PE, no change in her dense multifocal consolidations or moderate right and small left pleural effusion. After she completed this she walked to the bathroom and developed dyspnea on exertion and hypoxemia with increased work of breathing requiring BiPAP. She responded IV Lasix. Her antibiotics were changed to vancomycin and cefepime. 03/23/24: Currently the patient tells me she feels 80% back to normal and feels the same as she did yesterday prior to her event after her CT scan. Since admission she says that her cough is much better. She is producing less phlegm and currently she has not clear to use phlegm today. She has no chest pain. When I enter the room she was on 2 L nasal cannula saturation 97%. I decreased her to room air and over the next 4 minute she desaturated to 89%. I increased her to 1 L and her saturations were 92%. Plan: Patient clinically improved ceftriaxone and azithromycin started on 03/19/2024 (4 days) and had acute SOB/MASON that has responded to IV Lasix suggesting this was related to fluid overload and not worsening pneumonia. Currently she is back to where she felt prior to her acute shortness of breath- dyspnea on exertion episode. I have been able to decrease her oxygen from 2 L to 1 L nasal cannula. She was empirically switched to vancomycin and cefepime on 03/23/2024 due to this decompensation. despite her clinical improvement, improved oxygenation, improved leukocytosis her dense infiltrates have not changed between 03/19/2024 and 03/22/2024. Agree with cefepime and would add levofloxacin for atypical coverage as well as additional Gram-negative coverage. Her MRSA swab is negative and from my perspective vancomycin can be discontinued. Two aid in sputum expectoration I will increase her guaifenesin to 1200 mg p.o. b.i.d., continue ipratropium and levalbuterol nebulizers q.6 hours and I will initiate Cornet flutter valve. I will send and respiratory pathogen panel, serum mycoplasma IgM looking for alternate etiologies of her infection. 03/24/24: Patient tells me she is breathing fine. It is hard for her to quantitate her level of improvement. She still remains with a small amount of cough and minimal phlegm. When I enter the room she was on 2 L nasal cannula saturations 95%. I decreased her to room air and after 6 minutes she desaturated to 89%. I put her back on 1 L and her saturations were 95%. Last night they put her on the BiPAP machine. The patient says that she did not feel like she needed the BiPAP machine that they just put it on her. She does not feel like she needs a machine at night. Her weight is 50 kg with an admission weight of 54 0.4 kg. Yesterday she diuresed 930 mL, total she is 4.3 L positive since admission. Plan: patient continues to clinically improve with improvement in her oxygen requirements. Radiographs are lagging behind her clinical improvement. She is status post ceftriaxone and azithromycin for 4 days and currently on cefepime and Levaquin for 2 days, total antibiotics 6 days. Goal saturation 90-94%, wean oxygen as tolerated. Given the extent of the patient's infiltrates would continue antibiotics for tot al of 10 days. Would give at least 1 more day IV antibiotics and continue IV antibiotics while she is in the hospital. If she remains clinically stable And your ready to discharge the patient would switch to p.o. antibiotics with cefdinir 300 mg p.o. q.day and Levaquin 750 mg p.o. Q 48 hours both to finish out 10 day course. On the day of discharge would obtain a a chest x-ray to serve as a discharge baseline. patient should have a repeat chest x-ray in 6 weeks to document resolution of her infiltrates. The night prior to discharge patient should have an overnight oximetry on room air to assess the need for nocturnal oxygen. On the day of discharge she should have a formal home O2 assessment. No specific pulmonary follow-up is required Discussed with Dr. Lopez, will sign off, call with questions. (2) Severe aortic stenosis: Code(s): I35.0 - Nonrheumatic aortic (valve) stenosis Status: Acute Assessment and Plan: 03/23/24: Patient with low-flow low gradient severe aortic stenosis. She has an EF of 30-35%, pulmonary hypertension, moderate mitral regurgitation and seems to have developed an acute episode of pulmonary edema on 03/22/2024. Patient is currently getting IV Lasix per hospitalist and Cardiology. Plan is for outpatient workup of her severe aortic stenosis. 03/24/24: management per hospitalist team and Cardiology. Subjective Date/time seen: 03/24/24 09:19 Interval history: 03/23/2024: This is a new pulmonary consult for pneumonia and acute respiratory failure. 78-year-old with a history of CHF, hypertension, hyperlipidemia prior CVA. At baseline the patient has no breathing limitations, she could walk 1 and half blocks and would stop because her legs got tired not because of respiratory issues. She is a never smoker. She denies asthma, COPD, recurrent pneumonias. On 03/17/2024 she presented to the urgent care with 2-3 weeks history of cough, congestion and wheezing. apparently she was prescribed azithromycin on 03/14 and this was changed to prednisone and amoxicillin on 03/17/2024. 03/19/2024 she presented to the emergency with worsening cough, shortness of breath, congestion. She was hypertensive, heart rate 121, respiratory rate 36 on 2 L nasal cannula saturations were 88%. White blood cell count was 30.6, creatinine was 0.9 her lactic acid was 4.5 [place] [address]. Her ABG on 4 L was 7.21/52/79. Because of work of breathing she was placed on BiPAP. She was given 2.5 L IV fluid and started on ceftriaxone and azithromycin. Her on 03/20/2024 she was comfortable per the progress notes. She remained on 2 L nasal cannula. 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 She had normal RV systolic eyes and function, normal right atrial size, RVSP 63. She was intermittently on BiPAP. On 03/23 she told me she was improving she said she was 80% back to her normal. She was in no respiratory distress. she was on 2 L nasal cannula saturations 95-96%. She was doing well and went for CT angiogram of the chest. When she got the dye she felt warm. She had no breathing issues on the way back to her room in the stretcher. She got into bed. She then walked to the bathroom and developed dyspnea on exertion and was short of breath when she got back into her bed. She denied any tongue or lip swelling or any wheezing. Rapid response was called and the patient was hypoxic and required 9 L and then BiPAP. Blood gas on BiPAP was 7.41/37/77. She was given 40 of IV Lasix, her procalcitonin was 0.2. Her white blood cell count is 13.3. she told me she urinated a lot. CT angiogram of the chest showed no PE, dense bilateral upper lobe infiltrates moderate right and small left pleural effusion with no significant change from CT scan on 03/19/2024 The patient came off BiPAP. Patient's antibiotics were changed from ceftriaxone and azithromycin to cefepime and vancomycin. 03/23/24: Currently the patient tells me she feels 80% back to normal and feels the same as she did yesterday prior to her event after her CT scan. Since admission she says that her cough is much better. She is producing less phlegm and currently she has not clear to use phlegm today. She has no chest pain. When I enter the room she was on 2 L nasal cannula saturation 97%. I decreased her to room air and over the next 4 minute she desaturated to 89%. I increased her to 1 L and her saturations were 92%. 03/24/24: Patient tells me she is breathing fine. It is hard for her to quantitate her level of improvement. She still remains with a small amount of cough and minimal phlegm. When I enter the room she was on 2 L nasal cannula saturations 95%. I decreased her to room air and after 6 minutes she desaturated to 89%. I put her back on 1 L and her saturations were 95%. Last night they put her on the BiPAP machine. The patient says that she did not feel like she needed the BiPAP machine that they just put it on her. She does not feel like she needs a machine at night. Her weight is 50 kg with an admission weight of 54 0.4 kg. Yesterday she diuresed 930 mL, total she is 4.3 L positive since admission. DATA: 03/22/24: EXAMINATION: CTA chest PE protocol DATE: 03/22/2024 21:46 CLIENT SUPPORT CONSULTANT INDICATION: Shortness of breath. Multifocal pneumonia with bilateral pleural effusions. Pulmonary embolus suspected clinically TECHNIQUE: Computed tomographic angiography (CTA) of the chest was performed with 100 mL Omnipaque-350 intravenous contrast. The dose-length product was 184.99 mGy-cm. Maximum intensity projection 3D-reconstructions of the aorta and other arteries were constructed by the technologist on a separate workstation. COMPARISON: Reference is made to plain film evaluations of the chest dated 03/21/2024 and dating back to 03/19/2024. Reference is also made to a CT examination of the chest without intravenous contrast dated 03/19/2024. FINDINGS: No filling defect within the main or proximal pulmonary arteries. The thoracic aorta is unremarkable without aneurysmal dilatation or dissection. Densely calcified atherosclerotic disease is redemonstrated. The heart is enlarged, without significant pericardial effusion. Specifically, left atrial enlargement is noted, along with concentric thickening of the left ventricle. Densely calcified mitral annulus is present. Calcification of the aortic valve is also noted. Redemonstration of bilateral upper lobe infiltrates with moderate right and small left-sided pleural effusions, consistent with previous CT examination in multiple radiographs of the chest. Within the upper abdomen: Calcified stone within the gallbladder, which is otherwise unremarkable. Densely calcified atherosclerotic disease. IMPRESSION: No pulmonary embolus. No aortic dissection. Redemonstration of bilateral upper lobe infiltrates with a moderate right and small left sided pleural effusion. Additional findings which are sequelae of patient's known aortic stenosis, as detailed above. Cholelithiasis 03/19/24: EXAMINATION: CT diagnostic chest w con DATE: 03/19/2024 14:46 INDICATION: SOB TECHNIQUE: Computed tomography (CT) of the chest was performed with 100 mL Omnipaque-350 intravenous contrast. Automated exposure control and iterative reconstruction technique were employed. The dose-length product was 198.56 mGy- cm. COMPARISON: X-ray chest, same date. FINDINGS: CHEST: Thoracic aorta: No significant dilation or calcification. Lung parenchyma and airways: Multisegment left upper lobe, segmental right upper lobe, and subsegmental right lower lobe consolidations. Less prominent scattered areas of groundglass opacity, may represent mild edema or additional sites of infection. Minimal dependent bilateral atelectasis. Patent airways. Thoracic inlet, axillae and chest wall: No thyroid or soft tissue mass. No a xillary lymphadenopathy. Intact sternotomy wires. Mediastinum: Enlarged paratracheal lymph node. Heart and pericardium: Cardiomegaly. Heavy mitral annulus calcification. No pericardial effusion. Coronary artery calcifications: Moderate. Pleura: Moderate right and small left pleural fluid collections. Upper abdomen: Cholelithiasis. Distal esophageal and gastric wall edema. Thoracic bones: No acute osseous finding in the chest. IMPRESSION: Multifocal pneumonia. Moderate right and small left pleural effusions. Mediastinal lymphadenopathy. Esophagitis/gastritis. Review of Systems Constitutional: Constitutional: Reports no additional constitutional complaints Eyes: Eyes: Reports no additional eye complaints ENT: Reports system reviewed and no additional complaints, except as documented Cardiovascular: Cardiovascular: Reports no additional cardiovascular complaints Respiratory: Respiratory: Reports no additional respiratory complaints Gastrointestinal: Gastrointestinal: Reports no additional gastrointestinal complaints Musculoskeletal: Musculoskeletal: Reports no additional musculoskeletal complaints Neurologic: Reports system reviewed and no additional complaints, except as documented Psychiatric: Psychiatric: Reports no additional psychiatric complaints Endocrine: Endocrine: Reports no additional endocrine complaints Hematologic/Lymphatic: Hematologic/Lymphatic: Reports no additional hematologic/lymphatic complaints Allergic/Immunologic: Allergic/Immunologic: Reports no additional allergic/immunologic complaints Exam Const: General: cooperative, healthy appearing and comfortable Orientation/consciousness: oriented to person, oriented to place and oriented to time HENMT: Head: normal to inspection Ears: hearing grossly normal bilaterally Eyes: General: appearance normal, both eyes and all related structures Neck: Neck: normal visual inspection Chest: Chest palpation & inspection: normal inspection of the chest Resp: Effort & Inspection: normal respiratory effort and able to speak in complete sentences Auscultation: no crackles, no rales, rhonchi, no wheezes and lung sounds not diminished Other: bilateral Cardio: Jugular venous distension: no JVD GI: Inspection: normal to inspection Skin: General skin exam: normal color Neuro: General: oriented to person, oriented to place and oriented to time Extrem: General: normal to inspection Psych: Appearance: grossly normal Objective Data Vital Signs Vital Signs: Vital Signs - 24 hr 03/23/24 10:21 03/23/24 10:22 03/23/24 14:00 Temperature 36.3 C L Pulse Rate 98 92 Respiratory Rate 20 Blood Pressure 91/54 L Pulse Oximetry 92 99 Oxygen Delivery Nasal Cannula Oxygen Flow Rate 3 03/23/24 14:17 03/23/24 14:31 03/23/24 17:59 Temperature Pulse Rate 87 80 85 Respiratory Rate 20 20 16 Blood Pressure 102/83 Pulse Oximetry 100 Oxygen Delivery Oxygen Flow Rate 03/23/24 20:00 03/23/24 20:00 03/23/24 21:04 Temperature 36.3 C L Pulse Rate 84 88 Respiratory Rate 12 Blood Pressure 98/50 L Pulse Oximetry 100 100 Oxygen Delivery Nasal Cannula Oxygen Flow Rate 9 03/23/24 23:04 03/24/24 00:00 03/24/24 00:15 Temperature Pulse Rate 79 95 Respiratory Rate 27 H Blood Pressure Pulse Oximetry 99 99 Oxygen Delivery Nasal Cannula BiPAP Oxygen Flow Rate 3 03/24/24 01:00 03/24/24 03:00 03/24/24 03:05 Temperature Pulse Rate 80 80 Respiratory Rate 20 18 Blood Pressure Pulse Oximetry 93 92 Oxygen Delivery Nasal Cannula BiPAP Oxygen Flow Rate 2 03/24/24 03:14 03/24/24 04:00 03/24/24 06:00 Temperature 36.8 C Pulse Rate 81 81 88 Respiratory Rate 20 20 Blood Pressure 106/58 L Pulse Oximetry 98 Oxygen Delivery Oxygen Flow Rate 03/24/24 07:39 03/24/24 07:40 03/24/24 07:55 Temperature Pulse Rate 88 88 Respiratory Rate 20 20 Blood Pressure Pulse Oximetry 97 Oxygen Delivery Nasal Cannula Oxygen Flow Rate 4 03/24/24 08:24 03/24/24 09:08 03/24/24 09:16 Temperature Pulse Rate 92 92 Respiratory Rate Blood Pressure 110/62 Pulse Oximetry 95 94 Oxygen Delivery Nasal Cannula Oxygen Flow Rate 2 Intake/Output Intake/Output: Intake & Output 03/21/24 03/22/24 03/23/24 03/24/24 23:59 23:59 23:59 23:59 Intake Total 1805 1080 1120 200 Output Total 700 2000 150 Balance 1105 1080 -880 50 Meds/Results Medications: Active Medications Generic Name Dose Route Start Last Admin Trade Name Freq PRN Reason Stop Dose Admin Acetaminophen 650 mg 03/19/24 15:30 03/23/24 20:42 Acetaminophen 325 Mg Tablet PO 650 mg Q4H PRN Administration Mild Pain (1-3) or Fever Albuterol/Ipratropium 3 ml 03/20/24 08:26 03/23/24 04:37 Ipratropium 0.5 Mg/Albuterol Sulfate 2.5 Mg Ampul.Neb 3 Ml INHALATION 3 ml Q6HRT PRN Administration Wheezing Aspirin 81 mg 03/20/24 09:00 03/24/24 09:15 Aspirin 81 Mg Enteric Tablet PO 81 mg DAILY QI Administration Atorvastatin Calcium 40 mg 03/20/24 18:00 03/23/24 17:57 Atorvastatin 40 Mg Tablet PO 40 mg QPM QI Administration Dextrose 12.5 gm 03/19/24 20:39 Dextrose 50% 25 Gm/50 Ml Syringe IV PUSH PRN PRN Hypoglycemia Protocol Ezetimibe 10 mg 03/20/24 09:00 03/24/24 09:16 Ezetimibe 10 Mg Tablet PO 10 mg DAILY QI Administration Enoxaparin Sodium 40 mg 03/20/24 09:00 03/24/24 09:16 Enoxaparin 40 Mg/0.4 Ml Syringe SUB-Q 40 mg DAILY QI Administration Furosemide 40 mg 03/24/24 17:00 Furosemide Inj 40 Mg/4 Ml Vial IV PUSH BID QI Furosemide 20 mg 03/24/24 09:08 03/24/24 09:14 Furosemide Inj 40 Mg/4 Ml Vial IV PUSH 03/24/24 09:09 20 mg ONCE ONE Administration Glucagon 1 mg 03/19/24 20:39 Glucagon For Inj 1 Mg Vial IM PRN PRN Hypoglycemia Protocol Glucose 15 gm 03/19/24 20:39 Glucose Oral Gel 15 Gm Of Glucse In 37.5 Gm Tube PO PRN PRN Hypoglycemia Protocol Guaifenesin 1,200 mg 03/23/24 21:00 03/24/24 09:15 Guaifenesin 12 Hr 600 Mg Tabcr PO 1,200 mg Q12HR QI Administration Dextrose 1,000 mls @ 100 mls/hr 03/19/24 20:39 Dextrose 5% 1,000 Ml IVPB PRN PRN Hypoglycemia Protocol Cefepime HCl 1 gm in 50 mls @ 100 mls/hr 03/23/24 09:00 03/24/24 09:16 Maxipime 1 Gm/Ns 50 Ml IVPB 100 mls/hr Q12H QI Administration Levofloxacin/Dextrose 750 mg in 150 mls @ 100 mls/hr 03/23/24 13:00 03/23/24 13:19 Levaquin 750 Mg/D5w 150 Ml IVPB 100 mls/hr Q48H QI Administration Insulin Aspart 2 - 5 units 03/20/24 08:00 03/24/24 08:15 Insulin Aspart (*Bkc) 100 Units/Ml SUB-Q Not Given TIDWM [facility] Protocol Insulin Aspart 1 - 2 units 03/19/24 21:00 03/23/24 21:16 Insulin Aspart (*Bkc) 100 Units/Ml SUB-Q Not Given HS [facility] Protocol Ipratropium [place] 0.5 mg 03/19/24 21:55 03/24/24 07:39 Ipratropium Br 0.02% Inh Soln 0.5 Mg/2.5 Ml Vial INHALATION 0.5 mg Q6HRT [facility] Administration Levalbuterol HCl 1.25 mg 03/19/24 21:55 03/24/24 07:39 Levalbuterol Neb 1.25 Mg/3 Ml INHALATION 1.25 mg Q6HRT [facility] Administration Lisinopril 5 mg 03/20/24 09:00 03/24/24 09:16 Lisinopril 5 Mg Tablet PO 5 mg DAILY QI Administration Metoprolol Succinate 25 mg 03/23/24 09:00 03/24/24 09:16 Metoprolol Succinate Ext Rel 25 Mg Tabcr PO 25 mg QAM [facility] Administration Multivitamins Therapeutic 1 tablet 03/20/24 09:00 03/24/24 09:16 Multivitamins Therapeutic Tab (*Bkc) PO 1 tablet DAILY [facility] Administration Pantoprazole Sodium 40 mg 03/19/24 21:00 03/24/24 09:16 Pantoprazole 40 Mg Tablet PO 40 mg Q12HR QI Administration Radiology Results: ITS Impressions Chest CT 03/19/24 14:53 IMPRESSION: Multifocal pneumonia. Moderate right and small left pleural effusions. Mediastinal lymphadenopathy. Esophagitis/gastritis. Chest CTA 03/22/24 21:46 IMPRESSION: No pulmonary embolus. No aortic dissection. Redemonstration of bilateral upper lobe infiltrates with a moderate right and small left sided pleural effusion. Additional findings which are sequelae of patient's known aortic stenosis, as detailed above. Cholelithiasis Chest X-Ray 03/23/24 06:23 Impression: Extensive areas of bilateral consolidation, consistent with bilateral pneumonia. Correlate for any possibility of neoplastic disease. Labs Labs: Laboratory Results - last 24 hr 03/19/24 03/23/24 03/23/24 21:41 04:47 11:28 POC Capillary Glucose 129 H NT-Pro-B Natriuret Pep 94504 H Nasal MRSA (PCR) Urine Pneumococcal Ag Not detected 03/23/24 03/23/24 03/23/24 16:23 16:35 20:53 POC Capillary Glucose 99 127 H NT-Pro-B Natriuret Pep Nasal MRSA (PCR) Not detected Urine Pneumococcal Ag 03/24/24 03/24/24 06:19 07:56 POC Capillary Glucose 98 109 H NT-Pro-B Natriuret Pep Nasal MRSA (PCR) Urine Pneumococcal Ag
--- NOTE | 2024-03-24 09:48 | PM.IMPN ---
Progress Note: A&P Assessment and Plan (1) Severe sepsis: Code(s): A41.9 - Sepsis, unspecified organism; R65.20 - Severe sepsis without septic shock Status: Acute (2) Acute respiratory failure with hypoxia and hypercapnia: Code(s): J96.01 - Acute respiratory failure with hypoxia; J96.02 - Acute respiratory failure with hypercapnia Status: Acute (3) Multifocal pneumonia: Code(s): J18.9 - Pneumonia, unspecified organism Status: Acute (4) Hyperglycemia: Code(s): R73.9 - Hyperglycemia, unspecified Status: Acute (5) Elevated brain natriuretic peptide (BNP) level: Code(s): R79.89 - Other specified abnormal findings of blood chemistry Status: Acute Plan Sepsis Suspecting from Pneumonia CXR reviewed Rocephin and Azithromycin Received IVF BC negative to date Blood pressure stable on the lower side Leukocytosis persists 3 Pneumonia CXR showed multifocal pneumonia, no change on CXR continue above care CTA chest showed no pulmonary embolism, redemonstration of upper lobe infiltrate with moderate right and small left lobe pleural effusion Repeated chest x-ray yesterday showed extensive Emma are bilateral consultation consistent multifocal pneumonia, neoplastic changes? 2/ Changed Levaquin and cefepime IV per bottle capper recommendation. Appreciate bottle capper consultation Acute hypoxemic respiratory failure Patient was on BiPAP Acute respiratory failure likely secondary to edema due to aortic stenosis and pneumonia Received Lasix yesterday now pt is on nasal cannula 2-4 L Consult ultrasonographer and bottle capper for evaluation treatment Suspecting fluid overloaded due to severe acute stenosis and severe heart failure Echocardiogram showed The left ventricular ejection fraction is visually estimated to be 30-35%. The aortic valve is probably trileaflet and heavily calcified. There is low-flow low gradient critical aortic stenosis. Continue Lasix 20 mg b.i.d. IV push Follow-up input output and kidney function Titrate based on patient's response Patient tolerate IV Lasix well Consult ultrasonographer and bottle capper for evaluation treatment Elevated troponin Likely demand Trend, ECHO completed Cardiology consulted Possible demand ischemia resulting from severe aortic stenosis Severe aortic stenosis Medical Office Representative recommends of patient evaluation for TAVR DM2 A1c 6.5 SSI with accucheks, adjust with clinical course CVA continue home meds CAD continue home meds HLD Statin HTN titrate home meds with clinical course DVT prophylaxis on Sq Lovenox May discharge patient in 1-2 days Subjective Date/time seen: 03/24/24 09:48 Interval history: I saw and examined patient today. Patient feels better today, dyspnea is improving. Patient was able to ambulate with the help of physical therapist. Patient is off of BiPAP. Blood pressure on lower side, afebrile, labs reviewed Exam Narrative: GENERAL: Pleasant, in no acute distress. Well-nourished. - EYES: EOMI. Anicteric. - HENT: Moist mucous membranes. - LUNGS: Coarse breath sound bilateral base, no wheezing, rhonchi - CARDIOVASCULAR: Regular rate and rhythm. No murmur. No JVD. - ABDOMEN: Soft, non-tender and non-distended. No palpable masses. - EXTREMITIES: No edema. Peripheral pulses 2+. Non-tender. - NEUROLOGIC: No focal neurological deficits. CN II-XII grossly intact. - PSYCHIATRIC: Awake, Alert and oriented x 3. Appropriate mood and affect. - SKIN: No rashes or lesions. Warm. - LYMPH: No cervical lymphadenopathy. Objective Data Vital Signs Vital Signs: Vital Signs - 24 hr 03/23/24 10:21 03/23/24 10:22 03/23/24 14:00 Temperature 97.4 F L Pulse Rate 98 92 Respiratory Rate 20 Blood Pressure 91/54 L Pulse Oximetry 92 99 Oxygen Delivery Nasal Cannula Oxygen Flow Rate 3 03/23/24 14:17 03/23/24 14:31 03/23/24 17:59 Temperature Pulse Rate 87 80 85 Respiratory Rate 20 20 16 Blood Pressure 102/83 Pulse Oximetry 100 Oxygen Delivery Oxygen Flow Rate 03/23/24 20:00 03/23/24 20:00 03/23/24 21:04 Temperature 97.4 F L Pulse Rate 84 88 Respiratory Rate 12 Blood Pressure 98/50 L Pulse Oximetry 100 100 Oxygen Delivery Nasal Cannula Oxygen Flow Rate 9 03/23/24 23:04 03/24/24 00:00 03/24/24 00:15 Temperature Pulse Rate 79 95 Respiratory Rate 27 H Blood Pressure Pulse Oximetry 99 99 Oxygen Delivery Nasal Cannula BiPAP Oxygen Flow Rate 3 03/24/24 01:00 03/24/24 03:00 03/24/24 03:05 Temperature Pulse Rate 80 80 Respiratory Rate 20 18 Blood Pressure Pulse Oximetry 93 92 Oxygen Delivery Nasal Cannula BiPAP Oxygen Flow Rate 2 02/06/25 03:14 03/24/24 04:00 03/24/24 06:00 Temperature 98.2 F Pulse Rate 81 81 88 Respiratory Rate 20 20 Blood Pressure 106/58 L Pulse Oximetry 98 Oxygen Delivery Oxygen Flow Rate 03/24/24 07:39 03/24/24 07:40 03/24/24 07:55 Temperature Pulse Rate 88 88 Respiratory Rate 20 20 Blood Pressure Pulse Oximetry 97 Oxygen Delivery Nasal Cannula Oxygen Flow Rate 4 03/24/24 08:24 03/24/24 09:08 03/24/24 09:16 Temperature Pulse Rate 92 92 Respiratory Rate Blood Pressure 110/62 Pulse Oximetry 95 94 Oxygen Delivery Nasal Cannula Oxygen Flow Rate 2 Intake/Output Intake/Output: Intake & Output 03/21/24 03/22/24 03/23/24 03/24/24 23:59 23:59 23:59 23:59 Intake Total 1805 1080 1120 200 Output Total 700 2000 150 Balance 1105 1080 -880 50 Meds/Results Medications: Active Medications Generic Name Dose Route Start Last Admin Trade Name Freq PRN Reason Stop Dose Admin Acetaminophen 650 mg 03/19/24 15:30 03/23/24 20:42 Acetaminophen 325 Mg Tablet PO 650 mg Q4H PRN Administration Mild Pain (1-3) or Fever Albuterol/Ipratropium 3 ml 03/20/24 08:26 03/23/24 04:37 Ipratropium 0.5 Mg/Albuterol Sulfate 2.5 Mg Ampul.Neb 3 Ml INHALATION 3 ml Q6HRT PRN Administration Wheezing Aspirin 81 mg 03/20/24 09:00 03/24/24 09:15 Aspirin 81 Mg Enteric Tablet PO 81 mg DAILY QI Administration Atorvastatin Calcium 40 mg 03/20/24 18:00 03/23/24 17:57 Atorvastatin 40 Mg Tablet PO 40 mg QPM QI Administration Dextrose 12.5 gm 03/19/24 20:39 Dextrose 50% 25 Gm/50 Ml Syringe IV PUSH PRN PRN Hypoglycemia Protocol Ezetimibe 10 mg 03/20/24 09:00 03/24/24 09:16 Ezetimibe 10 Mg Tablet PO 10 mg DAILY QI Administration Enoxaparin Sodium 40 mg 03/20/24 09:00 03/24/24 09:16 Enoxaparin 40 Mg/0.4 Ml Syringe SUB-Q 40 mg DAILY QI Administration Furosemide 40 mg 03/24/24 17:00 Furosemide Inj 40 Mg/4 Ml Vial IV PUSH BID QI Glucagon 1 mg 03/19/24 20:39 Glucagon For Inj 1 Mg Vial IM PRN PRN Hypoglycemia Protocol Glucose 15 gm 03/19/24 20:39 Glucose Oral Gel 15 Gm Of Glucse In 37.5 Gm Tube PO PRN PRN Hypoglycemia Protocol Guaifenesin 1,200 mg 03/23/24 21:00 03/24/24 09:15 Guaifenesin 12 Hr 600 Mg Tabcr PO 1,200 mg Q12HR QI Administration Dextrose 1,000 mls @ 100 mls/hr 03/19/24 20:39 Dextrose 5% 1,000 Ml IVPB PRN PRN Hypoglycemia Protocol Cefepime HCl 1 gm in 50 mls @ 100 mls/hr 03/23/24 09:00 03/24/24 09:16 Maxipime 1 Gm/Ns 50 Ml IVPB 100 mls/hr Q12H QI Administration Levofloxacin/Dextrose 750 mg in 150 mls @ 100 mls/hr 03/23/24 13:00 03/23/24 13:19 Levaquin 750 Mg/D5w 150 Ml IVPB 100 mls/hr Q48H QI Administration Insulin Aspart 2 - 5 units 03/20/24 08:00 03/24/24 08:15 Insulin Aspart (*Bkc) 100 Units/Ml SUB-Q Not Given TIDWM QI Protocol Insulin Aspart 1 - 2 units 03/19/24 21:00 03/23/24 21:16 Insulin Aspart (*Bkc) 100 Units/Ml SUB-Q Not Given HS [facility] Protocol Ipratropium [place] 0.5 mg 03/19/24 21:55 03/24/24 07:39 Ipratropium Br 0.02% Inh Soln 0.5 Mg/2.5 Ml Vial INHALATION 0.5 mg Q6HRT QI Administration Levalbuterol HCl 1.25 mg 03/19/24 21:55 03/24/24 07:39 Levalbuterol Neb 1.25 Mg/3 Ml INHALATION 1.25 mg Q6HRT QI Administration Lisinopril 5 mg 03/20/24 09:00 03/24/24 09:16 Lisinopril 5 Mg Tablet PO 5 mg DAILY QI Administration Metoprolol Succinate 25 mg 03/23/24 09:00 03/24/24 09:16 Metoprolol Succinate Ext Rel 25 Mg Tabcr PO 25 mg QAM QI Administration Multivitamins Therapeutic 1 tablet 03/20/24 09:00 03/24/24 09:16 Multivitamins Therapeutic Tab (*Bkc) PO 1 tablet DAILY QI Administration Pantoprazole Sodium 40 mg 03/19/24 21:00 03/24/24 09:16 Pantoprazole 40 Mg Tablet PO 40 mg Q12HR QI Administration Radiology Results: ITS Impressions Chest CT 03/19/24 14:53 IMPRESSION: Multifocal pneumonia. Moderate right and small left pleural effusions. Mediastinal lymphadenopathy. Esophagitis/gastritis. Chest CTA 03/22/24 21:46 IMPRESSION: No pulmonary embolus. No aortic dissection. Redemonstration of bilateral upper lobe infiltrates with a moderate right and small left sided pleural effusion. Additional findings which are sequelae of patient's known aortic stenosis, as detailed above. Cholelithiasis Chest X-Ray 03/23/24 06:23 Impression: Extensive areas of bilateral consolidation, consistent with bilateral pneumonia. Correlate for any possibility of neoplastic disease. Labs Labs: Laboratory Results - last 24 hr 03/19/24 03/23/24 03/23/24 21:41 04:47 11:28 POC Capillary Glucose 129 H NT-Pro-B Natriuret Pep 82114 H Nasal MRSA (PCR) Urine Pneumococcal Ag Not detected 03/23/24 03/23/24 03/23/24 16:23 16:35 20:53 POC Capillary Glucose 99 127 H NT-Pro-B Natriuret Pep Nasal MRSA (PCR) Not detected Urine Pneumococcal Ag 03/24/24 03/24/24 06:19 07:56 POC Capillary Glucose 98 109 H NT-Pro-B Natriuret Pep Nasal MRSA (PCR) Urine Pneumococcal Ag
[2024-03-24 10:02] LABS: Basophils Absolute Auto 0.1 K/mm3 (0.0-0.1); Basophils Percent Auto 0.6 % (0.2-1.2); Eosinophils Absolute Auto 0.6 K/mm3 (0-0.3); Eosinophils Percent Auto 4.9 % (0-4.4); Hematocrit 34.3 % (37.0-47.0); Hemoglobin 10.4 g/dL (12.0-15.0); Immature Granulocyte Absolute 0.04 K/mm3 (0.00-0.031); Immature Granulocyte Percent A 0.4 % (0-0.5); Lymphocytes Absolute Auto 1.28 K/mm3 (0.9-3.2); Lymphocytes Percent Auto 11.4 % (18.3-44.2); Mean Corpuscular HGB Conc 30.3 g/dl (32-36); Mean Corpuscular Hemoglobin 28.8 pg (26-34); Mean Platelet Volume 11.5 fl (7.4-10.4); Monocytes Absolute Auto 0.8 K/mm3 (0.1-0.6); Monocytes Percent Auto 6.9 % (2.6-8.5); Neutrophils Absolute Auto 8.6 K/mm3 (1.3-6.7); Neutrophils Percent Auto 75.8 % (45.5-73.1); Platelet Count Result 238 k/mm3 (150-375); Red Blood Count 3.61 M/mm3 (4.2-5.4); Red Cell Distribution Width 14.1 % (11.5-14.5); White Blood Count 11.3 K/mm3 (4.5-10.0)
[2024-03-24 10:13] LABS: Anion Gap 5 mmol/L (4-12); Blood Urea Nitrogen 21 mg/dL (7-17); Calcium 8.6 mg/dL (8.4-10.2); Carbon Dioxide 32 mmol/L (22-30); Chloride 103 mmol/L (98-107); Estimated Glomerular Filt Rate > 60; Glucose 86 mg/dL (65-110); Potassium 4.3 mmol/L (3.4-5.0); Sodium 140 mmol/L (137-145)
[2024-03-24 11:36] LABS: Glucose Point of Care 109 mg/dl (65-105)
--- NOTE | 2024-03-24 12:00 | P.PNCA_ITS ---
Progress Note: A&P Assessment and Plan (1) Cardiomyopathy: Code(s): I42.9 - Cardiomyopathy, unspecified Status: Acute (2) Severe aortic stenosis: Code(s): I35.0 - Nonrheumatic aortic (valve) stenosis Status: Acute (3) Coronary artery disease: Code(s): I25.10 - Atherosclerotic heart disease of [place] coronary artery without angina pectoris Status: Acute Plan 78-year-old woman with hypertension hyperlipidemia presented with shortness of breath found to have mildly elevated troponin and bilateral pleural effusions in setting of recurrent pneumonia CAD status post CABG -continue aspirin 81 mg p.o. daily and atorvastatin 40 mg every evening -will need eventual l/rhc as part of her TAVR workup Acute on chronic systolic heart failure -continue Lasix 40 mg IV b.i.d. -on lisinopril 5 mg p.o. daily and metoprolol succinate 25 mg p.o. daily Low-flow low gradient severe aortic stenosis -outpatient evaluation for TAVR Mild mitral stenosis -maintain euvolemic status and degree of stenosis can be re-evaluated during the eventual left and right heart catheterization Subjective Date/time seen: 03/24/24 12:00 Interval history: She denies any chest pain or shortness of breath. However last evening she had acute exertional shortness of breath leading to a rapid response with breathing difficulties resolving with diuresis Review of Systems Cardiovascular: Cardiovascular: Reports as per HPI Respiratory: Respiratory: Reports as per HPI Exam Const: General: comfortable HENMT: Mouth: Yes moist mucous membranes Eyes: EOM: EOMs intact bilaterally Neck: Neck: no JVD Resp: Effort & Inspection: normal respiratory effort Auscultation: rales Cardio: Rate: regular rate Rhythm: regular rhythm Extrem: General: no pedal edema Objective Data Vital Signs Vital Signs: Vital Signs - 24 hr 03/23/24 14:00 03/23/24 14:17 03/23/24 14:31 Temperature 36.3 C L Pulse Rate 92 87 80 Respiratory Rate 20 20 20 Blood Pressure 91/54 L Pulse Oximetry 99 Oxygen Delivery Oxygen Flow Rate 03/23/24 17:59 03/23/24 20:00 03/23/24 20:00 Temperature Pulse Rate 85 84 Respiratory Rate 16 Blood Pressure 102/83 Pulse Oximetry 100 100 Oxygen Delivery Nasal Cannula Oxygen Flow Rate 9 03/23/24 21:04 03/23/24 23:04 03/24/24 00:00 Temperature 36.3 C L Pulse Rate 88 79 Respiratory Rate 12 Blood Pressure 98/50 L Pulse Oximetry 100 99 Oxygen Delivery Nasal Cannula Oxygen Flow Rate 3 03/24/24 00:15 03/24/24 01:00 03/24/24 03:00 Temperature Pulse Rate 95 80 Respiratory Rate 27 H 20 Blood Pressure Pulse Oximetry 99 93 Oxygen Delivery BiPAP Nasal Cannula Oxygen Flow Rate 2 03/24/24 03:05 03/24/24 03:14 03/24/24 04:00 Temperature Pulse Rate 80 81 81 Respiratory Rate 18 20 Blood Pressure Pulse Oximetry 92 Oxygen Delivery BiPAP Oxygen Flow Rate 03/24/24 06:00 03/24/24 07:39 03/24/24 07:40 Temperature 36.8 C Pulse Rate 88 88 Respiratory Rate 20 20 Blood Pressure 106/58 L Pulse Oximetry 98 97 Oxygen Delivery Nasal Cannula Oxygen Flow Rate 4 03/24/24 07:55 03/24/24 08:24 03/24/24 09:08 Temperature Pulse Rate 88 92 Respiratory Rate 20 Blood Pressure 110/62 Pulse Oximetry 95 94 Oxygen Delivery Nasal Cannula Oxygen Flow Rate 2 03/24/24 09:16 Temperature Pulse Rate 92 Respiratory Rate Blood Pressure Pulse Oximetry Oxygen Delivery Oxygen Flow Rate Intake/Output Intake/Output: Intake & Output 03/21/24 03/22/24 03/23/24 03/24/24 23:59 23:59 23:59 23:59 Intake Total 1805 1080 1120 400 Output Total 700 2000 150 Balance 1105 1080 -880 250 Meds/Results Medications: Active Medications Generic Name Dose Route Start Last Admin Trade Name [place] PRN Reason Stop Dose Admin Acetaminophen 650 mg 03/19/24 15:30 03/23/24 20:42 Acetaminophen 325 Mg Tablet PO 650 mg Q4H PRN Administration Mild Pain (1-3) or Fever Albuterol/Ipratropium 3 ml 03/20/24 08:26 03/23/24 04:37 Ipratropium 0.5 Mg/Albuterol Sulfate 2.5 Mg Ampul.Neb 3 Ml INHALATION 3 ml Q6HRT PRN Administration Wheezing Aspirin 81 mg 03/20/24 09:00 03/24/24 09:15 Aspirin 81 Mg Enteric Tablet PO 81 mg DAILY QI Administration Atorvastatin Calcium 40 mg 03/20/24 18:00 03/23/24 17:57 Atorvastatin 40 Mg Tablet PO 40 mg QPM QI Administration Dextrose 12.5 gm 03/19/24 20:39 Dextrose 50% 25 Gm/50 Ml Syringe IV PUSH PRN PRN Hypoglycemia Protocol Ezetimibe 10 mg 03/20/24 09:00 03/24/24 09:16 Ezetimibe 10 Mg Tablet PO 10 mg DAILY QI Administration Enoxaparin Sodium 40 mg 03/20/24 09:00 03/24/24 09:16 Enoxaparin 40 Mg/0.4 Ml Syringe SUB-Q 40 mg DAILY QI Administration Furosemide 40 mg 03/24/24 17:00 Furosemide Inj 40 Mg/4 Ml Vial IV PUSH BID QI Glucagon 1 mg 03/19/24 20:39 Glucagon For Inj 1 Mg Vial IM PRN PRN Hypoglycemia Protocol Glucose 15 gm 03/19/24 20:39 Glucose Oral Gel 15 Gm Of Glucse In 37.5 Gm Tube PO PRN PRN Hypoglycemia Protocol Guaifenesin 1,200 mg 03/23/24 21:00 03/24/24 09:15 Guaifenesin 12 Hr 600 Mg Tabcr PO 1,200 mg Q12HR QI Administration Dextrose 1,000 mls @ 100 mls/hr 03/19/24 20:39 Dextrose 5% 1,000 Ml IVPB PRN PRN Hypoglycemia Protocol Cefepime HCl 1 gm in 50 mls @ 100 mls/hr 03/23/24 09:00 03/24/24 09:46 Maxipime 1 Gm/Ns 50 Ml IVPB Infused Q12H QI Infusion Levofloxacin/Dextrose 750 mg in 150 mls @ 100 mls/hr 03/23/24 13:00 03/23/24 13:19 Levaquin 750 Mg/D5w 150 Ml IVPB 100 mls/hr Q48H QI Administration Insulin Aspart 2 - 5 units 03/20/24 08:00 03/24/24 08:15 Insulin Aspart (*Bkc) 100 Units/Ml SUB-Q Not Given TIDWM QI Protocol Insulin Aspart 1 - 2 units 03/19/24 21:00 03/23/24 21:16 Insulin Aspart (*Bkc) 100 Units/Ml SUB-Q Not Given HS QI Protocol Ipratropium [place] 0.5 mg 03/19/24 21:55 03/24/24 07:39 Ipratropium Br 0.02% Inh Soln 0.5 Mg/2.5 Ml Vial INHALATION 0.5 mg Q6HRT QI Administration Levalbuterol HCl 1.25 mg 03/19/24 21:55 03/24/24 07:39 Levalbuterol Neb 1.25 Mg/3 Ml INHALATION 1.25 mg Q6HRT QI Administration Lisinopril 5 mg 03/20/24 09:00 03/24/24 09:16 Lisinopril 5 Mg Tablet PO 5 mg DAILY QI Administration Metoprolol Succinate 25 mg 03/23/24 09:00 03/24/24 09:16 Metoprolol Succinate Ext Rel 25 Mg Tabcr PO 25 mg QAM QI Administration Multivitamins Therapeutic 1 tablet 03/20/24 09:00 03/24/24 09:16 Multivitamins Therapeutic Tab (*Bkc) PO 1 tablet DAILY QI Administration Pantoprazole Sodium 40 mg 03/19/24 21:00 03/24/24 09:16 Pantoprazole 40 Mg Tablet PO 40 mg Q12HR QI Administration Radiology Results: ITS Impressions Chest CT 03/19/24 14:53 IMPRESSION: Multifocal pneumonia. Moderate right and small left pleural effusions. Mediastinal lymphadenopathy. Esophagitis/gastritis. Chest CTA 03/22/24 21:46 IMPRESSION: No pulmonary embolus. No aortic dissection. Redemonstration of bilateral upper lobe infiltrates with a moderate right and small left sided pleural effusion. Additional findings which are sequelae of patient's known aortic stenosis, as detailed above. Cholelithiasis Chest X-Ray 03/23/24 06:23 Impression: Extensive areas of bilateral consolidation, consistent with bilateral pneumonia. Correlate for any possibility of neoplastic disease. Labs Labs: Laboratory Results - last 24 hr 03/19/24 03/23/24 03/23/24 21:41 04:47 16:23 WBC RBC Hgb Hct MCV MCH MCHC RDW Plt Count MPV Immature Gran % (Auto) Neut % (Auto) Lymph % (Auto) [place] % (Auto) Eos % (Auto) Baso % (Auto) Lymph # (Auto) [place] # (Auto) Eos # (Auto) Baso # (Auto) Abs Immat Gran (auto) Absolute Neuts (auto) Absolute Nucleated RBC Nucleated RBC % Sodium Potassium Chloride Carbon Dioxide Anion Gap BUN Creatinine Estim Creat Clear Calc Estimated GFR Glucose POC Capillary Glucose 99 Calcium NT-Pro-B Natriuret Pep 48327 H Nasal MRSA (PCR) Urine Pneumococcal Ag Not detected 03/23/24 03/23/24 03/24/24 16:35 20:53 06:19 WBC RBC Hgb Hct MCV MCH MCHC RDW Plt Count MPV Immature Gran % (Auto) Neut % (Auto) Lymph % (Auto) [place] % (Auto) Eos % (Auto) Baso % (Auto) Lymph # (Auto) [place] # (Auto) Eos # (Auto) Baso # (Auto) Abs Immat Gran (auto) Absolute Neuts (auto) Absolute Nucleated RBC Nucleated RBC % Sodium Potassium Chloride Carbon Dioxide Anion Gap BUN Creatinine Estim Creat Clear Calc Estimated GFR Glucose POC Capillary Glucose 127 H 98 Calcium NT-Pro-B Natriuret Pep Nasal MRSA (PCR) Not detected Urine Pneumococcal Ag 03/24/24 03/24/24 03/24/24 06:20 07:56 11:30 WBC 11.3 H RBC 3.61 L Hgb 10.4 L Hct 34.3 L MCV 95.0 MCH 28.8 MCHC 30.3 L RDW 14.1 Plt Count 238 MPV 11.5 H Immature Gran % (Auto) 0.4 Neut % (Auto) 75.8 H Lymph % (Auto) 11.4 L [place] % (Auto) 6.9 Eos % (Auto) 4.9 H Baso % (Auto) 0.6 Lymph # (Auto) 1.28 [place] # (Auto) 0.8 H Eos # (Auto) 0.6 H Baso # (Auto) 0.1 Abs Immat Gran (auto) 0.04 H Absolute Neuts (auto) 8.6 H Absolute Nucleated RBC 0.000 Nucleated RBC % 0.0 Sodium 140 Potassium 4.3 Chloride 103 Carbon Dioxide 32 H Anion Gap 5 BUN 21 H Creatinine 0.90 Estim Creat Clear Calc Not Reportable Estimated GFR > 60 Glucose 86 POC Capillary Glucose 109 H 109 H Calcium 8.6 NT-Pro-B Natriuret Pep Nasal MRSA (PCR) Urine Pneumococcal Ag
--- NOTE | 2024-03-24 14:44 | PCPTNOTE ---
On 03/24/24, the student, ANN MARIE Vail, provided care and completed [facility] documentation on this patient. I have reviewed the student's documentation and agree with the findings.
[2024-03-24] MEDS: ATORVASTATIN 40 MG TABLET PO (16:55)
[2024-03-24 17:00] LABS: Glucose Point of Care 145 mg/dl (65-105)
[2024-03-24 21:03] LABS: Glucose Point of Care 111 mg/dl (65-105)
[2024-03-25] VITALS (20 sets, daily range): BP systolic 96–106; BP diastolic 52–55; PULSE 80–100; RESP 14–22; TEMP 36.1–36.3; O2SAT 91–97
[2024-03-25] MEDS: LEVALBUTEROL NEB 1.25 MG/3 ML INHALATION ×4 (02:30→20:32)
[2024-03-25] MEDS: IPRATROPIUM BR 0.02% INH SOLN 0.5 MG/2.5 ML VIAL INHALATION ×4 (02:30→20:31)
[2024-03-25 08:23] LABS: Glucose Point of Care 94 mg/dl (65-105)
[2024-03-25 08:30] LABS: Anion Gap 7 mmol/L (4-12); Blood Urea Nitrogen 23 mg/dL (7-17); Calcium 8.8 mg/dL (8.4-10.2); Carbon Dioxide 29 mmol/L (22-30); Chloride 104 mmol/L (98-107); Estimated Glomerular Filt Rate 56; Glucose 89 mg/dL (65-110); Sodium 140 mmol/L (137-145)
[2024-03-25] MEDS: CEFEPIME 1 GM/NS 50 ML 1 GM/50 ML BAG IVPB ×2 (09:04→21:51)
[2024-03-25] MEDS: ENOXAPARIN 40 MG/0.4 ML SYRINGE SUB-Q (09:06)
[2024-03-25] MEDS: EZETIMIBE 10 MG TABLET PO (09:07)
[2024-03-25] MEDS: lisinopriL 5 MG TABLET PO (09:07)
[2024-03-25] MEDS: METOPROLOL SUCCINATE EXT REL 25 MG TABCR PO (09:07)
[2024-03-25] MEDS: ASPIRIN 81 MG ENTERIC TABLET PO (09:07)
[2024-03-25] MEDS: MULTIVITAMINS THERAPEUTIC TAB (*BKC) 1 TABLET PO (09:07)
[2024-03-25] MEDS: PANTOPRAZOLE 40 MG TABLET PO ×2 (09:07→21:51)
[2024-03-25] MEDS: guaiFENesin 12 HR 600 MG TABCR 1200 MG PO ×2 (09:07→21:51)
[2024-03-25 11:52] LABS: Glucose Point of Care 102 mg/dl (65-105)
--- NOTE | 2024-03-25 11:55 | PCPTNOTE ---
On 03/25/24, the student, ANN MARIE Vail, provided care and completed [facility] documentation on this patient. I have reviewed the student's documentation and agree with the findings.
--- NOTE | 2024-03-25 11:57 | PCPTNOTE ---
On 03/25/24, the student, ANN MARIE Vail, provided care and completed [facility] documentation on this patient. I have reviewed the student's documentation and agree with the findings.
[2024-03-25] MEDS: levoFLOXacin 750 MG/D5W 150 ML 750 MG/150 ML BAG 100 MG IVPB (12:19)
--- NOTE | 2024-03-25 13:32 | PCNWS ---
Weekly nutritional screen. Patient is tolerating current Heart healthy diet with adequate intake, 75-100% last 24 hours. Improving. No weight loss reported. No nutritional needs at this time.
--- NOTE | 2024-03-25 14:04 | P.PNIM_ITS ---
Progress Note: A&P Assessment and Plan (1) Severe sepsis: Code(s): A41.9 - Sepsis, unspecified organism; R65.20 - Severe sepsis without septic shock Status: Acute (2) Acute respiratory failure with hypoxia and hypercapnia: Code(s): J96.01 - Acute respiratory failure with hypoxia; J96.02 - Acute respiratory failure with hypercapnia Status: Acute (3) Multifocal pneumonia: Code(s): J18.9 - Pneumonia, unspecified organism Status: Acute (4) Hyperglycemia: Code(s): R73.9 - Hyperglycemia, unspecified Status: Acute (5) Elevated brain natriuretic peptide (BNP) level: Code(s): R79.89 - Other specified abnormal findings of blood chemistry Status: Acute Plan # Sepsis Suspecting from Pneumonia CXR reviewed Rocephin and Azithromycin Received IVF BC negative to date Blood pressure stable on the lower side Leukocytosis persists but improving # Pneumonia CXR showed multifocal pneumonia, no change on CXR continue above care CTA chest showed no pulmonary embolism, redemonstration of upper lobe infiltrate with moderate right and small left lobe pleural effusion Repeated chest x-ray yesterday showed extensive Emma are bilateral consultation consistent multifocal pneumonia, neoplastic changes? 2/ Changed Levaquin and cefepime IV per commissioning engineer recommendation. Appreciate p ulmonologist consultation # Acute hypoxemic respiratory failure Patient was on BiPAP Acute respiratory failure likely secondary to edema due to aortic stenosis and pneumonia On IV Lasix Improved down to room air Consult retail pos specialist and commissioning engineer for evaluation treatment # Suspecting fluid overloaded due to severe acute stenosis and severe heart failure Echocardiogram showed The left ventricular ejection fraction is visually estimated to be 30-35%. The aortic valve is probably trileaflet and heavily calcified. There is low-flow low gradient critical aortic stenosis. Continue Lasix 20 mg b.i.d. IV push Follow-up input output and kidney function Titrate based on patient's response Patient tolerate IV Lasix well Consult retail pos specialist and commissioning engineer for evaluation treatment Will switch to oral Lasix. IV Lasix is on hold due to low blood pressure Elevated troponin Likely demand Trend, ECHO completed Cardiology consulted Possible demand ischemia resulting from severe aortic stenosis Severe aortic stenosis [employer] Operator recommends out patient evaluation for TAVR DM2 A1c 6.5 SSI with accucheks, adjust with clinical course CVA continue home meds CAD continue home meds HLD Statin HTN titrate home meds with clinical course DVT prophylaxis on Sq Lovenox Subjective Date/time seen: 03/25/24 14:04 Interval history: No overnight events. She is feeling much better today. Minimal cough. Leg swelling has improved. She did work with therapy. Discussed with son at bedside. Review of Systems Review of Systems: All systems reviewed & are unremarkable except as noted in HPI and below Exam Narrative: GENERAL: Pleasant, in no acute distress. Well-nourished. - EYES: EOMI. Anicteric. - HENT: Moist mucous membranes. - LUNGS: Coarse breath sound bilateral base, no wheezing, rhonchi - CARDIOVASCULAR: Regular rate and rhyth m. No murmur. No JVD. - ABDOMEN: Soft, non-tender and non-dist ended. No palpable masses. - EXTREMITIES: No edema. Peripheral puls es 2+. Non-tender. - NEUROLOGIC: No focal neurological defi cits. CN II-XII grossly intact. - PSYCHIATRIC: Awake, Alert and oriented x 3. Appropriate mood and affect. - SKIN: No rashes or lesions. Warm. - LYMPH: No cervical lymphadenopathy. Objective Data Vital Signs Vital Signs: Vital Signs - 24 hr 03/24/24 14:21 03/24/24 14:50 03/24/24 16:00 Temperature Pulse Rate 96 Respiratory Rate Blood Pressure 100/78 Pulse Oximetry 96 Oxygen Delivery Room Air 03/24/24 20:00 03/24/24 20:00 03/24/24 21:27 Temperature 97.7 F Pulse Rate 88 87 Respiratory Rate 18 Blood Pressure 107/54 L Pulse Oximetry 96 96 Oxygen Delivery Room Air 03/25/24 00:00 03/25/24 02:30 03/25/24 02:30 Temperature Pulse Rate 80 88 Respiratory Rate 18 Blood Pressure Pulse Oximetry 94 Oxygen Delivery Room Air 03/25/24 02:45 03/25/24 04:00 03/25/24 06:00 Temperature 97.4 F L Pulse Rate 90 89 90 Respiratory Rate 18 18 Blood Pressure 105/55 L Pulse Oximetry 92 Oxygen Delivery 03/25/24 07:03 03/25/24 07:03 03/25/24 07:13 Temperature Pulse Rate 82 82 85 Respiratory Rate 18 18 18 Blood Pressure Pulse Oximetry 92 Oxygen Delivery Room Air 03/25/24 07:40 03/25/24 08:00 03/25/24 08:00 Temperature Pulse Rate 95 98 93 Respiratory Rate 14 Blood Pressure 96/52 L Pulse Oximetry 91 92 Oxygen Delivery Room Air 03/25/24 09:07 03/25/24 12:00 03/25/24 12:48 Temperature Pulse Rate 98 90 84 Respiratory Rate 18 Blood Pressure Pulse Oximetry Oxygen Delivery 03/25/24 12:58 Temperature Pulse Rate 86 Respiratory Rate 18 Blood Pressure Pulse Oximetry Oxygen Delivery Intake/Output Intake/Output: Intake & Output 03/22/24 03/23/24 03/24/24 03/25/24 23:59 23:59 23:59 23:59 Intake Total 1080 0909 337 2726 Output Total 3444 950 250 Balance 3585 -730 -189 950 Meds/Results Medications: Active Medications Generic Name Dose Route Start Last Admin Trade Name Freq PRN Reason Stop Dose Admin Acetaminophen 650 mg 03/19/24 15:30 03/23/24 20:42 Acetaminophen 325 Mg Tablet PO 650 mg Q4H PRN Administration Mild Pain (1-3) or Fever Albuterol/Ipratropium 3 ml 03/20/24 08:26 03/23/24 04:37 Ipratropium 0.5 Mg/Albuterol Sulfate 2.5 Mg Ampul.Neb 3 Ml INHALATION 3 ml Q6HRT PRN Administration Wheezing Aspirin 81 mg 03/20/24 09:00 03/25/24 09:07 Aspirin 81 Mg Enteric Tablet PO 81 mg DAILY QI Administration Atorvastatin Calcium 40 mg 03/20/24 18:00 03/24/24 16:55 Atorvastatin 40 Mg Tablet PO 40 mg QPM QI Administration Dextrose 12.5 gm 03/19/24 20:39 Dextrose 50% 25 Gm/50 Ml Syringe IV PUSH PRN PRN Hypoglycemia Protocol Ezetimibe 10 mg 03/20/24 09:00 03/25/24 09:07 Ezetimibe 10 Mg Tablet PO 10 mg DAILY QI Administration Enoxaparin Sodium 40 mg 03/20/24 09:00 03/25/24 09:06 Enoxaparin 40 Mg/0.4 Ml Syringe SUB-Q 40 mg DAILY QI Administration Furosemide 40 mg 03/24/24 17:00 03/25/24 08:09 Furosemide Inj 40 Mg/4 Ml Vial IV PUSH Not Given BID QI Glucagon 1 mg 03/19/24 20:39 Glucagon For Inj 1 Mg Vial IM PRN PRN Hypoglycemia Protocol Glucose 15 gm 03/19/24 20:39 Glucose Oral Gel 15 Gm Of Glucse In 37.5 Gm Tube PO PRN PRN Hypoglycemia Protocol Guaifenesin 1,200 mg 03/23/24 21:00 03/25/24 09:07 Guaifenesin 12 Hr 600 Mg Tabcr PO 1,200 mg Q12HR QI Administration Dextrose 1,000 mls @ 100 mls/hr 03/19/24 20:39 Dextrose 5% 1,000 Ml IVPB PRN PRN Hypoglycemia Protocol Cefepime HCl 1 gm in 50 mls @ 100 mls/hr 03/23/24 09:00 03/25/24 09:34 Maxipime 1 Gm/Ns 50 Ml IVPB Infused Q12H QI Infusion Levofloxacin/Dextrose 750 mg in 150 mls @ 100 mls/hr 03/23/24 13:00 03/25/24 12:19 Levaquin 750 Mg/D5w 150 Ml IVPB 100 mls/hr Q48H QI Administration Insulin Aspart 2 - 5 units 03/20/24 08:00 03/25/24 11:53 Insulin Aspart (*Bkc) 100 Units/Ml SUB-Q Not Given TIDWM [facility] Protocol Insulin Aspart 1 - 2 units 03/19/24 21:00 03/24/24 20:26 Insulin Aspart (*Bkc) 100 Units/Ml SUB-Q Not Given HS [facility] Protocol Ipratropium [place] 0.5 mg 03/19/24 21:55 03/25/24 12:48 Ipratropium Br 0.02% Inh Soln 0.5 Mg/2.5 Ml Vial INHALATION 0.5 mg Q6HRT QI Administration Levalbuterol HCl 1.25 mg 03/19/24 21:55 03/25/24 12:48 Levalbuterol Neb 1.25 Mg/3 Ml INHALATION 1.25 mg Q6HRT QI Administration Lisinopril 5 mg 03/20/24 09:00 03/25/24 09:07 Lisinopril 5 Mg Tablet PO 5 mg DAILY QI Administration Metoprolol Succinate 25 mg 03/23/24 09:00 03/25/24 09:07 Metoprolol Succinate Ext Rel 25 Mg Tabcr PO 25 mg QAM QI Administration Multivitamins Therapeutic 1 tablet 03/20/24 09:00 03/25/24 09:07 Multivitamins Therapeutic Tab (*Bkc) PO 1 tablet DAILY QI Administration Pantoprazole Sodium 40 mg 03/19/24 21:00 03/25/24 09:07 Pantoprazole 40 Mg Tablet PO 40 mg Q12HR QI Administration Radiology Results: ITS Impressions Chest CT 03/19/24 14:53 IMPRESSION: Multifocal pneumonia. Moderate right and small left pleural effusions. Mediastinal lymphadenopathy. Esophagitis/gastritis. Chest CTA 03/22/24 21:46 IMPRESSION: No pulmonary embolus. No aortic dissection. Redemonstration of bilateral upper lobe infiltrates with a moderate right and small left sided pleural effusion. Additional findings which are sequelae of patient's known aortic stenosis, as detailed above. Cholelithiasis Chest X-Ray 03/23/24 06:23 Impression: Extensive areas of bilateral consolidation, consistent with bilateral pneumonia. Correlate for any possibility of neoplastic disease. Labs Labs: Laboratory Results - last 24 hr 03/24/24 03/24/24 03/25/24 16:54 19:59 07:29 Sodium 140 Potassium 4.0 Chloride 104 Carbon Dioxide 29 Anion Gap 7 BUN 23 H Creatinine 0.96 Estim Creat Clear Calc Not Reportable Estimated GFR 56 L Glucose 89 POC Capillary Glucose 145 H 111 H Calcium 8.8 03/25/24 03/25/24 08:17 11:46 Sodium Potassium Chloride Carbon Dioxide Anion Gap BUN Creatinine Estim Creat Clear Calc Estimated GFR Glucose POC Capillary Glucose 94 102 Calcium
[2024-03-25 16:55] LABS: Glucose Point of Care 99 mg/dl (65-105)
[2024-03-25] MEDS: ATORVASTATIN 40 MG TABLET PO (17:04)
[2024-03-25 20:44] LABS: Glucose Point of Care 96 mg/dl (65-105)
[2024-03-26] VITALS (11 sets, daily range): BP systolic 103; BP diastolic 60; PULSE 74–108; RESP 16–18; TEMP 36.2; O2SAT 92–99
[2024-03-26 06:52] LABS: Basophils Absolute Auto 0.1 K/mm3 (0.0-0.1); Basophils Percent Auto 0.6 % (0.2-1.2); Eosinophils Absolute Auto 0.4 K/mm3 (0-0.3); Eosinophils Percent Auto 4.8 % (0-4.4); Hematocrit 32.8 % (37.0-47.0); Hemoglobin 10.1 g/dL (12.0-15.0); Immature Granulocyte Absolute 0.05 K/mm3 (0.00-0.031); Immature Granulocyte Percent A 0.6 % (0-0.5); Lymphocytes Absolute Auto 0.82 K/mm3 (0.9-3.2); Lymphocytes Percent Auto 9.7 % (18.3-44.2); Mean Corpuscular HGB Conc 30.8 g/dl (32-36); Mean Corpuscular Hemoglobin 29.1 pg (26-34); Mean Corpuscular Volume 94.5 fl (80-100); Mean Platelet Volume 11.9 fl (7.4-10.4); Monocytes Absolute Auto 0.6 K/mm3 (0.1-0.6); Monocytes Percent Auto 6.8 % (2.6-8.5); Neutrophils Absolute Auto 6.5 K/mm3 (1.3-6.7); Neutrophils Percent Auto 77.5 % (45.5-73.1); Platelet Count Result 178 k/mm3 (150-375); Red Blood Count 3.47 M/mm3 (4.2-5.4); Red Cell Distribution Width 14.5 % (11.5-14.5); White Blood Count 8.4 K/mm3 (4.5-10.0)
[2024-03-26 06:59] LABS: Alanine Aminotransferase 20 U/L (6-35); Albumin Level 2.8 g/dL (3.5-5.1); Alkaline Phosphatase 58 U/L (38-126); Anion Gap 8 mmol/L (4-12); Aspartate Amino Transferase 27 U/L (14-36); Bilirubin,Total 0.7 mg/dL (0.2-1.3); Blood Urea Nitrogen 23 mg/dL (7-17); Calcium 8.4 mg/dL (8.4-10.2); Carbon Dioxide 26 mmol/L (22-30); Chloride 103 mmol/L (98-107); Estimated Glomerular Filt Rate 52; Glucose 90 mg/dL (65-110); Potassium 4.3 mmol/L (3.4-5.0); Sodium 137 mmol/L (137-145)
[2024-03-26] MEDS: LEVALBUTEROL NEB 1.25 MG/3 ML INHALATION ×2 (07:23→13:21)
[2024-03-26] MEDS: IPRATROPIUM BR 0.02% INH SOLN 0.5 MG/2.5 ML VIAL INHALATION ×2 (07:24→13:21)
[2024-03-26 08:09] LABS: Glucose Point of Care 95 mg/dl (65-105)
[2024-03-26] MEDS: MULTIVITAMINS THERAPEUTIC TAB (*BKC) 1 TABLET PO (10:09)
[2024-03-26] MEDS: METOPROLOL SUCCINATE EXT REL 25 MG TABCR PO (10:09)
[2024-03-26] MEDS: PANTOPRAZOLE 40 MG TABLET PO (10:09)
[2024-03-26] MEDS: guaiFENesin 12 HR 600 MG TABCR 1200 MG PO (10:09)
[2024-03-26] MEDS: ASPIRIN 81 MG ENTERIC TABLET PO (10:10)
[2024-03-26] MEDS: EZETIMIBE 10 MG TABLET PO (10:10)
[2024-03-26] MEDS: FUROSEMIDE 20 MG TABLET PO (10:10)
[2024-03-26] MEDS: lisinopriL 5 MG TABLET PO (10:10)
[2024-03-26] MEDS: CEFEPIME 1 GM/NS 50 ML 1 GM/50 ML BAG IVPB (10:10)
[2024-03-26] MEDS: ENOXAPARIN 40 MG/0.4 ML SYRINGE SUB-Q (10:10)
--- NOTE | 2024-03-26 11:31 | P.DS_ITS ---
DS: Admitting Diagnosis Discharge Date 03/26/2024 Admitting Diagnosis Shortness of breath DS: Discharge Diagnosis Discharge Diagnosis (1) Severe sepsis: Code(s): A41.9 - Sepsis, unspecified organism; R65.20 - Severe sepsis without septic shock Status: Acute (2) Acute respiratory failure with hypoxia and hypercapnia: Code(s): J96.01 - Acute respiratory failure with hypoxia; J96.02 - Acute respiratory failure with hypercapnia Status: Acute (3) Multifocal pneumonia: Code(s): J18.9 - Pneumonia, unspecified organism Status: Acute (4) Hyperglycemia: Code(s): R73.9 - Hyperglycemia, unspecified Status: Acute (5) Elevated brain natriuretic peptide (BNP) level: Code(s): R79.89 - Other specified abnormal findings of blood chemistry Status: Acute DS: Summary Hospital Course Hospital Course: # Sepsis Suspecting from Pneumonia CXR reviewed Rocephin and Azithromycin Received IVF BC negative to date Blood pressure stable on the lower side Leukocytosis resolved # Pneumonia CXR showed multifocal pneumonia, no change on CXR continue above care CTA chest showed no pulmonary embolism, redemonstration of upper lobe infiltrate with moderate right and small left lobe pleural effusion Repeated chest x-ray yesterday showed extensive Emma are bilateral consultation consistent multifocal pneumonia, neoplastic changes? 2/ Changed Levaquin and cefepime IV per screw remover recommendation. Appreciate screw remover consultation Switched to oral antibiotics # Acute hypoxemic respiratory failure Patient was on BiPAP Acute respiratory failure likely secondary to edema due to aortic stenosis and pneumonia On IV Lasix Improved down to room air Consult sleeve setter lockstitch and screw remover for evaluation treatment evaluated for home oxygen evaluation at rest and activity and didnot require any. apnea link at night showed spO2 < 88 for 9 mins. oxygen 1l at night recommended, however patient refused to get oxgyen at night time and hence was not arranged. # Suspecting fluid overloaded due to severe acute stenosis and severe heart failure Echocardiogram showed The left ventricular ejection fraction is visually estimated to be 30-35%. The aortic valve is probably trileaflet and heavily calcified. There is low-flow low gradient critical aortic stenosis. Continue Lasix 20 mg b.i.d. IV push Follow-up input output and kidney function Titrate based on patient's response Patient tolerate IV Lasix well Consult sleeve setter lockstitch and screw remover for evaluation treatment Will switch to oral Lasix. IV Lasix is on hold due to low blood pressure. add lasix 20 mg daily at discahrge. fu with cardiology as o pbasis. 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 Well-nourished. - EYES: EOMI. Anicteric. - HENT: Moist mucous membranes. - LUNGS: Coarse breath sound bilateral base, no wheezing, rhonchi - CARDIOVASCULAR: Regular rate and rhyth m. No murmur. No JVD. - ABDOMEN: Soft, non-tender and non-dist ended. No palpable masses. - EXTREMITIES: No edema. Peripheral puls es 2+. Non-tender. - NEUROLOGIC: No focal neurological defi cits. CN II-XII grossly intact. - PSYCHIATRIC: Awake, Alert and oriented x 3. Appropriate mood and affect. - SKIN: No rashes or lesions. Warm. - LYMPH: No cervical lymphadenopathy. DS: Data Data Completed and Pending Labs on day of discharge: Labs from last 24 hours 03/26/24 03/26/24 03/25/24 07:35 05:55 20:09 WBC 8.4 RBC 3.47 L Hgb 10.1 L Hct 32.8 L MCV 94.5 MCH 29.1 MCHC 30.8 L RDW 14.5 Plt Count 178 MPV 11.9 H Immature Gran % (Auto) 0.6 H Neut % (Auto) 77.5 H Lymph % (Auto) 9.7 L [place] % (Auto) 6.8 Eos % (Auto) 4.8 H Baso % (Auto) 0.6 Lymph # (Auto) 0.82 L [place] # (Auto) 0.6 Eos # (Auto) 0.4 H Baso # (Auto) 0.1 Abs Immat Gran (auto) 0.05 H Absolute Neuts (auto) 6.5 Absolute Nucleated RBC 0.000 Nucleated RBC % 0.0 Sodium 137 Potassium 4.3 Chloride 103 Carbon Dioxide 26 Anion Gap 8 BUN 23 H Creatinine 1.03 H Estim Creat Clear Calc Not Reportable Estimated GFR 52 L Glucose 90 POC Capillary Glucose 95 96 Calcium 8.4 Magnesium 2.0 Total Bilirubin 0.7 AST 27 ALT 20 Alkaline Phosphatase 58 Total Protein 6.0 L Albumin 2.8 L 03/25/24 03/25/24 16:52 11:46 WBC RBC Hgb Hct MCV MCH MCHC RDW Plt Count MPV Immature Gran % (Auto) Neut % (Auto) Lymph % (Auto) [place] % (Auto) Eos % (Auto) Baso % (Auto) Lymph # (Auto) [place] # (Auto) Eos # (Auto) Baso # (Auto) Abs Immat Gran (auto) Absolute Neuts (auto) Absolute Nucleated RBC Nucleated RBC % Sodium Potassium Chloride Carbon Dioxide Anion Gap BUN Creatinine Estim Creat Clear Calc Estimated GFR Glucose POC Capillary Glucose 99 102 Calcium Magnesium Total Bilirubin AST ALT Alkaline Phosphatase Total Protein Albumin Imaging Radiologist's impression: ITS Impressions Chest X-Ray 03/19/24 12:38 IMPRESSION: 1. Diffuse lung disease, likely a combination of pneumonia and pulmonary edema. 2. Cardiomegaly. Chest CT 03/19/24 14:53 IMPRESSION: Multifocal pneumonia. Moderate right and small left pleural effusions. Mediastinal lymphadenopathy. Esophagitis/gastritis. Chest X-Ray 03/20/24 09:04 IMPRESSION: 1. No significant change in bilateral regions of pulmonary consolidation most prominent in the lateral mid lung zones consistent with multifocal pneumonia. Chest X-Ray 03/20/24 14:09 IMPRESSION: Radiographic evaluation is unchanged from previous study demonstrating bilateral upper lobe infiltrates and bilateral lower lobe pleural effusions. Chest X-Ray 03/21/24 13:40 IMPRESSION: Radiographic evaluation is unchanged from prior studies demonstrating bilateral upper lobe infiltrates and bilateral lower lobe pleural effusions. Chest CTA 03/22/24 21:46 IMPRESSION: No pulmonary embolus. No aortic dissection. Redemonstration of bilateral upper lobe infiltrates with a moderate right and small left sided pleural effusion. Additional findings which are sequelae of patient's known aortic stenosis, as detailed above. Cholelithiasis Chest X-Ray 03/23/24 06:23 Impression: Extensive areas of bilateral consolidation, consistent with bilateral pneumonia. Correlate for any possibility of neoplastic disease. Chest X-Ray 03/26/24 06:58 IMPRESSION: 1. Stable diffuse lung disease with an upper lobe predominance, consistent with pneumonia. 2. Stable small pleural effusions. 3. Cardiomegaly. Discharge Plan Discharge Attending physician on discharge: Demarco Valdes Consulting providers: Nancy Aguirre; Peng Tom Discharging Clinician: Demarco Valdes Anticipated Discharge Date/Time: 03/26/24 11:34 Patient Disposition: Home, Self-Care Activity: as tolerated Diet: heart healthy Discharge Instructions: oxygen at night Patient Instructions: Antibiotic Form, Pneumonia (DC) Patient Language: [place] Stand Alone Forms: General Discharge Information Follow-up/Referrals: Devon,Juan Allen MD [Primary Care Provider] - 1 Week Nancy Aguirre MD [Physician] - 2 Weeks Discharge Medications: New guaifenesin [Mucus Relief ER] 600 mg Tablet Extended Release 12hr 1,200 mg PO Q12HR Qty: 30 0RF cefdinir 300 mg capsule 300 mg PO Q12H Qty: 8 0RF metoprolol succinate [Toprol XL] 25 mg Tablet Extended Release 24 Hr 25 mg PO QAM Qty: 30 0RF furosemide 20 mg Tablet 20 mg PO DAILY Qty: 30 0RF levofloxacin 750 mg tablet 750 mg PO Q48H Qty: 3 0RF omeprazole 20 mg capsule,delayed release(DR/EC) 20 mg PO DAILY Qty: 30 0RF Continued atorvastatin 40 mg tablet 40 mg PO QPM lisinopril 5 mg tablet 5 mg PO DAILY ezetimibe 10 mg tablet 10 mg PO DAILY metoprolol tartrate 25 mg tablet 12.5 mg PO Q12H aspirin [Adult Low Dose Aspirin] 81 mg tablet,delayed release (DR/EC) 81 mg PO DAILY multivitamin [Daily Multi-Vitamin] Tablet 1 tablet PO DAILY ascorbic acid (vitamin C) [Vitamin C] 500 mg tablet 500 mg PO DAILY calcium carbonate 600 mg calcium (1,500 mg) tablet 600 mg PO DAILY Discontinued prednisone 20 mg tablet 40 mg PO DAILY 5 Days Qty: 10 0RF Other Ambulatory Orders: Basic Metabolic Panel (Routine) Timeframe: 1 Week Location: Determined by Patient Ordered By: Demarco Valdes XR chest 2V (Routine) Timeframe: 1 Month Location: Determined by Patient Ordered By: Demarco Valdes Date of admission: 03/19/24 15:30 Primary Care Provider: Rosina*Juan Admitting Provider: Rod Jordan Attending physician on admission: Rod Jordan Condition: Improved Hospitalist MIPS Heart Failure (Exclusion) Patient has history of Heart Transplant or Left Ventricular Assistive Device?: No IF YES, STOP HERE Heart Failure (Qualifier) Patient has current or prior documentation of LVEF less than or equal to 40%, or mod/servere depressed LVSF?: No IF NO, STOP HERE If Yes, Heart Failure (Qualifier) Patient was prescribed or already taking an Angiotensin-Converting Enzyme (LUZ ELENA) Inhibitor, or Antiotensin Receptor Mera (ARB): Yes Patient was prescribed or already taking bisoprolol, carvedilol, or sustained release metoprolol succinate: Yes
[2024-03-26 11:36] LABS: Glucose Point of Care 92 mg/dl (65-105)
--- NOTE | 2024-03-26 12:14 | HOMEO2EVAL ---
Evaluation was performed at [facility] Home Oxygen Evaluation RC: Home Oxygen (O2) Evaluation Start: 03/26/24 11:33 Freq: ONCE Status: Active Protocol: RPE Activity Type Activity Date Activity User E-sign Co-sign Detail Recorded Client Recorded Date Recorded By Document 03/26/24 11:55 CLC [email or web address] 03/26/24 12:13 CLC Document 03/26/24 12:13 CLC [email or web address] 03/26/24 12:13 CLC 03/26/24 03/26/24 11:55 12:13 Home O2 Evaluation [Oxygen] -Test Phase Resting Exercise -Oxygen Delivery Room Air Room Air [Pulse Oximetry] -Pulse Oximetry (90-100 %) 97 94 [Pulse Rate] -Pulse Rate (60-100 beats/min) 101 H 108 H [Evaluation] -Activity Tolerance Excellent [Exercise] -Ambulation Distance (feet) 200 -Ambulation Distance (meters) 60.95 [Charges] -Evaluation Charges O2 Evaluation by DANITA
--- NOTE | 2024-03-26 12:31 | PCRCNOTE ---
Patient denies the set up of nocturnal oxygen. MD aware. Home oxygen evaluation complete. Patient does not require any oxygen at rest or activity.
[2024-03-27 14:43] LABS: Adenovirus DNA Not Detected (Not Detected); Chlamydophila pneumoniae Not Detected (Not Detected); Coronavirus 229E Not Detected (Not Detected); Coronavirus HKU1 Not Detected (Not Detected); Coronavirus NL63 Not Detected (Not Detected); Coronavirus OC43 Not Detected (Not Detected); Human Metapneumovirus Not Detected (Not Detected); Human Parainfluenza Virus 1 Not Detected (Not Detected); Human Parainfluenza Virus 2 Not Detected (Not Detected); Human Parainfluenza Virus 3 Not Detected (Not Detected); Human Parainfluenza Virus 4 Not Detected (Not Detected); Human RSV B Not Detected (Not Detected); Influenza A Not Detected (Not Detected); Influenza B Not Detected (Not Detected); Mycoplasma pneumoniae Not Detected (Not Detected); Rhinovirus/Enterovirus Not Detected (Not Detected)
[2024-03-29 19:03] LABS: Mycoplasma IgM Antibody Titer 60 U/mL
== END 2024-03-26 14:20 | disposition home or self-care (01) | DRG 871 ==
LOC: ANHED 15:29 → ANHIMU 16:40 → ANH3MEDSUR 03-21 19:48
PROVIDERS: Emergency Medicine; Hospitalist; Internal Medicine; Internal Medicine Pulmonary Disease; Admitting Provider Internal Medicine; Emergency Provider Emergency Medicine; PCP Internal Medicine; Visit Provider Internal Medicine
DX: A41.9 Sepsis, unspecified organism (principal); J18.9 Pneumonia, unspecified organism; J96.02 Acute respiratory failure with hypercapnia; J96.01 Acute respiratory failure with hypoxia; I24.89 Other forms of acute ischemic heart disease; I42.9 Cardiomyopathy, unspecified; I11.0 Hypertensive heart disease with heart failure; I50.9 Heart failure, unspecified; I35.0 Nonrheumatic aortic (valve) stenosis; E78.5 Hyperlipidemia, unspecified; T38.0X5A Adverse effect of glucocorticoids and synthetic analogues, initial encounter; R73.9 Hyperglycemia, unspecified; I25.10 Atherosclerotic heart disease of native coronary artery without angina pectoris; Z95.1 Presence of aortocoronary bypass graft; Z86.73 Personal history of transient ischemic attack (TIA), and cerebral infarction without residual deficits
CPT/HCPCS: 36415; 36600; 71045; 71260; 71275; 80048; 80053; 82010; 82375; 82803; 82805; 82948; 83036; 83050; 83605; 83735; 83880; 84145; 84484; 85018; 85025; 85610; 85652; 85730; 86140; 86738; 87040; 87449; 87633; 87637; 87641; 87899; 93005; 94002; 94003; 94618; 94640; 94667; 94762; 96365; 96367; 96375; 97110; 97116; 97161; 97165; 99203; 99285; A9270; C8929; G0463; J0456; J0692; J0696; J1650; J1815; J1940; J1956; J3370; J7030; J7040; Q9957; Q9967

== ENCOUNTER 2024-04-06 12:59 | Outpatient (CLI) | payer MEDICARE, SELFPAY ==
--- NOTE | ~2024-04-06 | XR_ITS ---
XR chest 2V 04/06/2024 13:14 Indication: Pneumonia Procedure: 2 view chest Comparison: 03/26/2024 Findings: Significant improvement of bilateral airspace disease, most confluent in the upper lobes, c onsistent with residual pneumonia. Small pleural effusions. No pneumothorax. Borderline heart size. S tatus post median sternotomy. There is extensive mitral annular calcification. Impression: 1: Bilateral airspace consolidation primarily involving the upper lungs, improved compared with prior examination. Findings compatible with pneumonia, although underlying mass is not excluded. Reviewed, dictated and finalized at location [facility] Impression: 1: Bilateral airspace consolidation primarily involving the upper lungs, improv ed compared with prior examination. Findings compatible with pneumonia, althoug h underlying mass is not excluded.
--- OUTSIDE RECORDS SUMMARY | 2024-04-06 13:08 | XMS_ITS | Data Portability ---
Author Organization [facility], Main Office Address [address] [place] [address] Care Team Providers Care Lab Head Name Role Phone ORAL OSORIO Primary Care Provider Assessment No assessment recorded. Plan of Treatment Reminders Order Date Submit Date Provider Last Modified By Organization Details Last Modified Time Details Appointments None recorded. Lab vitamin D, 25-hydrox y, total, serum 023 023 [id number] [facility] DEBRA, [address], [place], [address], 4 10:08:08 CBC w/ auto diff 023 023 [id number] [facility] Aishwarya RICHARDSON, [address], [place], [address], 4 10:08:07 CMP, serum or plasma 023 023 [id number] [facility] Aishwarya RICHARDSON, [address], [place], [address], 4 10:08:07 lipid panel, serum 023 023 [email or web address] [facility] Missy Dominguez, [place], [address], 4 10:08:07 TSH, serum or plasma 023 023 [email or web address] [facility] Missy RICHARDSON, [place], [address], 4 10:08:07 T4, free, serum 023 023 [email or web address] [facility], [address], [place], [address], 4 10:08:07 Referral None recorded. Procedures None recorded. Surgeries None recorded. Imaging None recorded. Medication Orders None recorded. Patient TargetsNo targets recorded. Patient Instructions Encounter Date Encounter Id Patient Instructions Last Modified By Organization Details Last Modified Time 10/01/2022 [id number] Follow-up sullivan ry artery disease -hypertension-hyper lipidemia -aortic stenosis all clinically stable. Overall is doing well. Will continue on current Rx follow-up in four months. Will likely need a repeat echocardiogram is close to having a need to have aortic valve replacement. [email or web address] Not available 10/01/2022 15:32:28 02/04/2023 [id number] dementia rating scale-2* [email or web address] Not available 02/04/2023 11:25:41 alcohol misuse* [email or web address] Not available 02/04/2023 11:25:41 depression screening* [email or web address] Not available 02/04/2023 11:25:41 multi-dimensiona l health assessment questionnaire* [email or web address] Not available 02/04/2023 11:25:41 Personalized [facility] lt Plan and Screening Recommendations Advance Directives - Do you have one? Yes Advance Directives - Do we have your advance directive on file in your health record? No, please bring in a copy at your earliest convenience Primary Prevention/Interven tion (prevents or decreases the chance of common diseases from occurring) Smoking Risk: Non Smoker Alcohol Misuse Screening: Negative Weight: Appropriate Physical activity: Need more exercise/physical activity Nutrition: Good Average Fall Risk (screened today): [...] Ordered Recommended today Cervical/Uterine/Ov sofia Cancer Screening: No screening necessary Osteoporosis Screening: Your next DEXA in: Ordered Recomme nded today Date Screening Last Performed: Colon Cancer Screening: Colonoscopy Fecal Occult Blood Cologuard (DNA stool test) In: Ordered Recomme nded Date Screening Last Performed: __2018___ Eye Disease Screening: Dementia Risk: Low I have no recommendations Depression Screening: Negative [email or web address] Not available 02/04/2023 11:17:01 Adult health examination [...] with voice recognition software. Occasional wrong-word or nfzex-t-[id number] substitutions may have occurred due to the inherent limitations of voice recognition software. Read the chart carefully and recognize, using context, where substitutions have occurred. Mammogram Cologuard Bone density scan [email or web address] Not available 02/04/2023 11:25:14 06/10/2023 [id number] Coronary artery disease, hypertension, aortic stenosis and [...] with voice recognition software. Occasional wrong-word or jmpdu-x-[id number] substitutions may have occurred due to the inherent limitations of voice recognition software. Read the chart carefully and recognize, using context, where substitutions have occurred. [email or web address] Not available 06/10/2023 11:20:57 03/30/2024 [id number] Resolving pneumonia, coronary artery disease, hypertension, hyperlipidemia aortic valve stenosis. Echocardiogram performed at [facility] showed a decrease ejection fraction of 30-35% which will need to be followed up on. Now seems to be doing well. Will get a chest x-ray will set up with Dr. Lopez for follow-up. Proceed with further evaluation pending those results. Will follow-up in two months Additional Orders - Directives - Recommendations 1. Chest x-ray for follow-up on a pneumonia that she had up [facility] do that locally 2. When her appointment with Dr. Lopez is this month if not this month needs to be seen before the end of the month. 3. Send my note with attached studies. Follow Up: 2 Months Approximate Date: 05/29/2024 Portions of record are template driven. When necessary additional context will be provided. Additionally some portions have been created with voice recognition software. Occasional wrong-word or vxepu-x-wujs substitutions may have occurred due to the inherent limitations of voice recognition software. Read the chart carefully and recognize, using context, where substitutions may have occurred. Created: Oral Osorio M.D. 03.30.2024 03:43 PM [email or web address] Not available 03/30/2024 16:43:12 Reason for Referral None Reported. Results Created Date Observation Date Name Description Value Unit Range Abnormal Flag Note LastModifiedBy Organization Detail LastModifiedTime 06/10/1906/09/2022 LIPID PANEL , STAND NABEEL cholesterol, total 118 mg/dL <200 normal Not Available [facility] [id number] [place] [address], [address], 06/09/2022 23:32:18 06/10/19 23 06/09/2022 LIPID PANEL , STAND NABEEL HDL cholesterol 46 mg/dL > or = 50 low Not Available [facility] [address] [place], [address], 06/09/2022 23:32:18 06/10/19 23 06/09/2022 LIPID PANEL , STAND NABEEL triglyceride s 75 mg/dL <150 normal Not Available [facility] [id number] [place] [address] [place], [address], 06/09/2022 23:32:18 06/10/19 23 06/09/2022 LIPID PANEL [...] lated using the Evon n-Hop kins calcu latmargarita n, which is a valid ated novel metho d provi ding sandra r accur acy than the Fried isha equat ion in the estim ation of LDL-C . Evon law SS et al. LIEN. 2013; 310(1 9): 2061- 2068 (http ://ed ucati on.[employer]omsons [employer] Benefits. ADR Software/f aq/FA Q164) Not Available [facility] [address] [address] [place], [address], 06/09/2022 23:32:18 06/10/19 23 06/09/2022 LIPID PANEL , STAND NABEEL chol/HDLC ratio 2.6 (calc ) <5.0 normal Not Available [facility] [address] [address] [place], [address], 06/09/2022 23:32:18 06/10/19 23 06/09/2022 LIPID PANEL , STAND NABEEL non HDL cholesterol 72 mg/dL _(jacquie c) <130 normal For patie nts with diabe neyda plus 1 major ASCVD risk facto r, treat ing to a non-H DL-C goal of <100 mg/dL (LDL- C of <70 mg/dL ) is mahsa mora c optio n. Not Available [facility] [address] [address] [place], [address], 06/09/2022 23:32:18 06/10/19 23 06/09/2022 COMPR EHENS OSORIO METAB OLIC PANEL glucose 99 mg/dL 65-99 normal Fasti ng refer ence inter jing Not Available [address] [address] [place], [address], 06/09/2022 23:32:18 06/10/19 23 06/09/2022 COMPR EHENS OSORIO METAB OLIC PANEL urea nitrogen (BUN) 23 mg/dL 7-25 normal Not Available [address], [address], 06/09/2022 23:32:18 06/10/19 23 06/09/2022 COMPR EHENS OSORIO METAB OLIC PANEL creatinine 0.89 mg/dL 0.60-1 .00 normal Not Available [address] [address] [place], [address], 06/09/2022 23:32:18 06/10/19 23 06/09/2022 COMPR EHENS OSORIO METAB OLIC PANEL eGFR 68 mL/mi n/1.7 3m2 > or = 60 normal The eGFR is based on the CKD-E PI 2020 equat ion. To calcu late the new eGFR from a previ ous Creat inine or Cysta jennifer Boone resul t, go to https ://donny skaggs.narda watson/rica thomas s/ kdoqi /gfr% 5Fcal culat or Not Available [address] [address] [place], [address], 06/09/2022 23:32:18 06/10/19 23 06/09/2022 COMPR EHENS OSORIO METAB OLIC PANEL BUN/creatini ne ratio NOT APPLIC ABLE (calc ) 6-22 Not Available [address] [address] [place], [address], 06/09/2022 23:32:18 06/10/19 23 06/09/2022 COMPR EHENS OSORIO METAB OLIC PANEL sodium 141 mmol/ L 135-14 6 normal Not Available [address] [address] [place], [address], 06/09/2022 23:32:18 06/10/19 23 06/09/2022 COMPR EHENS OSORIO METAB OLIC PANEL potassium 4.5 mmol/ L 3.5-5. 3 normal Not Available [address], [address], 06/09/2022 23:32:18 06/10/19 23 06/09/2022 COMPR EHENS OSORIO METAB OLIC PANEL chloride 107 mmol/ L 98-110 normal Not Available [address], [address], 06/09/2022 23:32:18 06/10/19 23 06/09/2022 COMPR EHENS OSORIO METAB OLIC PANEL carbon dioxide 27 mmol/ L 20-32 normal Not Available [address], [address], 06/09/2022 23:32:18 06/10/19 23 06/09/2022 COMPR EHENS OSORIO METAB OLIC PANEL calcium 8.9 mg/dL 8.6-10 .4 normal Not Available [address], [address], 06/09/2022 23:32:18 06/10/19 23 06/09/2022 COMPR EHENS OSORIO METAB OLIC PANEL protein, total 6.5 g/dL 6.1-8. 1 normal Not Available [address], [address], 06/09/2022 23:32:18 06/10/19 23 06/09/2022 COMPR EHENS OSORIO METAB OLIC PANEL albumin 4.0 g/dL 3.6-5. 1 normal Not Available [address], [address], 06/09/2022 23:32:18 06/10/19 23 06/09/2022 COMPR EHENS OSORIO METAB OLIC PANEL globulin 2.5 g/dL_ (calc ) 1.9-3. 7 normal Not Available [address], [address], 06/09/2022 23:32:18 06/10/19 23 06/09/2022 COMPR EHENS OSORIO METAB OLIC PANEL albumin/glob ulin ratio 1.6 (calc ) 1.0-2. 5 normal Not Available [address], [address], 06/09/2022 23:32:18 06/10/19 23 06/09/2022 COMPR EHENS OSORIO METAB OLIC PANEL bilirubin, total 0.4 mg/dL 0.2-1. 2 normal Not Available [address], [address], 06/09/2022 23:32:18 06/10/19 23 06/09/2022 COMPR EHENS OSORIO METAB OLIC PANEL alkaline phosphatase 62 U/L 37-153 normal Not Available [address], [address], 06/09/2022 23:32:18 06/10/19 23 06/09/2022 COMPR EHENS OSORIO METAB OLIC PANEL AST 17 U/L 10-35 normal Not Available [address], [address], 06/09/2022 23:32:18 06/10/19 23 06/09/2022 COMPR EHENS OSORIO METAB OLIC PANEL ALT 16 U/L 6-29 normal Not Available [address], [address], 06/09/2022 23:32:18 06/10/19 23 06/09/2022 CBC (INCL UDES DIFF/ PLT) white blood cell count 8.6 thous and/u L 3.8-10 .8 normal Not Available [address], [address], 06/09/2022 23:32:20 06/10/19 23 06/09/2022 CBC (INCL UDES DIFF/ PLT) red blood cell count 4.72 josh on/uL 3.80-5 .10 normal Not Available [address], [address], 06/09/2022 23:32:20 06/10/19 23 06/09/2022 CBC (INCL UDES DIFF/ PLT) hemoglobin 14.0 g/dL 11.7-1 5.5 normal Not Available [address], [address], 06/09/2022 23:32:20 06/10/19 23 06/09/2022 CBC (INCL UDES DIFF/ PLT) hematocrit 42.4 % 35.0-4 5.0 normal Not Available [address], [address], 06/09/2022 23:32:20 06/10/19 23 06/09/2022 CBC (INCL UDES DIFF/ PLT) MCV 89.8 fL 80.0-1 00.0 normal Not Available [address], [address], 06/09/2022 23:32:20 06/10/19 23 06/09/2022 CBC (INCL UDES DIFF/ PLT) MCH 29.7 pg 27.0-3 3.0 normal Not Available [address], [address], 06/09/2022 23:32:20 06/10/19 23 06/09/2022 CBC (INCL UDES DIFF/ PLT) MCHC 33.0 g/dL 32.0-3 6.0 normal Not Available [address], [address], 06/09/2022 23:32:20 06/10/19 23 06/09/2022 CBC (INCL UDES DIFF/ PLT) RDW 12.6 % 11.0-1 5.0 normal Not Available [address], [address], 06/09/2022 23:32:20 06/10/19 23 06/09/2022 CBC (INCL UDES DIFF/ PLT) platelet count 158 thous and/u L 140-40 0 normal Not Available [address], [address], 06/09/2022 23:32:20 06/10/19 23 06/09/2022 CBC (INCL UDES DIFF/ PLT) MPV 12.6 fL 7.5-12 .5 high Not Available [address], [address], 06/09/2022 23:32:20 06/10/19 23 06/09/2022 CBC (INCL UDES DIFF/ PLT) absolute neutrophils 6003 cells /uL 1500-7 800 normal Not Available [address], [address], 06/09/2022 23:32:20 06/10/19 23 06/09/2022 CBC (INCL UDES DIFF/ PLT) absolute lymphocytes 1591 cells /uL 850-39 00 normal Not Available [address], [address], 06/09/2022 23:32:20 06/10/19 23 06/09/2022 CBC (INCL UDES DIFF/ PLT) absolute monocytes 628 cells /uL 200-95 0 normal Not Available [address], [address], 06/09/2022 23:32:20 06/10/19 23 06/09/2022 CBC (INCL UDES DIFF/ PLT) absolute eosinophils 318 cells /uL 15-500 normal Not Available [address], [address], 06/09/2022 23:32:20 06/10/19 23 06/09/2022 CBC (INCL UDES DIFF/ PLT) absolute basophils 60 cells /uL 0-200 normal Not Available [address], [address], 06/09/2022 23:32:20 06/10/19 23 06/09/2022 CBC (INCL UDES DIFF/ PLT) neutrophils 69.8 % normal Not Available [address], [address], 06/09/2022 23:32:20 06/10/19 23 06/09/2022 CBC (INCL UDES DIFF/ PLT) lymphocytes 18.5 % normal Not Available [address], [address], 06/09/2022 23:32:20 06/10/19 23 06/09/2022 CBC (INCL UDES DIFF/ PLT) monocytes 7.3 % normal Not Available [address], [address], 06/09/2022 23:32:20 06/10/19 23 06/09/2022 CBC (INCL UDES DIFF/ PLT) eosinophils 3.7 % normal Not Available [address], [address], 06/09/2022 23:32:20 06/10/19 23 06/09/2022 CBC (INCL UDES DIFF/ PLT) basophils 0.7 % normal Not Available [address], [address], 06/09/2022 23:32:20 03/10/19 24 03/10/2023 COLOG UARD cologuard result reportable NEGATI VE negati ve normal NEGAT OSORIO TEST RESUL T. A negat osorio Colog uard resul t indic ates a low likel ihood that a color ectal cance r (CRC) or advan marc adeno ma (yadira omato us polyp s with more advan marc pre-m align ant featu res) is prese nt. The [facility] e that a perso n with a negat osorio Colog uard test has a color ectal cance r is less than 1 in 1500 (nega tive predi ctive value >99.9 %) or has an advan marc adeno ma is less than 5.3% (nega tive predi ctive value 94.7% ). These data are based on a prosp ectiv e cross -sect ional study of ,00 0 indiv idual s at [place] risk for color ectal cance r who were scree luciana with both Colog uard and colon oscop y. (Deepthi Allen et al, N Engl J Med 2014; 370(1 4):12 86-12 97) The servando l value (refe rence range ) for this assay is negat osorio. COLOG UARD RE-SC REERAIZA PANIAGUA RECOM MENDA TION: Perio dic color ectal cance r scree madhu is an impor tant part of preve ntive healt hcare for asymp tomat ic indiv idual s at [place] ge risk for color ectal cance r. Follo wing a negat osorio Colog uard resul t, the Ameri can Cance r Socie ty and U.S. Multi -Soci ety Task Force scree madhu guide lines recom mend a Colog uard re-sc ansley paniagua inter jing of 3 years . Refer ences : Ameri can Cance r Socie ty Guide line for Color ectal Cance r Scree madhu: https ://ww w.can cer.o rg/ca ncer/ colon -rect al-ca ncer/ detec tion- diagn osis- stagi ng/ac s-rec ommen datio ns.ht ml.; Amador CANTU, Gina TERRY, Kelvin MachadoK, Color ectal Cance r Scree madhu: Recom menda tions for Physi cians and Patie nts from the U.S. Multi -Soci ety Task Force on Color ectal Cance r Scree madhu , Brianna shoemaker rolog y 2017; 112:1 016-1 030. TEST DESCR IPTIO N: [place] site algor ithmi c chang sis of stool DNA-b lyle harp with hemog lobin immun oassa y. Quant itati ve value s of indiv idual bioma rkers are not repor table and are not assoc iated with indiv idual bioma rker resul t refer ence range s. Colog uard is inten ded for color ectal cance r scree madhu of adult s of eithe r sex, 45 years or older , who are at [facility] for color ectal cance r (CRC) . Colog uard has been appro noe for use by the U.S. FDA. The perfo rmanc e of Colog uard was estab lishe d in a cross secti onal study of [facility] adult s aged 50-84 . Colog uard perfo rmanc e in patie nts ages 45 to 49 years was estim ated by sub-g roup chang sis of near- age group s. Colon oscop ies perfo rmed for a posit osorio resul t may find as the most clini mohamud signi armin whiteside lesio n: color ectal cance r [4.0% [...] cross -sect ional scree madhu study of ,00 0 indiv idual s at [facility] risk for color ectal cance r who were scree luciana with both Colog uard and colon oscop y. (Deepthi Peters al, N Engl J Med 2014; 370(1 [...] uard perfo rmanc e data in a 10,00 0 patie nt pivot al study using colon oscop y as the refer ence metho d can be acces sed at the follo wing locat ion: www.e xactl abs.c om/re sults . Addit ional descr iptio n of the Colog uard test proce ss, warni ngs and preca ution s can be found at www.c ologu nabeel.c om. Not Available [facility] (Cologuard Orders Only) [address], [place], [address], 03/20/2023 21:01:05 07/30/19 24 07/31/2023 LIPID PANEL , STAND NABEEL cholesterol, total 142 mg/dL <200 normal Not Available [facility] [address] [address] [place], [address], 07/31/2023 08:20:14 07/30/19 24 07/31/2023 LIPID PANEL , STAND NABEEL HDL cholesterol 54 mg/dL > or = 50 normal Not Available [facility] [address] [place], [address], 07/31/2023 08:20:14 07/30/19 24 07/31/2023 LIPID PANEL , STAND NABEEL triglyceride s 112 mg/dL <150 normal Not Available [facility] [address] [place], [address], 07/31/2023 08:20:14 07/30/19 24 07/31/2023 LIPID PANEL [...] 9): 2061- 2068 (http ://ed ucati on.[employer] est[employer]oms[employer] Benefits. com/f aq/FA Q164) Not Available [address] [address] [facility] [place], [address], 07/31/2023 08:20:14 07/30/19 24 07/31/2023 LIPID PANEL , STAND NABEEL chol/HDLC ratio 2.6 (calc ) <5.0 normal Not Available [address], [address], 07/31/2023 08:20:14 07/30/19 24 07/31/2023 LIPID PANEL , STAND NABEEL non HDL cholesterol 88 mg/dL _(jacquie c) <130 normal For patie nts with diabe neyda plus 1 major ASCVD risk facto r, treat ing to a non-H DL-C goal of <100 mg/dL (LDL- C of <70 mg/dL ) is consi bobd a ashisha morgan c optio n. Not Available [address] [address] [address] , [place], [address], 07/31/2023 08:20:14 07/30/19 24 07/31/2023 COMPR EHENS OSORIO METAB OLIC PANEL glucose 95 mg/dL 65-99 normal Fasti ng refer ence inter jing Not Available [address] [address] [place], [address], 07/31/2023 08:20:15 07/30/19 24 07/31/2023 COMPR EHENS OSORIO METAB OLIC PANEL urea nitrogen (BUN) 26 mg/dL 7-25 high Not Available [address], [address], 07/31/2023 08:20:15 07/30/19 24 07/31/2023 COMPR EHENS OSORIO METAB OLIC PANEL creatinine 1.04 mg/dL 0.60-1 .00 high Not Available [address], [address], 07/31/2023 08:20:15 07/30/19 24 07/31/2023 COMPR EHENS OSORIO METAB OLIC PANEL eGFR 56 mL/mi n/1.7 3m2 > or = 60 low Not Available [address], [address], 07/31/2023 08:20:15 07/30/19 24 07/31/2023 COMPR EHENS OSORIO METAB OLIC PANEL BUN/creatini ne ratio 25 (calc ) 6-22 high Not Available [address], [address], 07/31/2023 08:20:15 07/30/19 24 07/31/2023 COMPR EHENS OSORIO METAB OLIC PANEL sodium 140 mmol/ L 135-14 6 normal Not Available [address], [address], 07/31/2023 08:20:15 07/30/19 24 07/31/2023 COMPR EHENS OSORIO METAB OLIC PANEL potassium 5.1 mmol/ L 3.5-5. 3 normal Not Available [address], [address], 07/31/2023 08:20:15 07/30/19 24 07/31/2023 COMPR EHENS OSORIO METAB OLIC PANEL chloride 105 mmol/ L 98-110 normal Not Available [address], [address], 07/31/2023 08:20:15 07/30/19 24 07/31/2023 COMPR EHENS OSORIO METAB OLIC PANEL carbon dioxide 24 mmol/ L 20-32 normal Not Available [address], [address], 07/31/2023 08:20:15 07/30/19 24 07/31/2023 COMPR EHENS OSORIO METAB OLIC PANEL calcium 9.4 mg/dL 8.6-10 .4 normal Not Available [address], [address], 07/31/2023 08:20:15 07/30/19 24 07/31/2023 COMPR EHENS OSORIO METAB OLIC PANEL protein, total 7.6 g/dL 6.1-8. 1 normal Not Available [address], [address], 07/31/2023 08:20:15 07/30/19 24 07/31/2023 COMPR EHENS OSORIO METAB OLIC PANEL albumin 4.7 g/dL 3.6-5. 1 normal Not Available [address], [address], 07/31/2023 08:20:15 07/30/19 24 07/31/2023 COMPR EHENS OSORIO METAB OLIC PANEL globulin 2.9 g/dL_ (calc ) 1.9-3. 7 normal Not Available [address], [address], 07/31/2023 08:20:15 07/30/19 24 07/31/2023 COMPR EHENS OSORIO METAB OLIC PANEL albumin/glob ulin ratio 1.6 (calc ) 1.0-2. 5 normal Not Available [address], [address], 07/31/2023 08:20:15 07/30/19 24 07/31/2023 COMPR EHENS OSORIO METAB OLIC PANEL bilirubin, total 0.5 mg/dL 0.2-1. 2 normal Not Available [address], [address], 07/31/2023 08:20:15 07/30/19 24 07/31/2023 COMPR EHENS OSORIO METAB OLIC PANEL alkaline phosphatase 67 U/L 37-153 normal Not Available [facility] [employer] [address], [address], 07/31/2023 08:20:15 07/30/19 24 07/31/2023 COMPR EHENS OSORIO METAB OLIC PANEL AST 18 U/L 10-35 normal Not Available [address], [address], 07/31/2023 08:20:15 07/30/19 24 07/31/2023 COMPR EHENS OSORIO METAB OLIC PANEL ALT 14 U/L 6-29 normal Not Available [address], [address], 07/31/2023 08:20:15 07/30/19 24 07/31/2023 CBC (INCL UDES DIFF/ PLT) white blood cell count 11.1 thous and/u L 3.8-10 .8 high Not Available [facility] [address], [address], 07/31/2023 08:20:15 07/30/19 24 07/31/2023 CBC (INCL UDES DIFF/ PLT) red blood cell count 5.25 josh on/uL 3.80-5 .10 high Not Available [facility] [address], [address], 07/31/2023 08:20:15 07/30/19 24 07/31/2023 CBC (INCL UDES DIFF/ PLT) hemoglobin 15.7 g/dL 11.7-1 5.5 high Not Available [facility], [address], 07/31/2023 08:20:15 07/30/19 24 07/31/2023 CBC (INCL UDES DIFF/ PLT) hematocrit 49.1 % 35.0-4 5.0 high Not Available [address], [address], 07/31/2023 08:20:15 07/30/19 24 07/31/2023 CBC (INCL UDES DIFF/ PLT) MCV 93.5 fL 80.0-1 00.0 normal Not Available [address], [address], 07/31/2023 08:20:15 07/30/19 24 07/31/2023 CBC (INCL UDES DIFF/ PLT) MCH 29.9 pg 27.0-3 3.0 normal Not Available [address], [address], 07/31/2023 08:20:15 07/30/19 24 07/31/2023 CBC (INCL UDES DIFF/ PLT) MCHC 32.0 g/dL 32.0-3 6.0 normal Not Available [address], [address], 07/31/2023 08:20:15 07/30/19 24 07/31/2023 CBC (INCL UDES DIFF/ PLT) RDW 12.8 % 11.0-1 5.0 normal Not Available [facility] [address], [address], 07/31/2023 08:20:15 07/30/19 24 07/31/2023 CBC (INCL UDES DIFF/ PLT) platelet count 161 thous and/u L 140-40 0 normal Not Available [facility] [address], [address], 07/31/2023 08:20:15 07/30/19 24 07/31/2023 CBC (INCL UDES DIFF/ PLT) MPV 12.7 fL 7.5-12 .5 high Not Available [address], [address], 07/31/2023 08:20:15 07/30/19 24 07/31/2023 CBC (INCL UDES DIFF/ PLT) absolute neutrophils 8114 cells /uL 1500-7 800 high Not Available [address], [address], 07/31/2023 08:20:15 07/30/19 24 07/31/2023 CBC (INCL UDES DIFF/ PLT) absolute lymphocytes 1787 cells /uL 850-39 00 normal Not Available [address], [address], 07/31/2023 08:20:15 07/30/19 24 07/31/2023 CBC (INCL UDES DIFF/ PLT) absolute monocytes 788 cells /uL 200-95 0 normal Not Available [address], [address], 07/31/2023 08:20:15 07/30/19 24 07/31/2023 CBC (INCL UDES DIFF/ PLT) absolute eosinophils 344 cells /uL 15-500 normal Not Available [address], [address], 07/31/2023 08:20:15 07/30/19 24 07/31/2023 CBC (INCL UDES DIFF/ PLT) absolute basophils 67 cells /uL 0-200 normal Not Available [facility] [address], [address], 07/31/2023 08:20:15 07/30/19 24 07/31/2023 CBC (INCL UDES DIFF/ PLT) neutrophils 73.1 % normal Not Available [address], [address], 07/31/2023 08:20:15 07/30/19 24 07/31/2023 CBC (INCL UDES DIFF/ PLT) lymphocytes 16.1 % normal Not Available [address], [address], 07/31/2023 08:20:15 07/30/19 24 07/31/2023 CBC (INCL UDES DIFF/ PLT) monocytes 7.1 % normal Not Available [address], [address], 07/31/2023 08:20:15 07/30/19 24 07/31/2023 CBC (INCL UDES DIFF/ PLT) eosinophils 3.1 % normal Not Available [address], [address], 07/31/2023 08:20:15 07/30/19 24 07/31/2023 CBC (INCL UDES DIFF/ PLT) basophils 0.6 % normal Not Available [address], [address], 07/31/2023 08:20:15 07/30/19 24 07/31/2023 T4, FREE T4, free 1.0 NG/dL 0.8-1. 8 normal Not Available [address], [address], 07/31/2023 08:20:16 07/30/19 24 07/31/2023 TSH TSH 1.29 mIU/L 0.40-4 .50 normal Not Available [address], [address], 07/31/2023 08:20:16 03/04/19 24 03/04/2023 isadora mckeono, bilat [facility] [address] [place] [address] Florina whiteside Name: DEVORA OROURKE Access ion #: [id number] Sex: F : 1945 2 Locati on: RAD Attend ing Physic sharri: AMY OSORIO CE Orderi ng Physic sharri: AMY OSORIO CE Exam Date: 8:59 AM Exam Name: MG PEDROZA BREAST ARNAV BILAT Admitt ing Diagno sis(es ): MAMMOG CATARINA REPORT - FINAL EXAM: MG PEDROZA BREAST ARNAV BILAT HISTOR Y: SCREEN ING [...] som ectura l Page 1 of 2 [facility] Name: DEVORA OROURKE Access ion #: [id number] Sex: F : 1945 2 Exam Date: [...] ed prompt ly to the florina whiteside's [facility] er. A negati ve mammog [...] 9:27 AM (CT) Page 2 of [address] (Imaging) [address] [place], [address], 03/04/2023 10:30:14 03/04/19 24 03/04/2023 DEXA, axial skele ton [facility] [address] [place] [address] [phone] Florina whiteside Name: DEVORA OROURKE ion #: [id number] Sex: F : 1945 2 Dictat ed By: Fariha Navarro Attend ing Physic sharri: AMY OSORIO CE Orderi Physic sharri: AMY OSORIO CE Exam [...] ent. T-scor e: compar stephanie by floyd garcia ([place]) to a young adult popula tion, matche d for sex and ethnic ity (used for postme nopaus al women and men >50 years) and classi fied by WHO criter ia. ?-1.0: normal <-1.0 to >-2.5: osteop enia ?-2.5: osteop orosis Page 1 [facility] [address] [id number] Patien t Name: DEVORA OROURKE ion #: [id number] Sex: F : 1945 2 Dictat ed By: Fariha Navarro Attend ing Physic sharri: ROCIO SCHROEDER [facility] Physic sharri: AMY OSORIO Exam Date: 2023 [...] at 2023 10:08: 41 AM Page [address] (Imaging) [address] [place], [address], 03/04/2023 12:35:30 05/19/19 24 05/19/2023 US, carot id arter y No observ ation record ed. [address] [facility] [address], [place], [address], 05/19/2023 16:48:44 05/19/19 24 05/19/2023 US, echo ardio gram No observ ation record ed. [address] [facility] [address], [place], [address], 05/19/2023 17:18:59 03/19/19 25 03/19/2024 XR, chest No observ ation record ed. [address], [address], 03/19/2024 15:24:13 03/19/19 25 03/19/2024 CT, angio gram, chest , w/ contr ast No observ ation record ed. [address] [address], [place], [address], 03/20/2024 10:13:37 03/20/19 25 03/20/2024 XR, chest No observ ation record ed. [address] [address], [place], [address], 03/20/2024 10:19:24 03/20/19 25 03/20/2024 XR, chest , 1 view No observ ation record ed. [address] [address], [place], [address], 03/21/2024 06:46:59 03/21/19 25 03/21/2024 XR, chest , 1 view No observ ation record ed. [address], [address], 03/21/2024 16:51:57 03/21/19 25 03/21/2024 US, echoc ardio gram No observ ation record ed. [address] [facility] [address], [place], [address], 03/21/2024 17:12:01 03/22/19 25 03/22/2024 CT, angio gram, chest , w/ contr ast No observ ation record ed. [address] [facility] [address], [place], [address], 03/23/2024 06:43:48 03/23/19 25 03/23/2024 XR, chest No observ ation record ed. [address], [place], [address], 03/23/2024 09:03:17 03/26/19 25 03/26/2024 XR, chest + abdom en + pelvi s No observ ation record ed. [address] [facility] [address], [place], [address], 03/26/2024 15:25:14 Result Notes None recorded. Problems Name Problem SNOMED Code Status Onset Date Resolution Date Notes Provider Name and Address Organization Details Recorded Time Benign essential hypertension 5525205 Active Not Available [facility] 3 06:00:31 Cerebrovascul ar accident 739258055 Active Not Available [facility] 3 06:00:31 Pure hypercholeste rolemia 796704584 Active Not Available [facility] 3 06:00:31 Vitamin D deficiency 82359094 Active 2021 Not Available [facility] 3 06:00:31 Pain radiating to left shoulder 848895474 Active Not Available [facility] 3 06:00:31 Coronary arteriosclero sis 24345314 Active Not Available [facility] 3 06:00:31 Aortic valve stenosis 23505152 Active Not Available [facility] 3 06:00:32 Osteoporosis 74770403 Active 2020 Not Available [facility] 3 06:00:32 Urinary tract infectious disease 24786476 Active Not Available [facility] 3 06:00:32 Heart murmur 58299966 Active Not Available [facility] 3 06:00:32 Bilateral hearing loss 39793086 Active 2022 Irma Pineda null, [place] [facility] 3 15:38:34 Senile osteoporosis 24461954 Active 2022 Irma Pineda null[place] [facility] 3 11:34:23 Acute bronchitis 01705914 Active 2024 Oral Osorio MD [address], [place] [address], [place], [address] , [facility] 5 10:21:40 Fever 021534090 Active 2024 Ophelia Topete CMA null, [place] - [facility] 5 11:43:06 Pneumonia 480477414 Active 2024 Oral Osorio MD [address] [place] [address], [place], [address] , [facility] 5 16:36:20 Problem Notes None recorded. Procedures Surgical History Date Name Laterality Status Provider Name and Address Organization Details Recorded Time 3 Medicare Wellness CPT Code, subsequent completed Phuong Farris RN [employer] [facility] [employer] [facility] 02/04/2023 11:10:47 Imaging Results Imaging Date Name Status LastModified by Organization Details LastModified Time 03/04/2023 screening breast arnav, bilat completed [address] (Imaging) [address] [place], [address], 03/04/2023 10:30:14 03/04/2023 DEXA, axial skeleton completed [address] (Imaging) [address] [place], [address], 03/04/2023 12:35:30 05/19/2023 US, carotid artery [place] [address] [facility] [address], [place], [address], 05/19/2023 16:48:44 05/19/2023 US, echocardiogram [place] [address] [facility] [address], [place], [address], 05/19/2023 17:18:59 03/19/2024 XR, chest completed [address], [address], 03/19/2024 15:24:13 03/19/2024 CT, angiogram, chest, w/ contrast completed [address], [address], 03/20/2024 10:13:37 03/20/2024 XR, chest completed [address], [address], 03/20/2024 10:19:24 03/20/2024 XR, chest, 1 view completed [address] [address], [place], [address], 03/21/2024 06:46:59 03/21/2024 XR, chest, 1 view completed [address], [address], 03/21/2024 16:51:57 03/21/2024 US, echocardiogram completed [address], [address], 03/21/2024 17:12:01 03/22/2024 CT, angiogram, chest, w/ contrast completed [address], [address], 03/23/2024 06:43:48 03/23/2024 XR, chest completed [address], [place], [address], 03/23/2024 09:03:17 03/26/2024 XR, chest + abdomen + pelvis completed [address], [place], [address], 03/26/2024 15:25:14 Procedure Notes None recorded. Medical Equipment None Reported. Medications Name Sig Start Date Stop Date Status Note LastModified by Organization Details LastModified Time Pravachol 40 mg tablet Take 1 tablet every day by oral route at bedtime. 2012 active Not Available Not Available Not Avai lable amoxicilli n 500 mg capsule 500 MG ORALLY EVERY 8 HOURS 03/30 completed Not Available Not Available Not Available furosemide 40 mg tablet TAKE ONE TABLET BY MOUTH EVERY DAY 2024 active Not Available Not Available Not Avai lable atorvastat in 40 mg tablet TAKE 1 [...] completed Not Available Not Available Not Available azithromyc in 250 mg tablet TAKE 2 TABLETS BY MOUTH TODAY, THEN TAKE 1 TABLET DAILY FOR 4 DAYS DIRECTED 03/30 completed Not Available Not Available Not Available metoprolol tartrate 100 mg tablet Take 1 tablet every day by oral route. 2014 active Not Available Not Available Not Avai lable benzonatat e 200 mg capsule TAKE 1 CAPSULE BY MOUTH THREE TIMES A DAY 03/30 completed Not Available Not Available Not Available prednisone 20 mg tablet 40 MG (2 X 20 MG) ORALLY DAILY FOR 5 DAYS 03/30 completed Not Available Not Available Not Available alendronat e 70 mg tablet TAKE ONE TABLET BY MOUTH ONCE WEEKLY active Not Available Not Available No t Available metoprolol succinate ER 100 mg tablet,ext ended release 24 hr Take 1 tablet twice a day by oral route. active Not Available Not Available No t Available Zocor 10 mg tablet Take 1 tablet every day by oral route. active Not Available Not Available No t Available amlodipine 2.5 mg tablet Take 1 tablet every day by oral route. 2014 active Not Available Not Available Not Avai lable amoxicilli n 500 mg tablet TAKE 1 TABLET 3 TIMES A DAY UNTIL FINISHED 03/30 completed Not Available Not Available Not Available Lipitor 20 mg tablet Take 1 tablet [...] Not Available Not Available Not Avai lable Lasix 20 mg tablet Take 1 tablet every day by oral route. 2024 active Not [...] 3 times a day by oral route. 05/01 completed Not Available Not Available Not Available docusate sodium 100 mg capsule Take 1 capsule every day by oral route. 2014 active Not Available Not Available Not Avai lable omeprazole 20 mg capsule,de layed release TAKE 1 CAPSULE BY MOUTH EVERY DAY 2024 active Not Available Not Available Not Avai lable lisinopril 5 mg tablet TAKE 1 TABLET BY MOUTH EVERY DAY active Not Available Not Available No t Available metoprolol succinate ER 25 mg tablet,ext ended release 24 hr TAKE 1 TABLET BY MOUTH EVERY DAY EVERY MORNING 2024 active Not Available Not Available Not Avai lable levofloxac in 750 mg tablet TAKE 1 TABLET BY MOUTH EVERY 48 HOURS 03/30 completed Not Available Not Available Not Available Cipro 250 mg tablet Take 1 tablet every 12 hours by oral route for 5 days. 01/03 completed Not Available Not Available Not Available cefdinir 300 mg capsule TAKE 1 CAPSULE BY MOUTH EVERY DAY EVERY 12 HOURS 03/30 completed Not Available Not Available Not Available [...] 1/2 TABLET TWICE A DAY BY MOUTH 03/30 completed Not Available Not Available Not Available docusate sodium 100 mg 2014 active [...] 1 tablet every day by oral route. 03/30 completed Not Available Not Available Not Available guaifenesi n ER 600 mg tablet, extended release 12 hr TAKE 2 TABLETS BY MOUTH EVERY 12 HOURS active Not Available Not Available No t Available Vitals Date Recorded Body mass index (BMI) Body height Oxygen saturation Oxygen saturation in Arterial blood by Pulse oximetry Heart rate Body temperature Body weight Systolic blood pressure Diastolic blood pressure Provider Name and Address Organization Details Last Updated DateTime 3 26.2 kg/m2 143.51 cm 94 % 94 % 79 /min 97 [degF] 07143.4 9 g 122 mm[Hg] 78 mm[Hg] Not Available [facility] 3 05:56:10 Date Recorded Body height Body mass index (BMI) Body weight Heart rate Body temperature Heart rate Oxygen saturation Oxygen saturation in Arterial blood by Pulse oximetry Systolic blood pressure Diastolic blood pressure Provider Name and Address Organization Details Last Updated DateTime 3 144.78 cm 26.8 kg/m2 30565.4 5 g 98 /min 97 [degF] 98 /min 97 % 97 % 132 mm[Hg] 74 mm[Hg] Shu LESTER - [facility] 3 15:14:52 Date Recorded Body height Body mass index (BMI) Body weight Heart rate Body temperature Oxygen saturation Oxygen saturation in Arterial blood by Pulse oximetry Systolic blood pressure Diastolic blood pressure Provider Name and Address Organization Details Last Updated DateTime 3 144.78 cm 26.4 kg/m2 28623.2 7 g 78 /min 97 [degF] 97 % 97 % 124 mm[Hg] 68 mm[Hg] Shu Santiago [employer] [facility] 3 11:07:30 Date Recorded Pain severity - 0-10 verbal numeric rating [Score] - Reported Provider Name and Address Organization Details Last Updated DateTime 02/04/2023 0 Phuong Farris RN [facility] 02/04/2023 11:11:03 Date Recorded Body height Body mass index (BMI) Body weight Heart rate Body temperature Oxygen saturation Oxygen saturation in Arterial blood by Pulse oximetry Systolic blood pressure Diastolic blood pressure Provider Name and Address Organization Details Last Updated DateTime 4 143.51 cm 26.8 kg/m2 06524.4 7 g 85 /min 97 [degF] 92 % 92 % 132 mm[Hg] 80 mm[Hg] Shuchava Santiago [employer] [facility] 4 11:09:42 Date Recorded Body height Body mass index (BMI) Body weight Heart rate Body temperature Oxygen saturation Oxygen saturation in Arterial blood by Pulse oximetry Systolic blood pressure Diastolic blood pressure Provider Name and Address Organization Details Last Updated DateTime 5 142.24 cm 25.1 kg/m2 44246.3 5 g 70 /min 97 [degF] 97 % 97 % 122 mm[Hg] 68 mm[Hg] [facility] 5 16:27:12 Social History Question Answer Notes LastModified by Organization Details LastModified Time Tobacco Smoking Status Never Smoker Not Available [facility] 04/16/2022 05:53:09 Do You Have An Advance Directive? Yes [email or web address].[id number] Information not available 04/16/2022 What Is Your Level Of Alcohol Consumption? Occasional MIGRATION.300026 Information not available 04/16/2022 Are You Blind Or Do You Have Difficulty Seeing? No MIGRATION.300026 Information not available 04/16/2022 What Is Your Code Status? Other MIGRATION.300026 Information not available 04/16/2022 In The 14 Days Before Symptom Onset, Have You Had Close Contact With A Laboratory-nawafi guzmaned COVID-19 While That Case Was Ill? No MIGRATION.[id number] Information not available 04/16/2022 In The 14 Days Before Symptom Onset, Have You Had Close Contact With A Person Who Is Under Investigation For COVID-19 While That Person Was Ill? No MIGRATION.0301 [id number] Information not available 04/16/2022 Are You Deaf Or Do You Have Serious Difficulty Hearing? Yes Has Hearing Aids [email or web address] Information not available 02/04/2023 What Type Of Diet Are You Following? REGULAR MIGRATION.0301 [id number] Information not available 04/16/2022 Do You Or Have You Ever Used E-cigarettes Or Vape? Former User Of Electronic Cigarettes MIGRATION.0301 547854 Information not available 04/16/2022 Have There Been Any Changes To Your Family Or Social Situation? No MIGRATION.0301 255900 Information not available 04/16/2022 What Is The Fluoride Status Of Your Home? Fluoridated MIGRATION.0301 406984 Information not available 04/16/2022 Are There Any Guns Present In Your Home? No MIGRATION.0301 795208 Information not available 04/16/2022 Do You Use Insect Repellent Routinely? Yes MIGRATION.0301 918604 Information not available 04/16/2022 [facility] [place].0301 124486 Information not available 04/16/2022 Guns Present In The Home? No [email or web address] Information not available 02/04/2023 Are You Able To Care For Yourself? Yes [email or web address] Information not available 02/04/2023 Are You Blind Or Do Yo Have Difficulty Seeing? No [email or web address] Information not available 02/04/2023 Are You Deaf Or Do You Have Serious Difficulty Hearing? Yes [email or web address] Information not available 02/04/2023 Live Alone Of With Others? Alone [email or web address] Information not available 02/04/2023 Do You Have A Medical Power Of Continuous Process Tanner Rotary Drum? Yes MIGRATION.0301 [id number] Information not available 04/16/2022 What Was The Date Of Your Most Recent Tobacco Screening? 02/04/2023 [email or web address] Information not available 02/04/2023 Do You Have Any Pets? No MIGRATION.0301 947140 Information not available 04/16/2022 Do You Use Your Seat Belt Or Car Seat Routinely? Yes MIGRATION.0301 907003 Information not available 04/16/2022 Do You Have Smoke And Carbon Monoxide Detectors In Your Home? Yes MIGRATION.030 716315 Information not available 04/16/2022 Are You Passively Exposed To Smoke? No MIGRATION.030 116410 Information not available 04/16/2022 Are There Any Smokers In Your House? No MIGRATION.030 773517 Information not available 04/16/2022 Do You Feel Stressed (tense, Restless, Nervous, Or Anxious, Or Unable To Sleep At Night)? [id number] MIGRATION.030 431589 Information not available 04/16/2022 Do You Use Sunscreen Routinely? Yes MIGRATION.030 295788 Information not available 04/16/2022 Have You Recently Traveled Abroad? No MIGRATION.030 746215 Information not available 04/16/2022 Do You Have Any Dietary Restrictions? No MIGRATION.030 702027 Information not available 04/16/2022 Sex: Female Functional Status Question Answer Note LastModified by [employer] ion Details LastModified Time Do you have difficulty walking or climbing stairs? No MIGRATION.9269446 026 Information not available 04/16/2022 Do you have transportation difficulties? No MIGRATION.0876283 026 Information not available 04/16/2022 Are you able to walk? YESWOREST MIGRATION.6287718 026 Information not available 04/16/2022 Do you have difficulty doing errands alone? No MIGRATION.7240720 026 Information not available 04/16/2022 Are you able to care for yourself? Yes MIGRATION.8855522 026 Information not available 04/16/2022 Do you have difficulty dressing or bathing? No MIGRATION.1017847 026 Information not available 04/16/2022 What is your exercise level? Moderate MIGRATION.1154268 026 Information not available 04/16/2022 Mental Status Question Answer Note LastModified by [employer] ion Details LastModified Time Do you have difficulty concentrating, remembering or making decisions? No MIGRATION.[id number] 6 Information not available 04/16/2022 Family History [...] INSOMNIA N HIGH CHOLESTEROL / HYPERLIPIDEMIA N HYPERTHYROIDISM N EYE PROBLEMS N NEUROLOGICAL PROBLEMS N EDEMA N CHRONIC PAIN SYNDROME N HYPOTHYROIDISM N CONSTIPATION N CAROTID BLOCKAGE N BACK / NECK PROBLEMS N HAVE YOU BEEN HOSPITALIZED OR SEEN IN THE MEDICAL CENTER IN THE PAST YEAR ? N ATHEROSCLEROSIS [...] N ALZHEIMER'S DISEASE N Brain Problems N HERPES N DEMENTIA N SEIZURES/EPILEPSY N HEADACHES/MIGRAINES N VASCULAR DISEASE Y PACEMAKER N Blood Disorder N DIZZINESS N KIDNEY DISEASE N HEART DISEASE/HEART PROBLEMS N MULTIPLE SCLEROSIS N CARDIAC ARRHYTHMIA N CANCER: SPECIFY N ANESTHESIA COMPLICATIONS N Gall Stones N ATRIAL FIBRILLATION N PULMONARY EMBOLISM N AUTOIMMUNE DISEASE N Gynecological History Statement/Question Response Date of Last Mammogram 08/09/2015 Date of Last Colonoscopy Most Recent Bone Density Obstetrics History GPAL:G 0 P 0 0 0 0 Immunizations Vaccine Type Date Status Note Provider Yury trevizo and Address Organization Details Recorded Time influenza, unspecified formulation completed TREVON Dickson [employer] [facility] 02/04/2023 11:07:51 Influenza, split virus, quadrivalent, preservative 1 completed Not Available [facility] 04/16/2022 06:11:03 SARS-COV-2 (COVID-19) vaccine, UNSPECIFIED 1 completed Not Available [facility] 04/16/2022 06:11:03 influenza, unspecified formulation 2 completed Not Available [facility] 04/16/2022 06:11:03 SARS-COV-2 (COVID-19) vaccine, UNSPECIFIED 1 completed Not Available [facility] 04/16/2022 06:11:03 SARS-COV-2 (COVID-19) vaccine, UNSPECIFIED 1 completed Not Available [facility] 04/16/2022 06:11:03 pneumococcal polysaccharide PPV23 8 completed Not Available [facility] 04/16/2022 06:11:04 Pneumococcal conjugate PCV 13 5 completed Not Available [facility] 04/16/2022 06:11:04 Past Encounters Encounter ID Performer Location Encounter Start Date Encounter Closed Date Diagnosis/Indication Diagnosis SNOMED-CT Code Diagnosis ICD10 Code Diagnosis Note [id number] [facility] Nirmal marilyn [address] [place] [address] 05/01/2020 00:00:00 05/01/2020 11:56:41 [id number] [facility] [place] [address] [facility] [address] [place] [address] 05/09/2020 00:00:00 05/09/2020 10:02:26 [id number] [facility] [address] mar[address] [place] [address] 09/21/2020 00:00:00 09/21/2020 13:00:35 [id number] [facility] [address] [address] 04/04/2021 00:00:00 04/04/2021 11:48:51 [id number] [facility] Nirmal marilyn [address] [place] [address] 10/04/2021 00:00:00 10/04/2021 11:24:48 [id number] [facility] Internal Med [facility] [address] [address] 04/09/2022 00:00:00 04/09/2022 16:38:52 [id number] Oral Osorio MD [facility] Internal Med [facility] [address] [address] 10/01/2022 14:54:19 10/01/2022 15:41:41 Benign essential hypertension 8113902 I10 Aortic valve stenosis 60 890011 I35.0 Coronary arteriosclerosis 13720770 I25.10 Pure hypercholesterolemia 873303979 E78.00 [id number] Oral Osorio MD [facility] Internal Med [facility] [address] [address] 02/04/2023 10:46:18 02/04/2023 11:45:03 Adult health examination 163677376 Z00.00 Screening for disorder 958298506 Z13.9 Benign ess ential hypertension 2963125 I10 Aortic valve stenosis 60 984532 I35.0 Coronary arteriosclerosis 94905709 I25.10 Pure hypercholesterolemia 545624956 E78.00 Vitamin D deficiency 347 56746 E55.9 [id number] Oral Osorio MD [facility] Internal Med [facility] [address] [address] 06/10/2023 10:55:16 06/10/2023 11:33:55 Coronary arteriosclerosis 90398408 I25.10 Benign ess ential hypertension 5284766 I10 Aortic valve stenosis 60 213207 I35.0 Pure hypercholesterolemia 337954304 E78.00 [id number] Oral Osorio MD [facility] Internal Med [facility] [address] [address] 03/30/2024 16:11:07 03/30/2024 17:11:32 Pneumonia 611759876 J18.9 Benign ess ential hypertension 2867611 I10 Coronary arteriosclerosis 23101139 I25.10 Pure hypercholesterolemia 262389747 E78.00 Aortic valve stenosis 60 780939 I35.0 Health Concerns Section Related Observation LastModified by Organization Detai ls LastModified Time None Recorded Concern Status LastModified by Organization Details LastModified Time None Recorded Advance Directives Directive Y: Payers Encounter Date Sequence Insurance Name Policy Number Policy Blair Covered Member ID Blair Member ID Guarantor Name 10/01/2022 1 [facility] (MEDICARE REPLACEMENT/A DVANTAGE - HMO) [id number] Devora Orourke [id number] Devora Orourke 02/04/2023 1 [facility] (MEDICARE REPLACEMENT/A DVANTAGE - HMO) [id number] Devora Orourke [id number] Devora Orourke 06/10/2023 1 [facility] (MEDICARE REPLACEMENT/A DVANTAGE - HMO) [id number] Devora Orourke [id number] Devora Orourke 03/30/2024 1 [facility] (MEDICARE REPLACEMENT/A DVANTAGE - HMO) [id number] Devora Orourke [id number] Devora Orourke Notes Date Note Type Note [...] MG (TABLET - ORAL) One DailyVaccination and Clycttuonmnv5027-59 Qenrdzkvf1018-03 Covid Booster Pwmbyzp2892-24 Covid Hbdmbge1831-77 Pneumovax 108753-58 Prevnar 13Surgical HistoryCAGB, Right Carotid Endarterectomy, SCOTT BSO, TonsillectomyPreventative Testing Confirmed by Our Qkcwmbi5606/09/2022 ALBUMIN 4.0 G/DL11/01/2021 MAMMOGRAM / DEXA SCAN11/09/2017 COLOGUARD (NEGATIVE) 11/09/2020ocial HistoryDoes not smoke. Drinks socially. No occupational exposures.Family HistoryMother 81 . from complications of angioplasty. hx of hypertension.Father is 82 history of coronary artery disease and hypertension.Has two brothers living with hypertension(2) and one with peptic ulcersNo sisters. Oral Osorio MD [address] [facility] [address], [place], [address], [place] [facility] 10/01/2022 15:32:45 02/05/20 23 text/htm l Patient Name: Devora Galindote Of Service: Thursday ( 02.04.2023 ): 1945 [...] MG (TABLET - ORAL) One DailyVaccination and Wjmwyopywchu1127-15 [id number] Covid Booster Gtvjawh0015-33 Covid Smqnehl3083-06 Iioskfdjl5403-84 Prevnar 13 GcSurgical HistoryCAGB, Right Carotid Endarterectomy, SCOTT BSO, TonsillectomyPreventative Testing Confirmed by Our Tlzpmxi4306/09/2022 ALBUMIN 4.0 G/DL N011/01/2021 MAMMOGRAM / DEXA SCAN11/09/2017 COLOGUARD (NEGATIVE) 11/09/2020ocial HistoryDoes not smoke. Drinks socially. No occupational exposures.Family HistoryMother 81 . from complications of angioplasty. hx of hypertension.Father is 82 history of coronary artery disease and hypertension.Has two brothers living with hypertension(2) and one with peptic ulcersNo sisters. Oral Osorio MD [address] [place] [address], [facility] [address], [place], [address], [facility] 02/04/2023 11:25:47 06/10/19 24 text/htm l Patient [...] Systemic Symptoms:none Medication Reconciliation: from medication list. [id number]: Mammogram negative for malignancy repeat in approximately one year.03/04/2023: DEXA scan osteopenia. FRAX score is adequate. No need for any additional therapy outside of vitamin-D and calcium supplementation. 05-19-2023: carotid ultrasound 50-69% stenosis of the left internal carotid artery. Less than 50% stenosis of the right internal carotid artery. Vertebral blood flow antegrade ekdsjzkscbe29/02/2024: Echocardiogram demonstrated estimated ejection fraction of 60%. [...] (TABLET - ORAL) One Daily Vaccination and Kdbswsphqqhm8722-89 Tnprmubsj1034-51 Covid Booster Ygpylaj0496-87 Covid Rblejpw3242-05 Dotrnepso4480-06 Prevnar 13 Surgical Oyvekql5774-04 IXMY9216-34 Right Carotid Ydukpgboucuscq0422-66 [facility] YVU3833-13 Tonsillectomy Preventative Smyijig9003/11/2023 COLOGUARD 701/ MAMMOGRAM 5003/04/2023 DEXA SCAN (OSTEOPENIA)06/09/2022 ALBUMIN 4.0 G/DL N Social HistoryDoes not smoke. Drinks socially. No occupational exposures. Family HistoryMother 81 . from complications of angioplasty. hx of hypertension.Father is 82 history of coronary artery disease and hypertension.Has two brothers living with hypertension(2) and one with peptic ulcersNo sisters. TEST RESULT RANGE UNITSLIPID PANEL, STANDARD Date: 06/09/2022HOLESTEROL, TOTAL 118 <200 MG/DLHDL CHOLESTEROL 46 > OR = 50 MG/DLTRIGLYCERIDES 75 <150 MG/DLLDL-CHOLESTEROL 56 MG/DL (CALC)CBC (INCLUDES DIFF/PLT) Date: 06/09/2022WHITE BLOOD CELL COUNT 8.6 3.8-10.8 THOUSAND/ULHEMOGLOBIN 14.0 11.7-15.5 G/DLHEMATOCRIT 42.4 35.0-45.0 %PLATELET COUNT 158 140-400 THOUSAND/ULCOMPREHENSIVE METABOLIC PANEL Date: 06/09/2022SODIUM 141 135-146 MMOL/LPOTASSIUM 4.5 3.5-5.3 MMOL/LGLUCOSE 99 65-99 MG/DLUREA NITROGEN (BUN) 23 7-25 MG/DLCREATININE 0.89 0.60-1.00 MG/DLEGFR 68 > OR = 60 ML/MIN/1.71V9MWXCXHKPP, TOTAL 0.4 0.2-1.2 MG/DLALKALINE PHOSPHATASE 62 37-153 U/LAST 17 10-35 U/LALT 16 6-29 U/L Oral Osorio MD [address] [facility], [facility] [address], [place], [address], [facility] [employer] 06/10/2023 11:21:14 03/30/19 25 text/htm l Patient Name: Devora Hill Of Service: Thursday ( 03.30.2024 ): 1945 Age: 78 There has been approximately a 9.5 lb weight loss since 06/10/2023. This represents approximately a 7.8% change in weight. Weight change attributable to lifestyle changes. Vital Signs:Blood Pressure: Sitting Rt. Arm 122/68Pulse: Sitting 68 /min and RegularRespiratory Rate: 16Height 56 in or 1.4 mWeight 112 lb or 50.8 kgBMI 25.1Temperature: 97 F or 36.1 CPulse Oximetry: 97 % at rest on no oxygen Chief Complaint: Addressed in HPI Problems or conditions discussed in the HPI were the only ones reviewed during the encounter.Only social and family history addressed in the HPI were reviewed during this encounter. Attendant(s): NoneConstitutional and Systemic Symptoms:none Medication Reconciliation: from medication list. [id number]: Mammogram negative for malignancy repeat in approximately one year.03/04/2023: DEXA scan osteopenia. FRAX score is adequate. No need for any additional therapy outside of vitamin-D and calcium supplementation. 05-19-2023: carotid ultrasound 50-69% stenosis of the left internal carotid artery. Less than 50% stenosis of the right internal carotid artery. Vertebral blood flow antegrade wsyicdxfdde09/02/2024: Echocardiogram demonstrated estimated ejection fraction of 60%. Mild enlargement of left atrium. Elevated filling pressures in te left atrium. Severe mitral annular calcification. Severe aortic stenosis estimated aortic valve area 0.4 sq cm. Peak gradient 58.77 mmHg. 03-19-2024: CT of chest multifocal pneumonia, moderate right and small left pleural effusions. Mediastinal adenopathy, cholelithiasis and distal esophageal and gastric wall -[id number]: Echocardiogram demonstrates an ejection fraction of 30-35%. With hypokinesis of the apex. Mild aortic regurgitation. Moderate mitral regurgitation. Questionable calcific mass on the mitral valve. History of Present Illness #1. Recent hospitalization up [facility] for pneumonia, congestive heart failure as well as probably a nontransmural [place] probably precipitated by hypoxemia more than anything else. No recurrent chest pain shortness of breath or other cardiovascular symptoms. Feels much better. Does follow with Dr. Lopez here in [place]. Will set her up with him for further evaluation.: #2. Coronary Artery Disease: There has been no change in frequency - duration - intensity in frequency, duration or intensity of chest pain. Other Complaints: none The frequency of anginal attacks is none at all. Additional Symptoms: none Therapy reviewed regarding cardiovascular management includes Aspirin, Lipitor, Lisinopril, Metoprolol Succinate Er and Zetia #3. Essential Hypertension: Stage: normal Interval Neurological Complaints no headaches, dizziness, weakness, visual changes, ataxia, aphasia and apraxia. No shortness of breath, orthopnea or cardiovascular symptoms. No other symptoms related to end organ damage. Pressure has been under excellent control. Currently normal. No other end organ symptoms or findings. Therapy reviewed regarding management of hypertension and includes salt restriction and Lisinopril and Metoprolol Succinate Er. #4. Type II Hypercholesterolaemia: Currently taking medication and tolerating well. No interval complaints of any muscle pain or arthralgia. No significant liver changes with medications. Last lipid panel: no testing since starting on medication. Therapy reviewed regarding treatment of cholesterol management and include diet and Lipitor and Zetia. #5. Aortic Stenosis: Symptoms: no cardiac symptoms Hx of calcified aortic stenosis. No interval complaints of any chest pain, shortness of breath, palpitations or syncope. No palpitations. No change in exercise tolerance. Severity moderate. Last echocardiogram was less than six months ago. Followed by Cardiology: regularly Currently does not need a repeat echocardiogram. Active Medication ListLipitor 40 MG (TABLET - ORAL) One Hs For CholesterolMetoprolol Succinate Er 25 MG (TABLET - ORAL) One DailyVitamin C 1000 MG Once DailyOs-jacquie D DailyLisinopril 5 MG TABLET One DailyMultivitamin DailyAspirin 81 MG One DailyZetia 10 MG (TABLET - ORAL) One DailyOmeprazole 20 MG CAPSULE, DELAYED RELEASE Once Daily Vaccination and Immunization( ) 2014-04 PREVNAR 13 GC(X) 2017-08 PNEUMOVAX PREVNAR 20 Needed( ) 2020-04 COVID MODERNA(X) 2020-11 COVID BOOSTER MODERNA(X) 2022-11 INFLUENZA Surgical Zeuyxle0209-77 [id number] Right Carotid Uphscduxzaeepd5753-37 [facility] SBZ8835-12 Tonsillectomy Preventative Testing( ) 07/30/2023 Albumin 4.7 G/DL N( ) 03/11/2023 Cologuard 03/11/2026( ) 03/04/2023 Mammogram 03/04/2025( ) 03/04/2023 DEXA Scan (Osteopenia) Social HistoryDoes not smoke. Drinks socially. No occupational exposures. Family HistoryMother 81 . from complications of angioplasty. hx of hypertension.Father is 82 history of coronary artery disease and hypertension.Has two brothers living with hypertension(2) and one with peptic ulcersNo sisters. Oral Osorio MD [address] [place] [address], [facility] [address], [place], [address], [place] [facility] 03/30/2024 16:43:27 OBGyn Episode No OBEpisode recorded.
--- OUTSIDE RECORDS SUMMARY | 2024-04-06 13:08 | XMS_ITS | Continuity of Care Document ---
Author Name Auto Generated, Auto Generated Organization [facility] Support Name Relationship Address Phone Reynaldo Oquendo Emergency Contact 1 Unknown [phone] Devora Oquendo Self [address] [address] Devora Oquendo Financial Responsible Republican [address] [place] [address] Osbaldo Oquendo Emergency Contact 2 Unknown [phone] Summary Purpose Consult/Referral Allergies, Adverse Reactions, Alerts No Known Allergies Medications No Known Medications Conditions/Problems No Known Problems Procedures No Known Procedures
== END 2024-04-06 13:00 | disposition home or self-care (01) ==
LOC: ANHIMG 13:01
PROVIDERS: PCP Internal Medicine; Visit Provider Internal Medicine
DX: J18.9 Pneumonia, unspecified organism (principal)
CPT/HCPCS: 71046

== ENCOUNTER 2024-07-18 10:23 | Outpatient (CLI) | payer MEDICARE, SELFPAY ==
--- NOTE | ~2024-07-18 | XR_ITS ---
Clinical Indication: Pneumonia PA and lateral views of the chest: Comparison: 04/06/2024 Findings: The lungs are clear, without evidence of focal consolidation or pleural effusion. Cardiome diastinal silhouette is stable, with extensive mitral annular calcification and aortic valve replacem ent. Bones and soft tissues are unremarkable. Impression: Clear lungs. Reviewed, dictated and finalized at location . Impression: Clear lungs.
--- OUTSIDE RECORDS SUMMARY | 2024-07-18 11:01 | XMS_ITS | CONTINUITY OF CARE DOCUMENT ---
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 Shay Lopez MD Hypertension active ? Shay Lopez MD LVH active Shay Lopez MD CAD S/P CABGx4 09/30 (HENRIQUEZ-LAD, SVG-RCA, SVG-Ramus Int, LR-OM2) active Shay Lopez MD Palpitations active Fili Oneyda Obesity active Shay Lopez MD Shortness of breath active Shay echavarria MD Aortic stenosis completed - Shay Lopez MD Pleural effusion active Shay Worthy Abnormal stress test completed - Shay Lopez MD Other peripheral vascular disease completed - Shay Lopez MD Carotid artery disease S/P FREDY endarterectomy 07/31 active Shay Lopez MD Aortic valve stenosis, severe active Aravind isaac Tricuspid regurgitation, moderate active Shay Lopez MD Pulmonary hypertension active Fili Call ENCOUNTERS Date Type Provider Location Encounter Diag nosis - In-person encounter Office Visit Cristian Harley MD [facility] - In-person encounter Office Visit Kalpana Fritz MD [facility] Aortic valve stenosis, severe - In-person encounter Office Visit Shay Lopez MD [facility] - In-person encounter Office Visit Shay Lopez MD [facility] - In-person encounter Office Visit Shay Lopez MD [facility] - In-person encounter Office Visit Shay Lopez MD [facility] - In-person encounter Office Visit Shay Lopez MD [facility] - In-person encounter Office Visit Shay Lopez MD [facility] Pulmonary hypertensionPalpitations - In-person encounter Office Visit Shay Lopez MD [facility] - In-person encounter Office Visit Shay Lopez MD [facility] CVAAortic valve stenosis, severeCarotid artery disease S/P FREDY endarterectomy 07/31CAD S/P CABGx4 0815 (HENRIQUEZ-LAD, SVG-RCA, SVG-Ramus Int, LR-OM2)Aortic stenosisShortness of breathObesity - In-person encounter Office Visit Shay Lopez MD [facility] Other peripheral vascular disease - In-person encounter Office Visit Shay Lopez MD [facility] Other symptoms involving cardiovascular systemPulmonary hypertensionTricuspid regurgitation, moderateAortic valve stenosis, severeAbnormal stress testCAD S/P CABGx4 08/15 (HENRIQUEZ-LAD, SVG-RCA, SVG-Ramus Int, LR-OM2) - In-person encounter Office Visit Shay Lopez MD [facility] Pleural effusionCAD S/P CABGx4 09/30 (HENRIQUEZ-LAD, SVG-RCA, SVG-Ramus Int, LR-OM2) - In-person encounter Office Visit Shay Lopez MD [facility] - In-person encounter Office Visit Shay Lopez MD [facility] - In-person encounter Office Visit Shay Lopez MD [facility] - In-person encounter Office Visit Shay Lopez MD [facility] Carotid artery disease S/P FREDY endarterectomy 07/31 - In-person encounter Office Visit Shay Lopez MD [facility] CVAHyperlipidemiaHypertensionPulmonary hypertensionLVHTricuspid regurgitation, moderateAortic valve stenosis, severeCarotid artery disease S/P FREDY endarterectomy 07/31 VITAL SIGNS Date Observation Value Provider Body Mass Index (Ratio) 32.62 kg/m2 Geno Harley MD pulse rate 97 /min Bouchra Mabry oxygen saturation, oximetry 97 % Bouchra Ortiz blood pressure, diastolic 86 mm[Hg] Ti darren Ortiz blood pressure, systolic 128 mm[Hg] [facility] vida AltamiranoOrtiz blood pressure, cuff size regular Ti darren Ortiz weight E&M 116 [lb_av] [facility] height E&M 50 [in_i] [facility]ouch[facility] Body Mass Index (Ratio) 32.06 kg/m2 Haroldo Fritz MD blood pressure, diastolic 88 mm[Hg] Sam Bethea blood pressure, systolic 158 mm[Hg] Yesy Bethea pulse rate 105 /min Kelsea echavarria oxygen saturation, oximetry 98 % Kelsea Bethea blood pressure, cuff size regular Sam Bethea weight E&M 114 [lb_av] Kelsea Alvarado s height E&M 50 [in_i] Kelsea Alvarado s blood pressure, diastolic 84 mm[Hg] Li nkLogic blood pressure, systolic 151 mm[Hg] Carlyn kLogic Body Mass Index (Ratio) 34.03 kg/m2 Aravind Joseph blood pressure, cuff size regular Ja rr blood pressure, diastolic 84 mm[Hg] Ja rret blood pressure, systolic 151 mm[Hg] Jar ret pulse rate 83 /min Kirill oxygen saturation, oximetry 99 % Kirill respiratory rate E&M 14 /min Kirill weight E&M 121 [lb_av] Kirill y height E&M 50 [in_i] Kirill y Body Mass Index (Ratio) 34.87 kg/m2 Aravind Wrightzajohnson blood pressure, diastolic 78 mm[Hg] Ri adelina Mckinnon blood pressure, systolic 181 mm[Hg] Rei cathy Mckinnon blood pressure, cuff size large Ri adelina Mckinnon oxygen saturation, oximetry 94 % Angela Mckinnon respiratory rate E&M 16 /min Mariola Mckinnon pulse rate 83 /min Angela Leigh Annrubin son weight E&M 124 [lb_av] Angelajoshua Beltráner son height E&M 50 [in_i] Angela galeano Body Mass Index (Ratio) 35.15 kg/m2 Taew on blood pressure, cuff size regular Ke rri Gruenenfelder blood pressure, diastolic 80 mm[Hg] Ke rri Gruenenfelder blood pressure, systolic 142 mm[Hg] Ker ri Gruenenfelder oxygen saturation, oximetry 96 % Lucy Gruenenfelder respiratory rate E&M 14 /min Lucy G ruenenfelder pulse rate 85 /min Lucy Gruenenfe lder weight E&M 125 [lb_av] Ulcy Gruenenfe lder height E&M 50 [in_i] Lucy Gruenenfe er Body Mass Index (Ratio) 35.99 kg/m2 Taew on blood pressure, cuff size regular Ke rri Gruenenfelder blood pressure, diastolic 72 mm[Hg] Ke rri Gruenenfelder blood pressure, systolic 112 mm[Hg] Ker ri Gruenenfelder oxygen saturation, oximetry 90 % Lucy Gruenenfelder respiratory rate E&M 16 /min Lucy G ruenenfelder pulse rate 79 /min Lucy Gruenenfe lder weight E&M 128 [lb_av] Lucy Gruenenfe lder height E&M 50 [in_i] Lucy Gruenenfe lder Body Mass Index (Ratio) 35.60 kg/m2 Vinny Govea blood pressure, diastolic 87 mm[Hg] Baldomero Harper blood pressure, systolic 148 mm[Hg] Liz Harper oxygen saturation, oximetry 93 % Jasmyne Harper respiratory rate E&M 18 /min Nito Harper pulse rate 88 /min Jasmyne edwards weight E&M 126.6 [lb_av] Jasmyne salazar height E&M 50 [in_i] Jasmyne edwards Body Mass Index (Ratio) 35.09 kg/m2 Tahir Call blood pressure, diastolic 94 mm[Hg] Baldomero Harper blood pressure, systolic 158 mm[Hg] Liz Estebanarielleshelby Harper oxygen saturation, oximetry 95 % Jasmyne Harper respiratory rate E&M 18 /min Nito Harper pulse rate 92 /min Jasmyne edwards weight E&M 124.8 [lb_av] Jasmyne salazar height E&M 50 [in_i] Jasmyne edwards Body Mass Index (Ratio) 33.52 kg/m2 Marcusvanita ashok Mckinnon blood pressure, diastolic 86 mm[Hg] Baldomero saundraDania Harper blood pressure, systolic 173 mm[Hg] Liz Patelenson oxygen saturation, oximetry 96 % Jasmyne Harper respiratory rate E&M 18 /min Nito Harper pulse rate 84 /min Jasmyne edwards weight E&M 119.2 [lb_av] Jasmyne salazar height E&M 50 [in_i] Jasmyne edwards blood pressure, resting Yes Wojciech Lopez MD Body Mass Index (Ratio) 33.91 kg/m2 Wojciech Lopez MD blood pressure, diastolic 87 mm[Hg] Baldomero Roquethanh PatelHarper blood pressure, systolic 151 mm[Hg] Liz Harper oxygen saturation, oximetry 97 % Jasmyne Harper respiratory rate E&M 18 /min Nito Harper pulse rate 70 /min Jasmyne edwards weight E&M 120.6 [lb_av] Jasmyne salazar height E&M 50 [in_i] Jasmyne edwards blood pressure, diastolic 84 mm[Hg] Me hernandez Mosher blood pressure, systolic 151 mm[Hg] Mira carlos Mosher pulse rate 94 /min Dasia Mosher oxygen saturation, oximetry 97 % Dasia Mosher respiratory rate E&M 14 /min Dasia Mosher Body Mass Index (Ratio) 30.09 kg/m2 [facility] weight E&M 107 [lb_av] Dasia Mosher oxygen saturation, oximetry 98 % [facility] blood pressure, diastolic 72 mm[Hg] Me hernandez Mosher blood pressure, systolic 116 mm[Hg] Mira carlos Mosher pulse rate 76 /min Dasia Mosher respiratory rate E&M 14 /min Dasia Mosher Body Mass Index (Ratio) 29.53 kg/m2 [facility] weight E&M 105 [lb_av] Dasia Mosher blood pressure, diastolic 66 mm[Hg] Me hernandez Mosher blood pressure, systolic 119 mm[Hg] Mira carlos Mosher Body Mass Index (Ratio) 30.65 kg/m2 [facility] pulse rate 88 /min Dasia [...] Mass Index (Ratio) 31.49 kg/m2 Anea kamilah Drew blood pressure, diastolic 80 mm[Hg] An rivera Russell blood pressure, systolic 132 mm[Hg] Ane atris Brown pulse rate 76 /min Aneatris Brown oxygen saturation, oximetry 98 % Aneatris Brown respiratory rate E&M 17 /min Aneatri s Brown weight E&M 112 [lb_av] Aneatris Brown Body Mass Index (Ratio) 32.90 kg/m2 Anea kamilah Drew blood pressure, diastolic 88 mm[Hg] An eatris Brown blood pressure, systolic 159 mm[Hg] Ane atris Brown pulse rate 80 /min Aneatris Brown oxygen saturation, oximetry 97 % Aneatris Brown respiratory rate E&M 18 /min Aneatri s Brown weight E&M 117 [lb_av] Aneatris Brown height E&M 50 [in_i] Aneatris Brown ALLERGIES No Known Drug Allergies RESULTS Date Observation Value Provider Reference Range Interpretation Location Estimated Glomerular Filtration Rate (calc) 62 mL/min/{1.73 _m2} Link[facility] >=60 Normal C, [place] [address] NT-pro BNP 4805 Link[facility]ic <=450 High C, [place] [address] aspartate aminotransferase (SGOT), serum 26 1/L [facility] 10-45 Normal C, [place] [address] alanine aminotransferase (SGPT), serum 17 1/L [facility] 7-45 Normal C, [place] [address] Alkaline phosphatase 72 [facility] 40-130 Normal C, [place] [address] albumin, serum 4.2 g/dL [facility] 3.5-5.0 Normal C, [place] [address] protein, total, serum 7.7 g/dL [facility] 6.5-8.5 Normal C, [place] [address] bilirubin, serum, total 0.3 mg/dL [facility] 0.1-1.2 Normal C, [place] [address] calcium, serum 9.7 mg/dL [facility] 8.5-10.3 Normal C, [place] [address] blood glucose, random 113 mg/dL [facility] 70-199 Normal C, [place] [address] creatine, serum 0.95 mg/dL [facility] 0.60-1.10 Normal C, [place] [address] urea nitrogen, blood 24 mg/dL [facility] 6-25 Normal C, [place] [address] anion gap, serum 9 mmol/L [facility] 2-15 Normal C, [place] [address] carbon dioxide, venous blood 28 mmol/L [facility] 22-32 Normal C, [place] [address] chloride, serum 103 mmol/L [facility] 97-110 Normal C, [place] [address] potassium, serum 4.9 MMOL/L [facility] 3.3-4.9 Normal C, [place] [address] sodium, serum 140 mmol/L [facility] 135-145 Normal C, [place] [address] activated partial thromboplastin time (aPTT) 33 s [facility] 28-38 Normal C, [place] [address] international normalized ratio (INR) 1.04 [facility] 0.90-1.20 Normal C, [place] [address] prothrombin time (patient) 11.2 s [facility] 9.7-13.0 Normal , [place] [address] Absolute Basophils 0.07 K/CUMM [facility] 0.00-0.10 Normal , [place] [address] Absolute Monocytes 0.65 K/CUMM [facility] 0.20-0.80 Normal , [place] [address] Absolute Lymphocytes 1.15 K/CUMM [facility] 0.80-3.30 Normal , [place] [address] Absolute Neutrophils 7.19 K/CUMM [facility] 1.50-6.50 High C, [place] [address] nucleated red blood cells as percent of blood leukocytes 0.00 K/CUMM [facility] 0.00-0.01 Normal , [place] [address] red blood cell distribution width, size density 49.0 fL [facility] 35.7-48.1 High C, [place] [address] mean corpuscular hemoglobin concentration, RBC 30.9 G/DL [facility] 32.3-35.7 Low C, [place] [address] mean corpuscular hemoglobin, RBC 29.3 pg [facility] 27.1-33.3 Normal C, [place] [address] mean corpuscular volume, RBC 95.0 fL [facility] 81.3-96.4 Normal C, [place] [address] erythrocyte count, whole blood 4.40 M/CUMM [facility] 3.90-5.20 Normal C, [place] [address] mean platelet volume 12.5 fL [facility] 9.1-12.3 High C, [place] [address] platelet count 165 10*3/uL [facility] 150-400 Normal C, [place] [address] hematocrit, blood 41.8 % [facility] 35.6-45.5 Normal C, [place] [address] hemoglobin, blood 12.9 g/dL [facility] 11.9-15.5 Normal C, [place] [address] prothrombin time (patient) 11.3 s [facility] 9.1-12.0 international normalized ratio (INR) 1.0 [facility] 0.9-1.2 pro brain natriuretic peptide 7146 pg/mL [facility] 0-738 High lipoprotein, beta, serum, point, quantitative, calculated 69 mg/dL [facility] 0-99 HDL cholesterol, serum 40 mg/dL [facility] >39 triglyceride, serum, random 165 mg/dL [facility] 0-149 High cholesterol, serum 137 mg/dL [facility] 732-385 5705/03 /06 calcium, serum 9.4 mg/dL [facility] 8.7-10.3 carbon dioxide, venous blood 25 mmol/L [facility] 20-29 chloride, serum 102 mmol/L [facility] 96-106 potassium, serum 4.4 mmol/L [facility] 3.5-5.2 sodium, serum 141 mmol/L [facility] 543-994 0027/03 /06 urea nitrogen/creatinine ratio, serum 23 [facility] 12-28 creatinine, serum 1.06 mg/dL [facility] 0.57-1.00 High urea nitrogen, blood 24 mg/dL [facility] 8-27 blood glucose, random 102 mg/dL [facility] 70-99 High basophil count, absolute 0.1 x10E3/uL [facility] 0.0-0.2 Eosinophil Absolute Count 0.2 X10E3/UL Link[facility] 0.0-0.4 monocyte count, blood, automated 0.6 X10E3/UL Link[facility] 0.1-0.9 lymphocyte count, blood, automated 1.5 X10E3/UL [facility] 0.7-3.1 Absolute Neutrophils 6.2 X10E3/UL [facility] 1.4-7.0 basophils as percent of blood leukocytes 1 % LinkLogic Not Estab. eosinophils as percent of blood leukocytes 3 % Link[facility]ic Not Estab. monocytes as percent of blood leukocytes 7 % [facility] Not Estab. lymphocytes as percent of blood leukocytes 18 % [facility]ic Not Estab. neutrophils as percent of blood leukocytes 71 % [facility] Not Estab. platelet count 151 X10E3/UL [facility] 043-500 1003/03 /05 red blood cell distribution width 14.8 % [facility] 11.7-15.4 mean corpuscular hemoglobin concentration, RBC 32.0 G/DL [facility] 31.5-35.7 mean corpuscular hemoglobin, RBC 29.2 pg [facility] 26.6-33.0 mean corpuscular volume, RBC 91 fL [facility] 79-97 hematocrit, blood 37.2 % [facility] 34.0-46.6 hemoglobin, blood 11.9 g/dL [facility] 11.1-15.9 erythrocyte (RBC) count 4.07 X10E6/UL Link[facility] 3.77-5.28 leukocyte count, blood 8.6 X10E3/UL [facility] 3.4-10.8 basophils as percent of blood leukocytes 0.6 [...] Normal Absolute Neutrophil count 6752 cells/mcL Link[facility] 1697-5103 Normal mean platelet volume 12.7 fL LinkLogic [...] 6-22 Estimated Glomerular Filtration Rate (calc) 75 mL/min/{1.73 _m2} LinkLogic > OR = 60 Normal creatinine, [...] 0-149 High cholesterol, serum 168 mg/dL [facility] 164-160 4436/06 /04 alanine aminotransferase (SGPT), serum 17 1/L [...] [facility] 3.5-5.2 sodium, serum 143 mmol/L [facility] 848-945 3252/06 /04 urea nitrogen/creatinine ratio, serum 20 [facility] 12-28 eGFR if 62 mL/min/{1.73 _m2} Link[facility]ic >59 eGFR if not 54 mL/min/{1.73 _m2} [facility] >59 Low creatinine, serum 1.04 mg/dL [...] - 8.7 urea nitrogen, blood 27.0 mg/dL Link[facility]ic 8.0 - 23.0 High Glucose Urine 103.0 mg/dL Link[facility] 74.0 - 99.0 High bilirubin, serum, total 0.3 mg/dL [facility] 0.0 - 1.2 red blood cell distribution width, size density 44.0 fL LinkLog[facility] - immature granulocytes, percentage of total cells, blood 0.3 % [facility] - nucleated red blood cells as percent of blood leukocytes 0.0 % LinkLogic - red blood cell (erythrocyte) count, per [...] LinkLogic 6-22 Estimated Glomerular Filtration Rate (calc) 86 mL/min/{1.73 _m2} LinkLogic > OR = 60 Normal creatinine, [...] Choi NP aspirin 81 mg tablet,delayed release (DR/EC) active TAKE ONE TABLET BY MOUTH EVERY [...] Lopez MD aspirin 81 mg tablet,delayed release (DR/EC) completed Take 1 tablet by mouth once [...] completed twice daily as needed - Dasia Guardado M20 20 mEq tablet,ER particles/cryst als completed Take 1 tablet by mouth once a day - Apryl Carrington Lasix 40 mg tablet completed Take 1 tablet by mouth once a day - Apryl IBRAHIM PROTONIX VS PLACEBO completed - Dasia IBRAHIM ASA/ RIVAROXABAN completed - Liz Jarrell RN [...] Provider personal history of marijuana use no Cristian Cricket SOLIMAN drug use no Cristian Cricket SOLIMAN alcohol use no Cristian Cricket SOLIMAN smoking status Never smoker Cristian Harley M D personal history of marijuana use no Aravind Joseph drug use no Aravind Joseph alcohol use no Aravind Joseph smoking status Never smoker Aravind Joseph personal history of marijuana use no Ellen Choi TERRAZZO TILE SETTER drug use no Ellen Choi TERRAZZO TILE SETTER alcohol use no Ellen Choi TERRAZZO TILE SETTER smoking status Never smoker Ellen Snowden i TERRAZZO TILE SETTER social history E&M S moking History: Zayra salcido has never smoked. Aravind Joseph social history reviewed E&M revi ewed - no changes required Aravind Joseph smoking status Never smoker Angela banks social history E&M S moking History: [...] Omega Govea smoking status Never smoker Jasmyne Salcedo raad social history reviewed E&M revi ewed - no changes required Fili Call social history E&M S moking History: Zayra salcido has never smoked. Fili Call smoking status Never smoker Jasmyne Salcedo raad number of grandchildren Shay Mckinnon social history reviewed E&M revi ewed - no changes required Ana M Mckinnon social history E&M S moking History: Zayra salcido has never smoked. Ana M Mckinnon smoking status Never smoker Jasmyne Recio social history E&M Smoking Histo ry: Zayra salcido has never smoked. Shay Lopez MD social history reviewed E&M revi ewed - no changes required Shay Lopez MD smoking status Never smoker Jasmyne Salcedo raad social history reviewed E&M revi ewed - no changes required Shay Lopez MD smoking status Never smoker Dasia law social history reviewed E&M revi ewed - no changes required Shay Lopez MD smoking status Never smoker Dasia Mcarthurben law social history E&M Smoking Histo ry: P loly has never smoked. Shay Lopez MD social history reviewed E&M revi ewed - no changes required Shay Lopez MD smoking status Never smoker Dasia Mcarthurben law social history reviewed E&M revi ewed - no changes required Shay Lopez MD social history E&M Patient has n ever smoked. Smoking History: P loly has never smoked. Shay Lopez MD social history reviewed E&M revi ewed - no changes required Shay Lopez MD smoking status Never smoker Shay redding MD social history reviewed E&M revi ewed - no changes required Shay Lopez MD smoking status Never smoker Jasmyne Recio social history E&M Patient has n ever smoked. Smoking History: P loly has never smoked. Shay Lopez MD social history reviewed E&M revi ewed - no changes required Shay Lopez MD smoking status Never smoker Shay redding MD social history reviewed E&M revi ewed - no changes required Shay Lopez MD smoking status Never smoker Aneatris Brow n FUNCTIONAL STATUS Date Observation Value Provider HRA, CV Assess/Plan, Angina (inactive) Management Plan continue current therapy Cristian Harley MD HRA, CV Assess/Plan, Angina (inactive) Management Plan continue current therapy Aravind Joseph HRA, CV Assess/Plan, Angina (inactive) Management Plan continue current therapy Ellen Choi NP HRA, CV Assess/Plan, Angina (inactive) Management Plan continue current therapy Aravind Joseph HRA, CV Assess/Plan, Angina (inactive) Management Plan continue current therapy Apryl Carrington HRA, CV Assess/Plan, Angina (inactive) Management Plan continue current therapy Apryl Carrington HRA, CV Assess/Plan, Angina (inactive) Management Plan [...] Payer name Policy type / Coverage type [place] red libertarian ID [employer] MED[employer]AGE [address] 0 003 (HMO POS) Medicare [id number] ADVANCE DIRECTIVES Name Date DISCUSSED - NO DECISION MADE TREATMENT PLAN Date Name Performer [id number],C,will repeat h er carotid doppler Aravind Ahmedzai [id number],B, Aravind Ahmedza i [id number],C,no sxs Aravind A hmedzai [id number],C,Stable Aravind A hmedzai [id number],C, n o angina Aravind Ahmedzai [id number],C,A dvised her to monitor her BP at home and stay complaint on her medications. BP today: 181/78 P rior BP: 142/80 (01/04/2021) Labs Reviewed: C reat: 0.89 (12/16/2019) C hol: 170 (12/16/2019) HDL: 43 (12/16/2019) LDL: 100 MG/DL (CALC) (12/16/2019) T (12/16/2019) Aravind Ahmedzai [id number],C, E cho 01/2019 CONCLUSIONS: 4 . Moderate aortic stenosis. Mild aortic valve regurgitation. Peak AV velocity: 3.05 m/s. The Aortic Valve Peak Gradient is 3 7.00 mmHg. The Aortic Valve Mean Gradient is 19.00 mmHg. Orders: C omplete Echo (CPT-82281) Apryl Zeb [id number],C, B P today: 142/80 P rior BP: [...] mouth every day Orders: C omplete Echo (CPT-78983) C arotid Duplex Bilateral (CPT-75395) A janis Duplex Ultrasound (CPT-74973) hussein Zeb [id number],B, l ast LDL 65 05/2020 t olerating statin/zetia well. occasional leg cramps but not associated w/ taking meds Her updated medication list for this problem includes: Lipitor 40 Mg Tablet (Atorvastatin) ..... 1 tablet once a day Ezetimibe 10 Mg Tablet (Ezetimibe) ..... Take one tablet by mouth every [id number]C, O rders: C omplete Echo (CPT-29571) [facility] [place] [id number],C, O rders: C omplete Echo (CPT-22733) [facility] [id number],C, O rders: C arotid Duplex Bilateral (CPT-64012) [facility] [id number],B, n o angina Her updated medication list for this problem includes: Aspirin 81 Mg Tablet,delayed Release (dr/ec) (Aspirin) ..... 1 tablet by mouth once a day Metoprolol Tartrate 25 Mg Tablet (Metoprolol tartrate) ..... Take one-half tablet by mouth twice daily Lisinopril 5 Mg Tablet (Lisinopril) ..... Take one tablet by mouth every day Apryl Carrington Cardiology: H er updated medication list for this problem includes: Ezetimibe 10 Mg Tablet (Ezetimibe) ..... Take 1 tablet by mouth once a day take one tablet by mouth every day Atorvastatin 40 Mg Tablet (Atorvastatin) ..... Take 1 tablet once a day C HOL: 137 (04/21/2024) LDL: 69 (04/21/2024) HDL: 40 (04/21/2024) T (04/21/2024) Cristian Harley MD Cardiology:cath was ok - patent bypasses Cristianricardo Harley MD Cardiology: H er updated medication list for this problem includes: Metoprolol Tartrate 25 Mg Tablet (Metoprolol tartrate) ..... Take 1/2 tablet by mouth twice daily Lisinopril 5 Mg Tablet (Lisinopril) ..... Take one tablet by mouth every day Aspirin 81 Mg Tablet,delayed Release (dr/ec) (Aspirin) ..... Take one tablet by mouth every day BP today: 128/86 P rior BP: 158/88 (04/11/2024) Labs Reviewed: C reat: 1.06 (04/21/2024) C hol: 137 (04/21/2024) HDL: 40 (04/21/2024) LDL: 69 (04/21/2024) T (04/21/2024) Cristian Harley MD Cardiology:lvef has declined and even if she is asx it is a class 1 indication to fix t avr is appropriate with her age if all the other testing is ok i s already scheduled to have ct tavr and cts eval r isks, options and complications d/w patient and she is agreeable to proceed h er son who was with her was encouraging her to go ahead with it Cristian Harley MD Cardiology: O rders: B ASIC METABOLIC PANEL W/EGFR (55648) C BC (INCLUDES DIFF/PLT) (6399) L IPID PANEL (7600) P ROTHROMBIN TIME WITH INR (8847) Kalpana Fritz MD Cardiology: O rders: R T & LT HRT CATH W GRAFTS (47552) B ASIC METABOLIC PANEL W/EGFR (55081) C BC (INCLUDES DIFF/PLT) (6399) L IPID PANEL (7600) P ROTHROMBIN TIME WITH INR (8847) Her updated medication list for this problem includes: Metoprolol Tartrate 25 Mg Tablet (Metoprolol tartrate) ..... Take 1/2 tablet by mouth twice daily Lisinopril 5 Mg Tablet (Lisinopril) ..... Take one tablet by mouth every day Aspirin 81 Mg Tablet,delayed Release (dr/ec) (Aspirin) ..... Take one tablet by mouth every day Kalpana Fritz MD Cardiology: O rders: C arotid Duplex Bilateral (CPT-48827) B ASIC METABOLIC PANEL W/EGFR (71037) C BC (INCLUDES DIFF/PLT) (6399) L IPID PANEL (7600) P ROTHROMBIN TIME WITH INR (8847) Kalpana Fritz MD Cardiology: O rders: R T & LT HRT CATH W GRAFTS (38847) B ASIC METABOLIC PANEL W/EGFR (49472) C BC (INCLUDES DIFF/PLT) (6399) L IPID PANEL (7600) P ROTHROMBIN TIME WITH INR (8847) Kalpana Fritz MD Cardiology:This visi t has been a part of the consistent, comprehensive, and ongoing management of the chronic medical condition(s) listed above for the patient. Orders: R T & LT HRT CATH W GRAFTS (86653) B ASIC METABOLIC PANEL W/EGFR (67809) C BC (INCLUDES DIFF/PLT) (6399) L IPID PANEL (7600) P ROTHROMBIN TIME WITH INR (8847) Her updated medication list for this problem includes: Metoprolol Tartrate 25 Mg Tablet (Metoprolol tartrate) ..... Take 1/2 tablet by mouth twice daily Lisinopril 5 Mg Tablet (Lisinopril) ..... Take one tablet by mouth every day Aspirin 81 Mg Tablet,delayed Release (dr/ec) (Aspirin) ..... Take one tablet by mouth every day Kalpana Fritz MD Electrophysiology: Vanita heaton 10/2021 CONCLUSIONS: M oderate to severe aortic stenosis. Moderate aortic valve regurgitation. Peak AV velocity: 3.93 m/s The Aortic Valve Peak G radient is 61.79 mmHg The Aortic Valve Mean Gradient is 38.17 mmHg The ZORAIDA is 0.7 cm2. Will repeat echo. Ellen Loyolasuyapa JALLOH Electrophysiology: H er updated medication list for this problem includes: Ezetimibe 10 Mg Tablet (Ezetimibe) ..... Take 1 tablet by mouth once a day take one tablet by mouth every day Atorvastatin 40 Mg Tablet (Atorvastatin) ..... Take 1 tablet once a day Ellen Storeybrian JALLOH Electrophysiology: B P at home ranges in [...] antegrade bilaterally. Will repeat carotid doppler. Ellen Choi NP Electrophysiology: N o angina. Continue current medications. Ellen Loyolasuyapa JALLOH Electrophysiology: N o recent symptoms. W ill get 48 hour holter in 1 year. Ellen Choi NP Electrophysiology:will repeat he r carotid doppler Aravind Joseph Electrophysiology Aravind Ahdavis Electrophysiology:no sxs Aravind davis Electrophysiology:Stable Aravind davis Electrophysiology: n o angina Aravind [facility] Electrophysiology:Ad vised her to monitor her BP at home and stay complaint on her medications. BP today: 181/78 P rior BP: 142/80 (01/04/2021) Labs Reviewed: C reat: 0.89 (12/16/2019) C hol: 170 (12/16/2019) HDL: 43 (12/16/2019) LDL: 100 MG/DL (CALC) (12/16/2019) T (12/16/2019) Aravind davis Electrophysiology: E cho 01/2019 CONCLUSIONS: 4 . Moderate aortic stenosis. Mild aortic valve regurgitation. Peak AV velocity: 3.05 m/s. The Aortic Valve Peak Gradient is 3 7.00 mmHg. The Aortic Valve Mean Gradient is 19.00 mmHg. Orders: C omplete Echo (CPT-37262) Eleazarhussein Zeb Electrophysiology: B P today: 142/80 P [...] mouth every day Orders: C omplete Echo (CPT-65223) C arotid Duplex Bilateral (CPT-12274) A janis Duplex Ultrasound (CPT-47258) Apryl Zeb Electrophysiology: l ast LDL 65 05/2020 t olerating statin/zetia well. occasional leg cramps but not associated w/ taking meds Her updated medication list for this problem includes: Lipitor 40 Mg Tablet (Atorvastatin) ..... 1 tablet once a day Ezetimibe 10 Mg Tablet (Ezetimibe) ..... Take one tablet by mouth every day hussein Zeb Electrophysiology: O rders: C omplete Echo (CPT-31681) Zeb Electrophysiology: O rders: C omplete Echo (CPT-48611) nelson Zeb Electrophysiology: O rders: C arotid Duplex Bilateral (CPT-83088) Zeb Electrophysiology: n o angina Her updated medication list for this problem includes: Aspirin 81 Mg Tablet,delayed Release (dr/ec) (Aspirin) ..... 1 tablet by mouth once a day Metoprolol Tartrate 25 Mg Tablet (Metoprolol tartrate) ..... Take one-half tablet by mouth twice daily Lisinopril 5 Mg Tablet (Lisinopril) ..... Take one tablet by mouth every day [facility] Electrophysiology Fo llow up completed : [...] (Metoprolol tartrate) ..... 1/2 tab. twice daily [facility] Z[facility] Electrophysiology Fo llow up completed :Echo 2018 [...] is 19.00 mmHg. E lectronically Signed By: Jessica Babs 2 15:54:35 NEWS ANCHOR Orders: C omplete Echo (CPT-14406) 9 9215 HIGH Complex (CPT-41285) Jignanelson Zeb Electrophysiology Fo llow up completed :01/2019: C ONCLUSIONS: 1 . 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 2 . 50 - 69% stenosis of the left ICA. 3 . <50% stenosis of the right ICA. 4. Vertebral flow is antegrade bilaterally. E lectronically Signed By: Shay Ching 2 15:36:30 NEWS ANCHOR O rders: C arotid Duplex Bilateral (CPT-57869) 9 9215 HIGH Complex (CPT-29172) Apryl Carrington Electrophysiology: H er updated medication list for this problem includes: Aspirin Adult Low Dose 81 Mg Oral Tablet Delayed Release (Aspirin) ..... One tab by mouth daily Lasix 40 Mg Oral Tablet (Furosemide) ..... Once daily Lisinopril 5mg (Lisinopril) ..... Take one tablet daily Metoprolol Tartrate 25 Mg Oral Tablet (Metoprolol tartrate) ..... 1/2 tab. twice daily Omega Govea Electrophysiology: O rders: C omplete Echo (CPT-93723) obile Cardiac Tele (CPT-77694) 9 9215 HIGH Complex (CPT-00531) Omega Govea Electrophysiology:Wi ll get 1 week telesentry, n o recent episodes O rders: C omplete Echo (CPT-64798) Omega Govea Electrophysiology:ge t echo redone Orders: C omplete Echo (CPT-09687) Omega Govea Electrophysiology:Or ders: M obile Cardiac Tele (CPT-36023) Her updated medication list for this problem includes: Aspirin Adult Low Dose 81 Mg Oral Tablet Delayed Release (Aspirin) ..... One tab by mouth daily Lisinopril 5 Mg Oral Tablet (Lisinopril) ..... One tab. daily Metoprolol Tartrate 25 Mg Oral Tablet (Metoprolol tartrate) ..... 1/2 tab. twice daily Fili Call Electrophysiology:In creased Lipitor to 40mg qD. W ill check lipid panel and CMP in 6 months. L ast LDL 97 on 09/17/17. Goal 70. Orders: L IPID PANEL (1810) C OMPREHENSIVE METABOLIC PANEL, W/EGFR (34942) Her updated medication list for this problem includes: Lipitor 20 Mg Oral Tablet (Atorvastatin calcium) ..... One tab. daily Fili Call Electrophysiology:Or ders: C arotid Duplex Bilateral (CPT-09389) S chedule Followup (*) 9 9214 MOD Complex (CPT-10300) Fili Call Electrophysiology:Or ders: C omplete Echo (CPT-96302) S chedule Followup (*) 9 9214 MOD Complex (CPT-48113) Her updated medication list for this problem [...] Electrophysiology:Or ders: S chedule Followup (*) 9 9214 MOD Complex (CPT-89175) Her updated medication list for this problem [...] S/P right endarterectomy. Ana M Mckinnon Electrophysiology Ana M galeano Electrophysiology Ana M galeano Electrophysiology Ana M galeano Electrophysiology: B P today: 173/86 P rior [...] Cardiology Faxed 1359: O rders: E KG (CPT-20127) 9 9213 LTD. Complex (CPT-53170) S chedule Followup (*) C omplete Echo (CPT-92741) Her updated medication list for this problem [...] Lopez MD hfu: O rders: E KG (CPT-11117) 9 9213 LTD. Complex (CPT-16550) S chedule Followup (*) S TR - Adenosine (89309) Shay Lopez MD hfu: O rders: E KG (CPT-93601) S chedule Followup (*) S TR - Adenosine (95781) Shay Lopez MD hfu:s/p Carotid Enda rterectomy: right 08/15/2014 The following medications were removed from the medication list: Aggrenox 25-200 Mg Oral [id number] (Aspirin-dipyridamole) ..... One tab twice daily Her [...] this problem includes: Aggrenox 25-200 Mg Oral [id number] (Aspirin-dipyridamole) ..... One tab twice daily Orders: C T angio, neck (CPT-55232) Shay Lopez MD HOS FOLLOW UP: O rders: S TR - Nuclear (83917) Shay Lopez MD HOS FOLLOW UP: H er updated medication list for this problem includes: Aggrenox 25-200 Mg Oral [id number] (Aspirin-dipyridamole) ..... One tab twice daily Aspirin 81 Mg Tabs (Aspirin) ..... One tab. daily Shay Lopez MD HOS FOLLOW UP: O rders: C OMPREHENSIVE METABOLIC PANEL W/EGFR (46627) L IPID PANEL (5970) C omplete Echo (CPT-01842) C arotid Duplex Bilateral (CPT-75251) S TR - Nuclear (99442) A ortic Abdominal Ultrasound (CPT-73616) Shay Lopez MD Date Name PROBNP, N TERMINAL PROTHROMBIN TIME WIT H INR LIPID PANEL CBC (INCLUDES DIFF/P LT) BASIC METABOLIC PANE L W/EGFR Carotid Duplex Bilat eral Holter Monitor 48 hr Carotid Duplex Bilat [...] Complete Echo Mobile Cardiac Tele DLCO - 71886 FRC - 28842 FVC - 63880 Complete Echo Complete Echo Carotid Duplex Bilat [...] Procedure Name Provider Procedure Notes S tatus Complex e/m visit add on [employer] SOLIMAN completed Complex e/m visit add on Kalpana Fritz MD completed Schedule Followup Shay lewis MD 1 year [...] completed EKG Shay echavarria MD completed SNOMED-CT: 097537414863539 Current Medications Documented Shay Lopez MD completed Schedule Followup Shay lewis MD in 1 year completed EKG Shay echavarria MD completed SNOMED-CT: 848361223216292 Current Medications Documented Shay Lopez MD completed SNOMED-CT: 77963138 Physical Exam, Performed: Pulse Exam of Foot Shay Lopez MD completed SNOMED-CT: 606123727 Smoking Cessation Counseling Shay Lopez MD completed Schedule Followup Shay lewis MD fu in 3 months completed EKG Shay echavarria MD completed SNOMED-CT: 553995166027478 Current Medications Documented Shay Lopez MD completed Schedule Followup Shay lewis MD in 1 month completed EKG Shay echavarria MD completed EKG Shay echavarria MD completed Schedule Followup Shay lewis MD fu in 1 month with SK completed EKG Shay echavarria MD completed EKG Shay echavarria MD completed EKG Shay echavarria MD completed
--- OUTSIDE RECORDS SUMMARY | 2024-07-18 11:01 | XMS_ITS | Encounter Summary ---
Author Organization [facility] Healthcare Address [address] [place] [address] Care Team Providers Care Photographic Engineer Name Role Phone Juan Osorio MD Primary Care Provider Cristian Harley MD Unavailable Encounter Details Date Type Department Care Team (Late st Contact Info) Description 06/07/2024 [facility] Post Discharge Follow up phone call [address] [address] Hoda Barnes Social History Tobacco Use Types Packs/Day Years Used Date Smoking Tobacco: Never Smokeless Tobacco: Never Alcohol Use Standard Drinks/Week Comments No 0 (1 standard drink = 0.6 oz pur e alcohol) [facility] Utilities Answer Date Recorded In the past 12 months has [employer] electric, gas, oil, or water company threatened to shut off services in your home? No 06/01/2024 Social Connection and Isolat ion Panel [NHANES] Answer Date Recorded In a typical week, how many times do you talk on the phone with family, friends, or neighbors? More than three times a week 06/01/2024 How often do you get togethe r with friends or relatives? More than three times a week 06/01/2024 How often do you attend chur ch or hindu services? More than 4 times per year 06/01/2024 Do you belong to any clubs o r organizations such as lutheran groups, unions, fraternal or athletic groups, or school groups? Yes 06/01/2024 How often do you attend meet ings of the clubs or organizations you belong to? More than 4 times per year 06/01/2024 Marital Status Not on file 06/01/2024 AUDIT-C Answer Date Recorded Q1: How often do you have a drink containing alc ohol? Monthly or less 05/26/2024 Q2: How many drinks containi ng alcohol do you have on a typical day when you are drinking? 1 or 2 05/26/2024 Q3: How often do you have si x or more drinks on one occasion? Never 05/26/2024 Overall Financial Resource Strain (CARDIA) Answe r Date Recorded How hard is it for you to pa y for the very basics like food, housing, medical care, and heating? Not hard at all 06/01/2024 [facility] of Occupat ional Health - Occupational Stress Questionnaire Answer Date Recorded Do you feel stress - tense, restless, nervous, or anxious, or unable to sleep at night because your mind is troubled all the time - these days? Not at all 06/01/2024 Hunger Vital Sign Answer Date Recorded Within the past 12 months, y ou worried that your food would run out before you got the money to buy more. Never true 06/02/19 25 Within the past 12 months, t he food you bought just didn't last and you didn't have money to get more. Never true 06/01/2024 PRAPARE - Transportation Answer Date Re corded In the past 12 months, has l ack of transportation kept you from medical appointments or from getting medications? No 05/17 In the past 12 months, has l ack of transportation kept you from meetings, work, or from getting things needed for daily living? No 06/01/2024 Housing Stability Vital Sign Answer Med e Recorded In the last 12 months, was t here a time when you were not able to pay the mortgage or rent on time? No 06/01/2024 In the past 12 months, how m any times have you moved where you were living? 0 06/01/2024 At any time in the past 12 m [facility], were you homeless or living in a longterm (including now)? No 06/01/2024 Personal Safety Answer Date Recorded Have you ever been in or are you currently in a harmful physical or emotional relationship or is someone making you feel afraid or unsafe? 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
--- OUTSIDE RECORDS SUMMARY | 2024-07-18 11:01 | XMS_ITS | Encounter Summary ---
Author Organization [facility] Healthcare Address [address] [place] [address] Care Team Providers Care Cardiology Consultant Name Role Phone Juan Osorio MD Primary Care Provider Cristian Harley MD Unavailable Encounter Details Date Type Department Care Team (Late st Contact Info) Description 06/07/2024 [facility] Post Discharge Follow up phone call [address] [address] Hoda Barnes Social History Tobacco Use Types Packs/Day Years Used Date Smoking Tobacco: Never Smokeless Tobacco: Never Alcohol Use Standard Drinks/Week Comments No 0 (1 standard drink = 0.6 oz pur e alcohol) [facility] Utilities Answer Date Recorded In the past 12 months has [employer] electric, gas, oil, or water company threatened [...] often do you attend chur ch or restorationist services? More than 4 times per year 06/01/2024 Do you belong to any clubs o r organizations such as rastafarian groups, unions, fraternal or athletic groups, or [...] and heating? Not hard at all 06/01/2024 [facility] Occupat ional Health - Occupational Stress [...] any time in the past 12 m [facility], were you homeless or living in a residential (including now)? No 06/01/2024 Personal Safety Answer Date Recorded Have you ever been in or are you currently in a harmful physical or emotional relationship or is someone making you feel afraid or unsafe? 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
--- OUTSIDE RECORDS SUMMARY | 2024-07-18 11:01 | XMS_ITS | Data Portability ---
Author Organization [facility] [employer], Main Office Address [address] [place] [address] Care Team Providers Care Software Program Manager Name Role Phone ORAL OSORIO Primary Care Provider [phone] Assessment No assessment recorded. Plan of Treatment Reminders Order Date Submit Date Provider Last Modified By Organization Details Last Modified Time Details Appointments None recorded. Lab vitamin D, 25-hydroxy, total, serum 2024 025 [email or web address], [address], [place], [address], 12:43:42 lipid panel, serum 2024 025 [email or web address] Aishwarya [facility], [address], [place], [address], 5 12:43:40 lipid panel, serum 2024 025 [email or web address] Aishwarya RICHARDSON, [address], [place], [address], 5 12:43:41 CMP, serum or plasma 2024 025 [email or web address] Aishwarya RICHARDSON, [address], [place], [address], 5 12:43:41 CBC w/ auto diff 2024 025 [email or web address], [address], [place], [address], 5 12:43:41 T4, free, serum 2024 025 [email or web address] [facility], [address], [place], [address], 5 12:43:41 TSH, serum or plasma 2024 025 [email or web address] [facility], [address], [place], [address], 5 12:43:42 vitamin D, 25-hydroxy, total, serum 2022 023 [email or web address] [facility], [address], [place], [address], 4 10:08:08 CBC w/ auto diff 2022 023 [facility], [address], [place], [address], 4 10:08:07 CMP, serum or plasma 2022 023 [email or web address], [address], [place], [address], 4 10:08:07 lipid panel, serum 2022 023 [email or web address], [address], [place], [address], 4 10:08:07 TSH, serum or plasma 2022 023 [email or web address], [address], [place], [address], 4 10:08:07 T4, free, serum 2022 023 [email or web address], [address], [place], [address], 10:08:07 Referral None recorded. Procedures None recorded. Surgeries None recorded. Imaging None recorded. Medication Orders Zithromax Z-Brent 250 mg tablet 2024 025 [facility] #[id number], [address], [place], [address], 5 12:16:24 benzonatate 200 mg capsule 2024 025 [facility] #[id number], [address], [place], [address], 12:16:26 Patient TargetsNo targets recorded. Patient Instructions Encounter Date Encounter Id Patient Instructions Last Modified By Organization Details Last Modified Time 02/04/2023 [id number] dementia rating scale-2* [email or web address] Not available 02/04/2023 11:25:41 alcohol misuse* Not available 02/04/2023 11:25:41 depression screening* [email or web address] Not available 02/04/2023 11:25:41 multi-dimensiona l health assessment questionnaire* Not available 02/04/2023 11:25:41 Personalized [facility] Plan and Screening Recommendations Advance Directives - [...] Physical activity: Need more exercise/physical activity Nutrition: Average Refer to attached handout Heart-Healthy Diet: After Your Visit Refer to attached handout DASH Diet: After Your Visit Recommend consultation with a fire watcher Eat heart healthy diet Fall Risk (screened today): Low Vaccines Pneumococcal: No further needed Influenza: Ordered Recommended today Recommended today, but you have declined Your next one in the fall of this year Your next one in the fall of next year Chronic Disease Risks Stroke: Intermediate Risk Active diagnosis, Continue current treatment plan Heart Attack: Intermediate Risk Active diagnosis, Continue current treatment plan Clogging of the Arteries: Intermediate Risk Active diagnosis, Continue current treatment plan Diabetes: Low Risk I have no recommendations Secondary Prevention/Interven tion (detects treatable diseases before they may cause symptoms, disability, or ) Breast Cancer Screening with mammogram: Recommended today Cervical/Uterine/Ov sofia Cancer Screening: No screening necessary Osteoporosis Screening: Recommended today Date Screening Last Performed: Colon Cancer Screening: Cologuard (DNA stool test) Recommended Date Screening Last Performed: __2018___ Eye Disease Screening: Ordered Recommended today Recommended today, but you have declined No Eye exam necessary Your next exam in: goes yearly Dementia Risk: Low I have no recommendations Depression Screening: Negative Recommend additional evaluation and/or treatment as noted above Recommend follow appointment to further evaluate Recommend Behavioral Health referral Active diagnosis, Continue current treatment plan I have no recommendations [email or web address] Not available 02/04/2023 11:17:01 Adult health examination [...] with voice recognition software. Occasional wrong-word or pqtdb-y-ujsi substitutions may have occurred due to the inherent limitations of voice recognition software. Read the chart carefully and recognize, using context, where substitutions have occurred. Mammogram Cologuard Bone density scan Not available 02/04/2023 11:25:14 06/10/2023 [id number] Coronary artery disease, hypertension, aortic stenosis and [...] with voice recognition software. Occasional wrong-word or uxxmb-y-dtiu substitutions may have occurred due to the inherent limitations of voice recognition software. Read the chart carefully and recognize, using context, where substitutions have occurred. [email or web address] Not available 06/10/2023 11:20:57 03/30/2024 [id number] Resolving pneumonia, coronary artery disease, hypertension, hyperlipidemia aortic valve stenosis. Echocardiogram performed at [facility] showed a decrease ejection fraction of [...] on a pneumonia that she had up [facility] do that locally 2. When her [...] with voice recognition software. Occasional wrong-word or xuywo-x-xyko substitutions may have occurred due to the inherent limitations of voice recognition software. Read the chart carefully and recognize, using context, where substitutions may have occurred. Created: Oral Osorio M.D. 03.30.2024 03:43 PM Not available 03/30/2024 16:43:12 07/12/2024 [id number] Bronchitis, essential hypertension, aortic valve stenosis status post TAVR procedure as well as hyperlipidemia all clinically stable. Will continue on current Rx start on some Z-Brent and some benzoate. Will obtain a radiographic study of the chest as well. Will continue on current medications. Already has a follow-up appointment. Additional Orders - Directives - Recommendations 1. Chest x-ray Keep Appointment: Thu 01:30 PM [place] Portions of record are template driven. When necessary additional context will be provided. Additionally some portions have been created with voice recognition software. Occasional wrong-word or kwvcv-r-mmtk substitutions may have occurred due to the inherent limitations of voice recognition software. Read the chart carefully and recognize, using context, where substitutions may have occurred. Created: Oral Osorio M.D. 07.12.2024 11:15 AM [email or web address] Not available 07/12/2024 12:16:00 Reason for Referral None Reported. Results Created Date Observation Date Name Description Value Unit Range Abnormal Flag Note LastModifiedBy Organization Detail LastModifiedTime 03/10/19 24 03/10/2023 COLOG UARD cologuard result [...] of 10,00 0 indiv idual s at [place] ge risk for color ectal cance r who were scree luciana with both Colog uard and colon oscop y. (Deepthi Allen et al, N Engl J Med 2014; 370(1 4):12 86-12 97) The servando l value (refe rence range ) for this assay is negat osorio. COLOG UARD RE-SC REENI NG RECOM MENDA TION: Perio dic color ectal cance r scree madhu is an impor tant part of preve ntive healt hcare for asymp tomat ic indiv idual s at [place] ge risk for color ectal cance r. Follo wing a negat osorio Colog uard resul t, the Ameri can Cance r Socie ty and U.S. Multi -Soci ety Task Force scree madhu guide lines recom mend a Colog uard re-sc reeni ng inter jing of 3 years . Refer ences : Ameri can Cance r Socie ty Guide line for Color ectal Cance r Scree madhu: https ://donny w.can cer.o rg/ca ncer/ colon -rect al-ca ncer/ detec tion- diagn osis- stagi ng/ac s-rec ommen datio ns.ht ml.; Amador DK, Gina ulloa CR, Kelvin corona JK, Color ectal Cance r Scree madhu: Recom menda tions for Physi cians and Patie nts from the U.S. Multi -Soci ety Task Force on Color ectal Cance r Scree madhu , Brianna Machado Gastr oente rolog y 2017; 112:1 016-1 030. TEST DESCR IPTIO N: [facility] site algor ithmi c chang sis of [...] years or older , who are at [facility] for color ectal cance r (CRC) . Colog uard has been appro noe for use by the U.S. FDA. The perfo rmanc e of Colog uard was estab lishe d in a cross secti onal study of [facility] adult s aged 50-84 . Colog uard perfo rmanc e in patie nts ages 45 to 49 years was estim ated by sub-g nerissap chang sis of near- age group s. Colon oscop ies perfo rmed for a posit osoroi resul t may find as the most clini mohamud signi armin trevino n: color ectal cance r [4.0% ], [...] study of 0 indiv idual s at avera ge risk for color ectal cance r [...] wing locat ion: www.e xactl abs.c om/re sulzeke . Addit ional descr iptio n of the Colog uard test proce ss, warni ngs and preca ution s can be found at www.c jennifer sadler.c om. Not Available [facility] (Cologuard Orders Only) [address], [place], [address], 03/20/2023 21:01:05 07/30/1907/31/2023 LIPID PANEL , STAND NABEEL cholesterol, total 142 mg/dL <200 normal Not Available [facility] [address] [place], [address], 07/31/2023 08:20:14 07/30/1907/31/2023 LIPID PANEL , STAND NABEEL HDL cholesterol 54 mg/dL > or = 50 normal Not Available [email or web address] [address] [place], [address], 07/31/2023 08:20:14 07/30/19 24 07/31/2023 LIPID PANEL , STAND NABEEL triglyceride s 112 mg/dL <150 normal Not Available [address], [address], 07/31/2023 08:20:14 07/30/19 24 07/31/2023 LIPID PANEL [...] 2061- 2068 (http ://ed ucati on.Qu estDi Mobisante. com/f aq/FA Q164) Not Available [address], [address], 07/31/2023 08:20:14 07/30/19 24 07/31/2023 LIPID PANEL , STAND NABEEL chol/HDLC ratio 2.6 (calc ) <5.0 normal Not Available [address], [address], 07/31/2023 08:20:14 07/30/19 24 07/31/2023 LIPID PANEL , STAND NABEEL non HDL cholesterol 88 mg/dL _(jacquie c) <130 normal For patie nts with diabe neyda plus 1 major ASCVD risk facto r, treat ing to a non-H DL-C goal of <100 mg/dL (LDL- C of <70 mg/dL ) is consi dered a thera peuti c optio n. Not Available [facility] [address], [address], 07/31/2023 08:20:14 07/30/19 24 07/31/2023 COMPR EHENS OSORIO METAB OLIC PANEL glucose 95 mg/dL 65-99 normal Fasti ng refer ence inter jing Not Available [address], [address], 07/31/2023 08:20:15 07/30/19 24 07/31/2023 COMPR EHENS OSORIO METAB OLIC PANEL urea nitrogen (BUN) 26 mg/dL 7-25 high Not Available [address], [address], 07/31/2023 08:20:15 07/30/19 24 07/31/2023 COMPR EHENS OSORIO METAB OLIC PANEL creatinine 1.04 mg/dL 0.60-1 .00 high Not Available [address], [address], 07/31/2023 08:20:15 07/30/19 24 07/31/2023 COMPR EHENS OSORIO METAB OLIC PANEL eGFR 56 mL/mi n/1.7 3m2 > or = 60 low Not Available [address], [address], 07/31/2023 08:20:15 07/30/19 24 07/31/2023 COMPR EHENS OSORIO METAB OLIC PANEL BUN/creatini ne ratio 25 (calc ) 6-22 high Not Available [address], [address], 07/31/2023 08:20:15 07/30/19 24 07/31/2023 COMPR EHENS OSORIO METAB OLIC PANEL sodium 140 mmol/ L 135-14 6 normal Not Available [address], [address], 07/31/2023 08:20:15 07/30/19 24 07/31/2023 COMPR EHENS OSORIO METAB OLIC PANEL potassium 5.1 mmol/ L 3.5-5. 3 normal Not Available [address], [address], 07/31/2023 08:20:15 07/30/19 24 07/31/2023 COMPR EHENS OSORIO METAB OLIC PANEL chloride 105 mmol/ L 98-110 normal Not Available [address], [address], 07/31/2023 08:20:15 07/30/19 24 07/31/2023 COMPR EHENS OSORIO METAB OLIC PANEL carbon dioxide 24 mmol/ L 20-32 normal Not Available [address], [address], 07/31/2023 08:20:15 07/30/19 24 07/31/2023 COMPR EHENS OSORIO METAB OLIC PANEL calcium 9.4 mg/dL 8.6-10 .4 normal Not Available [address], [address], 07/31/2023 08:20:15 07/30/19 24 07/31/2023 COMPR EHENS OSORIO METAB OLIC PANEL protein, total 7.6 g/dL 6.1-8. 1 normal Not Available [address], [address], 07/31/2023 08:20:15 07/30/19 24 07/31/2023 COMPR EHENS OSORIO METAB OLIC PANEL albumin 4.7 g/dL 3.6-5. 1 normal Not Available [address], [address], 07/31/2023 08:20:15 07/30/19 24 07/31/2023 COMPR EHENS OSORIO METAB OLIC PANEL globulin 2.9 g/dL_ (calc ) 1.9-3. 7 normal Not Available [address], [address], 07/31/2023 08:20:15 07/30/19 24 07/31/2023 COMPR EHENS OSORIO METAB OLIC PANEL albumin/glob ulin ratio 1.6 (calc ) 1.0-2. 5 normal Not Available [address], [address], 07/31/2023 08:20:15 07/30/19 24 07/31/2023 COMPR EHENS OSORIO METAB OLIC PANEL bilirubin, total 0.5 mg/dL 0.2-1. 2 normal Not Available [address], [address], 07/31/2023 08:20:15 07/30/19 24 07/31/2023 COMPR EHENS OSORIO METAB OLIC PANEL alkaline phosphatase 67 U/L 37-153 normal Not Available [address], [address], 07/31/2023 08:20:15 07/30/19 24 07/31/2023 COMPR EHENS OSORIO METAB OLIC PANEL AST 18 U/L 10-35 normal Not Available [address], [address], 07/31/2023 08:20:15 07/30/19 24 07/31/2023 COMPR EHENS OSORIO METAB OLIC PANEL ALT 14 U/L 6-29 normal Not Available [address], [address], 07/31/2023 08:20:15 07/30/19 24 07/31/2023 CBC (INCL UDES DIFF/ PLT) white blood cell count 11.1 thous and/u L 3.8-10 .8 high Not Available [address], [address], 07/31/2023 08:20:15 07/30/19 24 07/31/2023 CBC (INCL UDES DIFF/ PLT) red blood cell count 5.25 josh on/uL 3.80-5 .10 high Not Available [address], [address], 07/31/2023 08:20:15 07/30/19 24 07/31/2023 CBC (INCL UDES DIFF/ PLT) hemoglobin 15.7 g/dL 11.7-1 5.5 high Not Available [address], [address], 07/31/2023 08:20:15 07/30/19 24 07/31/2023 CBC (INCL UDES DIFF/ PLT) hematocrit 49.1 % 35.0-4 5.0 high Not Available [address], [address], 07/31/2023 08:20:15 07/30/19 24 07/31/2023 CBC (INCL UDES DIFF/ PLT) MCV 93.5 fL 80.0-1 00.0 normal Not Available [address], [address], 07/31/2023 08:20:15 07/30/19 24 07/31/2023 CBC (INCL UDES DIFF/ PLT) MCH 29.9 pg 27.0-3 3.0 normal Not Available [address], [address], 07/31/2023 08:20:15 07/30/19 24 07/31/2023 CBC (INCL UDES DIFF/ PLT) MCHC 32.0 g/dL 32.0-3 6.0 normal Not Available [address], [address], 07/31/2023 08:20:15 07/30/19 24 07/31/2023 CBC (INCL UDES DIFF/ PLT) RDW 12.8 % 11.0-1 5.0 normal Not Available [address], [address], 07/31/2023 08:20:15 07/30/19 24 07/31/2023 CBC (INCL UDES DIFF/ PLT) platelet count 161 thous and/u L 140-40 0 normal Not Available [address], [address], 07/31/2023 08:20:15 07/30/19 24 07/31/2023 CBC (INCL UDES DIFF/ PLT) MPV 12.7 fL 7.5-12 .5 high Not Available [address], [address], 07/31/2023 08:20:15 07/30/19 24 07/31/2023 CBC (INCL UDES DIFF/ PLT) absolute neutrophils 8114 cells /uL 1500-7 800 high Not Available [address], [address], 07/31/2023 08:20:15 07/30/19 24 07/31/2023 CBC (INCL UDES DIFF/ PLT) absolute lymphocytes 1787 cells /uL 850-39 00 normal Not Available [address], [address], 07/31/2023 08:20:15 07/30/19 24 07/31/2023 CBC (INCL UDES DIFF/ PLT) absolute monocytes 788 cells /uL 200-95 0 normal Not Available [address], [address], 07/31/2023 08:20:15 07/30/19 24 07/31/2023 CBC (INCL UDES DIFF/ PLT) absolute eosinophils 344 cells /uL 15-500 normal Not Available [address], [address], 07/31/2023 08:20:15 07/30/19 24 07/31/2023 CBC (INCL UDES DIFF/ PLT) absolute basophils 67 cells /uL 0-200 normal Not Available [address], [address], 07/31/2023 08:20:15 07/30/19 24 07/31/2023 CBC (INCL UDES DIFF/ PLT) neutrophils 73.1 % normal Not Available [address], [address], 07/31/2023 08:20:15 07/30/19 24 07/31/2023 CBC (INCL UDES DIFF/ PLT) lymphocytes 16.1 % normal Not Available [address], [address], 07/31/2023 08:20:15 07/30/19 24 07/31/2023 CBC (INCL UDES DIFF/ PLT) monocytes 7.1 % normal Not Available [facility] [address], [address], 07/31/2023 08:20:15 07/30/19 24 07/31/2023 CBC (INCL UDES DIFF/ PLT) eosinophils 3.1 % normal Not Available [facility] [address], [address], 07/31/2023 08:20:15 07/30/19 24 07/31/2023 CBC (INCL UDES DIFF/ PLT) basophils 0.6 % normal Not Available [facility] [address], [address], 07/31/2023 08:20:15 07/30/19 24 07/31/2023 T4, FREE T4, free 1.0 NG/dL 0.8-1. 8 normal Not Available [facility] [address], [address], 07/31/2023 08:20:16 07/30/19 24 07/31/2023 TSH TSH 1.29 mIU/L 0.40-4 .50 normal Not Available [facility] [address] [place] [address], [address], 07/31/2023 08:20:16 03/04/19 24 03/04/2023 scree madhu breas t arnav, bilat [facility] [place] [address] [place] [address] [phone] Patien t Name: DEVORA OROURKE Access ion #: [id number] Sex: F : 1945 2 Locati on: [...] som ectura l Page 1 of 2 [facility] Patishelby t Name: DEVORA OROURKE Access ion #: [id number] Sex: F : 1945 2 Exam Date: 024 8:59 AM Exam Name: [...] ed prompt ly to the [facility]. A negati ve mammog catarina report [...] 9:27 AM (CT) Page [address] of [address] (Imaging) [address] [place], [address], 03/04/2023 10:30:14 03/04/19 24 03/04/2023 DEXA, axial skele ton [facility] [address] [place] [address] [facility]ina [facility] Name: DEVORA OROURKE ion #: [id number] Sex: F : 1945 2 Dictat [...] T-scor e: compar stephanie by floyd garcia (ADI) to a young adult popula tion, sourave d for sex and ethnic ity (used for postme nopaus al women and men >50 years) and classi fied by WHO criter ia. ?-1.0: normal <-1.0 to >-2.5: osteop enia ?-2.5: osteop orosis Page [address] [facility] [place] [address] [facility], [place] [address] Patien t Name: DEVORA OROURKE Deepthi ion #: [id number] Sex: F : 1945 2 Dictat ed By: Fariha Navarro Attend ing Physic sharri: ROCIO SCHROEDER [facility] Physic sharri: AMY OSORIO Exam Date: 01/17/ 2024 08:59 AM Exam Name: XR DEXA-H IPS [...] at 2023 10:08: 41 AM Page [address] (Imaging) [address] [place], [address], 03/04/2023 12:35:30 05/19/19 24 05/19/2023 US, carot id arter y No observ ation record ed. [address] [facility] [address], [place], [address], 05/19/2023 16:48:44 05/19/19 24 05/19/2023 US, echoc ardio gram No observ ation record ed. [address] [facility] [address], [place], [address], 05/19/2023 17:18:59 03/19/19 25 03/19/2024 XR, chest No observ ation record ed. [address], [address], 03/19/2024 15:24:13 03/19/19 25 03/19/2024 CT, angio gram, chest , w/ contr ast No observ ation record ed. [address], [address], 03/20/2024 10:13:37 03/20/19 25 03/20/2024 XR, chest No observ ation record ed. [address] [place], [address], 03/20/2024 10:19:24 03/20/19 25 03/20/2024 XR, chest , 1 view No observ ation record ed. [address], [place], [address], 03/21/2024 06:46:59 03/21/19 25 03/21/2024 XR, chest , 1 view No observ ation record ed. [address], [place], [address], 03/21/2024 16:51:57 03/21/1903/21/2024 US, echo ardio gram No observ ation record ed. [address], [place], [address], 03/21/2024 17:12:01 03/22/19 25 03/22/2024 CT, angio gram, chest , w/ contr ast No observ ation record ed. [address], [place], [address], 03/23/2024 06:43:48 03/23/19 25 03/23/2024 XR, chest No observ ation record ed. [address], [place], [address], 03/23/2024 09:03:17 03/26/1903/26/2024 XR, chest + abdom en + pelvi s No observ ation record ed. [address], [place], [address], 03/26/2024 15:25:14 04/06/19 25 04/06/2024 XR, chest , 2 view No observ ation record ed. [address], [place], [address], 04/06/2024 14:35:31 Result Notes None recorded. Problems Name Problem SNOMED Code Status Onset Date Resolution Date Notes Provider Name and Address Organization Details Recorded Time Benign essential hypertension 5774709 Active Not Available [facility] 3 06:00:31 Cerebrovascul ar accident 649726251 Active Not Available [facility] 3 06:00:31 Pure hypercholeste rolemia 846970969 Active Not Available [facility] 3 06:00:31 Vitamin D deficiency 63205207 Active 2021 Oral Osorio MD [address] [facility], [facility] [address], [address] , [facility] 5 15:10:36 Pain radiating to left shoulder 748328848 Active Not Available [facility] 3 06:00:31 Coronary arteriosclero sis 49982008 Active Not Available [facility] 3 06:00:31 Aortic valve stenosis 27269064 Active Not Available [facility] 3 06:00:32 Osteoporosis 24784056 Active 2020 Not Available [facility] 3 06:00:32 Urinary tract infectious disease 13811067 Active Not Available [facility] 3 06:00:32 Heart murmur 22919904 Active Not Available [facility] 3 06:00:32 Bilateral hearing loss 38390562 Active 2022 Irma mendieta, [place] [facility] 3 15:38:34 Senile osteoporosis 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 Active 2022 Irma mendieta, [place] [facility] 3 11:34:23 Fever 559342479 Active 2024 Ophelia Topete CMA null, [place] [facility] 5 11:43:06 Pneumonia 150648626 Active 2024 Oral Osorio MD [address], [facility] [address], [place], [address] , [place] [facility] 5 16:36:20 Acute bronchitis 96987359 Active 2024 Oral Osorio MD [address] [place] [facility] [address], [place], [address] , [facility] [employer] [facility] 5 12:12:13 Acute cough Active 2024 Irma mendieta, [facility] [employer] [facility] 5 12:17:33 Problem Notes None recorded. Procedures Surgical History Date Name Laterality Status Provider Name and Address Organization Details Recorded Time Medicare Wellness CPT Code, subsequent completed Phuong Farris RN [facility] [employer] 02/04/2023 11:10:47 Imaging Results None recorded. Procedure Notes None recorded. Medical Equipment None [...] TAKE ONE TABLET BY MOUTH EVERY DAY 06/21 completed Not Available Not Available Not Available atorvastat in 40 mg tablet TAKE [...] Not Available Not Available Not Avai lable prednisone 20 mg tablet 40 MG (2 [...] Not Available Not Available Not Avai lable clopidogre l 75 mg tablet TAKE 1 TABLET BY MOUTH EVERY DAY active Not Available Not Available No t Available amoxicilli n 500 mg tablet TAKE 1 [...] TAKE 1 CAPSULE BY MOUTH EVERY DAY 06/21 completed Not Available Not Available Not Available lisinopril 5 mg tablet TAKE 1 TABLET BY MOUTH EVERY DAY active Not Available Not Available No t Available furosemide 20 mg tablet TAKE 1 TABLET BY MOUTH EVERY DAY active Not Available Not Available No t Available metoprolol succinate ER 25 mg tablet,ext ended release 24 hr TAKE 1 TABLET BY MOUTH EVERY DAY IN THE MORNING active Not Available Not Available No t Available levofloxac in 750 mg tablet TAKE 1 [...] 2 TABLETS BY MOUTH EVERY 12 HOURS 06/21 completed Not Available Not Available Not Available Vitals Date Recorded Body height Body mass index (BMI) Body weight Heart rate Body temperature Oxygen saturation Oxygen saturation in Arterial blood by Pulse oximetry Systolic blood pressure Diastolic blood pressure Provider Name and Address Organization Details Last Updated DateTime 5 142.24 cm 25.1 kg/m2 08016.3 5 g 70 /min 97 [degF] 97 % 97 % 122 mm[Hg] 68 mm[Hg] [facility] 5 16:27:12 Date Recorded Body height Body mass index (BMI) Body weight Heart rate Body temperature Oxygen saturation Oxygen saturation in Arterial blood by Pulse oximetry Systolic blood pressure Diastolic blood pressure Provider Name and Address Organization Details Last Updated DateTime 4 143.51 cm 26.8 kg/m2 77128.4 7 g 85 /min 97 [degF] 92 % 92 % 132 mm[Hg] 80 mm[Hg] [facility] 4 11:09:42 Date Recorded Body height Body mass index (BMI) Body weight Heart rate Body temperature Oxygen saturation Oxygen saturation in Arterial blood by Pulse oximetry Systolic blood pressure Diastolic blood pressure Provider Name and Address Organization Details Last Updated DateTime 5 142.24 cm 25.7 kg/m2 99067.3 3 g 93 /min 97 [degF] 96 % 96 % 140 mm[Hg] 68 mm[Hg] Shu Santiago PR [employer] [facility] [employer] 5 15:00:34 Date Recorded Heart rate Provider Name an d Address Organization Details Last Updated DateTime 07/12/2024 100 /min Oral Osorio MD [address] [facility], [facility] [address], [place], [address], [facility] [employer] [facility] 07/12/2024 12:12:43 Date Recorded Body height Body mass index (BMI) Body weight Body temperature Oxygen saturation Oxygen saturation in Arterial blood by Pulse oximetry Systolic blood pressure Diastolic blood pressure Provider Name and Address Organization Details Last Updated DateTime 5 142.24 cm 25.6 kg/m2 85580.5 3 g 98.9 [degF] 95 % 95 % 118 mm[Hg] 60 mm[Hg] [facility] [employer] [facility] [employer] [facility] 5 12:02:30 Date Recorded Body height Body mass index (BMI) Body weight Heart rate Body temperature Oxygen saturation Oxygen saturation in Arterial blood by Pulse oximetry Systolic blood pressure Diastolic blood pressure Provider Name and Address Organization Details Last Updated DateTime 3 144.78 cm 26.4 kg/m2 40427.2 7 g 78 /min 97 [degF] 97 % 97 % 124 mm[Hg] 68 mm[Hg] [facility] [employer] [facility] [employer] [facility] 3 11:07:30 Social History Question Answer Notes LastModified by Organization Details LastModified Time Tobacco Smoking Status Never Smoker Not Available [employer] 04/16/2022 05:53:09 Do You Have An Advance Directive? Yes [id number] Information not available 04/16/2022 Are You Blind Or Do You Have Difficulty Seeing? No MIGRATION.[id number] Information not available 04/16/2022 What Is Your Code Status? Other [id number] Information not available 04/16/2022 In The 14 Days Before Symptom Onset, Have You Had Close Contact With A Laboratory-confi rmed COVID-19 While That Case Was Ill? No MIGRATION.0301 [id number] Information not available 04/16/2022 In The 14 Days Before Symptom Onset, Have You Had Close Contact With A Person Who Is Under Investigation For COVID-19 While That Person Was Ill? No MIGRATION.0301 [id number] Information not available 04/16/2022 Are You Deaf Or Do You Have Serious Difficulty Hearing? Yes Has Hearing Aids [email or web address] Information not available 02/04/2023 What Type Of Diet Are You Following? REGULAR MIGRATION.0301 [id number] Information not available 04/16/2022 Have There Been Any Changes To Your Family Or Social Situation? No MIGRATION.0301 [id number] Information not available 04/16/2022 What Is The Fluoride Status Of Your Home? Fluoridated MIGRATION.0301 [id number] Information not available 04/16/2022 Are There Any Guns Present In Your Home? No MIGRATION.0301 [id number] Information not available 04/16/2022 Do You Use Insect Repellent Routinely? Yes MIGRATION.0301 [id number] Information not available 04/16/2022 [facility]01 [id number] Information not available 04/16/2022 Guns Present In The Home? No [email or web address] Information not available 02/04/2023 Are You Able To Care For Yourself? Yes [email or web address] Information not available 02/04/2023 Are You Blind Or Do Yo Have Difficulty Seeing? No [email or web address] Information not available 02/04/2023 Are You Deaf Or Do You Have Serious Difficulty Hearing? Yes [email or web address] Information not available 02/04/2023 Live Alone Of With Others? Alone [email or web address] Information not available 02/04/2023 Do You Have A Medical Power Of Manager Access? Yes MIGRATION.0301 [id number] Information not available 04/16/2022 What Was The Date Of Your Most Recent Tobacco Screening? 02/04/2023 [email or web address] Information not available 02/04/2023 Do You Have Any Pets? No MIGRATION.0301 [id number] Information not available 04/16/2022 Do You Use Your Seat Belt Or Car Seat Routinely? Yes MIGRATION.0301 067401 Information not available 04/16/2022 Do You Have Smoke And Carbon Monoxide Detectors In Your Home? Yes MIGRATION.0301 713256 Information not available 04/16/2022 Are You Passively Exposed To Smoke? No MIGRATION.0301 563537 Information not available 04/16/2022 Are There Any Smokers In Your House? No MIGRATION.0301 255423 Information not available 04/16/2022 Do You Use Sunscreen Routinely? Yes MIGRATION.0301 497049 Information not available 04/16/2022 Have You Recently Traveled Abroad? No MIGRATION.0301 009496 Information not available 04/16/2022 Do You Have Difficulty Walking Or Climbing Stairs? No MIGRATION.0301 461847 Information not available 04/16/2022 Do You Have Any Dietary Restrictions? No MIGRATION.0301 912926 Information not available 04/16/2022 Sex: Female Functional Status Question Answer Note LastModified by Competeat ion Details LastModified Time What is your level of alcohol consumption? Occasional MIGRATION.161201 1281 Information not available 04/16/2022 Do you have transportation difficulties? No MIGRATION.782194 8815 Information not available 04/16/2022 Are you able to walk? YESWOREST MIGRATION.363231 9716 Information not available 04/16/2022 Do you have difficulty doing errands alone? No MIGRATION.223054 2399 Information not available 04/16/2022 Are you able to care for yourself? Yes MIGRATION.441512 3353 Information not available 04/16/2022 Do you have difficulty dressing or bathing? No MIGRATION.203546 8886 Information not available 04/16/2022 Do you or have you ever used e-cigarettes or vape? Former user of electronic cigarettes MIGRATION.960296 4503 Information not available 04/16/2022 What is your exercise level? Moderate MIGRATION.105321 3134 Information not available 04/16/2022 Mental Status Question Answer Note LastModified by Organizat ion Details LastModified Time Do you feel stressed (tense, restless, nervous, or anxious, or unable to sleep at night)? [id number] MIGRATION.[id number] 26 Information not available 04/16/2022 Do you have difficulty concentrating, remembering or making decisions? No MIGRATION.48714680 26 Information not available 04/16/2022 Family History Nothing [...] EAR OR HEARING PROBLEMS Y MUMPS N BOWEL PROBLEMS N DEPRESSION (INCLUDING POST ) N STROKE/TIA Y ULCERS N BENIGN PROSTATIC [...] HAVE YOU BEEN HOSPITALIZED OR SEEN IN [facility] IN THE PAST YEAR ? N [...] Vaccine Type Date Status Note Provider Yury e and Address Organization Details Recorded Time influenza, unspecified formulation 3 completed [facility] 02/04/2023 11:07:51 Influenza, split virus, quadrivalent, preservative 1 completed Not Available [facility] 04/16/2022 06:11:03 SARS-COV-2 (COVID-19) vaccine, UNSPECIFIED 1 completed Not Available [facility] 04/16/2022 06:11:03 influenza, unspecified formulation 2 completed Not Available [facility] 04/16/2022 06:11:03 SARS-COV-2 (COVID-19) vaccine, UNSPECIFIED 1 completed Not Available [facility] 04/16/2022 06:11:03 SARS-COV-2 (COVID-19) vaccine, UNSPECIFIED 1 completed Not Available [facility] 04/16/2022 06:11:03 pneumococcal polysaccharide PPV23 8 completed Not Available [facility] 04/16/2022 06:11:04 Pneumococcal conjugate PCV 13 5 completed Not Available [facility] 04/16/2022 06:11:04 Past Encounters Encounter ID Performer Location Encounter Start Date Encounter Closed Date Diagnosis/Indication Diagnosis SNOMED-CT Code Diagnosis ICD10 Code Diagnosis Note [id number] Oral Osorio MD [facility] [place] [facility] [address] , [place] [address] 05/01/2020 00:00:00 05/01/2020 11:56:41 [id number] [facility] ic[facility] [place] Ramesh Garcia [address] [place] [address] 05/09/2020 00:00:00 05/09/2020 10:02:26 [id number] Oral Osorio MD [facility] [place] [facility] [address] , [place] [address] 09/21/2020 00:00:00 09/21/2020 13:00:35 [id number] Oral Osorio MD [facility] [place] [address] [place] [address] [address] 04/04/2021 00:00:00 04/04/2021 11:48:51 [id number] Oral Osorio MD [facility] Internal Med Radha guzmán [address] [facility] , [facility] [place] [address] 10/04/2021 00:00:00 10/04/2021 11:24:48 [id number] Oral Osorio MD [facility] [address] [place] [address] [address] 04/09/2022 00:00:00 04/09/2022 16:38:52 [id number] Oral Osorio MD [facility] [address] [place] [address] [address] 10/01/2022 14:54:19 10/01/2022 15:41:41 Benign essential hypertension 4168279 I10 Aortic valve stenosis 60 855963 I35.0 Coronary arteriosclerosis 06868130 I25.10 Pure hypercholesterolemia 555974460 E78.00 [id number] Oral Osorio MD [facility] [address] [place] [address] [address] 02/04/2023 10:46:18 02/04/2023 11:45:03 Adult health examination 686048058 Z00.00 Screening for disorder 910065543 Z13.9 Benign ess ential hypertension 3132574 I10 Aortic valve stenosis 60 964643 I35.0 Coronary arteriosclerosis 10333411 I25.10 Pure hypercholesterolemia 755419563 E78.00 Vitamin D deficiency 347 15489 E55.9 [id number] Oral Osorio MD [facility] [address] [place] [address] [address] 06/10/2023 10:55:16 06/10/2023 11:33:55 Coronary arteriosclerosis 09966766 I25.10 Benign ess ential hypertension 4630602 I10 Aortic valve stenosis 60 620956 I35.0 Pure hypercholesterolemia 569636972 E78.00 [id number] Oral Osorio MD [facility] [address] [address] 03/30/2024 16:11:07 03/30/2024 17:11:32 Pneumonia 910990681 J18.9 Benign ess ential hypertension 5802277 I10 Coronary arteriosclerosis 42405458 I25.10 Pure hypercholesterolemia 440642643 E78.00 Aortic valve stenosis 60 072416 I35.0 [id number] Oral Osorio MD [facility] Internal Med [facility] [address] [address] 06/21/2024 14:45:24 06/21/2024 15:21:29 Coronary arteriosclerosis 30435049 I25.10 Aortic valve stenosis 60 598143 I35.0 Benign ess ential hypertension 9586548 I10 Pure hypercholesterolemia 587718856 E78.00 Vitamin D deficiency 347 05799 E55.9 [id number] Oral Osorio MD [facility] Internal Med [facility] [address] [address] 07/12/2024 11:30:03 07/12/2024 12:17:06 Benign essential hypertension 9572721 I10 Aortic valve stenosis 60 914669 I35.0 Pure hypercholesterolemia 642902936 E78.00 Acute bronchitis 4536039 2 J20.9 J20.0 J20.1 J20.2 J20.3 J20.4 J20.5 J20.6 J20.7 J20.8 Health Concerns Section Related Observation LastModified by Organization Detai ls LastModified Time None Recorded Concern Status LastModified by Organization Details LastModified Time None Recorded Advance Directives Directive Y: Payers Encounter Date Sequence Insurance Name Policy Number Policy Blair Covered Member ID Blair Member ID Guarantor Name 02/04/2023 1 [facility] (MEDICARE REPLACEMENT/A DVANTAGE - HMO) [id number] Devora Orourke [id number] Devora Orourke 06/10/2023 1 [facility] (MEDICARE REPLACEMENT/A DVANTAGE - HMO) [id number] Devora Orourke [id number] Devora Orourke 03/30/2024 1 [facility] (MEDICARE REPLACEMENT/A DVANTAGE - HMO) [id number] Devora Orourke [id number] Devora Orourke 06/21/2024 1 [facility] (MEDICARE REPLACEMENT/A DVANTAGE - HMO) [id number] Devora Orourke [id number] Devora Orourke 07/12/2024 1 [facility] (MEDICARE REPLACEMENT/A DVANTAGE - HMO) [id number] Devora Orourke [id number] Devora Orourke Notes Date Note Type Note Provider Name and Address Organization Details Recorded Time 02/05/20 23 text/htm l Patient Name: Devora [...] MG (TABLET - ORAL) One DailyVaccination and Gdmbwpgedgnb3003-14 Oknrfqlkn3639-53 Covid Booster Aidzsgl8856-83 Covid Hwoognc9294-62 Zhtzvuhpu3546-93 Prevnar 13 GcSurgical HistoryCAGB, Right Carotid Endarterectomy, SCOTT BSO, TonsillectomyPreventative Testing Confirmed by Our Yozeisf6506/09/2022 ALBUMIN 4.0 G/DL N011/01/2021 MAMMOGRAM / DEXA SCAN11/09/2017 COLOGUARD (NEGATIVE) 11/09/2020ocial HistoryDoes not smoke. Drinks socially. No occupational exposures.Family HistoryMother 81 . from complications of angioplasty. hx of hypertension.Father is 82 history of coronary artery disease and hypertension.Has two brothers living with hypertension(2) and one with peptic ulcersNo sisters. Oral Osorio MD [address] [facility], [facility] [address], [place], [address], [place] [employer] 02/04/2023 11:25:47 06/10/19 24 text/htm l Patient [...] Systemic Symptoms:none Medication Reconciliation: from medication list. Desyttltjfp57-56-9431: Mammogram negative for malignancy repeat in approximately one year.03/04/2023: DEXA scan osteopenia. FRAX score is adequate. No need for any additional therapy outside of vitamin-D and calcium supplementation. 05-19-2023: carotid ultrasound 50-69% stenosis of the left internal carotid artery. Less than 50% stenosis of the right internal carotid artery. Vertebral blood flow antegrade gaakidhjjtl58/02/2024: Echocardiogram demonstrated estimated ejection fraction of 60%. [...] (TABLET - ORAL) One Daily Vaccination and Qixgdzbgktpo9581-87 Ksqstkcrk1519-36 Covid Booster Ktcoagr1828-97 Covid Vjhderm6959-73 Gkizlrblm2135-73 Prevnar 13 Surgical Lzfmyja6856-29 NEMC9979-84 Right Carotid Gfqnwyrmeubuee0756-41 [facility] HKN3033-81 Tonsillectomy Preventative Dtghone9203/11/2023 COLOGUARD 701/ MAMMOGRAM 5003/04/2023 DEXA SCAN (OSTEOPENIA)06/09/2022 [...] 0.60-1.00 MG/DLEGFR 68 > OR = 60 ML/MIN/1.53R3OBYFFKJJH, TOTAL 0.4 0.2-1.2 MG/DLALKALINE PHOSPHATASE 62 37-153 U/LAST 17 10-35 U/LALT 16 6-29 U/L Oral Osorio MD [address] [facility] [address], [place], [address], [facility] 06/10/2023 11:21:14 03/30/19 25 text/htm l Patient Name: Devora OrourkeArtemiote Of Service: Thursday ( 03.30.2024 ): 1945 [...] Systemic Symptoms:none Medication Reconciliation: from medication list. Mnwxqpxsazc51-77-9979: Mammogram negative for malignancy repeat in approximately one year.03/04/2023: DEXA scan osteopenia. FRAX score is adequate. No need for any additional therapy outside of vitamin-D and calcium supplementation. 05-19-2023: carotid ultrasound 50-69% stenosis of the left internal carotid artery. Less than 50% stenosis of the right internal carotid artery. Vertebral blood flow antegrade ffcfucrkaab30/02/2024: Echocardiogram demonstrated estimated ejection fraction of 60%. Mild enlargement of left atrium. Elevated filling pressures in te left atrium. Severe mitral annular calcification. Severe aortic stenosis estimated aortic valve area 0.4 sq cm. Peak gradient 58.77 mmHg. 03-19-2024: CT of chest multifocal pneumonia, moderate right and small left pleural effusions. Mediastinal adenopathy, cholelithiasis and distal esophageal and gastric wall vtabf35-85-8090: Echocardiogram demonstrates an ejection fraction of 30-35%. With hypokinesis of the apex. Mild aortic regurgitation. Moderate mitral regurgitation. Questionable calcific mass on the mitral valve. History of Present Illness #1. 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 No recurrent chest pain shortness of breath or other cardiovascular symptoms. Feels much better. Does follow with Dr. Lopez here in [place]. Will set her up with him for [...] 2020-11 COVID BOOSTER MODERNA(X) 2022-11 INFLUENZA Surgical Uelgrfu6010-73 IBXL2756-89 Right Carotid Bkwszkkmmzgfun2277-19 [facility] XLZ6062-59 Tonsillectomy Preventative Testing( ) 07/30/2023 Albumin 4.7 [...] with peptic ulcersNo sisters. Oral Osorio MD [address] [place] [address], [facility] [address], [place], [address], [facility] [employer] 03/30/2024 16:43:27 06/22/19 25 text/htm l Patient Name: Devora OrourkeDate Of Service: Thursday ( 06.21.2024 ): 1945 Age: 78 There has been approximately a 2.5 lb weight gain since 03/30/2024. This represents approximately a 2.2% change in weight. Weight change attributable to lifestyle changes. Vital Signs:Blood Pressure: Sitting Rt. Arm 140/68Pulse: Sitting 93 /min and RegularRespiratory Rate: 16Height 66 in or 1.7 mWeight 114.5 lb or 51.9 kgBMI 18.5Temperature: 97 F or 36.1 CPulse Oximetry: 96 % at rest on no oxygen Chief Complaint: Addressed in HPI Problems or conditions discussed in the HPI were the only ones reviewed during the encounter.Only social and family history addressed in the HPI were reviewed during this encounter. Attendant(s): NoneConstitutional and Systemic Symptoms:none Medication Reconciliation: from medication list. Feovmyhdxke95-87-5207: Mammogram negative for malignancy repeat in approximately one year.03/04/2023: DEXA scan osteopenia. FRAX score is adequate. No need for any additional therapy outside of vitamin-D and calcium supplementation. 05-19-2023: carotid ultrasound 50-69% stenosis of the left internal carotid artery. Less than 50% stenosis of the right internal carotid artery. Vertebral blood flow antegrade jkrjvjjcfxy64/02/2024: Echocardiogram demonstrated estimated ejection fraction of 60%. Mild enlargement of left atrium. Elevated filling pressures in te left atrium. Severe mitral annular calcification. Severe aortic stenosis estimated aortic valve area 0.4 sq cm. Peak gradient 58.77 mmHg. 03-19-2024: CT of chest multifocal pneumonia, moderate right and small left pleural effusions. Mediastinal adenopathy, cholelithiasis and distal esophageal and gastric wall -[id number]: Echocardiogram demonstrates an ejection fraction of 30-35%. With hypokinesis of the apex. Mild aortic regurgitation. Moderate mitral regurgitation. Questionable calcific mass on the mitral valve. 04-06-2024: [id number] x-ray bilateral airspace consolidation primarily involved in the upper lungs. Improved compared with the prior examination. Findings compatible with own pneumonia although underlying mass is not excluded. 04-27-2024: Cardiac catheterization left main normal with calcification. Lad 100% occluded proximally. Left circumflex mildly disease and 2nd large obtuse marginal providing collateral's to the distal right coronary artery. A HENRIQUEZ to the LAD was patent. The saphenous vein graft to the right coronary artery was patent. Overall impression severe triple-vessel coronary artery disease with complete revascularization. With a HENRIQUEZ to the LAD, vein graft to the ramus of the right coronary artery and obtuse marginal. Severe aortic stenosis with normal LV function. History of Present Illness #1. Coronary Artery Disease: There has been no change in frequency - duration - intensity in frequency, duration or intensity of chest pain. Other Complaints: none The frequency of anginal attacks is none at all. Additional Symptoms: none Therapy reviewed regarding cardiovascular management includes Aspirin, Lipitor, Lisinopril, Metoprolol Succinate Er, Plavix and Zetia #2. Essential Hypertension: Stage: Stage [...] restriction and Lisinopril and Metoprolol Succinate Er. #3. Type II Hypercholesterolaemia: Currently taking medication and tolerating well. No interval complaints of any muscle pain or arthralgia. No significant liver changes with medications. Last lipid panel: fair control. Therapy reviewed regarding treatment of cholesterol management and include diet and Medication. #4. AVR: Hx of TAVR aortic valve replacement currently stable. No interval complaints of any chest pain, syncope, neurological symptoms, shortness of breath or other cardiovascular symptoms. Active Medication ListPlavix 75 MG TABLET, FILM COATED Once DailyZetia 10 MG TABLET Once DailyLipitor 40 MG (TABLET - ORAL) One Hs For CholesterolVitamin C 1000 MG Once DailyOs-jacquie D DailyLisinopril 5 MG TABLET One DailyMultivitamin DailyAspirin 81 MG One DailyMetoprolol Succinate Er 25 MG TABLET, FILM COATED, EXTENDED RELEASE Once DailyLasix 20 MG Once Daily Vaccination and Immunization( ) 2014- PREVNAR 13 GC(X) 2017-08 PNEUMOVAX PREVNAR 20 Needed( ) 2020-04 COVID MODERNA(X) 2020-11 COVID BOOSTER MODERNA(X) 2022-11 INFLUENZA Surgical Lhkrahr2167-51 PBBI5969-09 IHPL1535-38 Right Carotid Aksutdatoikfmb2178-90 [facility] FWR6951-03 Tonsillectomy Preventative Testing( ) 07/30/2023 Albumin 4.7 [...] peptic ulcersNo sisters. Oral Osorio MD [address] [facility], [facility] [address], [place], [address], [facility] 06/21/2024 15:11:11 07/13/19 25 text/htm l Patient Name: Devora Galindote Of Service: Thursday ( 07.12.2024 ): 1945 Age: 78 Vital Signs:Blood Pressure: Sitting Rt. Arm 118/60Pulse: Sitting 100 /min and RegularRespiratory Rate: 22Height 56 in or 1.4 mWeight 114 lb or 51.7 kgBMI 25.6Temperature: 98.9 F or 37.2 CPulse Oximetry: 95 % at rest on no oxygen Chief Complaint: Cough and congestion Problems or conditions discussed in the HPI were the only ones reviewed during the encounter.Only social and family history addressed in the HPI were reviewed during this encounter. Attendant(s): NoneConstitutional and Systemic Symptoms:none Medication Reconciliation: from medication list. Ocunbxgjyuq37-29-7644: Mammogram negative for malignancy repeat in approximately one year.03/04/2023: DEXA scan osteopenia. FRAX score is adequate. No need for any additional therapy outside of vitamin-D and calcium supplementation. 05-19-2023: carotid ultrasound 50-69% stenosis of the left internal carotid artery. Less than 50% stenosis of the right internal carotid artery. Vertebral blood flow antegrade dqajmecpcgk28/02/2024: Echocardiogram demonstrated estimated ejection fraction of 60%. Mild enlargement of left atrium. Elevated filling pressures in te left atrium. Severe mitral annular calcification. Severe aortic stenosis estimated aortic valve area 0.4 sq cm. Peak gradient 58.77 mmHg. 03-19-2024: CT of chest multifocal pneumonia, moderate right and small left pleural effusions. Mediastinal adenopathy, cholelithiasis and distal esophageal and gastric wall jbsiz02-30-8993: Echocardiogram demonstrates an ejection fraction of 30-35%. With hypokinesis of the apex. Mild aortic regurgitation. Moderate mitral regurgitation. Questionable calcific mass on the mitral valve. 04-06-2024: [id number] x-ray bilateral airspace consolidation primarily involved in the upper lungs. Improved compared with the prior examination. Findings compatible with own pneumonia although underlying mass is not excluded. 04-27-2024: Cardiac catheterization left main normal with calcification. Lad 100% occluded proximally. Left circumflex mildly disease and 2nd large obtuse marginal providing collateral's to the distal right coronary artery. A HENRIQUEZ to the LAD was patent. The saphenous vein graft to the right coronary artery was patent. Overall impression severe triple-vessel coronary artery disease with complete revascularization. With a HENRIQUEZ to the LAD, vein graft to the ramus of the right coronary artery and obtuse marginal. Severe aortic stenosis with normal LV function. History of Present Illness #1. Bronchitis: Complains of cough and chest congestion that began several days ago. It has been associated with a cough and yellow sputum production. Temperature was not taken. Hemoptysis: No. Nasal Congestion: some. Shortness of Breath: yes. Wheezing: no. Constitutional Symptoms: none. Systemic Complaints: none. Environmental Exposure: none. #2. Essential Hypertension: Stage: Stage I Interval Neurological Complaints no headaches, dizziness, weakness, visual changes, ataxia, aphasia and apraxia. No shortness of breath, orthopnea or cardiovascular symptoms. No other symptoms related to end organ damage. Pressure has been under excellent control. Currently normal. No other end organ symptoms or findings. Therapy reviewed regarding management of hypertension and includes salt restriction and Lisinopril. #3. Type II Hypercholesterolaemia: Currently taking medication and tolerating well. No interval complaints of any muscle pain or arthralgia. No significant liver changes with medications. Last lipid panel: fair control. Therapy reviewed regarding treatment of cholesterol management and include diet and Lipitor and Zetia. #4. AVR: Hx of TAVR aortic valve replacement currently stable. No interval complaints of any chest pain, syncope, neurological symptoms, shortness of breath or other cardiovascular symptoms. Active Medication ListPlavix 75 MG TABLET, FILM COATED Once DailyZetia 10 MG TABLET Once DailyLipitor 40 MG (TABLET - ORAL) One Hs For CholesterolVitamin C 1000 MG Once DailyOs-jacquie D DailyLisinopril 5 MG TABLET One DailyMultivitamin DailyAspirin 81 MG One DailyMetoprolol Succinate Er 25 MG TABLET, FILM COATED, EXTENDED RELEASE Once DailyLasix 20 MG Once Daily Vaccination and ImmunizationImmunizations and Vaccinations Discussed and Implemented if feasible In the Office. Else referred to pharmacies. ( ) 2014-04 PREVNAR 13 GC(X) 2017-08 PNEUMOVAX PREVNAR 20 Needed( ) 2020-04 COVID MODERNA(X) 2020-11 COVID BOOSTER MODERNA(X) 2022-11 INFLUENZA Surgical [id number] Right Carotid [id number] [facility] [id number] Tonsillectomy Preventative TestingPreventative Testing Discussed and Scheduled if Acceptable to Patient ( ) 07/30/2023 Albumin 4.7 G/DL N( ) 03/11/2023 Cologuard 03/11/2026( ) 03/04/2023 Mammogram 03/04/2025( ) 03/04/2023 DEXA Scan (Osteopenia) Social HistoryDoes not smoke. Drinks socially. No occupational exposures. Family HistoryMother 81 . from complications of angioplasty. hx of hypertension.Father is 82 history of coronary artery disease and hypertension.Has two brothers living with hypertension(2) and one with peptic ulcersNo sisters. Oral Osorio MD [address] [facility], [facility] [address] [place], [address], [facility] [employer] 07/12/2024 12:16:23 OBGyn Episode No OBEpisode recorded.
--- OUTSIDE RECORDS SUMMARY | 2024-07-18 11:01 | XMS_ITS | Encounter Summary ---
Author Organization [facility] Address [address] [place] [address] Care Team Providers Care [employer] Supervisor Name Role Phone Juan Osorio MD Primary Care Provider Cristian Harley MD Unavailable Encounter Details Date Type Department Care Team (Late st Contact Info) Description 04/28/2024 Cardiology Conference [facility] Non-invasive Cardiac Diagnostic Testing [address] [place] [address] Anshul Felipe, GUSTAVO Social History Tobacco Use Types Packs/Day Years Used Date Smoking Tobacco: Never Alcohol Use Standard Drinks/Week Comments No 0 (1 standard drink = 0.6 oz pur e alcohol) Comments Unknown Sex and Gender Information Value Date Recorded Sex Assigned at Not on file Legal Sex Female 8:44 PM [employer] Gender Identity Not on file Sexual Orientation Not on file documented as of this encounter Plan of Treatment Not on file documented as of this encounter Visit Diagnoses Not on filedocumented in this encounter Care Teams [employer] Super[employer] Relationship Specialty Start Date End Date Juan Osorio MD PCP - General 02/12/16 Cristian Harley MD [address] [place] [address] Consulting Physician Cardiology 06/01/24 documented as of this encounter
--- OUTSIDE RECORDS SUMMARY | 2024-07-18 11:01 | XMS_ITS | Clinical Summary ---
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 Name Role Phone Juan Osorio MD Primary Care Provider Dinesh Harley MD Unavailable Allergies No known active allergies Medications multivitamin tablet tablet take 1 tablet by oral route every day with food 0 0 02/12/2016 Active metoprolol (LOPRESSOR) 25 mg tablet take 1 tablet by oral route 2 times every day 0 0 02/12/2016 Active furosemide (LASIX) 20 mg tablet Take 1 tablet (20 mg total) by mouth daily 04/22/2024 Active atorvastatin (LIPITOR) 40 mg tablet Take 1 tablet (40 mg total) by mouth daily Active calcium carbonate-vitami n D3 (Calcium 500 With D) 1,250 mg (500 mg elemental)-400 unit tablet one twice a day 12/29/2012 Active ascorbic acid (VITAMIN C) 1,000 mg tablet Take 1 tablet every day by oral route. 04/04/2021 Active aspirin 81 mg chewable tabletIndication s:prevention of thrombosis Take 1 tablet (81 mg total) by mouth daily 30 tablet 06/02/2024 Active lisinopriL (PRINIVIL,ZESTRI L) 5 mg tablet Take 1 tablet (5 mg total) by mouth daily 30 tablet 11 06/02/2024 Active clopidogreL (PLAVIX) 75 mg tablet Take 1 tablet (75 mg total) by mouth daily 30 tablet 11 06/02/2024 Active Active Problems Problem Noted Date Diagnosed Date S/P TAVR (transcatheter aortic valve replacement ) 05/31/2024 Nonrheumatic aortic valve stenosis 05/24/2024 Pure hypercholesterolemia 05/24/2024 Hypertension 05/24/2024 Hyperlipidemia 05/24/2024 Heart murmur 05/24/2024 Benign essential hypertension 05/24/2024 Bilateral hearing loss 10/01/2022 Vitamin D deficiency 10/04/2021 Senile osteoporosis 09/21/2020 Shortness of breath 03/28/2016 Chronic coronary artery disease 11/09/2014 Stenosis of carotid artery 2014 Tricuspid valve insufficiency 05/12/2014 Pulmonary hypertension 05/12/2014 Left ventricular hypertrophy 05/12/2014 Cerebrovascular accident (CVA) 05/12/2014 Encounters Date Type Department Care Team Description 06/07/2024 [facility] Post Discharge Follow up phone call [address] [address] Hoda Barnes 06/07/2024 [facility] Post Discharge Follow up phone call [address] [address] Hoda Barnes 05/31/2024 7:33 AM CDT Anesthesia Event [facility] [address] [place] [address] Juan Hernandez MD Barnhart, Lynlee Jo, NP 05/31/2024 7:30 AM CDT - 05/31/2024 9:30 AM CDT Surgery [facility] [address] [place] [address] Dinesh Harley MD TAVR - PERCUTANEOUS FEMORAL 05/31/2024 5:34 AM CDT - 06/01/2024 5:37 PM CDT Hospital Encounter [address] [address] Dinesh Harley MD Nonrheumatic aortic valve stenosis Discharge Disposition: Discharge to home or self care 05/26/2024 10:05 AM CDT - 05/26/2024 11:59 PM CDT Hospital Encounter [facility] [address] [place] [address] Discharge Disposition: Discharge to home or self care 05/26/2024 9:45 AM CDT Pre-Admission Testing [facility] Pre Anesthesia Testing [address] [place] [address] Pre-operative exam (Primary Dx); Encounter for preadmission testing; Other specified coagulation defects 05/24/2024 Orders Only [facility] Non-invasive Cardiac Diagnostic Testing [address] [place] [address] Dinesh Harley MD Nonrheumatic aortic valve stenosis (Primary Dx) 05/19/2024 1:30 PM CDT Office Visit [facility] Surgery [address] [place], [place] [phone] Nora Harding MD Aortic valve stenosis, etiology of cardiac valve disease unspecified (Primary Dx) 05/19/2024 9:24 AM CDT - 05/19/2024 11:59 PM CDT Hospital Encounter [facility] [address] [place] [address] Nonrheumatic aortic valve stenosis Discharge Disposition: Discharge to home or self care 05/19/2024 9:24 AM CDT - 05/19/2024 11:59 PM CDT Hospital Encounter [facility] [address] [place] [address] Bilateral carotid artery disease, unspecified type; Preoperative evaluation to rule out surgical contraindication Discharge Disposition: Discharge to home or self care 05/19/2024 Documentation Cardiothoracic Surgery Kaity Hernandez, RN 04/28/2024 Cardiology Conference [facility] Non-invasive Cardiac Diagnostic Testing [address] [place] [address] Anshul Felipe, GUSTAVO 04/27/2024 Orders Only [facility] Non-invasive Cardiac Diagnostic Testing [address] [place] [id number] Kalpana Fritz MD Nonrheumatic aortic valve stenosis (Primary Dx); Abnormal Doppler ultrasound of carotid artery; Bilateral carotid artery disease, unspecified type; Preoperative evaluation to rule out surgical contraindication from Last 3 Months Surgical History Surgery Date Site/Laterality Comments HYSTERECTOMY CORONARY ARTERY BYPASS GRAFT 02/16/2014 - 02/15/2015 CARDIAC CATHETERIZATION CARDIAC CATHETERIZATION 05/31/2024 Chest/N/A Procedure: TAVR - PERCUTANEOUS FEMORAL; Surgeon: Dinesh Harley MD; Location: [facility]; Service: Cardiovascular; Laterality: N/A; Medical devices from this surgery are in the Medical Devices section. Medical History Medical History Date Comments Cerebrovascular accident (CVA) (HCC) Stroke, left sided weakness Hypertension Hypertension Cardiac disease Heart disease Hx Other Medical Open heart surg tonya Stenosis of carotid artery Coronary artery disease Nonrheumatic aortic (valve) stenosis Tricuspid valve insufficiency Hyperlipidemia Pulmonary hypertension (HCC) Heart murmur Osteoporosis Wears hearing aid bilat Vitamin D deficiency SOB (shortness of breath) Left-sided weakness Cataract S/P thoracentesis 2014 Family History Medical History Relation Name Comments Heart disease Father Heart disease; Relation Name Status Comments Father Social History Tobacco Use Types Packs/Day Years Used Date Smoking Tobacco: Never Smokeless Tobacco: Never Tobacco Cessation:Counseling Given: Not Answered Alcohol Use Standard Drinks/Week Comments No 0 (1 standard drink = 0.6 oz pur e alcohol) [employer] Answer Date Recorded In the past 12 months has [employer], oil, or water [employer] threatened to shut off services in your [...] week 06/01/2024 How often do you attend caro center or congregation services? More than 4 times per year 06/01/2024 Do you belong to any clubs o r organizations such as sikh groups, unions, fraternal or athletic groups, or [...] and heating? Not hard at all 06/01/2024 [facility] Occupat ional Health - Occupational Stress [...] any time in the past 12 m [facility], were you homeless or living in a correction (including now)? No 06/01/2024 Personal Safety Answer Date Recorded Have you ever been in or are you currently in a harmful physical or emotional relationship or is someone making you feel afraid or unsafe? Denies 05/31/2024 Comments Unknown Sex and Gender Information Value Date Recorded Sex Assigned at Not on file Legal Sex Female 8:44 PM [employer] Gender Identity Not on file Sexual Orientation Not on file Obstetrics History Last Filed Vital Signs Vital Sign Reading Time Taken Comments Blood Pressure 119/49 06/01/2024 11:41 AM CDT Pulse 80 06/01/2024 4:00 PM CDT Temperature 36.5 C (97.7 F) 06/01/2024 11:41 AM CDT Respiratory Rate 17 06/01/2024 11:41 AM CDT Oxygen Saturation 97% 06/01/2024 11:41 AM CDT Inhaled Oxygen Concentration - - Weight 51.3 kg (113 lb) 05/31/2024 6:44 AM CDT Height 142.2 cm (4' 8) 05/31/2024 6:44 AM CDT Body Mass Index 25.33 05/31/2024 6:44 AM CDT Plan of Treatment Health Maintenance Due Date Last Done Comments Depression Screening 1945 Hepatitis C Screening 1945 DTaP/Tdap/Td Vaccine (1 - Tdap) 1957 Hepatitis B Screening 1964 Zoster Vaccine (1 of 2) 1996 Well Visit 65+ 08/15/2011 Covid-19 Vaccine (5 - 2023-2 5 season) 2024 11/04/2023, 12/12/2020, 04/16/2020, Additional history exists Osteoporosis Screening-Bone Density Scan 03/04/2025 03/04/2023 Fall Risk Assessment 06/01/2025 06/01/2024 Pneumococcal vaccine 65+ Completed 09/07/2017, 04/17 Influenza Vaccine Completed 11/04/2023, , 11/26/2022, Additional history exists Medical Devices Implanted Type Area Ict Quality Assurance Engineer Device Identifier Shelf Expiration Date Model / Serial / Lot [employer] Valve Aortic Trnscath Kendell 3 Ultra Resilia 20mm [id number] - [id number] - [id number] Implanted:Qty: 1 on 05/31/2024 by Dinesh Harley MD at [facility] Prosthetic Valve [employer] 01/21/2026 [id number] / [id number] / Access Closure Inc Mynx Control 6-7fr 2 Mode Balloon Catheter Sealant Lock Syringe [id number] - [id number] - [id number] Implanted:Qty: 1 on 05/31/2024 by Dinesh Harley MD at [facility] Vascular Closure Device Access [employer]osure [employer] 03/28/2026 [id number] / [id number] / [id number] Ryan Vascular System Closure Repair Femoral Artery Suture Mediated Perclose Prostyle 18258-20 - [id number] Implanted:Qty: 1 on 05/31/2024 by Dinesh Harley MD at [facility] Vascular 02/15/2026 [id number] Ryan Vascular System Closure Repair Femoral Artery Suture Mediated Perclose Prostyle 75594-26 - [id number] Implanted:Qty: 1 on 05/31/2024 by Dinesh Harley MD at [facility] Vascular 02/15/2026 [id number] Procedures Procedure Name Priority Date/Time Associated Diagnosis Comments EGFR STAT 06/01/2024 7:48 AM CDT MAGNESIUM Routine 06/01/2024 7:48 AM CDT BASIC METABOLIC PANEL STAT 06/01/2024 7:48 AM CDT ECG 12-LEAD Routine 06/01/2024 7:36 AM CDT TRANSTHORACIC ECHO (TTE) COMPLETE W DOPPLER/CF WO CONTRAST Routine 06/01/2024 7:16 AM CDT XR CHEST 1 VIEW Routine 06/01/2024 6:37 AM CDT EGFR Routine 06/01/2024 5:05 AM CDT DIFFERENTIAL AUTO Routine 06/01/2024 5:0 5 AM CDT APTT Routine 06/01/2024 5:05 AM CDT PROTIME-INR Routine 06/01/2024 5:05 AM CDT CBC WITH AUTO DIFFERENTIAL Routine 06/01/2024 5:05 AM CDT PRO B-TYPE NATRIURETIC PEPTIDE Routine 06/01/2024 5:05 AM CDT COMPREHENSIVE METABOLIC PANEL Routine 06/01/2024 5:05 AM CDT MAGNESIUM Routine 06/01/2024 5:05 AM CDT XR CHEST 1 VIEW Routine 05/31/2024 12:11 PM CDT ECG 12-LEAD STAT 05/31/2024 10:31 AM CDT TRANSCATHETER AORTIC VALVE REPLACEMENT (TAVR) OPEN FEMORAL ART APPROACH Routine 05/31/2024 9:30 AM CDT Nonrheumatic aortic valve stenosis PREPARE RBC STAT 05/31/2024 9:16 AM CDT POCT ACTIVATED CLOTTING TIME, HIGH RANGE Routine 05/31/2024 8:38 AM CDT ECG 12-LEAD Routine 05/26/2024 10:32 AM CDT Encounter for preadmission testing XR CHEST PA LATERAL 2 VIEWS Schedule Routine, Read Routine (OP Routine) 05/26/2024 10:28 AM CDT Pre-operative exam EGFR Routine 05/26/2024 10:05 AM CDT Encounter for preadmission testing DIFFERENTIAL AUTO Routine 05/26/2024 10:05 AM CDT Encounter for preadmission testing TYPE AND SCREEN Routine 05/26/2024 10:05 AM CDT Encounter for preadmission testing PROTIME-INR Routine 05/26/2024 10:05 AM CDT Encounter for preadmission testing Other specified coagulation defects PRO B-TYPE NATRIURETIC PEPTIDE Routine 05/26/2024 10:05 AM CDT Encounter for preadmission testing COMPREHENSIVE METABOLIC PANEL Routine 05/26/2024 10:05 AM CDT Encounter for preadmission testing CBC WITH AUTO DIFFERENTIAL Routine 05/26/2024 10:05 AM CDT Encounter for preadmission testing APTT Routine 05/26/2024 10:05 AM CDT Encounter for preadmission testing Other specified coagulation defects CT TAVR Schedule Routine, Read Routine (OP Routine) 05/19/2024 10:52 AM CDT Nonrheumatic aortic valve stenosis US CAROTIDS DUPLEX BILATERAL Schedule Routine, Read Routine (OP Routine) 05/19/2024 9:52 AM CDT Bilateral carotid artery disease, unspecified type Preoperative evaluation to rule out surgical contraindication from Last 3 Months Results * (ABNORMAL) eGFR (06/01/2024 7:48 AM CDT) eGFR 57(L) >=60 mL/min/1. 73 m2 Comment: Interpretive Data Reference Interval Normal >/= 90 mL/min/1.73m2 Mildly decreased* 60 - 89 mL/min/1.73m2 Mildly to moderately decreased 45 - 59 mL/min/1.73m2 Moderately to severely decreased 30 - 44 mL/min/1.73m2 Severely decreased 15 - 29 mL/min/1.73m2 Kidney Failure < 15 mL/min/1.73m2 *Relative to young adult level Estimated glomerular filtration rate is determined by the 2020 CKD-EPI equation recommended by the National Kidney Foundation (A Unifying Approach to GFR Estimation: Recommendations of the NKF-ASK Task Force on Reassessing the Inclusion of Race in Diagnosing Kidney Disease, JASN 202). The CKD-EPI equation should not be used for patients with unstable renal function and has not been validated in children and those over 70. Current interpretive data was last reviewed 2020. Blood 06/01/2024 7:48 AM CDT 06/01/2024 8:35 AM CDT Dinesh Cricket [facility] BLOOD ORDERABLES Final Resul t NESSA [id number] [address] Department [place] [address] * Magnesium (06/01/2024 7:48 AM CDT) Magnesium 2.2 1.4 - 2.5 mg/dL Blood 06/01/2024 7:48 AM CDT 06/01/2024 8:35 AM CDT Dineshyogesh Harley MD LAB BLOOD ORDERABLES Final Resul t Performing Organization Address [facility] Co de Phone Number [facility] [id number] [address] [place] [address] * Basic metabolic panel (06/01/2024 7:48 AM CDT) Sodium 138 135 - 145 mmol/L Potassium, pl 4.2 3.3 - 4.9 mmol/L [facility] Chloride 103 97 - 110 mmol/L [facility] CO2 26 22 - 32 mmol/L [facility] Anion gap 9 2 - 15 mmol/L [facility] BUN 21 6 - 25 mg/dL [facility] Creatinine 1.01 0.60 - 1.10 mg/dL [facility] Glucose 101 70 - 199 mg/dL [facility] Comment: Interpretive Data Fasting glucose >/= 126 mg/dl is diagnostic for diabetes. Fasting is defined as no caloric intake for at least 8 hours. Fasting glucose between 100 mg/dl to 125 mg/dl is diagnostic of prediabetes. In a patient with classic symptoms of hyperglycemia or hyperglycemic crisis, a random glucose >/= 200 mg/dl is diagnostic for diabetes. In the absence of unequivocal hyperglycemia, results should be confirmed by repeat testing. The classification and Diagnosis of Diabetes Diabetes Care 2021; 46: S19-S40. Current interpretive data was last revised 2022. Calcium 9.2 8.5 - 10.3 mg/dL [facility] Blood 06/01/2024 7:4 8 AM CDT 06/01/2024 8:35 AM CDT Dineshricardo Harley MD LAB BLOOD ORDERABLES Final Resul t Performing Organization Address [facility] Co de Phone Number [facility] [id number] [address] [facility] [place] [address] * ECG 12 lead (06/01/2024 7:36 AM CDT) 06/01/2024 7:36 AM CDT Narrative [facility] - 06/01/2024 2:49 PM CDT Vent Rate: 76 bpm RR Interval: 780 msec NC Interval: 124 msec QRS Duration: 126 msec QT Interval: 407 msec QTC Interval: 438 msec P-R-T [place]: -76 - -13 - 132 degrees IMPRESSION: JUNCTIONAL RHYTHM LEFT VENTRICULAR HYPERTROPHY AND ST-T CHANGE [VOLTAGE CRITERIA PLUS ST/T ABNORMALITY] Left bundle branch block Electronically Signed By: Dr. Mike Britt [facility] us Dinesh Harley MD ECG ORDERABLES Final Result [facility] [employer] [facility] * TRANSTHORACIC ECHO (TTE) COMPLETE W DOPPLER/CF WO CONTRAST (06/01/2024 7:16 AM CDT) LV EF 65 % CONS SCIMAGE Anatomical Region Laterality Modality Ultrasound 06/01/2024 6:33 AM CDT Narrative 06/01/2024 9:[place] [address] Echocardiogram Report Patient Name: LINDSAY OROURKE J : 1945 Study Date: 06/01/2024 6:33:39 AM Gender: F Tech: Location: [id number] Ref Provider: DINESH HARLEY Height(Cm): 142 BSA: 1.42 Weight(Kg): 51 Heart Rate: 80 BP: 105/50 Quality: Good Order Provider: DINESH HARLEY PROCEDURES: Echocardiographic Report: Transthoracic echocardiogram with complete 2D, M-Mode, and color Doppler examination. INDICATIONS: TAVR. MEASUREMENTS: 2D/MM Value Range Doppler Value Range Estimated EF 65 % ZORAIDA Vmax 2.83 cm2 LVIDd 2D 3.79 cm [ 3.80 - 5.20 ] AV Mean PG 10 mmHg LVIDs 2D 2.40 cm [ 2.20 - 3.50 ] AV Peak Edenilson 2.14 m/s [ 1.00 - 1.70 ] LVPWd 2D 1.46 cm [ 0.60 - 0.90 ] AV VTI 49.58 cm IVSd 2D 1.44 cm [ 0.60 - 0.90 ] LVOT Diam 2.30 cm LA Dimension 2D 5.51 cm [ 2.70 - 3.80 ] LVOT Peak Edenilson 1.46 m/s [ 0.70 - 1.10 ] LA Dimension MM 5.36 cm [ 2.70 - 3.80 ] LVOT VTI 30.13 cm AoR Diam 2D 3.08 cm [ 2.70 - 3.70 ] SI LVOT 90.1 ml/m2 [ >= 35.0 ] AoR Diam MM 2.82 cm [ 2.70 - 3.70 ] MV Mean PG 7 mmHg MV PHT 81 msec [ 20 - 100 ] MVA PHT 2.71 cm2 PV Peak Edenilson 1.01 m/s [ 0.40 - 0.80 ] PI Peak Edenilson 1.63 m/s TR Peak Edenilson 2.64 m/s [ 1.00 - 2.80 ] TR Peak PG 28 mmHg E` 0.04 m/s E/E` 47.00 2D/MM Value Range Doppler Value Range - FINDINGS: Atrial Septum: Normal atrial septum. Left Ventricle: Normal left ventricular size. Severe concentric left ventricular hypertrophy. Diastolic dysfunction is present. Ejection Fraction is visually estimated to be 65 %. These segments of the LV are hypokinetic apical segment, apical anterior segment, apical lateral segment and apical septum segment. Left Atrium: There is severe enlargement of left atrium. Right Ventricle: Normal right ventricular size. Normal right ventricular systolic function. Right Atrium: The right atrium is normal in size. Aortic Valve: No evidence of hemodynamically significant aortic stenosis by Doppler. Mild aortic valve regurgitation. Mean gradient of 10.0 mmHg. Valve area of 2.8 cm2. Normal appearing aortic valve prosthesis. Gradients normal for valve type and size. Mitral Valve: Severe mitral annular calcification. Mild to moderate mitral valve regurgitation. Pulmonic Valve: Normal structure of the pulmonic valve. Mild pulmonic regurgitation. Tricuspid Valve: Normal structure of the tricuspid valve. Estimated peak RVSP is 33 mmHg. Mild tricuspid regurgitation. Pericardium: Normal pericardium with no significant pericardial effusion. Aorta: Sinus of Valsalva is normal. IVC: Normal size and normal respiratory collapse consistent with normal right atrial pressure (<5 mmHg). Pulmonary Artery: Normal pulmonary artery size. CONCLUSIONS: Normal left ventricular size. Severe concentric left ventricular hypertrophy. Diastolic dysfunction is present. Ejection Fraction is visually estimated to be 65 %. These segments of the LV are hypokinetic apical segment, apical anterior segment, apical lateral segment and apical septum segment. There is severe enlargement of left atrium. Severe mitral annular calcification. Mild to moderate mitral valve regurgitation. No evidence of hemodynamically significant aortic stenosis by Doppler. Mild aortic valve regurgitation. Mean gradient of 10.0 mmHg. Valve area of 2.8 cm2. Normal appearing aortic valve prosthesis. Gradients normal for valve type and size. Estimated peak RVSP is 33 mmHg. Mild tricuspid regurgitation. Mild pulmonic regurgitation. Electronically Signed By: Dr. Mike Britt [facility] 06/01/2024 9:14:03 AM CDT Procedure Note Mike Britt MD - 06/01/2024 [place] [address] Echocardiogram Report Patient Name: LINDSAY OROURKE J : 1945 Study Date: 06/01/2024 6:33:39 AM Gender: F Tech: Location: [id number] Ref Provider: DINESH HARLEY Height(Cm): 142 BSA: 1.42 Weight(Kg): 51 Heart Rate: 80 BP: 105/50 Quality: Good Order Provider: DINESH HARLEY PROCEDURES: Echocardiographic Report: Transthoracic echocardiogram with complete 2D, M-Mode, and color Dopplerexamination. INDICATIONS: TAVR. MEASUREMENTS: 2D/MM Value Range Doppler ValueRange Estimated EF 65 % ZORAIDA Vmax 2.83cm2 LVIDd 2D 3.79 cm [ 3.80 - 5.20 ] AV Mean PG 10mmHg LVIDs 2D 2.40 cm [ 2.20 - 3.50 ] AV Peak Edenilson 2.14 m/s[ 1.00 - 1.70 ] LVPWd 2D 1.46 cm [ 0.60 - 0.90 ] AV VTI 49.58cm IVSd 2D 1.44 cm [ 0.60 - 0.90 ] LVOT Diam 2.30cm LA Dimension 2D 5.51 cm [ 2.70 - 3.80 ] LVOT Peak Edenilson 1.46 m/s[ 0.70 - 1.10 ] LA Dimension MM 5.36 cm [ 2.70 - 3.80 ] LVOT VTI 30.13cm AoR Diam 2D 3.08 cm [ 2.70 - 3.70 ] SI LVOT 90.1ml/m2 [ >= 35.0 ] AoR Diam MM 2.82 cm [ 2.70 - 3.70 ] MV Mean PG 7 mmHg MV PHT 81 msec [ 20 - 100 ] MVA PHT 2.71 cm2 PV Peak Edenilson 1.01 m/s [ 0.40 - 0.80 ] PI Peak Edenilson 1.63 m/s TR Peak Edenilson 2.64 m/s [ 1.00 - 2.80 ] TR Peak PG 28 mmHg E` 0.04 m/s E/E` 47.00 2D/MM Value Range Doppler ValueRange - FINDINGS: Atrial Septum: Normal atrial septum. Left Ventricle: Normal left ventricular size. Severe concentric left ventricularhypertrophy. Diastolic dysfunction is present. Ejection Fraction is visually estimated to be 65%. These segments of the LV are hypokinetic apical segment, apical anteriorsegment, apical lateral segment and apical septum segment. Left Atrium: There is severe enlargement of left atrium. Right Ventricle: Normal right ventricular size. Normal right ventricular systolicfunction. Right Atrium: The right atrium is normal in size. Aortic Valve: No evidence of hemodynamically significant aortic stenosis by Doppler.Mild aortic valve regurgitation. Mean gradient of 10.0 mmHg. Valve area of 2.8 cm2. Normalappearing aortic valve prosthesis. Gradients normal for valve type and size. Mitral Valve: Severe mitral annular calcification. Mild to moderate mitral valveregurgitation. Pulmonic Valve: Normal structure of the pulmonic valve. Mild pulmonic regurgitation. Tricuspid Valve: Normal structure of the tricuspid valve. Estimated peak RVSP is 33 mmHg.Mild tricuspid regurgitation. Pericardium: Normal pericardium with no significant pericardial effusion. Aorta: Sinus of Valsalva is normal. IVC: Normal size and normal respiratory collapse consistent with normal rightatrial pressure (<5 mmHg). Pulmonary Artery: Normal pulmonary artery size. CONCLUSIONS: Normal left ventricular size. Severe concentric left ventricularhypertrophy. Diastolic dysfunction is present. Ejection Fraction is visually estimated to be 65%. These segments of the LV are hypokinetic apical segment, apical anteriorsegment, apical lateral segment and apical septum segment. There is severe enlargement of left atrium. Severe mitral annular calcification. Mild to moderate mitral valveregurgitation. No evidence of hemodynamically significant aortic stenosis by Doppler.Mild aortic valve regurgitation. Mean gradient of 10.0 mmHg. Valve area of 2.8 cm2. Normalappearing aortic valve prosthesis. Gradients normal for valve type and size. Estimated peak RVSP is 33 mmHg. Mild tricuspid regurgitation. Mild pulmonic regurgitation. Electronically Signed By: Dr. Mike Britt [facility] 06/01/2024 9:14:03 AM CDT Dineshricardo Harley MD CV ECHO PROCEDURES Final Result * X-ray chest 1 view (Portable) (06/01/2024 6:37 AM CDT) Anatomical Region Laterality Modality Body, Chest N/A Computed Radiogr aphy 06/01/2024 8:41 AM CDT Impressions 06/01/2024 8:41 AM CDT No change since the last examination. Electronically signed by: Linnea Aguila M.D. [facility] 06/01/2024 8:41 AM CDT EXAMINATION: XR CHEST 1 VIEW HISTORY: The patient is a 78-year-old female who is scheduled for a TAVR procedure. Comparison made with the previous study dated 05/31/2024. TECHNIQUE: AP portable view of the chest. FINDINGS: Borderline cardiomegaly with aortic atherosclerosis. No left-sided failure. Unchanged infiltrates in both upper lobes, with relative sparing of the lower lobes. Procedure Note Linnea Aguila MD - 06/01/2024 EXAMINATION: XR CHEST 1 VIEW HISTORY: The patient is a 78-year-old female who is scheduled for a TAVR procedure. Comparison made with the previous study dated 05/31/2024. TECHNIQUE: AP portable view of the chest. FINDINGS: Borderline cardiomegaly with aortic atherosclerosis. No left-sided failure. Unchanged infiltrates in both upper lobes, with relative sparing of the lower lobes. IMPRESSION: No change since the last examination. Electronically signed by: Linnea Aguila M.D. [facility] IMG XR PROCEDURES Final Result * (ABNORMAL) eGFR (06/01/2024 5:05 AM CDT) eGFR 55(L) >=60 mL/min/1. 73 m2 Comment: Interpretive Data Reference Interval Normal >/= 90 mL/min/1.73m2 Mildly decreased* 60 - 89 mL/min/1.73m2 Mildly to moderately decreased 45 - 59 mL/min/1.73m2 Moderately to severely decreased 30 - 44 mL/min/1.73m2 Severely decreased 15 - 29 mL/min/1.73m2 Kidney Failure < 15 mL/min/1.73m2 *Relative to young adult level Estimated glomerular filtration rate is determined by the 2020 CKD-EPI equation recommended by the National Kidney Foundation (A Unifying Approach to GFR Estimation: Recommendations of the NKF-ASK Task Force on Reassessing the Inclusion of Race in Diagnosing Kidney Disease, JASN 2020). The CKD-EPI equation should not be used for patients with unstable renal function and has not been validated in children and those over 70. Current interpretive data was last reviewed 2020. Blood 06/01/2024 5:05 AM CDT 06/01/2024 7:11 AM CDT Dinesh Harley MD LAB BLOOD ORDERABLES Final Resul t [facility] [id number] Department [place] [address] * (ABNORMAL) Differential, auto (06/01/2024 5:05 AM CDT) Neutrophil abs 7.47(H) 1.50 - 6.50 K/cumm Imm gran abs 0.05 0.00 - 0.10 K/cumm [facility] Lymphocyte abs 0.89 0.80 - 3.30 K/cumm [facility] Monocyte abs 0.85(H) 0.20 - 0.80 K/cumm [facility] Eosinophil abs 0.22 0.00 - 0.50 K/cumm [facility] Basophil abs 0.07 0.00 - 0.10 K/cumm [facility] Neutrophil pct 78.3 % [facility] Comment: Interpretive Data Percent cell count reference ranges are not reported, since discordance with absolute values may lead to misinterpretation of CBC data. Current Interpretive Data was last revised on 2017. Imm gran pct 0.5 % [facility] Comment: Interpretive Data Percent cell count reference ranges are not reported, since discordance with absolute values may lead to misinterpretation of CBC data. Current Interpretive Data was last revised on 2017. Lymphocyte pct 9.3 % [facility] Comment: Interpretive Data Percent cell count reference ranges are not reported, since discordance with absolute values may lead to misinterpretation of CBC data. Current Interpretive Data was last revised on 2017. Monocyte pct 8.9 % [facility] Comment: Interpretive Data Percent cell count reference ranges are not reported, since discordance with absolute values may lead to misinterpretation of CBC data. Current Interpretive Data was last revised on 2017. Eosinophil pct 2.3 % [facility] Comment: Interpretive Data Percent cell count reference ranges are not reported, since discordance with absolute values may lead to misinterpretation of CBC data. Current Interpretive Data was last revised on 2017. Basophil pct 0.7 % [facility] Comment: Interpretive Data Percent cell count reference ranges are not reported, since discordance with absolute values may lead to misinterpretation of CBC data. Current Interpretive Data was last revised on 2017. Blood 06/01/2024 5:05 AM CDT 06/01/2024 6:10 AM CDT Dinesh Harley MD LAB BLOOD ORDERABLES Final Resul t [facility] [address] Department [place] [address] * (ABNORMAL) Pro B-type natriuretic peptide (06/01/2024 5:05 AM CDT) NT-proBNP 5,588(H) <=450 pg/mL Comment: Interpretive Comments: A. Dyspnea in Acute Care Setting All Ages: < 300 pg/ml, acute heart failure unlikely. < 50 yrs: 300 - 450 pg/ml, further investigation warranted. > 450 pg/ml, acute heart failure likely. 50 - 74 yrs: 300 - 900 pg/ml, further investigation warranted. > 900 pg/ml, acute heart failure likely . > or = 75 yrs: 450 - 1800 pg/ml, further investigation warranted. > 1800 pg/ml, acute heart failure likely. B. Non-acute Setting < 75 yrs < 125 pg/ml, rules out heart failure. > or = 125 pg/ml, further investigation warranted. > or = 75 yrs < 450 pg/ml, rules out heart failure. > or = 450 pg/ml, further investigation warranted. - Knowledge of each individual patient's NT-proBNP range may be more useful than using similar cut-points for every patient. Please note that marked elevations in NT-proBNP levels may be observed in state other than Left Ventricular Congestive Failure, including: acute coronary syndromes, right heart strain/failure (including pulmonary embolism and cor pulmonale), critical illness, renal failure, as well as advanced age. - References: 1. Lian PEREZ et.al. Eur Heart J. 2006:27:330-337. 2. Aliyah RW, Fabio AM. J. AM Doe Cardiol: Cardiovasc Imag. 2009;2: 216- 225. Interpretive Data Last Revised Date: 2017. Blood 06/01/2024 5:05 AM CDT 06/01/2024 6:10 AM CDT Dineshyogesh Harley MD LAB BLOOD ORDERABLES Final Resul t Performing Organization Address City/[facility] Co de Phone Number NESSA [id number] Department [place] [address] * (ABNORMAL) CBC with auto differential (06/01/2024 5:05 AM CDT) WBC 9.55 3.80 - 9.90 K/cumm Hgb 11.6(L) 11.9 - 15.5 g/dL [facility] Hct 36.9 35.6 - 45.5 % [facility] Plt 116(L) 150 - 400 K/cumm [facility] MPV 12.6(H) 9.1 - 12.3 fL [facility] RBC 3.91 3.90 - 5.20 M/cumm [facility] MCV 94.4 81.3 - 96.4 fL [facility] MCH 29.7 27.1 - 33.3 pg [facility] MCHC 31.4(L) 32.3 - 35.7 g/dL [facility] RDW CV 14.3 11.1 - 14.9 % [facility] RDW SD 49.2(H) 35.7 - 48.1 fL [facility] NRBC abs 0.00 0.00 - 0.01 K/cumm [facility] Blood 06/01/2024 5:05 AM CDT 06/01/2024 6:10 AM CDT Dineshricardo Harley MD LAB BLOOD ORDERABLES Final Resul t Performing Organization Address City/[facility]/ZIP Co de Phone Number NESSA RICE [phone] [address] [employer] [place], [place] [id number] * aPTT (06/01/2024 5:05 AM CDT) aPTT 31 28 - 38 sec Comment: Interpretive Data Heparin therapeutic range: 66.0 - 100.0 seconds. Range based on correlation with therapeutic heparin activity range of 0.3 - 0.7 Units/mL. Current interpretive data was last revised on 2022. Blood 06/01/2024 5:05 AM CDT 06/01/2024 6:11 AM CDT Dineshricardo Harley MD LAB BLOOD ORDERABLES Final Resul t Performing Organization Address [facility] de Phone Number [facility] [phone] [address] [employer] [place] [address] * Protime-INR (06/01/2024 5:05 AM CDT) PT 12.5 9.7 - 13.0 sec INR 1.15 0.90 - 1.20 NESSA Comment: Interpretive data Oral anticoagulant therapeutic ranges: Venous thromboembolism prophylaxis or treatment: 2.0-3.0 CARDIOLOGY Standard range: 2.0-3.0 High-intensity range: 2.5-3.5 Refer to indication-specific guidelines for appropriate target ranges for prosthetic heart valve replacement. Current interpretive data was last revised on 2019. Blood 06/01/2024 5:05 AM CDT 06/01/2024 6:11 AM CDT Dineshricardo Harley MD LAB BLOOD ORDERABLES Final Resul t Performing Organization Address [facility] de Phone Number [facility] [address] [address] [place] [address] * Magnesium (06/01/2024 5:05 AM CDT) Magnesium 2.1 1.4 - 2.5 mg/dL Blood 06/01/2024 5:05 AM CDT 06/01/2024 6:10 AM CDT Dineshricardo Harley MD LAB BLOOD ORDERABLES Final Resul t Performing Organization Address [facility]/ZIP Co de Phone Number NESSA RICE [address] Department [place] [address] * (ABNORMAL) Comprehensive metabolic panel (06/01/2024 5:05 AM CDT) Sodium 140 135 - 145 mmol/L Potassium, pl 4.5 3.3 - 4.9 mmol/L [facility] Chloride 104 97 - 110 mmol/L [facility] CO2 25 22 - 32 mmol/L [facility] Anion gap 11 2 - 15 mmol/L [facility] BUN 22 6 - 25 mg/dL [facility] Creatinine 1.04 0.60 - 1.10 mg/dL [facility] Glucose 91 70 - 199 mg/dL [facility] Comment: Interpretive Data Fasting glucose >/= 126 mg/dl is diagnostic for diabetes. Fasting is defined as no caloric intake for at least 8 hours. Fasting glucose between 100 mg/dl to 125 mg/dl is diagnostic of prediabetes. In a patient with classic symptoms of hyperglycemia or hyperglycemic crisis, a random glucose >/= 200 mg/dl is diagnostic for diabetes. In the absence of unequivocal hyperglycemia, results should be confirmed by repeat testing. The classification and Diagnosis of Diabetes Diabetes Care 2021; 46: S19-S40. Current interpretive data was last revised 2022. Calcium 9.3 8.5 - 10.3 mg/dL [facility] Bilirubin, total 0.5 0.1 - 1.2 mg/dL [facility] Protein, pl 6.4(L) 6.5 - 8.5 g/dL [facility] Albumin 3.6 3.5 - 5.0 g/dL [facility] Alk phos 65 40 - 130 Units/L [facility] ALT 10 7 - 45 Units/L [facility] AST 33 10 - 45 Units/L [facility] Blood 06/01/2024 5:05 AM CDT 06/01/2024 6:10 AM CDT Cricket [facility] LAB BLOOD ORDERABLES Final Resul t [facility]SA RICE [address] Department [place] [address] * X-ray chest 1 view (Portable) (05/31/2024 12:11 PM CDT) Anatomical Region Laterality Modality Body, Chest N/A Computed Radiogr aphy 05/31/2024 12:2 8 PM CDT Impressions 05/31/2024 12:28 PM CDT No pneumothorax or pleural effusion. Increasing opacities predominantly in the bilateral perihilar region, right upper lobe, and left upper lobe may represent multifocal pneumonia or pulmonary edema. Poststernotomy changes and aortic valvuloplasty are noted. No acute osseous abnormality. Electronically signed by: Deandre Torres II, D.O. Narrative 05/31/2024 12:28 PM CDT EXAMINATION: XR CHEST 1 VIEW DATE: 05/31/2024 11:40 AM INDICATION: Venous obstruction. COMPARISON: 05/26/2024. Procedure Note Deandre Torres II, DO - 05/31/2024 EXAMINATION: XR CHEST 1 VIEW DATE: 05/31/2024 11:40 AM INDICATION: Venous obstruction. COMPARISON: 05/26/2024. IMPRESSION: No pneumothorax or pleural effusion. Increasing opacities predominantly in the bilateral perihilar region, right upper lobe, and left upper lobe may represent multifocal pneumonia or pulmonary edema. Poststernotomy changes and aortic valvuloplasty are noted. No acute osseous abnormality. Electronically signed by: Deandre Torres II, D.O. [facility] IMG XR PROCEDURES Final Result * ECG 12 lead (05/31/2024 10:31 AM CDT) 05/31/2024 10:3 1 AM CDT Narrative [facility] - 05/31/2024 12:32 PM CDT Vent Rate: 80 bpm RR Interval: 747 msec NC Interval: 166 msec QRS Duration: 160 msec QT Interval: 448 msec QTC Interval: 484 msec P-R-T [place]: -26 - 41 - 133 degrees IMPRESSION: SINUS RHYTHM LEFT BUNDLE BRANCH BLOCK ABNORMAL ECG Compared to prior EKG, left bundle branch block is new Electronically Signed By: Panfilo Arreola MD Dinesh Harley MD ECG ORDERABLES Final Result Performing Organization Address City/[facility]/ZIP Co de Phone Number [facility] * TRANSCATHETER AORTIC VALVE REPLACEMENT (TAVR) OPEN FEMORAL ART APPROACH (05/31/2024 9:30 AM CDT) Anatomical Region Laterality Modality X-Ray Angiograph y Dineshricardo Harley MD CV CARDIAC CATH PROCEDURES Final Result * Prepare RBC: 1 Units (05/31/2024 9:16 AM CDT) [facility] Product code [id number] Unit Number [id number] 1-I [facility] Disp[facility] Status RETURNED [facility] Blood 05/31/2024 9:16 AM CDT Narrative [facility] - 06/01/2024 12:14 AM CDT Other indication->anesthesia Are special requirements needed? (All products are leukoreduced and CMV- safe)- >No Date required:-[id number] LRRBC # of [id number] Reasons:-Other (specify)} Juan Hernandez MD BLOOD BANK PRODUCT ORDERABLES Final Result Performing Organization Address [facility] Co de Phone Number NESSA RICE [phone] Department [place] [address] * (ABNORMAL) POC Activated Clotting Time, High Range (05/31/2024 8:38 AM CDT) Pathologist [facility] ACT 272(H) 87 - 138 sec POC Performer [phone] [facility] Blood 05/31/2024 8:38 AM CDT 05/31/2024 8:38 AM CDT Dinesh Harley MD LAB BLOOD ORDERABLES Final Resul t Performing Organization Address City/[facility] Co de Phone Number NESSA RICE [phone] [address] Department [place] [address] * ECG 12 lead (05/26/2024 10:32 AM CDT) 05/26/2024 10:3 2 AM CDT Narrative [facility] - 05/26/2024 1:09 PM CDT Vent Rate: 85 bpm RR Interval: 701 msec NC Interval: 106 msec QRS Duration: 124 msec QT Interval: 377 msec QTC Interval: 419 msec P-R-T [place]: -68 - -27 - 71 degrees IMPRESSION: SINUS RHYTHM WITH PREMATURE VENTRICULAR CONTRACTION BORDERLINE LEFT AXIS DEVIATION VOLTAGE CRITERIA FOR LVH NONSPECIFIC ST \T\ T-WAVE ABNORMALITY ABNORMAL ECG Electronically Signed By: Dr. Morgan Felipe Dinesh Harley MD ECG ORDERABLES Final Result [facility] * X-ray chest 2 views (05/26/2024 10:28 AM CDT) Anatomical Region Laterality Modality Body, Chest N/A Computed Radiogr aphy 05/26/2024 10:3 6 AM CDT Impressions 05/26/2024 10:36 AM CDT INTERSTITIAL INFILTRATE LEFT MID LUNG NEW SINCE PREVIOUS. NO ACUTE FINDINGS Electronically signed by: Brayan Morgan M.D. Narrative 05/26/2024 10:36 AM CDT EXAMINATION: XR CHEST PA LATERAL 2 VIEWS HISTORY: Presurgical evaluation heart disease FINDINGS: Compared to study of 11/09/2024, postsurgical changes in the heart and mediastinum are again seen with normal heart size. There is an area of interstitial infiltration in the left midlung new since previous. Valvular calcifications seen in the mitral valve. No failure. No fluid. Procedure Note Brayan Morgan MD - 05/26/2024 EXAMINATION: XR CHEST PA LATERAL 2 VIEWS HISTORY: Presurgical evaluation heart disease FINDINGS: Compared to study of 11/09/2024, postsurgical changes in the heart and mediastinum are again seen with normal heart size. There is an area of interstitial infiltration in the left midlung new since previous. Valvular calcifications seen in the mitral valve. No failure. No fluid. IMPRESSION: INTERSTITIAL INFILTRATE LEFT MID LUNG NEW SINCE PREVIOUS. NO ACUTE FINDINGS Electronically signed by: Brayan Morgan M.D. Dinesh Harley MD IMG XR PROCEDURES Final Result * eGFR (05/26/2024 10:05 AM CDT) eGFR 62 >=60 mL/min/1. 73 m2 Comment: Interpretive Data Reference Interval Normal >/= 90 mL/min/1.73m2 Mildly decreased* 60 - 89 mL/min/1.73m2 Mildly to moderately decreased 45 - 59 mL/min/1.73m2 Moderately to severely decreased 30 - 44 mL/min/1.73m2 Severely decreased 15 - 29 mL/min/1.73m2 Kidney Failure < 15 mL/min/1.73m2 *Relative to young adult level Estimated glomerular filtration rate is determined by the 2020 CKD-EPI equation recommended by the National Kidney Foundation (A Unifying Approach to GFR Estimation: Recommendations of the NKF-ASK Task Force on Reassessing the Inclusion of Race in Diagnosing Kidney Disease, JASN 2020). The CKD-EPI equation should not be used for patients with unstable renal function and has not been validated in children and those over 70. Current interpretive data was last reviewed 2020. Blood 05/26/2024 10:0 5 AM CDT 05/26/2024 10:32 AM CDT Dinesh Harley MD LAB BLOOD ORDERABLES Final Resul t [facility] RICE [address] [address] Department [place] [address] * (ABNORMAL) Differential, auto (05/26/2024 10:05 AM CDT) Neutrophil abs 7.19(H) 1.50 - 6.50 K/cumm Imm gran abs 0.04 0.00 - 0.10 K/cumm [facility] Lymphocyte abs 1.15 0.80 - 3.30 K/cumm [facility] Monocyte abs 0.65 0.20 - 0.80 K/cumm [facility] Eosinophil abs 0.12 0.00 - 0.50 K/cumm [facility] Basophil abs 0.07 0.00 - 0.10 K/cumm [facility] Neutrophil pct 78.0 % [facility] Comment: Interpretive Data Percent cell count reference ranges are not reported, since discordance with absolute values may lead to misinterpretation of CBC data. Current Interpretive Data was last revised on 2017. Imm gran pct 0.4 % [facility] Comment: Interpretive Data Percent cell count reference ranges are not reported, since discordance with absolute values may lead to misinterpretation of CBC data. Current Interpretive Data was last revised on 2017. Lymphocyte pct 12.5 % [facility] Comment: Interpretive Data Percent cell count reference ranges are not reported, since discordance with absolute values may lead to misinterpretation of CBC data. Current Interpretive Data was last revised on 2017. Monocyte pct 7.0 % [facility] Comment: Interpretive Data Percent cell count reference ranges are not reported, since discordance with absolute values may lead to misinterpretation of CBC data. Current Interpretive Data was last revised on 2017. Eosinophil pct 1.3 % [facility] Comment: Interpretive Data Percent cell count reference ranges are not reported, since discordance with absolute values may lead to misinterpretation of CBC data. Current Interpretive Data was last revised on 2017. Basophil pct 0.8 % [facility] Comment: Interpretive Data Percent cell count reference ranges are not reported, since discordance with absolute values may lead to misinterpretation of CBC data. Current Interpretive Data was last revised on 2017. Blood 05/26/2024 10:0 5 AM CDT 05/26/2024 10:32 AM CDT us Dinesh Harley MD LAB BLOOD ORDERABLES Final Resul t N[facility] RICE [address] [address] Department [place] [address] * (ABNORMAL) Pro B-type natriuretic peptide (05/26/2024 10:05 AM CDT) NT-proBNP 4,805(H) <=450 pg/mL Comment: Interpretive Comments: A. Dyspnea in Acute Care Setting All Ages: < 300 pg/ml, acute heart failure unlikely. < 50 yrs: 300 - 450 pg/ml, further investigation warranted. > 450 pg/ml, acute heart failure likely. 50 - 74 yrs: 300 - 900 pg/ml, further investigation warranted. > 900 pg/ml, acute heart failure likely . > or = 75 yrs: 450 - 1800 pg/ml, further investigation warranted. > 1800 pg/ml, acute heart failure likely. B. Non-acute Setting < 75 yrs < 125 pg/ml, rules out heart failure. > or = 125 pg/ml, further investigation warranted. > or = 75 yrs < 450 pg/ml, rules out heart failure. > or = 450 pg/ml, further investigation warranted. - Knowledge of each individual patient's NT-proBNP range may be more useful than using similar cut-points for every patient. Please note that marked elevations in NT-proBNP levels may be observed in state other than Left Ventricular Congestive Failure, including: acute coronary syndromes, right heart strain/failure (including pulmonary embolism and cor pulmonale), critical illness, renal failure, as well as advanced age. - References: 1. Lian PEREZ et.al. Eur Heart J. 2006:27:330-337. 2. Aliyah RW, Mccarthy AM. J. AM Doe Cardiol: Cardiovasc Imag. 2009;2: 216- 225. Interpretive Data Last Revised Date: 2017. Blood 05/26/2024 10:0 5 AM CDT 05/26/2024 10:32 AM CDT Cricket [facility] LAB BLOOD ORDERABLES Final Resul t [facility] [address] [address] Department [place] [address] * (ABNORMAL) CBC with auto differential (05/26/2024 10:05 AM CDT) WBC 9.22 3.80 - 9.90 K/cumm Hgb 12.9 11.9 - 15.5 g/dL [facility] Hct 41.8 35.6 - 45.5 % [facility] Plt 165 150 - 400 K/cumm [facility] MPV 12.5(H) 9.1 - 12.3 fL [facility] RBC 4.40 3.90 - 5.20 M/cumm [facility] MCV 95.0 81.3 - 96.4 fL [facility] MCH 29.3 27.1 - 33.3 pg [facility] MCHC 30.9(L) 32.3 - 35.7 g/dL [facility] RDW CV 14.0 11.1 - 14.9 % [facility] RDW SD 49.0(H) 35.7 - 48.1 fL [facility] NRBC abs 0.00 0.00 - 0.01 K/cumm [facility] Blood 05/26/2024 10:0 5 AM CDT 05/26/2024 10:32 AM CDT Dineshricardo Harley MD LAB BLOOD ORDERABLES Final Resul t Performing Organization Address [facility] Co de Phone Number [facility] [address] [address] [employer] [place], [place] [id number] * aPTT (05/26/2024 10:05 AM CDT) aPTT 33 28 - 38 sec Comment: Interpretive Data Heparin therapeutic range: 66.0 - 100.0 seconds. Range based on correlation with therapeutic heparin activity range of 0.3 - 0.7 Units/mL. Current interpretive data was last revised on 2022. Blood 05/26/2024 10:0 5 AM CDT 05/26/2024 10:32 AM CDT Dineshricardo Harley MD LAB BLOOD ORDERABLES Final Resul t Performing Organization Address City/[facility] Co de Phone Number [facility] [address] [address] [facility] [place], [place] [id number] * Protime-INR (05/26/2024 10:05 AM CDT) PT 11.2 9.7 - 13.0 sec INR 1.04 0.90 - 1.20 [facility] Comment: Interpretive data Oral anticoagulant therapeutic ranges: Venous thromboembolism prophylaxis or treatment: 2.0-3.0 CARDIOLOGY Standard range: 2.0-3.0 High-intensity range: 2.5-3.5 Refer to indication-specific guidelines for appropriate target ranges for prosthetic heart valve replacement. Current interpretive data was last revised on 2019. Blood 05/26/2024 10:0 5 AM CDT 05/26/2024 10:32 AM CDT Dinesh Harley MD LAB BLOOD ORDERABLES Final Resul t Performing Organization Address [facility] Co de Phone Number [facility] [address] [address] Department [place] [address] * Type and screen (05/26/2024 10:05 AM CDT) ABO Rh A Positive Trang, indirect Negative [facility] Blood 05/26/2024 10:0 5 AM CDT 05/26/2024 10:34 AM CDT Narrative [facility] - 05/26/2024 11:14 AM CDT Has the patient had Daratumumab or Isatuximab in the past 6 months?->Unknown Dinesh Harley MD LAB BLOOD BANK TEST ORDERABLES F inal Result Performing Organization Address [facility] Co de Phone Number [facility] [phone] [address] Department [place] [address] * Comprehensive metabolic panel (05/26/2024 10:05 AM CDT) Sodium 140 135 - 145 mmol/L Potassium, pl 4.9 3.3 - 4.9 mmol/L [facility] Chloride 103 97 - 110 mmol/L [facility] CO2 28 22 - 32 mmol/L [facility] Anion gap 9 2 - 15 mmol/L [facility] BUN 24 6 - 25 mg/dL [facility] Creatinine 0.95 0.60 - 1.10 mg/dL [facility] Glucose 113 70 - 199 mg/dL [facility] Comment: Interpretive Data Fasting glucose >/= 126 mg/dl is diagnostic for diabetes. Fasting is defined as no caloric intake for at least 8 hours. Fasting glucose between 100 mg/dl to 125 mg/dl is diagnostic of prediabetes. In a patient with classic symptoms of hyperglycemia or hyperglycemic crisis, a random glucose >/= 200 mg/dl is diagnostic for diabetes. In the absence of unequivocal hyperglycemia, results should be confirmed by repeat testing. The classification and Diagnosis of Diabetes Diabetes Care 2021; 46: S19-S40. Current interpretive data was last revised 2022. Calcium 9.7 8.5 - 10.3 mg/dL [facility] Bilirubin, total 0.3 0.1 - 1.2 mg/dL [facility] Protein, pl 7.7 6.5 - 8.5 g/dL [facility] Albumin 4.2 3.5 - 5.0 g/dL [facility] Alk phos 72 40 - 130 Units/L [facility] ALT 17 7 - 45 Units/L [facility] AST 26 10 - 45 Units/L [facility] Blood 05/26/2024 10:0 5 AM CDT 05/26/2024 10:32 AM CDT [facility] LAB BLOOD ORDERABLES Final Resul t NESSA RICE [id number] [address] Department of Laboratories [place] [address] * CT TAVR (05/19/2024 10:52 AM CDT) Anatomical Region Laterality Modality Chest N/A Computed Tomogra phy 05/20/2024 9:31 AM CDT Impressions 05/20/2024 2:04 PM CDT 1. Severe aortic valvular stenosis. 2. Aortic annulus, and abdominal aortic, common iliac, external iliac and femoral artery measurements in preparation for TAVR procedure as described above. 3. Aortic valve calcium score: Agatston 2769, Volume 2180 mm3. 4. Distance to left main ostium from annulus is 9 mm. 5. Severe mitral annular and left ventricular outflow tract calcification. 6. 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 7. Left greater than right consolidation within the bilateral lungs, likely infectious in etiology. Recommend follow-up to document resolution. Recommend follow up of the Incidental lung consolidations Additional Imaging in [address] Dictated by: Tariq Sage MD The radiology attending physician has personally reviewed this study, and had reviewed and/or edited this written report and agrees with it. Electronically signed by: Yusuf Quinn M.D. Narrative 05/20/2024 2:04 PM CDT EXAMINATION: Heart CT and CTA abdomen and pelvis with contrast. History: Severe aortic stenosis, pre-TAVR procedure. Technique: Heart CT and CT angiogram of the abdomen and pelvis performed during administration of 125 mL of Optiray 350, intravenously per TAVR Protocol. Images were transferred to an independent workstation for additional 3D post-processing. FINDINGS: Annulus and Thoracic Aortic Measurements (in systole): Aortic valve annulus: Area 345 mm2: circumference 71 mm; 25 mm maximum diameter x 18 mm minimum diameter. Sinuses of Valsalva: 27 x 25 x 28 mm Sinotubular junction: 23 mm x 25 mm. Aortic valve calcium score: Agatston 2769, Volume [id number]. Coronary sinus heights: Right coronary sinus height: 18 mm Left coronary sinus height: 17 mm Non-coronary sinus height: 17 mm There is Severe left ventricular outflow tract calcification. There is Severe mitral annular calcification. Distance to RCA ostium from aortic valve annulus: 13 mm Distance to left main ostium from annulus: 9 mm Deployment angle: 8 MATT, 9 Caudal Coronary Arteries: Anomalous coronary artery course: No Left main atherosclerosis: Moderate LAD atherosclerosis: Severe Circumflex atherosclerosis: Severe RCA atherosclerosis: Severe Abdominal Aortic and Pelvic Arterial Smallest Diameter Measurements (made from centerline curved MPRs): Infrarenal aorta: 12 mm x 12 mm Right common iliac artery: 8 mm x 8 mm. There is Mild calcification. Left common iliac artery: 7 mm x 7 mm . There is Mild calcification. There is Moderate tortuosity of the bilateral common iliac arteries. This is equal in distribution. Right external iliac artery: 5 mm x 5 mm. There is Mild calcification. Left external iliac artery: 6 mm x 6 mm. There is Mild calcification. There is Mild tortuosity of the bilateral external iliac arteries. This is equal in distribution. Right common femoral artery: 6 mm. There is Mild calcification. Left common femoral artery: 6 mm. There is Mild calcification. There is Mild tortuosity of the bilateral femoral arteries. This is equal in distribution. Other findings: Postprocedural changes of coronary artery bypass grafting and median sternotomy with severe coronary artery atherosclerosis of the [place] arteries. Heart size is enlarged with dilated left atrium. 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 Moderate hiatal hernia. No suspicious thoracic lymphadenopathy. Left greater than right consolidation within the right upper and left lower lobes, likely infectious. No pleural effusion or pneumothorax. Liver is normal in shape, size, and contour. Cholelithiasis. The spleen is normal. Adrenal glands are normal. Pancreas is normal. Large duodenal diverticulum. Bowel is normal caliber. No bowel wall thickening. No pneumoperitoneum. Diverticulosis without diverticulitis. Urinary bladder is normal. Status post hysterectomy There is mild atherosclerosis of the abdominal aorta and its branches. No suspicious abdominopelvic lymphadenopathy. No suspicious osseous lesion. Procedure Note Short, Yusuf Gregory MD - 05/20/2024 EXAMINATION: Heart CT and CTA abdomen and pelvis with contrast. History: Severe aortic stenosis, pre-TAVR procedure. Technique: Heart CT and CT angiogram of the abdomen and pelvis performed during administration of 125 mL of Optiray 350, intravenously per TAVR Protocol. Images were transferred to an independent workstation for additional 3D post-processing. FINDINGS: Annulus and Thoracic Aortic Measurements (in systole): Aortic valve annulus: Area 345 mm2: circumference 71 mm; 25 mm maximum diameter x 18 mm minimum diameter. Sinuses of Valsalva: 27 x 25 x 28 mm Sinotubular junction: 23 mm x 25 mm. Aortic valve calcium score: Agatston 2769, Volume [id number]. Coronary sinus heights: Right coronary sinus height: 18 mm Left coronary sinus height: 17 mm Non-coronary sinus height: 17 mm There is Severe left ventricular outflow tract calcification. There is Severe mitral annular calcification. Distance to RCA ostium from aortic valve annulus: 13 mm Distance to left main ostium from annulus: 9 mm Deployment angle: 8 MATT, 9 Caudal Coronary Arteries: Anomalous coronary artery course: No Left main atherosclerosis: Moderate LAD atherosclerosis: Severe Circumflex atherosclerosis: Severe RCA atherosclerosis: Severe Abdominal Aortic and Pelvic Arterial Smallest Diameter Measurements (made from centerline curved MPRs): Infrarenal aorta: 12 mm x 12 mm Right common iliac artery: 8 mm x 8 mm. There is Mild calcification. Left common iliac artery: 7 mm x 7 mm . There is Mild calcification. There is Moderate tortuosity of the bilateral common iliac arteries. This is equal in distribution. Right external iliac artery: 5 mm x 5 mm. There is Mild calcification. Left external iliac artery: 6 mm x 6 mm. There is Mild calcification. There is Mild tortuosity of the bilateral external iliac arteries. This is equal in distribution. Right common femoral artery: 6 mm. There is Mild calcification. Left common femoral artery: 6 mm. There is Mild calcification. There is Mild tortuosity of the bilateral femoral arteries. This is equal in distribution. Other findings: Postprocedural changes of coronary artery bypass grafting and median sternotomy with severe coronary artery atherosclerosis of the [place] arteries. Heart size is enlarged with dilated left atrium. 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 Moderate hiatal hernia. No suspicious thoracic lymphadenopathy. Left greater than right consolidation within the right upper and left lower lobes, likely infectious. No pleural effusion or pneumothorax. Liver is normal in shape, size, and contour. Cholelithiasis. The spleen is normal. Adrenal glands are normal. Pancreas is normal. Large duodenal diverticulum. Bowel is normal caliber. No bowel wall thickening. No pneumoperitoneum. Diverticulosis without diverticulitis. Urinary bladder is normal. Status post hysterectomy There is mild atherosclerosis of the abdominal aorta and its branches. No suspicious abdominopelvic lymphadenopathy. No suspicious osseous lesion. IMPRESSION: 1. Severe aortic valvular stenosis. 2. Aortic annulus, and abdominal aortic, common iliac, external iliac and femoral artery measurements in preparation for TAVR procedure as described above. 3. Aortic valve calcium score: Agatston 2769, Volume 2180 mm3. 4. Distance to left main ostium from annulus is 9 mm. 5. Severe mitral annular and left ventricular outflow tract calcification. 6. 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 7. Left greater than right consolidation within the bilateral lungs, likely infectious in etiology. Recommend follow-up to document resolution. Recommend follow up of the Incidental lung consolidations Additional Imaging in [address] Dictated by: Tariq Sage MD The radiology attending physician has personally reviewed this study, and had reviewed and/or edited this written report and agrees with it. Electronically signed by: Yusuf Quinn M.D. Kalpana Fritz MD IMG CT PROCEDURES Final Result * US Carotids Bilateral (05/19/2024 9:52 AM CDT) Anatomical Region Laterality Modality Vascular Bilateral Ultrasound 05/19/2024 3:11 PM CDT Impressions 05/19/2024 3:11 PM CDT There is less than 50% stenosis noted in the right internal carotid artery. There is 50-69% stenosis noted in the left internal carotid artery. This is not hemodynamically significant. Electronically signed by: Linnea Aguila M.D. Narrative 05/19/2024 3:11 PM CDT EXAMINATION: US CAROTIDS DUPLEX BILATERAL HISTORY: The patient is a 78-year-old female who is having a pre-op carotid artery duplex study. TECHNIQUE: Bilateral carotid artery duplex ultrasound examination was performed with galindo scale imaging, color Doppler imaging and spectral waveform analysis. Nascet criteria was utilized. FINDINGS: Right side: Plaque morphology: There is a small amount of smooth, homogenous plaque noted in the carotid bulb and proximal ICA. Peak systolic velocity in the right CCA is 49 cm/s, in the distal ICA is 85/32 cm/s and in the ECA is 70 cm/s with an ICA/CCA ratio of 1.7. Normal antegrade flow noted in the right vertebral artery. Left side: Plaque morphology: There is smooth, homogenous plaque noted in the carotid bulb and proximal ICA. Peak systolic velocity in the left CCA is 62 cm/s, in the distal ICA is 213/57 cm/s and in the ECA is 90 cm/s with an ICA/CCA ratio of 3.4. There is spectral broadening noted in the waveform of the left internal carotid artery. Normal antegrade flow noted in the left vertebral artery. Procedure Note Linnea Aguila MD - 05/19/2024 EXAMINATION: US CAROTIDS DUPLEX BILATERAL HISTORY: The patient is a 78-year-old female who is having a pre-op carotid artery duplex study. TECHNIQUE: Bilateral carotid artery duplex ultrasound examination was performed with galindo scale imaging, color Doppler imaging and spectral waveform analysis. Nascet criteria was utilized. FINDINGS: Right side: Plaque morphology: There is a small amount of smooth, homogenous plaque noted in the carotid bulb and proximal ICA. Peak systolic velocity in the right CCA is 49 cm/s, in the distal ICA is 85/32 cm/s and in the ECA is 70 cm/s with an ICA/CCA ratio of 1.7. Normal antegrade flow noted in the right vertebral artery. Left side: Plaque morphology: There is smooth, homogenous plaque noted in the carotid bulb and proximal ICA. Peak systolic velocity in the left CCA is 62 cm/s, in the distal ICA is 213/57 cm/s and in the ECA is 90 cm/s with an ICA/CCA ratio of 3.4. There is spectral broadening noted in the waveform of the left internal carotid artery. Normal antegrade flow noted in the left vertebral artery. IMPRESSION: There is less than 50% stenosis noted in the right internal carotid artery. There is 50-69% stenosis noted in the left internal carotid artery. This is not hemodynamically significant. Electronically signed by: Linnea Aguila M.D. 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
--- OUTSIDE RECORDS SUMMARY | 2024-07-18 11:01 | XMS_ITS | Referral Summary ---
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 Name Role Phone Juan Osorio MD Primary Care Provider Dinesh Harley MD Unavailable Encounters Date Type Department Care Team Description 06/07/2024 [facility] Post Discharge Follow up phone call [address] [address] Hoda Barnes 06/07/2024 [facility] Post Discharge Follow up phone call [address] [address] Hoda Barnes 05/31/2024 5:34 AM CDT - 06/01/2024 5:37 PM CDT Hospital Encounter [address] [address] Dinesh Harley MD Nonrheumatic aortic valve stenosis Discharge Disposition: Discharge to home or self care 05/31/2024 7:30 AM CDT - 05/31/2024 9:30 AM CDT Surgery [facility] Cardiac Catheterization Lab [address] [place] [address] Dinesh Harley MD TAVR - PERCUTANEOUS FEMORAL 05/31/2024 7:33 AM CDT Anesthesia Event [facility] Cardiac Catheterization Lab [address] [place] [address] Juan Hernandez MD Barnhart, Lynlee Jo, NP 05/26/2024 10:05 AM CDT - 05/26/2024 11:59 PM CDT Hospital Encounter [facility] Diagnostic Imaging [address] [place] [address] Discharge Disposition: Discharge to home or self care 05/26/2024 9:45 AM CDT Pre-Admission Testing [facility] Pre Anesthesia Testing [address] [place] [address] Pre-operative exam (Primary Dx); Encounter for preadmission testing; Other specified coagulation defects 05/24/2024 Orders Only [facility] Non-invasive Cardiac Diagnostic Testing [address] [place] [address] Dinesh Harley MD Nonrheumatic aortic valve stenosis (Primary Dx) 05/19/2024 Documentation Cardiothoracic Surgery Kaity Hernadnez, RN 05/19/2024 1:30 PM CDT Office Visit [facility] Surgery [id number] [place] [phone] Nora Harding MD Aortic valve stenosis, etiology of cardiac valve disease unspecified (Primary Dx) 05/19/2024 9:24 AM CDT - 05/19/2024 11:59 PM CDT Hospital Encounter [facility] Imaging and Radiology [address] [place] [address] Nonrheumatic aortic valve stenosis Discharge Disposition: Discharge to home or self care 05/19/2024 9:24 AM CDT - 05/19/2024 11:59 PM CDT Hospital Encounter [facility] Vascular Lab [address] [place] [address] Bilateral carotid artery disease, unspecified type; Preoperative evaluation to rule out surgical contraindication Discharge Disposition: Discharge to home or self care 04/28/2024 Cardiology Conference [facility] Non-invasive Cardiac Diagnostic Testing [address] [place] [address] Anshul Felipe, GUSTAVO 04/27/2024 Orders Only [facility] Non-invasive Cardiac Diagnostic Testing [address] [place] [address] Kalpana Fritz MD Nonrheumatic aortic valve stenosis (Primary Dx); Abnormal Doppler ultrasound of carotid artery; Bilateral carotid artery disease, unspecified type; Preoperative evaluation to rule out surgical contraindication from Last 3 Months Allergies No known active allergies Medications multivitamin [...] mouth daily 30 tablet 11 06/02/2024 Active lisinopriL (PRINIVIL,ZESTRI L) 5 mg [...] ventricular hypertrophy 05/12/2014 Cerebrovascular accident (CVA) 05/12/2014 Social History Tobacco Use Types Packs/Day Years Used Date Smoking Tobacco: Never Smokeless Tobacco: Never Tobacco Cessation:Counseling Given: Not Answered Alcohol Use Standard Drinks/Week Comments No 0 (1 standard drink = 0.6 oz pur e alcohol) [facility] Utilities Answer Date Recorded In the past 12 months has th e electric, gas, oil, or water company threatened [...] often do you attend chur ch or rastafarian services? More than 4 times per year 06/01/2024 Do you belong to any clubs o r organizations such as synagogue groups, unions, fraternal or athletic groups, or [...] and heating? Not hard at all 06/01/2024 [facility] - Occupational Stress [...] any time in the past 12 m [facility], were you homeless or living in a retirement (including now)? No 06/01/2024 Personal Safety Answer Date Recorded Have you ever been in or are you currently in a harmful physical or emotional relationship or is someone making you feel afraid or unsafe? 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 Gender Identity Not on file Sexual Orientation Not on file Last Filed Vital Signs Vital Sign Reading [...] 05/31/2024 6:44 AM CDT Plan of Treatment Not on file Medical Devices Implanted Type Area [employer] Fitness Instructor Device Identifier Shelf Expiration Date Model / Serial / Lot [employer] Valve Aortic Trnscath Kendell 3 Ultra Resilia 20mm [id number] - [id number] - [id number] Implanted:Qty: 1 on 05/31/2024 by Dinesh Harley MD at [facility] Prosthetic Valve [employer] 01/21/2026 [id number] / [id number] / Access [employer]osure Inc Mynx Control 6-7fr 2 Mode Balloon Catheter Sealant Lock Syringe [id number] - [id number] - [id number] Implanted:Qty: 1 on 05/31/2024 by Dinesh Harley MD at [facility] Vascular Closure Device Access [employer] 03/28/2026 [id number] / [id number] / [id number] [employer] V[employer] System Closure Repair Femoral Artery Suture Mediated Perclose Prostyle 75469-42 - [id number] Implanted:Qty: 1 on 05/31/2024 by Dinesh Harley MD at [facility] [employer] 02/15/2026 [id number] / / [id number] [employer] V[employer] System Closure Repair Femoral Artery Suture Mediated Perclose Prostyle [id number] - [id number] Implanted:Qty: 1 on 05/31/2024 by Dinesh Harley MD at [facility] [employer] 02/15/2026 [id number] / / [id number] Procedures Procedure Name Priority Date/Time Associated Diagnosis [...] 7:48 AM CDT 06/01/2024 8:35 AM CDT [facility] LAB BLOOD ORDERABLES Final Resul t Performing Organization Address City/[facility] Co de Phone Number NESSA RICE [address] [address] [facility] [place] [address] * Magnesium (06/01/2024 7:48 AM CDT) Magnesium 2.2 1.4 - 2.5 mg/dL Blood 06/01/2024 7:48 AM CDT 06/01/2024 8:35 AM CDT Dinesh Harley MD LAB BLOOD ORDERABLES Final Resul t Performing Organization Address [facility] de Phone Number NESSA RCIE [address] [address] [facility] [place] [address] * Basic metabolic panel (06/01/2024 7:48 AM CDT) Sodium 138 135 - 145 mmol/L Potassium, pl 4.2 3.3 - 4.9 mmol/L [facility] Chloride 103 97 - 110 mmol/L [facility] CO2 26 22 - 32 mmol/L [facility] Anion gap 9 2 - 15 mmol/L [facility] BUN 21 6 - 25 mg/dL [facility] Creatinine 1.01 0.60 - 1.10 mg/dL [facility] Glucose 101 70 - 199 mg/dL [facility] Comment: Interpretive Data Fasting glucose >/= 126 [...] 2022. Calcium 9.2 8.5 - 10.3 mg/dL [facility] Blood 06/01/2024 7:48 AM CDT 06/01/2024 8:35 AM CDT Dineshricardo Harley MD LAB BLOOD ORDERABLES Final Resul t Performing Organization Address City/[facility] [address]/[facility] Co de Phone Number NESSA [address] [place] [address] * ECG 12 lead (06/01/2024 7:36 AM CDT) 06/01/2024 7:36 AM CDT Narrative [facility] - 06/01/2024 2:49 PM CDT Vent Rate: 76 bpm RR Interval: 780 msec IA Interval: 124 msec QRS Duration: 126 msec QT Interval: 407 msec QTC Interval: 438 msec P-R-T [place]: -76 - -13 - 132 degrees IMPRESSION: JUNCTIONAL RHYTHM LEFT VENTRICULAR HYPERTROPHY AND ST-T CHANGE [VOLTAGE CRITERIA PLUS ST/T ABNORMALITY] Left bundle branch block Electronically Signed By: Dr. Mike Britt [facility] Dineshricardo Harley MD ECG ORDERABLES Final Result Performing Organization Address [facility] Phone Number [employer] [facility] * TRANSTHORACIC ECHO (TTE) COMPLETE W DOPPLER/CF WO CONTRAST (06/01/2024 7:16 AM CDT) LV EF 65 % CONS SCIMAGE Anatomical Region Laterality Modality Ultrasound 06/01/2024 6:33 AM CDT Narrative 06/01/2024 9:14 AM CDT [facility] [id number] [place], [place] [id number] Echocardiogram Report Patient Name: LINDSAY OROURKE J : 1945 Study Date: 06/01/2024 6:33:39 AM Gender: F Tech: Location: [id number] Ref Provider: DINESH HARLEY Height(Cm): 142 BSA: [...] regurgitation. Electronically Signed By: Dr. Mike Britt [facility] 06/01/2024 9:14:03 AM CDT Procedure Note Mike Britt MD - 06/01/2024 [place] [address] Echocardiogram Report Patient Name: LINDSAY OROURKE J : 1945 Study Date: 06/01/2024 6:33:39 AM Gender: F Tech: Location: [id number] Ref Provider: DINESH HARLEY Height(Cm): 142 BSA: [...] regurgitation. Electronically Signed By: Dr. Mike Britt [facility] 06/01/2024 9:14:03 AM CDT Dinesh Harley MD CV ECHO PROCEDURES Final Result * X-ray chest 1 view (Portable) (06/01/2024 6:37 AM CDT) Anatomical Region Laterality Modality Body, Chest N/A Computed Radiogr aphy 06/01/2024 8:41 AM CDT Impressions 06/01/2024 8:41 AM CDT No change since the last examination. Electronically signed by: Linnea Aguila M.D. Narrative 06/01/2024 8:41 AM CDT EXAMINATION: XR CHEST [...] examination. Electronically signed by: Linnea Aguila M.D. [facility] IMG XR PROCEDURES Final Result * (ABNORMAL) [...] 5:05 AM CDT 06/01/2024 7:11 AM CDT Cricket [facility] LAB BLOOD ORDERABLES Final Resul t NESSA [address] [place] [address] * (ABNORMAL) Differential, auto (06/01/2024 5:05 AM CDT) Neutrophil abs 7.47(H) 1.50 - 6.50 K/cumm Imm gran abs 0.05 0.00 - 0.10 K/cumm [facility] Lymphocyte abs 0.89 0.80 - 3.30 K/cumm [facility] Monocyte abs 0.85(H) 0.20 - 0.80 K/cumm [facility] Eosinophil abs 0.22 0.00 - 0.50 K/cumm [facility] Basophil abs 0.07 0.00 - 0.10 K/cumm [facility] Neutrophil pct 78.3 % NESSA Comment: Interpretive Data Percent cell count reference ranges are not reported, since discordance with absolute values may lead to misinterpretation of CBC data. Current Interpretive Data was last revised on 2017. Imm gran pct 0.5 % NESSA Comment: Interpretive Data Percent cell count reference ranges are not reported, since discordance with absolute values may lead to misinterpretation of CBC data. Current Interpretive Data was last revised on 2017. Lymphocyte pct 9.3 % NESSA Comment: Interpretive Data Percent cell count reference ranges are not reported, since discordance with absolute values may lead to misinterpretation of CBC data. Current Interpretive Data was last revised on 2017. Monocyte pct 8.9 % NESSA Comment: Interpretive Data Percent cell count reference ranges are not reported, since discordance with absolute values may lead to misinterpretation of CBC data. Current Interpretive Data was last revised on 2017. Eosinophil pct 2.3 % NESSA Comment: Interpretive Data Percent cell count reference ranges are not reported, since discordance with absolute values may lead to misinterpretation of CBC data. Current Interpretive Data was last revised on 2017. Basophil pct 0.7 % NESSA Comment: Interpretive Data Percent cell count reference ranges are not reported, since discordance with absolute values may lead to misinterpretation of CBC data. Current Interpretive Data was last revised on 2017. Blood 06/01/2024 5:05 AM CDT 06/01/2024 6:10 AM CDT Dinesh Harley MD LAB BLOOD ORDERABLES Final Resul t NESSA [address] [place] [address] * (ABNORMAL) Pro B-type natriuretic peptide (06/01/2024 [...] Heart J. 2006:27:330-337. 2. Aliyah RW, Fabio IBARRA. J. AM Doe Cardiol: Cardiovasc Imag. 2009;2: 216- 225. Interpretive Data Last Revised Date: 2017. Blood 06/01/2024 5:05 AM CDT 06/01/2024 6:10 AM CDT Dinesh Harley MD LAB BLOOD ORDERABLES Final Resul t [facility] [address] [address] [place] [address] * (ABNORMAL) CBC with auto differential (06/01/2024 5:05 AM CDT) WBC 9.55 3.80 - 9.90 K/cumm Hgb 11.6(L) 11.9 - 15.5 g/dL [facility] Hct 36.9 35.6 - 45.5 % [facility] Plt 116(L) 150 - 400 K/cumm [facility] MPV 12.6(H) 9.1 - 12.3 fL [facility] RBC 3.91 3.90 - 5.20 M/cumm [facility] MCV 94.4 81.3 - 96.4 fL [facility] MCH 29.7 27.1 - 33.3 pg [facility] MCHC 31.4(L) 32.3 - 35.7 g/dL [facility] RDW CV 14.3 11.1 - 14.9 % [facility] RDW SD 49.2(H) 35.7 - 48.1 fL [facility] NRBC abs 0.00 0.00 - 0.01 K/cumm [facility] Blood 06/01/2024 5:05 AM CDT 06/01/2024 6:10 AM CDT Dineshricardo Harley MD LAB BLOOD ORDERABLES Final Resul t Performing Organization Address [facility] Co de Phone Number NESSA RICE [address] [address] [facility] [place] [address] * aPTT (06/01/2024 5:05 AM CDT) aPTT [...] ORDERABLES Final Resul t Performing Organization Address [facility] de Phone Number BRAXTONSO RICE [address] [address] [facility] [place] [address] * Protime-INR (06/01/2024 5:05 AM CDT) PT 12.5 9.7 - 13.0 sec INR 1.15 0.90 - 1.20 NESSA RICE Comment: Interpretive data Oral anticoagulant therapeutic ranges: Venous thromboembolism prophylaxis or treatment: 2.0-3.0 CARDIOLOGY Standard range: 2.0-3.0 High-intensity range: 2.5-3.5 Refer to indication-specific guidelines for appropriate target ranges for prosthetic heart valve replacement. Current interpretive data was last revised on 2019. Blood 06/01/2024 5:05 AM CDT 06/01/2024 6:11 AM CDT Dineshricardo Harley MD LAB BLOOD ORDERABLES Final Resul t Performing Organization Address [facility] Co de Phone Number NESSA RICE [address] [address] [facility] [place] [address] * Magnesium (06/01/2024 5:05 AM CDT) Magnesium 2.1 1.4 - 2.5 mg/dL Blood 06/01/2024 5:05 AM CDT 06/01/2024 6:10 AM CDT [facility] LAB BLOOD ORDERABLES Final Resul t [facility] [address] [place] [address] * (ABNORMAL) Comprehensive metabolic panel (06/01/2024 5:05 [...] BLOOD ORDERABLES Final Resul t NESSA RICE [address] [facility] [place] [address] * X-ray chest 1 view (Portable) (05/31/2024 [...] Electronically signed by: Deandre Torres II, D.O. Dineshyogesh Harley MD IMG XR PROCEDURES Final Result * ECG 12 lead (05/31/2024 10:31 AM CDT) 05/31/2024 10:3 1 AM CDT Narrative [facility] - 05/31/2024 12:32 PM CDT Vent Rate: 80 bpm RR Interval: 747 msec IA Interval: 166 msec QRS Duration: 160 msec QT Interval: 448 msec QTC Interval: 484 msec P-R-T [place]: -26 - 41 - 133 degrees IMPRESSION: SINUS RHYTHM LEFT BUNDLE BRANCH BLOCK ABNORMAL ECG Compared to prior EKG, left bundle branch block is new Electronically Signed By: Panfilo Arreola MD Dinesh Harley MD ECG ORDERABLES Final Result Performing Organization Address City/[facility] [address] [facility]/ZIP Co de Phone Number [facility] * TRANSCATHETER AORTIC VALVE REPLACEMENT (TAVR) OPEN FEMORAL ART APPROACH (05/31/2024 9:30 AM CDT) Anatomical Region Laterality Modality X-Ray Angiograph y Dinesh Harley MD CV CARDIAC CATH PROCEDURES Final Result * Prepare RBC: 1 Units (05/31/2024 9:16 AM CDT) Pathologist [facility] [place] Product code [id number] Unit Number [id number] 1-I [facility] Product Blood Type APOS [facility] Dispense Status RETURNED [facility] Blood 05/31/2024 9:16 AM CDT Narrative [facility] - 06/01/2024 12:14 AM CDT Other indication->anesthesia Are special requirements needed? (All products are leukoreduced and CMV- safe)- >No Date required:-[id number] LRRBC # of [id number] Reasons:-Other (specify)} Juan Hernandez MD BLOOD BANK PRODUCT ORDERABLES Final Result [facility] [address] [place] [address] * (ABNORMAL) POC Activated Clotting Time, High Range (05/31/2024 8:38 AM CDT) ACT 272(H) 87 - 138 sec POC Performer [phone] NESSA RICE Blood 05/31/2024 8:38 AM CDT 05/31/2024 8:38 AM CDT Dineshricardo Harley MD LAB BLOOD ORDERABLES Final Resul t Performing Organization Address [facility] de Phone Number NESSA RICE [address] [address] [place] [address] * ECG 12 lead (05/26/2024 10:32 AM CDT) 05/26/2024 10:3 2 AM CDT Narrative [facility] - 05/26/2024 1:09 PM CDT Vent Rate: 85 bpm RR Interval: 701 msec IA Interval: 106 msec QRS Duration: 124 msec QT Interval: 377 msec QTC Interval: 419 msec P-R-T [place]: -68 - -27 - 71 degrees IMPRESSION: SINUS RHYTHM WITH PREMATURE VENTRICULAR CONTRACTION BORDERLINE LEFT AXIS DEVIATION VOLTAGE CRITERIA FOR LVH NONSPECIFIC ST \T\ T-WAVE ABNORMALITY ABNORMAL ECG Electronically Signed By: Dr. Morgan Felipe Dineshricardo Harley MD ECG ORDERABLES Final Result Performing Organization Address [facility] Phone Number [employer] [facility] * X-ray chest 2 views (05/26/2024 10:28 [...] LAB BLOOD ORDERABLES Final Resul t NESSA [address] [address] [place] [address] * (ABNORMAL) Differential, auto (05/26/2024 10:05 AM CDT) Neutrophil abs 7.19(H) 1.50 - 6.50 K/cumm Imm gran abs 0.04 0.00 - 0.10 K/cumm [facility] Lymphocyte abs 1.15 0.80 - 3.30 K/cumm [facility] Monocyte abs 0.65 0.20 - 0.80 K/cumm [facility] Eosinophil abs 0.12 0.00 - 0.50 K/cumm [facility] Basophil abs 0.07 0.00 - 0.10 K/cumm [facility] Neutrophil pct 78.0 % [facility] Comment: Interpretive Data Percent cell count reference ranges are not reported, since discordance with absolute values may lead to misinterpretation of CBC data. Current Interpretive Data was last revised on 2017. Imm gran pct 0.4 % [facility] Comment: Interpretive Data Percent cell count reference ranges are not reported, since discordance with absolute values may lead to misinterpretation of CBC data. Current Interpretive Data was last revised on 2017. Lymphocyte pct 12.5 % [facility] Comment: Interpretive Data Percent cell count reference ranges are not reported, since discordance with absolute values may lead to misinterpretation of CBC data. Current Interpretive Data was last revised on 2017. Monocyte pct 7.0 % [facility] Comment: Interpretive Data Percent cell count reference ranges are not reported, since discordance with absolute values may lead to misinterpretation of CBC data. Current Interpretive Data was last revised on 2017. Eosinophil pct 1.3 % [facility] Comment: Interpretive Data Percent cell count reference ranges are not reported, since discordance with absolute values may lead to misinterpretation of CBC data. Current Interpretive Data was last revised on 2017. Basophil pct 0.8 % [facility] Comment: Interpretive Data Percent cell count reference ranges are not reported, since discordance with absolute values may lead to misinterpretation of CBC data. Current Interpretive Data was last revised on 2017. Blood 05/26/2024 10:0 5 AM CDT 05/26/2024 10:32 AM CDT Dineshricardo Harley MD LAB BLOOD ORDERABLES Final Resul t Performing Organization Address City/[facility] [address]/ZIP Co de Phone Number NESSA RICE [address] [address] Department of Laboratories [place] [phone] * (ABNORMAL) Pro B-type natriuretic peptide (05/26/2024 [...] Heart J. 2006:27:330-337. 2. Aliyah RW, Fabio IBARRA. J. AM Doe Cardiol: Cardiovasc Imag. 2009;2: 216- 225. Interpretive Data Last Revised Date: 2017. Blood 05/26/2024 10:0 5 AM CDT 05/26/2024 10:32 AM CDT Dinesh Harley MD LAB BLOOD ORDERABLES Final Resul t NESSA RICE [address] [address] [place] [address] * (ABNORMAL) CBC with auto differential (05/26/2024 10:05 AM CDT) [facility] WBC 9.22 3.80 - 9.90 K/cumm Hgb 12.9 11.9 - 15.5 g/dL [facility] Hct 41.8 35.6 - 45.5 % [facility] Plt 165 150 - 400 K/cumm [facility] MPV 12.5(H) 9.1 - 12.3 fL [facility] RBC 4.40 3.90 - 5.20 M/cumm [facility] MCV 95.0 81.3 - 96.4 fL [facility] MCH 29.3 27.1 - 33.3 pg [facility] MCHC 30.9(L) 32.3 - 35.7 g/dL [facility] RDW CV 14.0 11.1 - 14.9 % [facility] RDW SD 49.0(H) 35.7 - 48.1 fL [facility] NRBC abs 0.00 0.00 - 0.01 K/cumm [facility] Blood 05/26/2024 10:0 5 AM CDT 05/26/2024 10:32 AM CDT Dinesh Harley MD LAB BLOOD ORDERABLES Final Resul t NESSA RICE [address] [place] [address] * aPTT (05/26/2024 10:05 AM CDT) [facility] aPTT 33 28 - 38 sec Comment: Interpretive Data Heparin therapeutic range: 66.0 - 100.0 seconds. Range based on correlation with therapeutic heparin activity range of 0.3 - 0.7 Units/mL. Current interpretive data was last revised on 2022. Blood 05/26/2024 10:0 5 AM CDT 05/26/2024 10:32 AM CDT Dinesh Harley MD LAB BLOOD ORDERABLES Final Resul t Performing Organization Address [facility] de Phone Number NESSA RICE [address] [address] [facility] [place] [address] * Protime-INR (05/26/2024 10:05 AM CDT) PT 11.2 9.7 - 13.0 sec INR 1.04 0.90 - 1.20 NESSA RICE Comment: Interpretive data Oral anticoagulant therapeutic ranges: Venous thromboembolism prophylaxis or treatment: 2.0-3.0 CARDIOLOGY Standard range: 2.0-3.0 High-intensity range: 2.5-3.5 Refer to indication-specific guidelines for appropriate target ranges for prosthetic heart valve replacement. Current interpretive data was last revised on 2019. Blood 05/26/2024 10:0 5 AM CDT 05/26/2024 10:32 AM CDT Dineshricardo Harley MD LAB BLOOD ORDERABLES Final Resul t Performing Organization Address [facility] de Phone Number BRAXTONSO RICE [address] [address] [place] [address] * Type and screen (05/26/2024 10:05 AM CDT) ABO Rh A Positive Trang, indirect Negative NESSA RICE Blood 05/26/2024 10:0 5 AM CDT 05/26/2024 10:34 AM CDT Narrative N[facility] - 05/26/2024 11:14 AM CDT Has the patient had Daratumumab or Isatuximab in the past 6 months?->Unknown Dinesh Harley MD LAB BLOOD BANK TEST ORDERABLES F inal Result Performing Organization Address [facility] [address] [facility] Co de Phone Number NESSA RICE [address] [address] [facility] [place] [address] * Comprehensive metabolic panel (05/26/2024 10:05 AM CDT) Sodium 140 135 - 145 mmol/L Potassium, pl 4.9 3.3 - 4.9 mmol/L [facility] Chloride 103 97 - 110 mmol/L [facility] CO2 28 22 - 32 mmol/L [facility] Anion gap 9 2 - 15 mmol/L [facility] BUN 24 6 - 25 mg/dL [facility] Creatinine 0.95 0.60 - 1.10 mg/dL [facility] Glucose 113 70 - 199 mg/dL [facility] Comment: [...] [facility] LAB BLOOD ORDERABLES Final Resul t [facility] [address] [address] Department of [place] [address] * CT TAVR (05/19/2024 10:52 AM CDT) [...] Aortic valve calcium score: Agatston 2769, Volume [id number]. Coronary sinus heights: Right coronary sinus height: 18 mm Left coronary sinus height: 17 mm Non-coronary sinus height: 17 mm There is Severe left ventricular outflow tract calcification. There is Severe mitral annular calcification. Distance to RCA ostium from aortic valve annulus: 13 mm Distance to left main ostium from annulus: 9 mm Deployment angle: 8 MACEDONIAN, 9 Caudal Coronary Arteries: Anomalous coronary artery [...] with severe coronary artery atherosclerosis of the [place] arteries. Heart size is enlarged with dilated [...] lymphadenopathy. No suspicious osseous lesion. Procedure Note Yusuf Quinn MD - 05/20/2024 EXAMINATION: Heart CT and [...] Aortic valve calcium score: Agatston 2769, Volume [id number]. Coronary sinus heights: Right coronary sinus height: 18 mm Left coronary sinus height: 17 mm Non-coronary sinus height: 17 mm There is Severe left ventricular outflow tract calcification. There is Severe mitral annular calcification. Distance to RCA ostium from aortic valve annulus: 13 mm Distance to left main ostium from annulus: 9 mm Deployment angle: 8 MACEDONIAN, 9 Caudal Coronary Arteries: Anomalous coronary artery [...] with severe coronary artery atherosclerosis of the [place] arteries. Heart size is enlarged with dilated [...] by: Linnea Aguila M.D. Kalpana Fritz MD [facility] PROCEDURES Final Result from Last 3 Months Insurance [facility] MEDICARE [facility]ANTAGE [facility] Address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
== END 2024-07-18 10:24 | disposition home or self-care (01) ==
PROVIDERS: PCP Internal Medicine; Visit Provider Internal Medicine
DX: R05.1 Acute cough (principal); J18.9 Pneumonia, unspecified organism
CPT/HCPCS: 71046

== ENCOUNTER 2024-09-01 10:07 | Outpatient (CLI) | payer MEDICARE, SELFPAY ==
--- NOTE | ~2024-09-01 | XR_ITS ---
Clinical Indication: Pneumonia PA and lateral views of the chest: Comparison: 07/18/2024 Findings: The lungs are clear, without evidence of focal consolidation or pleural effusion. Cardiome diastinal silhouette is stable, with aortic valve replacement and extensive mitral annular calcificat ion. Bones and soft tissues are unremarkable. Impression: No acute abnormality. Status post aortic valve replacement. Reviewed, dictated and finalized at location . Impression: No acute abnormality. Status post aortic valve replacement.
--- OUTSIDE RECORDS SUMMARY | 2024-09-01 10:11 | XMS_ITS | Referral Summary ---
Author Organization [facility] [address] Address [address] [place] [address] Care Team Providers Care Loss Prevention Lead Name Role Phone Juan Osorio MD Primary Care Provider Cristian Harley MD Unavailable Encounters Date Type Department Care Team Description 06/07/2024 [facility] Post Discharge Follow up phone call [facility] [id number] [place] [address] [address] 06/07/2024 [facility] Post Discharge Follow up phone call [address] [address] [address] [place]se from Last 3 Months Allergies No known [...] by mouth daily 30 tablet 06/02/2024 Active clopidogreL (PLAVIX) 75 mg tablet Take 1 tablet (75 mg total) by mouth daily 30 tablet 06/02/2024 Active Active Problems Problem Noted Date [...] drink = 0.6 oz pur e alcohol) [facility] Utilities Answer Date Recorded In the past 12 months has [employer], gas, oil, or water [employer] threatened to shut off services in your [...] week 06/01/2024 How often do you attend [facility] or scientology services? More than 4 times per year 06/01/2024 Do you belong to any clubs o r organizations such as zoroastrian groups, unions, fraternal or athletic groups, or [...] and heating? Not hard at all 06/01/2024 [facility] [place] of Occupat ional Health - Occupational Stress [...] any time in the past 12 m onths, were you homeless or living in a halfway (including now)? No 06/01/2024 Personal Safety Answer Date Recorded Have you ever been in or are you currently in a harmful physical or emotional relationship or is someone making you feel afraid or unsafe? 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 Gender Identity Not on file Sexual Orientation [...] on file Medical Devices Implanted Type Area Chief Relay Tester Device Identifier Shelf Expiration Date Model / Serial / Lot Kin[employer] Lifesciences Valve Aortic Trnscath Kendell 3 Ultra Resilia 20mm [id number] - [id number] - [id number] Implanted:Qty: 1 on 05/31/2024 by Cristian Harley MD at [facility] Prosthetic Valve [employer]iences 01/21/2026 [id number] / [id number] / Access Closure Inc Mynx Control 6-7fr 2 Mode Balloon Catheter Sealant Lock Syringe [id number] - [id number] - [id number] Implanted:Qty: 1 on 05/31/2024 by Cristian Harley MD at [facility] Vascular Closure Device Access [employer]osure Inc 03/28/2026 [id number] / [id number] / [id number] Ryan Vascular System Closure Repair Femoral Artery Suture Mediated Perclose Prostyle 37449-28 - [id number] Implanted:Qty: 1 on 05/31/2024 by Cristian Harley MD at [facility] [employer] 02/15/2026 [id number] / / [id number] [employer] V[employer] System Closure Repair Femoral Artery Suture Mediated Perclose Prostyle 15401-17 - [id number] Implanted:Qty: 1 on 05/31/2024 by Cristian Harley MD at [facility] [employer] 02/15/2026 [id number] Insurance [facility] MEDICARE [facility]ANT[facility] Address: [address] [address] [place] [address] [facility] MEDICARE ADVANTAGE [facility] Address: [address] [address] [place] [phone] [place] [address] Care Teams Loss Prevention Lead Relationship Specialty Start Date End Date Juan Osorio MD PCP - General 02/12/16 Cristian Harley MD [address] [place] [address] Consulting Physician Cardiology 06/01/24
--- OUTSIDE RECORDS SUMMARY | 2024-09-01 10:11 | XMS_ITS | Clinical Summary ---
Author Organization [facility] [address] Address [address] [place] [address] Care Team Providers Care Rustic Terrazzo Setter Name Role Phone Juan Osorio MD Primary Care Provider Cristian Harley MD Unavailable Allergies No known active [...] Date Type Department Care Team Description 06/07/2024 [facility] Post Discharge Follow up phone call [address] [address] [place] 06/07/2024 [facility] Post Discharge Follow up phone call [address] [address] [address] [place] from Last 3 Months Surgical History Surgery Date Site/Laterality Comments HYSTERECTOMY CORONARY ARTERY BYPASS GRAFT 02/16/2014 - 02/15/2015 CARDIAC CATHETERIZATION CARDIAC CATHETERIZATION 05/31/2024 Chest/N/A Procedure: TAVR - PERCUTANEOUS FEMORAL; Surgeon: Cristian Harley MD; 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 More than 4 times per year 06/01/2024 Do you belong to any clubs o r organizations such as yazidism groups, unions, fraternal or athletic groups, or [...] and heating? Not hard at all 06/01/2024 [facility] of Occupat ional Health - Occupational Stress [...] any time in the past 12 m [facility], were you homeless or living in a assisted (including now)? No 06/01/2024 Personal Safety Answer Date Recorded Have you ever been in or are you currently in a harmful physical or emotional relationship or is someone making you feel afraid or unsafe? 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 Gender Identity Not on file Sexual Orientation [...] 1996 Well Visit 65+ 08/15/2011 Covid-19 Vaccine (2023-2 5 season) 2024 11/04/2023, 12/12/2020, 04/16/2020, Additional history exists Influenza Vaccine (#1) 2024 , 11/28/2022, 11/26/2022, Additional history exists Osteoporosis Screening-Bone Density Scan 03/04/2025 03/04/2023 Fall Risk Assessment 06/01/2025 06/01/2024 Pneumococcal vaccine 65+ Completed 09/07/2017, 04/17 Medical Devices Implanted Type [employer] Device Identifier Shelf Expiration Date Model / Serial / Lot Kinney Lifesciences Valve Aortic Trnscath Kendell 3 Ultra Resilia 20mm [id number] - [id number] - [id number] Implanted:Qty: 1 on 05/31/2024 by Cristian Harley MD at [facility] Prosthetic Valve [employer] 01/21/2026 [id number] / [id number] / Access Closure Inc Mynx Control 6-7fr 2 Mode Balloon Catheter Sealant Lock Syringe [id number] - [id number] - [id number] Implanted:Qty: 1 on 05/31/2024 by Cristian Harley MD at [facility] Vascular Closure Device Access [employer]osure Inc 03/28/2026 [id number] / [id number] / [id number] Ryan Vascular System Closure Repair Femoral Artery Suture Mediated Perclose Prostyle 73719-77 - [id number] Implanted:Qty: 1 on 05/31/2024 by Cristian Harley MD at [facility] [employer] 02/15/2026 [id number] / / [id number] [employer] V[employer] System Closure Repair Femoral Artery Suture Mediated Perclose Prostyle 63645-53 - [id number] Implanted:Qty: 1 on 05/31/2024 by Cristian Harley MD at [facility] Vascular 02/15/2026 [id number] / / [id number] Insurance [facility] MEDICARE [facility]ANT[facility] MEDIC[facility] Address: [address] [address] [place] [address] [place] [address] [place] [address] Care Teams Rustic Terrazzo Setter Relationship Specialty Start Date End Date Juan Osorio MD PCP - General 02/12/16 Cristian Harley MD [address] [facility] [place] [address] Consulting Physician Cardiology 06/01/24
--- OUTSIDE RECORDS SUMMARY | 2024-09-01 10:11 | XMS_ITS | Encounter Summary ---
Author Organization [facility] Healthcare Address [address] [place] [address] Care Team Providers Care Sketch Artist Name Role Phone Juan Osorio MD Primary Care Provider Cristian Harley MD Unavailable Encounter Details Date Type Department Care Team (Late st Contact Info) Description 06/07/2024 [facility] Post Discharge Follow up phone call [address] [address] [address] Social History Tobacco Use Types Packs/Day Years Used Date Smoking Tobacco: Never Smokeless Tobacco: Never Alcohol Use Standard Drinks/Week Comments No 0 (1 standard drink = 0.6 oz pur e alcohol) [facility] Utilities Answer Date Recorded In the past 12 months has [employer] electric, gas, oil, or water company threatened [...] often do you attend chur ch or orthodoxy services? More than 4 times per year 06/01/2024 Do you belong to any clubs o r organizations such as faith groups, unions, fraternal or athletic groups, or [...] and heating? Not hard at all 06/01/2024 [facility] [place] of Occupat ional Health - Occupational Stress [...] any time in the past 12 m [facility], were you homeless or living in a long term (including now)? No 06/01/2024 Personal Safety Answer Date Recorded Have you ever been in or are you currently in a harmful physical or emotional relationship or is someone making you feel afraid or unsafe? 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
--- OUTSIDE RECORDS SUMMARY | 2024-09-01 10:11 | XMS_ITS | Encounter Summary ---
Author Organization [facility] Healthcare Address [address] [place] [address] Care Team Providers Care Laborer Electroplating Name Role Phone Juan Osorio MD Primary Care Provider Cristian Harley MD Unavailable Encounter Details Date Type Department Care Team (Late st Contact Info) Description 04/28/2024 Cardiology Conference [facility] Non-invasive Cardiac Diagnostic Testing [address] [place] [address] Anshul Felipe, GUSTAVO Social History Tobacco Use Types Packs/Day Years Used Date Smoking Tobacco: Never Alcohol Use Standard Drinks/Week Comments No 0 (1 standard drink = 0.6 oz pur e alcohol) Comments Unknown Sex and Gender Information Value Date Recorded Sex Assigned at Not on file 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
--- OUTSIDE RECORDS SUMMARY | 2024-09-01 10:11 | XMS_ITS | Encounter Summary ---
Author Organization [facility] Healthcare Address [address] [place] [address] Care Team Providers Care Pourer Bull Ladle Name Role Phone Juan Osorio MD Primary Care Provider Cristian Harley MD Unavailable Encounter Details Date Type Department Care Team (Late st Contact Info) Description 06/07/2024 [facility] Post Discharge Follow up phone call [address] [address] [address] [place] Social History Tobacco Use Types Packs/Day Years Used Date Smoking Tobacco: Never Smokeless Tobacco: Never Alcohol Use Standard Drinks/Week Comments No 0 (1 standard drink = 0.6 oz pur e alcohol) [facility] Utilities Answer Date Recorded In the past 12 months has [employer] electric, gas, oil, or water company threatened [...] often do you attend chur ch or church services? More than 4 times per year 06/01/2024 Do you belong to any clubs o r organizations such as voodoo groups, unions, fraternal or athletic groups, or [...] and heating? Not hard at all 06/01/2024 [facility] [place] of Occupat ional Health - Occupational Stress [...] any time in the past 12 m [facility], were you homeless or living in a usp (including now)? No 06/01/2024 Personal Safety Answer Date Recorded Have you ever been in or are you currently in a harmful physical or emotional relationship or is someone making you feel afraid or unsafe? 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
== END 2024-09-01 10:08 | disposition home or self-care (01) ==
PROVIDERS: PCP Internal Medicine; Visit Provider Internal Medicine
DX: J18.9 Pneumonia, unspecified organism (principal)
CPT/HCPCS: 71046